=== PATIENT | male | born 1970 | race Caucasian/White ===

== ENCOUNTER 2024-03-04 10:56 | Outpatient (OUT) | payer MEDICARE, SELFPAY ==
[2024-03-04 11:44] LABS: Basophils Absolute Auto 0.1 10^3/uL (0.0-0.1); Basophils Percent Auto 0.9 % (0.2-2.0); Eosinophils Absolute Auto 0.2 10^3/uL (0.0-0.7); Eosinophils Percent Auto 2.4 % (0.9-7.0); Hematocrit 42.3 % (42.0-54.0); Hemoglobin 14.1 g/dL (14.0-18.0); Immature Granulocytes Abs Auto 0.12 10^3/uL (0.00-0.03); Immature Granulocytes Pct Auto 1.3 % (0.0-0.5); Lymphocytes Absolute Auto 2.6 10^3/uL (1.2-3.8); Lymphocytes Percent Auto 28.6 % (20.5-60.0); Mean Corpuscular HGB Conc 33.3 g/dL (29.9-35.2); Mean Corpuscular Hemoglobin 29.8 pg (25.9-34.0); Mean Corpuscular Volume 89.4 fL (80.0-94.0); Mean Platelet Volume 9.6 fL (9.5-13.5); Monocytes Absolute Auto 0.8 10^3/uL (0.3-0.8); Monocytes Percent Auto 8.8 % (1.7-12.0); Neutrophils Absolute Auto 5.3 10^3/uL (1.4-6.5); Platelet Count 419 10^3/uL (150-450); Red Blood Count 4.73 10^6/uL (4.70-6.10); Red Cell Distribution Width 13.6 % (11.0-15.0); White Blood Count 9.1 10^3/uL (4.0-11.0)
[2024-03-04 12:46] LABS: Estimated Average Glucose 131 mg/dL; Glycohemoglobin A1C 6.2 % (4.5-6.2)
[2024-03-04 12:57] LABS: Alanine Aminotransferase 19 U/L (16-63); Albumin Globulin Ratio 0.8; Albumin Level 3.3 g/dL (3.4-5.0); Alkaline Phosphatase 181 U/L (46-116); Anion Gap 13.5; Aspartate Amino Transferase 13 U/L (15-37); Bilirubin Total 0.4 mg/dL (0.2-1.0); Calcium 9.2 mg/dL (8.5-10.1); Carbon Dioxide 24.6 mmol/L (21.0-32.0); Chloride 102 mmol/L (98-107); Chol HDL Ratio 3.3; Cholesterol 159 mg/dL (<=200); Estimated GFR (African America >60 (>=60 mL/min/1.73m^2); Estimated GFR (Non-African Ame >60 (>=60 mL/min/1.73m^2); Free T3 2.62 pg/mL (2.18-3.98); Globulin 4.3 g/dL; Glucose 97 mg/dL (74-106); HDL Cholesterol 48 mg/dL (40-60); LDL Cholesterol Calculated 87.8 mg/dL; Potassium 4.1 mmol/L (3.5-5.1); Sodium 136 mmol/L (136-145); Thyroid Stimulating Hormone 2.348 uIU/mL (0.358-3.740); Total Protein 7.6 g/dL (6.4-8.2); Triglycerides 116 mg/dL (<=150); Uric Acid 6.2 mg/dL (3.5-7.2); VLDL CHOLESTEROL 23.2 mg/dL
[2024-03-04 13:03] LABS: Prostate Specific Antigen Scrn 0.34 ng/mL (<=4.00)
[2024-03-05 10:09] LABS: Insulin 9.7 uIU/mL (2.6-24.9)
== END 2024-03-04 10:57 | disposition home or self-care (01) ==
LOC: LAB 11:02
PROVIDERS: PCP Family Medicine; Visit Provider Family Medicine
DX: F20.9 Schizophrenia, unspecified (principal); I71.21 Aneurysm of the ascending aorta, without rupture; E11.620 Type 2 diabetes mellitus with diabetic dermatitis; F32.9 Major depressive disorder, single episode, unspecified; E78.5 Hyperlipidemia, unspecified; R53.83 Other fatigue; I10 Essential (primary) hypertension; Z12.12 Encounter for screening for malignant neoplasm of rectum; E03.9 Hypothyroidism, unspecified; Z12.5 Encounter for screening for malignant neoplasm of prostate
CPT/HCPCS: 36415; 80053; 80061; 83036; 83525; 84436; 84443; 84481; 84550; 85025; G0103

== ENCOUNTER 2024-05-12 13:07 | Outpatient (OUT) | payer MEDICARE, SELFPAY | END 2024-05-12 13:08 | disposition home or self-care (01) | PROVIDERS: PCP Family Medicine; Visit Provider Family Medicine | DX: M79.605 Pain in left leg (principal); R60.0 Localized edema | CPT/HCPCS: 93971 ==

== ENCOUNTER 2024-05-29 11:00 | Emergency (ER) | payer MEDICARE, SELFPAY ==
[2024-05-29 11:14] VITALS: BP 154/107; PULSE 84; TEMP 36.9; O2SAT 100; BMI 34.6
--- NOTE | 2024-05-29 11:43 | PC.NURSE ---
pt presents with his sister to the ER, pt sister states she caught pt using ICE this morning, pt sister called Dr Starr and he told her to bring pt to ER for detox. Pt states he does not want detox, Pt states he uses ICE once per week and can quit on his own.
--- NOTE | 2024-05-29 12:11 | PC.NURSE ---
pt sister presents to the nurses station stating pt would like to leave, pt sister request information on outpatient detox, [facility] packet given, pt has functional decison making and signs AMA form due to leaving before seeing physician. Pt and pt sister is advised to return should pt want to be seen at anytime. Both pt and pt sister signs AMA form, pt is ambulatory to ER exit with sister at side.
--- NOTE | 2024-05-29 12:12 | ED.MEDCLEAR1 ---
HPI - Medical Clearance General Chief complaint: Medical Clearance Stated complaint: INTOXICATION Time Seen by Provider: 05/29/24 12:12 Source: patient Mode of arrival: walk-in Limitations: no limitations Related Information Allergies Allergy/AdvReac Type Severity Reaction Status Date / Time No Known Drug Allergies Allergy Verified 05/29/24 11:13 PFSH PFSH Social History Little interest or pleasure in doing things: not at all Feeling down, depressed, or hopeless: not at all Exam Constitutional Vital Signs, click to edit/add: Last Vital Signs Temp 98.4 F 05/29/24 11:14 Pulse 84 05/29/24 11:14 Resp 20 05/29/24 11:14 BP 154/107 H 05/29/24 11:14 Pulse Ox 100 05/29/24 11:14 O2 Del Method Room Air 05/29/24 11:14 Course Vital Signs Vital signs: Vital Signs Temperature 98.4 F 05/29/24 11:14 Pulse Rate 84 05/29/24 11:14 Respiratory Rate 20 05/29/24 11:14 Blood Pressure 154/107 H 05/29/24 11:14 Pulse Oximetry 100 05/29/24 11:14 Oxygen Delivery Method Room Air 05/29/24 11:14 Temperature 98.4 F 05/29/24 11:14 Pulse Rate 84 05/29/24 11:14 Respiratory Rate 20 05/29/24 11:14 Blood Pressure 154/107 H 05/29/24 11:14 Pulse Oximetry 100 05/29/24 11:14 Oxygen Delivery Method Room Air 05/29/24 11:14 MDM - Medical Clearance MDM Narrative Medical decision making narrative: I was not able to see or evaluate this patient. I did discuss the triage report with Sabrina MARTÍNEZ. Patient was alert and orient x 3, GCS 15. Patient was not hallucinating, delirious, patient was acting appropriate. There was high ER volume at the time, I was not able to see and evaluate the patient. Patient did not want to be in the ER, did not want medical screening evaluation, wanted to leave the emergency room. In speaking to Sabrina MARTÍNEZ, patient was appropriate to make this decision. Patient had the functional decision-making capacity to sign out AGAINST MEDICAL ADVICE which he did. Patient's sister also signed the paperwork. They are aware of the wait times in the ER secondary to ER volume. Patient did not want to have any testing done, patient wanted to leave. Patient was appropriate. Please see Sabrina MARTÍNEZ note. Sabrina MARTÍNEZ had seen the patient a few times, also she believes that patient was appropriate to leave AGAINST MEDICAL ADVICE. No acute concerns from this patient. Patient had the functional decision made capacity to sign out AGAINST MEDICAL ADVICE. Patient was not under the influence of alcohol or drugs that we are aware of. Discharge Plan Discharge Stand Alone Forms: Portal Instructions Chief Complaint: Medical Clearance Clinical Impression: Left against medical advice Patient Disposition: Left Against Medical Advice Time of Disposition Decision: 12:15 Print Language: Azeri Referrals: Naman Starr MD [Primary Care Provider] - 1 week
== END 2024-05-29 12:18 | disposition left against medical advice (07) ==
PROVIDERS: Emergency Provider Emergency Medicine; PCP Family Medicine
DX: Z02.89 Encounter for other administrative examinations (principal); Z53.29 Procedure and treatment not carried out because of patient's decision for other reasons
CPT/HCPCS: 99282

== ENCOUNTER 2024-09-15 10:18 | Outpatient (OUT) | payer MEDICARE, SELFPAY ==
--- OUTSIDE RECORDS SUMMARY | 2024-09-15 10:24 | XMS_ITS | Clinical Summary ---
Author Organization [facility] Address [address] [facility] [place] [address] Care Team Providers Care Mill Oiler Name Role Phone Unavailable Primary Care Provider Unavailabl e Medications Benztropine 1 MG tablet Take 1 tablet by mouth 2 times daily for 14 days. 28 tablet 4 Active gliMEPIride 2 MG tablet Take 2 tablets by mouth 2 times daily for 14 days. 56 tablet 4 Active Haloperidol 1 MG tablet Take 1 tablet by mouth 2 times daily for 14 days. Also IM injection every 2 weeks. Due 05/17/23 28 tablet 4 Active Lisinopril 20 MG tablet Take 1 tablet by mouth daily for 14 days. 14 tablet 4 Active Social History Tobacco Use Types Packs/Day Years Used Date Smoking Tobacco: Every Day Cigarettes Smokeless Tobacco: Never Tobacco Cessation:Ready to Q uit: Not Asked; Counseling Given: Not Answered Alcohol Use Standard Drinks/Week Comments Not Currently 0 (1 standard drink = 0.6 oz pur e alcohol) Sex and Gender Information Value Date Recorded Sex Assigned at Not on file Legal Sex Male 4:15 PM EST Gender Identity Not on file Sexual Orientation Not on file Last Filed Vital Signs Vital Sign Reading Time Taken Comments Blood Pressure 156/75 05/06/2023 4:25 PM EST Pulse 101 05/06/2023 4:25 PM EST Temperature 36.6 C (97.9 F) 05/06/2023 4:25 PM EST Respiratory Rate 18 05/06/2023 4:25 PM EST Oxygen Saturation 95% 05/06/2023 4:25 PM EST Inhaled Oxygen Concentration - - Weight - - Height 185.4 cm (6' 1 ) 05/06/2023 4:25 PM EST Body Mass Index - - Plan of Treatment Health Maintenance Due Date Last Done Comments HEPATITIS C VIRUS SCREENING 1968 TETANUS 1968 HIV SCREENING DISCUSSION 1983 HEP B VACCINE (1 of 3 - 19+ 3-dose series) 1987 PNEUMOCOCCAL VACCINE SERIES (1 of 2 - PCV) 1987 TDAP (ADULT) 1987 LIPID SCREENING 2008 COLORECTAL CANCER SCREENING DISCUSSION 2013 ZOSTER (SHINGLES) VACCINE (1 of 2) 2018 PROSTATE CANCER SCREENING DISCUSSION 2023 COVID-19 VACCINE ( - season) 2023 INFLUENZA VACCINE (#1) 2024
--- OUTSIDE RECORDS SUMMARY | 2024-09-15 10:24 | XMS_ITS | Referral Summary ---
Author Organization [facility] Address [address] [place] [address] Care Team Providers Care Seismometer Operator Name Role Phone Unavailable Primary Care Provider Unavailabl e Social History Tobacco Use Types Packs/Day Years Used Date Smoking Tobacco: Never Assessed Sex and Gender Information Value Date Recorded Sex Assigned at Not on file Legal Sex Male 12:15 AM EDT Gender Identity Not on file Sexual Orientation Not on file Plan of Treatment Not on file
[2024-09-15 11:19] LABS: Alanine Aminotransferase 17 U/L (16-63); Albumin Globulin Ratio 0.9; Albumin Level 3.8 g/dL (3.4-5.0); Alkaline Phosphatase 244 U/L (46-116); Anion Gap 14.6; Aspartate Amino Transferase 15 U/L (15-37); Blood Urea Nitrogen 9.0 mg/dL (7.0-18.0); Calcium 9.4 mg/dL (8.5-10.1); Carbon Dioxide 24.5 mmol/L (21.0-32.0); Chloride 102 mmol/L (98-107); Estimated GFR (African America >60 (>=60 mL/min/1.73m^2); Estimated GFR (Non-African Ame >60 (>=60 mL/min/1.73m^2); Globulin 4.1 g/dL; Glucose 140 mg/dL (74-106); Potassium 4.1 mmol/L (3.5-5.1); Sodium 137 mmol/L (136-145); Total Protein 7.9 g/dL (6.4-8.2)
[2024-09-15 11:37] LABS: Total Protein Urine Random <6.0 mg/dL (<=11.9)
== END 2024-09-15 10:19 | disposition home or self-care (01) ==
PROVIDERS: PCP Family Medicine; Visit Provider Family Medicine
DX: F15.20 Other stimulant dependence, uncomplicated (principal); R73.09 Other abnormal glucose
CPT/HCPCS: 36415; 80053; 83036; 84156

== ENCOUNTER 2024-12-01 11:22 | Outpatient (OUT) | payer MEDICAID, SELFPAY ==
--- NOTE | 2024-12-01 11:26 | XR_ITS ---
The [address] [address] Patient Name: KUSUM KONG MRN: [id number] date: 1970 Sex: M Assigned Patient Location: [facility] Current Patient Location: [facility] Accession/Order Number: [id number] Exam Date: 12/01/2024 11:31 Report Date: 12/01/2024 11:55 At the request of: SWEETIE NUÑEZ MD Procedure: XR cervical spine 2-3V CERVICAL SPINE - 3 views: CLINICAL HISTORY: Chronic neck pain M54.12 COMPARISON: None AP, lateral and odontoid views were obtained. There is no acute compression fracture. There is slight retrolisthesis of C5 with respect to adjacent vertebra. This is disc space narrowing at C5-6 with endplate spurring. There is additional minor endplate spurring and bilateral facet hypertrophy. The atlantoaxial relationship is maintained. There is no prevertebral soft tissue swelling. Hemostasis clips are present at the neck on the right. XR/XR cervical spine 2-3V IMPRESSION: DEGENERATIVE CHANGES, PREDOMINANTLY AT C5-6. Impression dictated by: Dulce Maria Robledo M.D. 12/01/2024 11:55 AM Dictation [facility] Electronically authenticated by: [id number] Date: 12/01/2024 11:55
--- OUTSIDE RECORDS SUMMARY | 2024-12-01 12:14 | XMS_ITS | CCD ---
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 in Unspecified body regionOrdered By: Santos Roman on 05-05-2024 [facility]: PAT Call Historyon Deicer Tester Authentication Interface Message Text Normal The [email or web address] [facility] Patient Instructionson 04-27 Deicer Tester Authentication Interface Message Text We will see you for surgery to remove the external fixator pins on Saturday, 05/05. We will call you to confirm this. You were prescribed an antibiotic. Please take this twice daily as directed. Normal [facility] [email or web address] [facility] Progress Noteson 04-27-2024 Deicer Tester Authentication Interface Message Text Normal [facility] [email or web address] [facility] Deicer Tester Authentication Interface Message Text Patient at risk for falls:No Falls Risk protocol implemented: No Normal The [email or web address] [facility] Deicer Tester Authentication Interface Message Text Applied Kerlix to pin sit; [place] splint; LLE. Normal [facility] [email or web address] [facility] Deicer Tester Authentication Interface Message Text Normal [facility] [email or web address] [facility] XR ANKLE LEFT 3 VIEWSon 04-18 XR ANKLE LEFT 3 VIEWS Normal [facility] [email or web address] [facility] XR Ankle - left 3 Viewson EXAMINATION: XR ANKLE LEFT 3 VIEWSPRO/LT 04/27/2024 10:28 AM CLINICAL HISTORY: Ankle Pain ASSOCIATED DIAGNOSIS: Closed fracture of both ankles with routine healing, subsequent encounter Closed fracture of both ankles with routine healing, subsequent encounter ORDERING PROVIDER: JOHN SANTANA TECHNOLOGISTS NOTE: COMPARISON: XR ANKLE LEFT 3 VIEWS 02/12/2024, 1:[address] ANKLE/FOOT LEFT W/O CONTRAST 01/14/2024, 4:40 PM IMPRESSION: There is an external fixation device in place. Postsurgical changes from ORIF of the comminuted distal fibular fracture with a plate, multiple screws including 2 syndesmotic screws. The alignment has markedly improved in the interval with near anatomic alignment. The hardware appears intact. There is progressive bridging callus formation at the fracture site, consistent with progressive healing changes. Syndesmotic button/tight rope is overlying the medial malleolus, unchanged. Chronic avulsion fracture fragment along the inferior tip of the medial malleolus. Surgical petrona are overlying the soft tissue of the ankle/foot. Left ankle MACRO: None RADIOLOGY Madelaine Mendez MD - 04/27/2024 EXAMINATION: XR ANKLE LEFT 3 VIEWSPRO/LT 04/27/2024 10:28 AM CLINICAL HISTORY: Ankle Pain ASSOCIATED DIAGNOSIS: Closed fracture of both ankles with routine healing, subsequent encounter Closed fracture of both ankles with routine healing, subsequent encounter ORDERING PROVIDER: JOHN SANTANA TECHNOLOGISTS NOTE: COMPARISON: XR ANKLE LEFT 3 VIEWS 02/12/2024, 1:[address] ANKLE/FOOT LEFT W/O CONTRAST 01/14/2024, 4:40 PM IMPRESSION: There is an external fixation device in place. Postsurgical changes from ORIF of the comminuted distal fibular fracture with a plate, multiple screws including 2 syndesmotic screws. The alignment has markedly improved in the interval with near anatomic alignment. The hardware appears intact. There is progressive bridging callus formation at the fracture site, consistent with progressive healing changes. Syndesmotic button/tight rope is overlying the medial malleolus, unchanged. Chronic avulsion fracture fragment along the inferior tip of the medial malleolus. Surgical petrona are overlying the soft tissue of the ankle/foot. Left ankle MACRO: None [facility] Radiology Study observation (narrative) [facility] XR Ankle - left 3 ViewsOrder ed By: Madelaine Mendez on 04-27-2024 [email or web address] Work Phone: Telephone Encounteron 2024 Deicer Tester Authentication Interface Message Text Normal [facility] [email or web address] [facility] Patient Instructionson 03-09 Deicer Tester Authentication Interface Message Text - You have ankle fractures on both the right and left side. - DO NOT place weight on either leg yet. - Continue wearing your [place] splints. - Follow up in 6 weeks. Normal [facility] Progress Noteson 03-09-2024 Deicer Tester Authentication Interface Message Text Patient was identified by name and date of . Fit and applied [place] splint to right lower extremity. Patient instructed on how to apply [place] splint and to remain non weight bearing. Normal [facility] Deicer Tester Authentication Interface Message Text Normal [facility] Deicer Tester Authentication Interface Message Text Normal [facility] Telephone Encounteron 2023 Deicer Tester Authentication Interface Message Text Normal [facility] Telephone Encounteron 2023 Deicer Tester Authentication Interface Message Text Normal [facility] Progress Noteson 02-26-2024 Deicer Tester Authentication Interface Message Text Normal [facility] Deicer Tester Authentication Interface Message Text Normal [facility] Consultson 02-25-2024 Deicer Tester Authentication Interface Message Text Normal [facility] Deicer Tester Authentication Interface Message Text Normal [facility] Deicer Tester Authentication Interface Message Text Normal [facility] GLUCOSE, FINGERSTICK-IN OFFI CEon 02-25-2024 Glucose [Mass/Vol] 158 mg/dL High 74 - 109 mg/dL [facility] Interpretation and review of laboratory results Abnormal [facility] Glucose [Mass/Vol] 158 mg/dL High 74-109 [facility] Comment on above: Performed By: #### 8 5669 ####NURSING GLUCOSE [id number] [place], [address] Glucose [Mass/Vol] 187 mg/dL High 74 - 109 mg/dL [facility] Comment on above: Notified TANYA WEST MD Glucose [Mass/Vol] 187 mg/dL High 74-109 [facility] Comment on above: Result Comment: Priscilla lujan RN, APN, MD Performed By: #### 8 7200 ####NURSING GLUCOSE [id number] [place], [address] Glucose [Mass/Vol] 214 mg/dL High 74-109 [facility] Comment on above: Notified TANYA WEST MD Result Comment: Priscilla lujan RN, APN, MD Performed By: #### 8 9797 ####NURSING GLUCOSE [id number] [place], [address] Glucose [Mass/Vol] 136 mg/dL High 74 - 109 mg/dL [facility] Comment on above: Notified TANYA WEST MD Interpretation and review of laboratory results Abnormal [facility] Glucose [Mass/Vol] 136 mg/dL High 74-109 [facility] Comment on above: Result Comment: Priscilla lujan RN, APN, MD Performed By: #### 8 2948 ####NURSING GLUCOSE [id number] [place], [address] No Panel Informationon 02-24 Interpretation and review of laboratory results Abnormal [facility] Progress Noteson 02-25-2024 Deicer Tester Authentication Interface Message Text Normal [facility] Deicer Tester Authentication Interface Message Text Normal [facility] TISSUE CULTURE, AEROBICon Bacteria identified Cx Nom (Tiss) No Growth [facility] Microscopic observation Gram stain Nom (Unsp spec) No Polymorphonuclear Leukocytes seen [facility] Microscopic observation Gram stain Nom (Unsp spec) 1+ Squamous Epithelial Cells [facility] Microscopic observation Gram stain Nom (Unsp spec) No organisms seen [facility] Bacteria identified Cx Nom (Tiss) No Growth [facility] Microscopic observation Gram stain Nom (Unsp spec) No Polymorphonuclear Leukocytes seen [facility] Microscopic observation Gram stain Nom (Unsp spec) 1+ Squamous Epithelial Cells [facility] Microscopic observation Gram stain Nom (Unsp spec) No organisms seen [facility] TISSUE CULTURE, AEROBICOrder ed By: Nichole Lee on 02-25-2024 Bacteria identified Cx Nom (Tiss) No Growth [facility] Microscopic observation Gram stain Nom (Unsp spec) No Polymorphonuclear Leukocytes seen [facility] Microscopic observation Gram stain Nom (Unsp spec) 1+ Squamous Epithelial Cells [facility] Microscopic observation Gram stain Nom (Unsp spec) No organisms seen [facility] GLUCOSE, FINGERSTICK-IN OFFI CEon 02-24-2024 Glucose [Mass/Vol] 146 mg/dL High 74 - 109 mg/dL [facility] Interpretation and review of laboratory results Abnormal [facility] Glucose [Mass/Vol] 146 mg/dL High 74-109 [facility] Comment on above: Performed By: #### 8 2948 ####NURSING GLUCOSE [id number] [place], [address] Glucose [Mass/Vol] 174 mg/dL High 74 - 109 mg/dL [facility] Comment on above: Notified TANYA WEST MD Interpretation and review of laboratory results Abnormal [facility] Glucose [Mass/Vol] 174 mg/dL High 74-109 [facility] Comment on above: Result Comment: Priscilla lujan RN, APN, MD Performed By: #### 8 2948 ####NURSING GLUCOSE [id number] [place], [address] Glucose [Mass/Vol] 132 mg/dL High 74 - 109 mg/dL [facility] Comment on above: Notified TANYA WEST MD Interpretation and review of laboratory results Abnormal [facility] Glucose [Mass/Vol] 132 mg/dL High 74-109 [facility] Comment on above: Result Comment: Priscilla lujan RN, APN, MD Performed By: #### 8 1888 ####NURSING GLUCOSE [id number] [place], [address] Glucose [Mass/Vol] 157 mg/dL High 74 - 109 mg/dL [facility] Comment on above: Follow Protocol Notified TANYA WEST MD Interpretation and review of laboratory results Abnormal [facility] Glucose [Mass/Vol] 157 mg/dL High 74-109 [facility] Comment on above: Result Comment: Foll ow ProtocolNotified TANYA WEST MD Performed By: #### 8 0618 ####NURSING GLUCOSE [id number] [place], [address] Progress Noteson 02-24-2024 Deicer Tester Authentication Interface Message Text Normal [facility] Deicer Tester Authentication Interface Message Text Normal [facility] GLUCOSE, FINGERSTICK-IN OFFI CEon 02-23-2024 Glucose [Mass/Vol] 136 mg/dL High 74 - 109 mg/dL [facility] Interpretation and review of laboratory results Abnormal [facility] Glucose [Mass/Vol] 136 mg/dL High 74-109 [facility] Comment on above: Performed By: #### 8 2368 ####NURSING GLUCOSE [id number] [place], [address] Glucose [Mass/Vol] 132 mg/dL High 74 - 109 mg/dL [facility] Comment on above: Notified TANYA WEST MD Interpretation and review of laboratory results Abnormal [facility] Glucose [Mass/Vol] 132 mg/dL High 74-109 [facility] Comment on above: Result Comment: Priscilla lujan RN, APN, MD Performed By: #### 8 6888 ####NURSING GLUCOSE [id number] [place], [address] Glucose [Mass/Vol] 147 mg/dL High 74 - 109 mg/dL [facility] Interpretation and review of laboratory results Abnormal [facility] Glucose [Mass/Vol] 147 mg/dL High 74-109 [facility] Comment on above: Performed By: #### 8 2948 ####NURSING GLUCOSE [id number] [place], [address] Glucose [Mass/Vol] 118 mg/dL High 74 - 109 mg/dL [facility] Interpretation and review of laboratory results Abnormal [facility] Glucose [Mass/Vol] 118 mg/dL High 74-109 [facility] Comment on above: Performed By: #### 8 2948 ####NURSING GLUCOSE [id number] [place], [address] Progress Noteson 02-23-2024 Deicer Tester Authentication Interface Message Text Normal [facility] BASIC METABOLIC PANELon 12-0 Anion gap [Moles/Vol] 12 mmol/L Normal 10-20 [facility] Comment on above: Performed By: #### C H8 ####[facility] PATHOLOGY [id number] [place], Calcium [Mass/Vol] 9.1 mg/dL Normal 8.6-10.3 [facility] Comment on above: Performed By: #### C H8 ####[facility] PATHOLOGY [id number] [place], [place], Chloride [Moles/Vol] 101 mmol/L Normal 98-107 [facility] Comment on above: Performed By: #### C H8 ####[facility] PATHOLOGY [id number] [place], CO2 [Moles/Vol] 25 mmol/L Normal 21-31 [facility] Comment on above: Performed By: #### C H8 ####[facility] PATHOLOGY [id number] [place], Creatinine [Mass/Vol] 0.83 mg/dL Normal 0.70-1.30 [facility] Comment on above: Performed By: #### C H8 ####S PATHOLOGY [id number] [place], ESTIMATED GFR (CKD-EPI) 103 mL/min/1.73sqm Normal >=60 [facility] Comment on above: Result Comment: 2020 CKD EPI Equation using Creatinine without RaceComment: Estimated glomerular filtration rate (eGFR) is calculated without a race coefficient. Values should be interpreted in the context of the patient's full clinical presentation.Reference:1. Rudy C, Katie M, Tea GALVEZ, et al.. A Unifying Approach for GFR Estimation: Recommendations of the NKF-ASN Task Force on Reassessing the Inclusion of Race in Diagnosing Kidney Disease. French Journal of Kidney Diseases 2021;79(2):268-88.e1.2. N Engl J Med 2020 Vol. 385 Issue 19 Pages 5105-8403 Performed By: #### C H8 ####[facility] PATHOLOGY [id number] [place], [place], Glucose [Mass/Vol] 103 mg/dL Normal 74-109 [facility] Comment on above: Performed By: #### C H8 ####S PATHOLOGY [id number] [place], [place], Potassium [Moles/Vol] 4.3 mmol/L Normal 3.5-5.0 [facility] Comment on above: Performed By: #### C H8 ####S PATHOLOGY [id number] [place], Sodium [Moles/Vol] 134 mmol/L Low 136-145 [facility] Comment on above: Performed By: #### C H8 ####S PATHOLOGY [id number] [place], Urea nitrogen [Mass/Vol] 18 mg/dL Normal 7-25 [facility] Comment on above: Performed By: #### C H8 ####S PATHOLOGY [id number] [place], [place], Basic metabolic 2000 panelon 02-22-2024 Anion gap [Moles/Vol] 12 mmol/L 10 - 20 [facility] Calcium [Mass/Vol] 9.1 mg/dL 8.6 - 10. 3 mg/dL [facility] Chloride [Moles/Vol] 101 mmol/L 98 - 10 7 mmol/L [facility] CO2 [Moles/Vol] 25 mmol/L 21 - 31 mmol/L [facility] Creatinine [Mass/Vol] 0.83 mg/dL 0.70 - 1.30 mg/dL [facility] GFR/1.73 sq M.predicted CKD-EPI (S/P/Bld) [Vol rate/Area] 103 - PINF [facility] Comment on above: 2020 CKD EPI Equatio n using Creatinine without Race Comment: Estimated glomerular filtration rate (eGFR) is calculated without a race coefficient. Values should be interpreted in the context of the patient's full clinical presentation. Reference: 1. Rudy C, Katie M, Tea DC, et al.. A Unifying Approach for GFR Estimation: Recommendations of the NKF-ASN Task Force on Reassessing the Inclusion of Race in Diagnosing Kidney Disease. French Journal of Kidney Diseases 2021;79(2):268-88.e1. 2. N Engl J Med 1 Vol. 385 Issue 19 Pages 8166-6307 Glucose [Mass/Vol] 103 mg/dL 74 - 109 mg/dL [facility] Interpretation and review of laboratory results Abnormal [facility] Potassium [Moles/Vol] 4.3 mmol/L 3.5 - 5.0 mmol/L [facility] Sodium [Moles/Vol] 134 mmol/L Low 136 - 145 mmol/L [facility] Urea nitrogen [Mass/Vol] 18 mg/dL 7 - 25 mg/dL [facility] CBC panel Auto (Bld)on 02-21 Erythrocyte distribution width (RBC) [Ratio] 13.9 % 11.5 - 14.5 % [facility] Hematocrit (Bld) [Volume fraction] 37.7 % Low 41.0 - 53.0 % [facility] Hemoglobin (Bld) [Mass/Vol] 12.6 g/dL Low 13.9 - 16.3 g/dL [facility] Interpretation and review of laboratory results Abnormal [facility] MCH (RBC) [Entitic mass] 30.3 pg 26.0 - 34.0 pg [facility] MCHC (RBC) [Mass/Vol] 33.5 g/dL 32.0 - 35.9 g/dL [facility] MCV (RBC) [Entitic vol] 91 fL 80 - 100 fL [facility] Platelet mean volume (Bld) [Entitic vol] 8.2 fL 7.5 - 11.2 fL [facility] Platelets (Bld) [#/Vol] 273 10*3/uL 150 - 400 K/uL [facility] RBC (Bld) [#/Vol] 4.15 10*6/uL Low [facility] WBC (Bld) [#/Vol] 10.7 10*3/uL 4.5 - 11.5 K/uL [facility] COMPLETE BLOOD COUNTon 02-21 Erythrocyte distribution width (RBC) [Ratio] 13.9 % Normal 11.5-14.5 [facility] Comment on above: Performed By: #### C BC ####[facility] PATHOLOGY [id number] [place], Hematocrit (Bld) [Volume fraction] 37.7 % Low 41.0-53.0 [facility] Comment on above: Performed By: #### C BC ####[facility] PATHOLOGY [id number] [place] [address], Hemoglobin (Bld) [Mass/Vol] 12.6 g/dL Low 13.9-16.3 [facility] Comment on above: Performed By: #### C BC ####[facility] PATHOLOGY [id number] [place], MCH (RBC) [Entitic mass] 30.3 pg Normal 26.0-34.0 [facility] Comment on above: Performed By: #### C BC ####S PATHOLOGY [id number] [place], MCHC (RBC) [Mass/Vol] 33.5 g/dL Normal 32.0-35.9 [facility] Comment on above: Performed By: #### C BC ####S PATHOLOGY [id number] [place], MCV (RBC) [Entitic vol] 91 fL Normal 80-100 T [facility] Comment on above: Performed By: #### C BC ####S PATHOLOGY [id number] [place], Platelet mean volume (Bld) [Entitic vol] 8.2 fL Normal 7.5-11.2 [facility] Comment on above: Performed By: #### C BC ####S PATHOLOGY [id number] [place], Platelets (Bld) [#/Vol] 273 10*3/uL Normal 150-400 [facility] Comment on above: Performed By: #### C BC ####[facility] PATHOLOGY [id number] [place], RBC (Bld) [#/Vol] 4.15 10*6/uL Low 4.50-5.90 [facility] Comment on above: Performed By: #### C BC ####[facility] PATHOLOGY [id number] [place], WBC (Bld) [#/Vol] 10.7 10*3/uL Normal 4.5-11.5 [facility] Comment on above: Performed By: #### C BC ####[facility] PATHOLOGY [id number] [place], [place], Consultson 02-22-2024 Deicer Tester Authentication Interface Message Text Normal [facility] Deicer Tester Authentication Interface Message Text Normal [facility] GLUCOSE, FINGERSTICK-IN OFFI CEon 02-22-2024 Glucose [Mass/Vol] 130 mg/dL High 74 - 109 mg/dL [facility] Interpretation and review of laboratory results Abnormal [facility] Glucose [Mass/Vol] 130 mg/dL High 74-109 [facility] Comment on above: Performed By: #### 8 2948 ####NURSING GLUCOSE [id number] [place], Glucose [Mass/Vol] 114 mg/dL High 74 - 109 mg/dL [facility] Interpretation and review of laboratory results Abnormal [facility] Glucose [Mass/Vol] 114 mg/dL High 74-109 [facility] Comment on above: Performed By: #### 8 2948 ####NURSING GLUCOSE [id number] [place], [address] Glucose [Mass/Vol] 153 mg/dL High 74 - 109 mg/dL [facility] Comment on above: Notified TANYA WEST MD Interpretation and review of laboratory results Abnormal [facility] Glucose [Mass/Vol] 153 mg/dL High 74-109 [facility] Comment on above: Result Comment: Priscilla lujan RN, APN, MD Performed By: #### 8 2948 ####NURSING GLUCOSE [id number] [place], [address] Glucose [Mass/Vol] 107 mg/dL 74 - 109 mg/dL [facility] Comment on above: Notified TANYA WEST MD Interpretation and review of laboratory results Normal [facility] Glucose [Mass/Vol] 107 mg/dL Normal 74-109 [facility] Comment on above: Result Comment: Priscilla lujan RN, APN, MD Performed By: #### 8 2948 ####NURSING GLUCOSE [id number] [place], [address] Progress Noteson 02-22-2024 Deicer Tester Authentication Interface Message Text Normal [facility] Consultson 02-21-2024 Deicer Tester Authentication Interface Message Text Normal [facility] Deicer Tester Authentication Interface Message Text Normal [facility] GLUCOSE, FINGERSTICK-IN OFFI CEon 02-21-2024 Glucose [Mass/Vol] 158 mg/dL High 74 - 109 mg/dL [facility] Comment on above: Notified TANYA WEST MD Interpretation and review of laboratory results Abnormal [facility] Glucose [Mass/Vol] 158 mg/dL High 74-109 [facility] Comment on above: Result Comment: Priscilla lujan RN, APN, MD Performed By: #### 8 2948 ####NURSING GLUCOSE [id number] [place], [address] Glucose [Mass/Vol] 119 mg/dL High 74 - 109 mg/dL [facility] Comment on above: Notified TANYA WEST MD Interpretation and review of laboratory results Abnormal [facility] Glucose [Mass/Vol] 119 mg/dL High 74-109 [facility] Comment on above: Result Comment: Priscilla lujan RN, APN, MD Performed By: #### 8 2948 ####NURSING GLUCOSE [id number] [place], [address] Glucose [Mass/Vol] 154 mg/dL High 74 - 109 mg/dL [facility] Interpretation and review of laboratory results Abnormal [facility] Glucose [Mass/Vol] 154 mg/dL High 74-109 [facility] Comment on above: Performed By: #### 8 2948 ####NURSING GLUCOSE [id number] [place], [address] Glucose [Mass/Vol] 211 mg/dL High 74 - 109 mg/dL [facility] Comment on above: Notified TANYA WEST MD Interpretation and review of laboratory results Abnormal [facility] Glucose [Mass/Vol] 211 mg/dL High 74-109 [facility] Comment on above: Result Comment: Priscilla fied TANYA WEST MD Performed By: #### 8 2948 ####NURSING GLUCOSE [id number] [place], [address] Progress Noteson 02-21-2024 Deicer Tester Authentication Interface Message Text Normal [facility] ANAEROBIC CULTURE, MISCon ANAEROBIC CULTURE, MISC C ANRBC: No Anaerobes isolated Normal [facility] Comment on above: Performed By: #### C ANRBC ####[facility] H[address]du[address]zys[address] [place], [place] ANAEROBIC CULTURE, MISC C ANRBC: No Anaerobes isolated Normal [facility] Comment on above: Performed By: #### C ANRBC ####[facility] Qooscljja4810 [place], [place] Anesthesia Postprocedure Josselin luationon 02-20-2024 Deicer Tester Authentication Interface Message Text Normal [facility] Anesthesia Preprocedure Eval uationon 02-20-2024 Deicer Tester Authentication Interface Message Text Normal [facility] Anesthesia Transfer Of Careo n 02-20-2024 Deicer Tester Authentication Interface Message Text Normal [facility] Blood Attestationon 02-20-20 Deicer Tester Authentication Interface Message Text Normal [facility] GLUCOSE, FINGERSTICK-IN OFFI CEon 02-20-2024 Glucose [Mass/Vol] 254 mg/dL High 74 - 109 mg/dL [facility] Comment on above: Notified TANYA WEST MD Interpretation and review of laboratory results Abnormal [facility] Glucose [Mass/Vol] 254 mg/dL High 74-109 [facility] Comment on above: Result Comment: Priscilla lujan RN, APN, MD Performed By: #### 8 2948 ####NURSING GLUCOSE [id number] [place], [address] Glucose [Mass/Vol] 188 mg/dL High 74 - 109 mg/dL [facility] Comment on above: Notified TANYA WEST MD Interpretation and review of laboratory results Abnormal [facility] Glucose [Mass/Vol] 188 mg/dL High 74-109 [facility] Comment on above: Result Comment: Priscilla lujan RN, APN, MD Performed By: #### 8 2948 ####NURSING GLUCOSE [id number] [place], [address] Glucose [Mass/Vol] 170 mg/dL High 74 - 109 mg/dL [facility] Comment on above: Notified TANYA WEST MD Interpretation and review of laboratory results Abnormal [facility] Glucose [Mass/Vol] 170 mg/dL High 74-109 [facility] Comment on above: Result Comment: Priscilla lujan RN, APN, MD Performed By: #### 8 2948 ####NURSING GLUCOSE [id number] [place], [address] Glucose [Mass/Vol] 167 mg/dL High 74 - 109 mg/dL [facility] Interpretation and review of laboratory results Abnormal [facility] Glucose [Mass/Vol] 167 mg/dL High 74-109 [facility] Comment on above: Performed By: #### 8 2948 ####NURSING GLUCOSE [id number] [place], [address] H AND Cleve 02-20-2024 Deicer Tester Authentication Interface Message Text Normal [facility] Deicer Tester Authentication Interface Message Text Normal [facility] OP Noteon 02-20-2024 Deicer Tester Authentication Interface Message Text Normal [facility] TISSUE CULTURE, AEROBICon TISSUE CULTURE, AEROBIC C TISS: No Growth GRAM STAIN: No Polymorphonuclear Leukocytes seen 1+ Squamous Epithelial Cells No organisms seen Normal [facility] Comment on above: Performed By: #### C TISS ####[facility] [address] [place], [place] TISSUE CULTURE, AEROBIC C TISS: No Growth GRAM STAIN: No Polymorphonuclear Leukocytes seen 1+ Squamous Epithelial Cells No organisms seen Normal [email or web address] Comment on above: Performed By: #### C TISS ####[facility] [address] [place], [place] PAT Call Historyon Deicer Tester Authentication Interface Message Text Called patient multiple times, no answer/no voicemail set up, PAT not completed at this time Normal [email or web address] Telephone Encounteron 2023 Deicer Tester Authentication Interface Message Text Called patient to make aware of arrival time of 1045 for scheduled surgery on 02/19 at [facility]. Also made aware to have phone nearby for scheduled phone PAT today. Normal [email or web address] XR ANKLE LEFT 3 VIEWSon 01-17 XR ANKLE LEFT 3 VIEWS Normal [email or web address] XR ANKLE RIGHT 3 VIEWSon XR ANKLE RIGHT 3 VIEWS Normal Th e [email or web address] Patient Instructionson 02-11 Deicer Tester Authentication Interface Message Text Normal [email or web address] Progress Noteson 02-12-2024 Deicer Tester Authentication Interface Message Text Normal [email or web address] Deicer Tester Authentication Interface Message Text Normal [email or web address] Deicer Tester Authentication Interface Message Text Normal [email or web address] Deicer Tester Authentication Interface Message Text Patient was identified by name and date of . Bilat short leg splints removed without incident. Both splints were dirty and worn down. The right short leg splint was missing the foot portion. Sent patient to X-rays. Normal [email or web address] Progress Noteson 02-05-2024 Deicer Tester Authentication Interface Message Text Normal [email or web address] Telephone Encounteron 2023 Deicer Tester Authentication Interface Message Text Normal [email or web address] ANTI FXA-LMW HEPARINon 01-29 LMW Heparin Chromogenic method Qn (PPP) 0.32 IU/mL [facility] ANTI FXA-LMW HEPARIN ASSAY 0.32 IU/mL Normal [email or web address] Comment on above: Order Comment: The r ecommended therapeutic range for treatment of thrombosis with Low Molecular Weight Heparin is 0.5 - 1.0 IU/mLThe recommended range for VTE prophylaxis with Low Molecular Weight Heparin is 0.2 - 0.4 IU/mL. Performed By: #### A XL ####[facility] [id number] [place], [place], BASIC METABOLIC PANELon 11-1 Anion gap [Moles/Vol] 13 mmol/L Normal 10-20 [facility] Comment on above: Performed By: #### C H8 ####S PATHOLOGY [id number] [place], Calcium [Mass/Vol] 9.0 mg/dL Normal 8.6-10.3 [facility] Comment on above: Performed By: #### C H8 ####[facility] PATHOLOGY [id number] [place], Chloride [Moles/Vol] 99 mmol/L Normal 98-107 [facility] Comment on above: Performed By: #### C H8 ####[facility] PATHOLOGY [id number] [place], CO2 [Moles/Vol] 27 mmol/L Normal 21-31 [facility] Comment on above: Performed By: #### C H8 ####S PATHOLOGY [id number] [place], Creatinine [Mass/Vol] 0.79 mg/dL Normal 0.70-1.30 [facility] Comment on above: Performed By: #### C H8 ####S PATHOLOGY [id number] [place], ESTIMATED GFR (CKD-EPI) 105 mL/min/1.73sqm Normal >=60 [facility] Comment on above: Result Comment: 2020 CKD EPI Equation using Creatinine without RaceComment: Estimated glomerular filtration rate (eGFR) is calculated without a race coefficient. Values should be interpreted in the context of the patient's full clinical presentation.Reference:1. Rudy C, Katie M, Tea DC, et al.. A Unifying Approach for GFR Estimation: Recommendations of the NKF-ASN Task Force on Reassessing the Inclusion of Race in Diagnosing Kidney Disease. French Journal of Kidney Diseases 2021;79(2):268-88.e1.2. N Engl J Med 1 Vol. 385 Issue 19 Pages 2505-1807 Performed By: #### C H8 ####[facility] PATHOLOGY [id number] [place], Glucose [Mass/Vol] 108 mg/dL Normal 74-109 [facility] Comment on above: Performed By: #### C H8 ####S PATHOLOGY ZRZAIZGNAK8129 [place], Potassium [Moles/Vol] 4.9 mmol/L Normal 3.5-5.0 [facility] Comment on above: Performed By: #### C H8 ####[facility] PATHOLOGY [id number] [place], Sodium [Moles/Vol] 134 mmol/L Low 136-145 [facility] Comment on above: Performed By: #### C H8 ####[facility] PATHOLOGY [id number] [place], Urea nitrogen [Mass/Vol] 19 mg/dL Normal 7-25 [facility] Comment on above: Performed By: #### C H8 ####[facility] PATHOLOGY [id number] [place], [place], Basic metabolic 2000 panelon 01-30-2024 Anion gap [Moles/Vol] 13 mmol/L 10 - 20 Met [facility] Calcium [Mass/Vol] 9 mg/dL 8.6 - 10. 3 mg/dL [facility] Chloride [Moles/Vol] 99 mmol/L 98 - 10 7 mmol/L [facility] CO2 [Moles/Vol] 27 mmol/L 21 - 31 mmol/L [facility] Creatinine [Mass/Vol] 0.79 mg/dL 0.70 - 1.30 mg/dL [facility] GFR/1.73 sq M.predicted CKD-EPI (S/P/Bld) [Vol rate/Area] 105 - PINF [facility] Glucose [Mass/Vol] 108 mg/dL 74 - 109 mg/dL [facility] Interpretation and review of laboratory results Abnormal [facility] Potassium [Moles/Vol] 4.9 mmol/L 3.5 - 5.0 mmol/L [facility] Sodium [Moles/Vol] 134 mmol/L Low 136 - 145 mmol/L [facility] Urea nitrogen [Mass/Vol] 19 mg/dL 7 - 25 mg/dL [facility] CBC panel Auto (Bld)on 01-29 Erythrocyte distribution width (RBC) [Ratio] 13.6 % 11.5 - 14.5 % [facility] Hematocrit (Bld) [Volume fraction] 34 % Low 41.0 - 53.0 % [facility] Hemoglobin (Bld) [Mass/Vol] 11.5 g/dL Low 13.9 - 16.3 g/dL [facility] Interpretation and review of laboratory results Abnormal [facility] MCH (RBC) [Entitic mass] 30.9 pg 26.0 - 34.0 pg [facility] MCHC (RBC) [Mass/Vol] 33.9 g/dL 32.0 - 35.9 g/dL [facility] MCV (RBC) [Entitic vol] 91 fL 80 - 100 fL [facility] Platelet mean volume (Bld) [Entitic vol] 8.7 fL 7.5 - 11.2 fL [facility] Platelets (Bld) [#/Vol] 623 10*3/uL High 150 - 400 K/uL [facility] RBC (Bld) [#/Vol] 3.72 10*6/uL Low [facility] WBC (Bld) [#/Vol] 9 10*3/uL 4.5 - 11.5 K/uL [facility] COMPLETE BLOOD COUNTon 01-29 Erythrocyte distribution width (RBC) [Ratio] 13.6 % Normal 11.5-14.5 [facility] Comment on above: Performed By: #### C BC ####S PATHOLOGY [id number] [place], Hematocrit (Bld) [Volume fraction] 34.0 % Low 41.0-53.0 [facility] Comment on above: Performed By: #### C BC ####[facility] PATHOLOG[facility] [id number] [place], Hemoglobin (Bld) [Mass/Vol] 11.5 g/dL Low 13.9-16.3 [facility] Comment on above: Performed By: #### C BC ####[facility] PATHOLOGY [id number] [place], MCH (RBC) [Entitic mass] 30.9 pg Normal 26.0-34.0 [facility] Comment on above: Performed By: #### C BC ####S PATHOLOGY [id number] [place], MCHC (RBC) [Mass/Vol] 33.9 g/dL Normal 32.0-35.9 [facility] Comment on above: Performed By: #### C BC ####S PATHOLOGY [id number] [place], MCV (RBC) [Entitic vol] 91 fL Normal 80-100 T he [facility] Comment on above: Performed By: #### C BC ####S PATHOLOGY [id number] [place], Platelet mean volume (Bld) [Entitic vol] 8.7 fL Normal 7.5-11.2 [facility] Comment on above: Performed By: #### C BC ####S PATHOLOGY [id number] [place], Platelets (Bld) [#/Vol] 623 10*3/uL High 150-400 [facility] Comment on above: Performed By: #### C BC ####S PATHOLOGY [id number] [place], RBC (Bld) [#/Vol] 3.72 10*6/uL Low 4.50-5.90 [facility] Comment on above: Performed By: #### C BC ####S PATHOLOGY [id number] [place], WBC (Bld) [#/Vol] 9.0 10*3/uL Normal 4.5-11.5 [facility] Comment on above: Performed By: #### C BC ####[facility] PATHOLOGY [id number] [place], [place], Consultson 01-30-2024 Deicer Tester Authentication Interface Message Text Normal [facility] Discharge Planning Noteon Deicer Tester Authentication Interface Message Text Normal [facility] GLUCOSE, FINGERSTICK-IN OFFI CEon 01-30-2024 Glucose [Mass/Vol] 84 mg/dL 74 - 109 mg/dL [facility] Interpretation and review of laboratory results Normal [facility] Glucose [Mass/Vol] 84 mg/dL Normal 74-109 [facility] Comment on above: Performed By: #### 8 4951 ####NURSING GLUCOSE [id number] [place], [address] Glucose [Mass/Vol] 132 mg/dL High 74 - 109 mg/dL [facility] Interpretation and review of laboratory results Abnormal [facility] Glucose [Mass/Vol] 132 mg/dL High 74-109 [facility] Comment on above: Performed By: #### 8 3827 ####NURSING GLUCOSE [id number] [place], [address] Glucose [Mass/Vol] 155 mg/dL High 74 - 109 mg/dL [facility] Interpretation and review of laboratory results Abnormal [facility] Glucose [Mass/Vol] 155 mg/dL High 74-109 [facility] Comment on above: Performed By: #### 8 9706 ####NURSING GLUCOSE [id number] [place], [address] Progress Noteson 01-30-2024 Deicer Tester Authentication Interface Message Text Normal [facility] Deicer Tester Authentication Interface Message Text Normal [facility] Consultson 01-29-2024 Deicer Tester Authentication Interface Message Text Normal [facility] GLUCOSE, FINGERSTICK-IN OFFI CEon 01-29-2024 Glucose [Mass/Vol] 116 mg/dL High 74 - 109 mg/dL [facility] Interpretation and review of laboratory results Abnormal [facility] Glucose [Mass/Vol] 116 mg/dL High 74-109 [facility] Comment on above: Result Comment: Priscilla lujan RN, APN, MD Performed By: #### 8 0269 ####NURSING GLUCOSE [id number] [place], [address] Glucose [Mass/Vol] 142 mg/dL High 74 - 109 mg/dL [facility] Interpretation and review of laboratory results Abnormal [facility] Glucose [Mass/Vol] 142 mg/dL High 74-109 [facility] Comment on above: Performed By: #### 8 1842 ####NURSING GLUCOSE [id number] [place], [address] Glucose [Mass/Vol] 203 mg/dL High 74 - 109 mg/dL [facility] Interpretation and review of laboratory results Abnormal [facility] Glucose [Mass/Vol] 203 mg/dL High 74-109 [facility] Comment on above: Performed By: #### 8 3399 ####NURSING GLUCOSE [id number] [place], [address] Progress Noteson 01-29-2024 Deicer Tester Authentication Interface Message Text Normal [facility] Deicer Tester Authentication Interface Message Text Normal [facility] Consultson 01-28-2024 Deicer Tester Authentication Interface Message Text Normal [facility] Deicer Tester Authentication Interface Message Text Normal [facility] GLUCOSE, FINGERSTICK-IN OFFI CEon 01-28-2024 Glucose [Mass/Vol] 185 mg/dL High 74 - 109 mg/dL [facility] Interpretation and review of laboratory results Abnormal [facility] Glucose [Mass/Vol] 185 mg/dL High 74-109 [facility] Comment on above: Result Comment: Priscilla lujan RN, APN, MD Performed By: #### 8 9994 ####NURSING GLUCOSE [id number] [place], [address] Glucose [Mass/Vol] 206 mg/dL High 74 - 109 mg/dL [facility] Interpretation and review of laboratory results Abnormal [facility] Glucose [Mass/Vol] 206 mg/dL High 74-109 [facility] Comment on above: Result Comment: Priscilla lujan RN, APN, MD Performed By: #### 8 2844 ####NURSING GLUCOSE [id number] [place], [address] Glucose [Mass/Vol] 135 mg/dL High 74 - 109 mg/dL [facility] Interpretation and review of laboratory results Abnormal [facility] Glucose [Mass/Vol] 135 mg/dL High 74-109 [facility] Comment on above: Performed By: #### 8 1057 ####NURSING GLUCOSE [id number] [place], [address] Glucose [Mass/Vol] 160 mg/dL High 74 - 109 mg/dL [facility] Interpretation and review of laboratory results Abnormal [facility] Glucose [Mass/Vol] 160 mg/dL High 74-109 [facility] Comment on above: Performed By: #### 8 2907 ####NURSING GLUCOSE [id number] [place], [address] Progress Noteson 01-28-2024 Deicer Tester Authentication Interface Message Text Normal [facility] Deicer Tester Authentication Interface Message Text Normal [facility] BASIC METABOLIC PANELon 01-16 Anion gap [Moles/Vol] 10 mmol/L Normal 10-20 [facility] Comment on above: Performed By: #### Melissa H8, MG ####[facility] PATHOLOG[facility] [id number] [place], Calcium [Mass/Vol] 8.3 mg/dL Low 8.6-10.3 [facility] Comment on above: Performed By: #### Melissa H8, MG ####[facility] PATHOLOGY [id number] [place], Chloride [Moles/Vol] 99 mmol/L Normal 98-107 [facility] Comment on above: Performed By: #### Melissa H8, MG ####[facility] PATHOLOGY [id number] [place], CO2 [Moles/Vol] 26 mmol/L Normal 21-31 [facility] Comment on above: Performed By: #### Melissa H8, MG ####[facility] PATHOLOGY [id number] [place], Creatinine [Mass/Vol] 0.68 mg/dL Low 0.70-1.30 [facility] Comment on above: Performed By: #### Melissa H8, MG ####[facility] PATHOLOGY [id number] [place], ESTIMATED GFR (CKD-EPI) 110 mL/min/1.73sqm Normal >=60 [facility] Comment on above: Result Comment: 2020 CKD EPI Equation using Creatinine without RaceComment: Estimated glomerular filtration rate (eGFR) is calculated without a race coefficient. Values should be interpreted in the context of the patient's full clinical presentation.Reference:1. Rudy Torres, Katie M, Tea GALVEZ, et al.. A Unifying Approach for GFR Estimation: Recommendations of the NKF-ASN Task Force on Reassessing the Inclusion of Race in Diagnosing Kidney Disease. French Journal of Kidney Diseases 2021;79(2):268-88.e1.2. N Engl J Med 1 Vol. 385 Issue 19 Pages 0278-3550 Performed By: #### Melissa Taylor8, MG ####[facility] PATHOLOGY [id number] [place], Glucose [Mass/Vol] 189 mg/dL High 74-109 [facility] Comment on above: Performed By: #### Melissa Taylor8, MG ####[facility] PATHOLOGY [id number] [place], Potassium [Moles/Vol] 4.4 mmol/L Normal 3.5-5.0 [facility] Comment on above: Performed By: #### Melissa Taylor8, MG ####[facility] PATHOLOGY [id number] [place], Sodium [Moles/Vol] 131 mmol/L Low 136-145 [facility] Comment on above: Performed By: #### Melissa Taylor8, MG ####[facility] PATHOLOGY [id number] [place], Urea nitrogen [Mass/Vol] 17 mg/dL Normal 7-25 [facility] Comment on above: Performed By: #### Melissa H8, MG ####[facility] PATHOLOGY [id number] [place], Basic metabolic 2000 panelon 01-27-2024 Anion gap [Moles/Vol] 10 mmol/L 10 - 20 Met [facility] Calcium [Mass/Vol] 8.3 mg/dL Low 8.6 - 10. 3 mg/dL [facility] Chloride [Moles/Vol] 99 mmol/L 98 - 10 7 mmol/L [facility] CO2 [Moles/Vol] 26 mmol/L 21 - 31 mmol/L [facility] Creatinine [Mass/Vol] 0.68 mg/dL Low 0.70 - 1.30 mg/dL [facility] GFR/1.73 sq M.predicted CKD-EPI (S/P/Bld) [Vol rate/Area] 110 - PINF [facility] Glucose [Mass/Vol] 189 mg/dL High 74 - 109 mg/dL [facility] Interpretation and review of laboratory results Abnormal [facility] Potassium [Moles/Vol] 4.4 mmol/L 3.5 - 5.0 mmol/L [facility] Sodium [Moles/Vol] 131 mmol/L Low 136 - 145 mmol/L [facility] Urea nitrogen [Mass/Vol] 17 mg/dL 7 - 25 mg/dL [facility] CBC panel Auto (Bld)on 01-26 Erythrocyte distribution width (RBC) [Ratio] 13.4 % 11.5 - 14.5 % [facility] Hematocrit (Bld) [Volume fraction] 31.1 % Low 41.0 - 53.0 % [facility] Hemoglobin (Bld) [Mass/Vol] 10.3 g/dL Low 13.9 - 16.3 g/dL [facility] Interpretation and review of laboratory results Abnormal [facility] MCH (RBC) [Entitic mass] 30.4 pg 26.0 - 34.0 pg [facility] MCHC (RBC) [Mass/Vol] 33.2 g/dL 32.0 - 35.9 g/dL [facility] MCV (RBC) [Entitic vol] 92 fL 80 - 100 fL [facility] Platelet mean volume (Bld) [Entitic vol] 8.2 fL 7.5 - 11.2 fL [facility] Platelets (Bld) [#/Vol] 504 10*3/uL High 150 - 400 K/uL [facility] RBC (Bld) [#/Vol] 3.4 10*6/uL Low [facility] WBC (Bld) [#/Vol] 11.1 10*3/uL 4.5 - 11.5 K/uL [facility] COMPLETE BLOOD COUNTon 01-26 Erythrocyte distribution width (RBC) [Ratio] 13.4 % Normal 11.5-14.5 [facility] Comment on above: Performed By: #### C BC ####S PATHOLOGY [id number] [place], Hematocrit (Bld) [Volume fraction] 31.1 % Low 41.0-53.0 [facility] Comment on above: Performed By: #### C BC ####S PATHOLOGY [id number] [place], Hemoglobin (Bld) [Mass/Vol] 10.3 g/dL Low 13.9-16.3 [facility] Comment on above: Performed By: #### C BC ####[facility] PATHOLOGY [id number] [place], MCH (RBC) [Entitic mass] 30.4 pg Normal 26.0-34.0 [facility] Comment on above: Performed By: #### C BC ####[facility] PATHOLOGY [id number] [place], MCHC (RBC) [Mass/Vol] 33.2 g/dL Normal 32.0-35.9 [facility] Comment on above: Performed By: #### C BC ####[facility] PATHOLOGY [id number] [place], MCV (RBC) [Entitic vol] 92 fL Normal 80-100 T [facility] Comment on above: Performed By: #### C BC ####[facility] PATHOLOGY [id number] [place], Platelet mean volume (Bld) [Entitic vol] 8.2 fL Normal 7.5-11.2 [facility] Comment on above: Performed By: #### C BC ####[facility] PATHOLOGY [id number] [place], Platelets (Bld) [#/Vol] 504 10*3/uL High 150-400 [facility] Comment on above: Performed By: #### C BC ####[facility] PATHOLOGY [id number] [place], RBC (Bld) [#/Vol] 3.40 10*6/uL Low 4.50-5.90 [facility] Comment on above: Performed By: #### C BC ####S PATHOLOGY [id number] [place], WBC (Bld) [#/Vol] 11.1 10*3/uL Normal 4.5-11.5 [facility] Comment on above: Performed By: #### C BC ####S PATHOLOGY [id number] [place], Consultson 11-11-2024 Deicer Tester Authentication Interface Message Text Normal [facility] Deicer Tester Authentication Interface Message Text Normal [facility] GLUCOSE, FINGERSTICK-IN OFFI CEon 01-27-2024 Glucose [Mass/Vol] 159 mg/dL High 74 - 109 mg/dL [facility] Interpretation and review of laboratory results Abnormal [facility] Glucose [Mass/Vol] 159 mg/dL High 74-109 [facility] Comment on above: Performed By: #### 8 2948 ####NURSING GLUCOSE [id number] [place], [address] Glucose [Mass/Vol] 126 mg/dL High 74 - 109 mg/dL [facility] Interpretation and review of laboratory results Abnormal [facility] Glucose [Mass/Vol] 126 mg/dL High 74-109 [facility] Comment on above: Performed By: #### 8 2948 ####NURSING GLUCOSE [id number] [place] [address], [address] Glucose [Mass/Vol] 210 mg/dL High 74 - 109 mg/dL [facility] Interpretation and review of laboratory results Abnormal [facility] Glucose [Mass/Vol] 210 mg/dL High 74-109 [facility] Comment on above: Performed By: #### 8 2948 ####NURSING GLUCOSE [id number] [place], [address] Glucose [Mass/Vol] 199 mg/dL High 74 - 109 mg/dL [facility] Interpretation and review of laboratory results Abnormal [facility] Glucose [Mass/Vol] 199 mg/dL High 74-109 [facility] Comment on above: Performed By: #### 8 2948 ####NURSING GLUCOSE [id number] [place], [address] MAGNESIUMon 01-27-2024 Interpretation and review of laboratory results Normal [facility] Magnesium [Mass/Vol] 1.9 mg/dL 1.9 - 2 .7 mg/dL [facility] Magnesium [Mass/Vol] 1.9 mg/dL Normal 1.9-2.7 [facility] Comment on above: Performed By: #### C H8, MG ####[facility] PATH[facility] [id number] [place], No Panel Informationon 01-26 [facility] Progress Noteson 01-27-2024 Deicer Tester Authentication Interface Message Text Normal [facility] Deicer Tester Authentication Interface Message Text Normal [facility] Deicer Tester Authentication Interface Message Text Normal [facility] Deicer Tester Authentication Interface Message Text Normal [facility] Deicer Tester Authentication Interface Message Text Normal [facility] BASIC METABOLIC PANELon 11-1 Anion gap [Moles/Vol] 12 mmol/L Normal 10-20 [facility] Comment on above: Performed By: #### C H8, MG ####[facility] PATH[facility] [id number] [place], Calcium [Mass/Vol] 8.2 mg/dL Low 8.6-10.3 [facility] Comment on above: Performed By: #### C H8, MG ####[facility] PATH[facility] UVBCRQPIBO4657 [place], Chloride [Moles/Vol] 99 mmol/L Normal 98-107 [facility] Comment on above: Performed By: #### C H8, MG ####[facility] PATHOLOGY [id number] [place], CO2 [Moles/Vol] 24 mmol/L Normal 21-31 [facility] Comment on above: Performed By: #### C H8, MG ####[facility] PATHOLOGY [id number] [place], Creatinine [Mass/Vol] 0.77 mg/dL Normal 0.70-1.30 [facility] Comment on above: Performed By: #### C H8, MG ####[facility] PATH[facility] [id number] [place], ESTIMATED GFR (CKD-EPI) 106 mL/min/1.73sqm Normal >=60 [facility] Comment on above: Result Comment: 2020 CKD EPI Equation using Creatinine without RaceComment: Estimated glomerular filtration rate (eGFR) is calculated without a race coefficient. Values should be interpreted in the context of the patient's full clinical presentation.Reference:1. Rudy Torres, Katie M, eTa GALVEZ, et al.. A Unifying Approach for GFR Estimation: Recommendations of the NKF-ASN Task Force on Reassessing the Inclusion of Race in Diagnosing Kidney Disease. French Journal of Kidney Diseases 2021;79(2):268-88.e1.2. N Engl J Med 1 Vol. 385 Issue 19 Pages 8110-0951 Performed By: #### C H8, MG ####[facility] [id number] [place], [place], Glucose [Mass/Vol] 198 mg/dL High 74-109 [facility] Comment on above: Performed By: #### C H8, MG ####[facility] [id number] [place], Potassium [Moles/Vol] 4.5 mmol/L Normal 3.5-5.0 [facility] Comment on above: Performed By: #### C H8, MG ####[facility] PATH[facility] [id number] [place], Sodium [Moles/Vol] 130 mmol/L Low 136-145 [facility] Comment on above: Performed By: #### C H8, MG ####[facility] PATH[facility] [id number] [place], Urea nitrogen [Mass/Vol] 15 mg/dL Normal 7-25 [facility] Comment on above: Performed By: #### C H8, MG ####[facility] PATH[facility] [id number] [place], [place], Basic metabolic 2000 panelon 01-26-2024 Anion gap [Moles/Vol] 12 mmol/L 10 - 20 Met [facility] Calcium [Mass/Vol] 8.2 mg/dL Low 8.6 - 10. 3 mg/dL [facility] Chloride [Moles/Vol] 99 mmol/L 98 - 10 7 mmol/L [facility] CO2 [Moles/Vol] 24 mmol/L 21 - 31 mmol/L [facility] Creatinine [Mass/Vol] 0.77 mg/dL 0.70 - 1.30 mg/dL [facility] GFR/1.73 sq M.predicted CKD-EPI (S/P/Bld) [Vol rate/Area] 106 - PINF [facility] Glucose [Mass/Vol] 198 mg/dL High 74 - 109 mg/dL [facility] Interpretation and review of laboratory results Abnormal [facility] Potassium [Moles/Vol] 4.5 mmol/L 3.5 - 5.0 mmol/L [facility] Sodium [Moles/Vol] 130 mmol/L Low 136 - 145 mmol/L [facility] Urea nitrogen [Mass/Vol] 15 mg/dL 7 - 25 mg/dL [facility] CBC panel Auto (Bld)on 01-25 Erythrocyte distribution width (RBC) [Ratio] 13.4 % 11.5 - 14.5 % [facility] Hematocrit (Bld) [Volume fraction] 32.2 % Low 41.0 - 53.0 % [facility] Hemoglobin (Bld) [Mass/Vol] 10.7 g/dL Low 13.9 - 16.3 g/dL [facility] Interpretation and review of laboratory results Abnormal [facility] MCH (RBC) [Entitic mass] 30.8 pg 26.0 - 34.0 pg [facility] MCHC (RBC) [Mass/Vol] 33.4 g/dL 32.0 - 35.9 g/dL [facility] MCV (RBC) [Entitic vol] 92 fL 80 - 100 fL [facility] Platelet mean volume (Bld) [Entitic vol] 8.3 fL 7.5 - 11.2 fL [facility] Platelets (Bld) [#/Vol] 482 10*3/uL High 150 - 400 K/uL [facility] RBC (Bld) [#/Vol] 3.48 10*6/uL Low [facility] WBC (Bld) [#/Vol] 10.7 10*3/uL 4.5 - 11.5 K/uL [facility] COMPLETE BLOOD COUNTon 01-25 Erythrocyte distribution width (RBC) [Ratio] 13.4 % Normal 11.5-14.5 [facility] Comment on above: Performed By: #### C BC ####S PATHOLOGY [id number] [place] [address], [address] Hematocrit (Bld) [Volume fraction] 32.2 % Low 41.0-53.0 [facility] Comment on above: Performed By: #### C BC ####[facility] PATHOLOG[facility] [id number] [place], Hemoglobin (Bld) [Mass/Vol] 10.7 g/dL Low 13.9-16.3 [facility] Comment on above: Performed By: #### C BC ####[facility] PATHOLOGY [id number] [place], MCH (RBC) [Entitic mass] 30.8 pg Normal 26.0-34.0 [facility] Comment on above: Performed By: #### C BC ####[facility] PATHOLOGY [id number] [place], MCHC (RBC) [Mass/Vol] 33.4 g/dL Normal 32.0-35.9 [facility] Comment on above: Performed By: #### C BC ####[facility] PATHOLOGY [id number] [place] [address], MCV (RBC) [Entitic vol] 92 fL Normal 80-100 T [facility] Comment on above: Performed By: #### C BC ####[facility] PATHOLOGY [id number] [place], Platelet mean volume (Bld) [Entitic vol] 8.3 fL Normal 7.5-11.2 [facility] Comment on above: Performed By: #### C BC ####[facility] PATHOLOGY [id number] [place], Platelets (Bld) [#/Vol] 482 10*3/uL High 150-400 [facility] Comment on above: Performed By: #### C BC ####[facility] PATHOLOGY [id number] [place], RBC (Bld) [#/Vol] 3.48 10*6/uL Low 4.50-5.90 [facility] Comment on above: Performed By: #### C BC ####[facility] PATHOLOGY [id number] [place], WBC (Bld) [#/Vol] 10.7 10*3/uL Normal 4.5-11.5 [facility] Comment on above: Performed By: #### C BC ####[facility] [id number] [place], GLUCOSE, FINGERSTICK-IN OFFI CEon 01-26-2024 Glucose [Mass/Vol] 256 mg/dL High 74 - 109 mg/dL [facility] Interpretation and review of laboratory results Abnormal [facility] Glucose [Mass/Vol] 256 mg/dL High 74-109 [facility] Comment on above: Performed By: #### 8 2948 ####NURSING GLUCOSE [id number] [place], [address] Glucose [Mass/Vol] 215 mg/dL High 74 - 109 mg/dL [facility] Interpretation and review of laboratory results Abnormal [facility] Glucose [Mass/Vol] 215 mg/dL High 74-109 [facility] Comment on above: Performed By: #### 8 2948 ####NURSING GLUCOSE [id number] [place], [address] Glucose [Mass/Vol] 129 mg/dL High 74 - 109 mg/dL [facility] Interpretation and review of laboratory results Abnormal [facility] Glucose [Mass/Vol] 129 mg/dL High 74-109 [facility] Comment on above: Performed By: #### 8 2948 ####NURSING GLUCOSE [id number] [place], [address] Glucose [Mass/Vol] 183 mg/dL High 74 - 109 mg/dL [facility] Interpretation and review of laboratory results Abnormal [facility] Glucose [Mass/Vol] 183 mg/dL High 74-109 [facility] Comment on above: Performed By: #### 8 2948 ####NURSING GLUCOSE [id number] [place] [address], [address] MAGNESIUMon 01-26-2024 Interpretation and review of laboratory results Normal [facility] Magnesium [Mass/Vol] 2.2 mg/dL 1.9 - 2 .7 mg/dL [facility] Magnesium [Mass/Vol] 2.2 mg/dL Normal 1.9-2.7 [facility] Comment on above: Performed By: #### C H8, MG ####[facility] [id number] [place], No Panel Informationon 01-25 [facility] Progress Noteson 01-26-2024 Deicer Tester Authentication Interface Message Text Normal [facility] Deicer Tester Authentication Interface Message Text Normal [facility] BASIC METABOLIC PANELon 11-0 Anion gap [Moles/Vol] 14 mmol/L Normal 10-20 [facility] Comment on above: Performed By: #### Jono Deluca, CH8 ####[facility] PATH[facility] [id number] [place], Calcium [Mass/Vol] 8.3 mg/dL Low 8.6-10.3 [facility] Comment on above: Performed By: #### Jono Deluca, CH8 ####[facility] PATH[facility] [id number] [place], Chloride [Moles/Vol] 98 mmol/L Normal 98-107 [facility] Comment on above: Performed By: #### Jono Deluca, CH8 ####[facility] PATH[facility] [id number] [place], CO2 [Moles/Vol] 23 mmol/L Normal 21-31 [facility] Comment on above: Performed By: #### Jono Deluca, CH8 ####[facility] PATH[facility] [id number] [place], Creatinine [Mass/Vol] 0.81 mg/dL Normal 0.70-1.30 [facility] Comment on above: Performed By: #### Jono Deluca, CH8 ####[facility] PATH[facility] [id number] [place], ESTIMATED GFR (CKD-EPI) 104 mL/min/1.73sqm Normal >=60 [facility] Comment on above: Result Comment: 2020 CKD EPI Equation using Creatinine without RaceComment: Estimated glomerular filtration rate (eGFR) is calculated without a race coefficient. Values should be interpreted in the context of the patient's full clinical presentation.Reference:1. Rudy Torres, Katie M, Tea GALVEZ, et al.. A Unifying Approach for GFR Estimation: Recommendations of the NKF-ASN Task Force on Reassessing the Inclusion of Race in Diagnosing Kidney Disease. French Journal of Kidney Diseases 202;79(2):268-88.e1.2. N Engl J Med 1 Vol. 385 Issue 19 Pages 7111-5739 Performed By: #### Jono Deluca, MAGO8 ####S PATHOLOGY [id number] [place], Glucose [Mass/Vol] 147 mg/dL High 74-109 [facility] Comment on above: Performed By: #### Jono Deluca, MAGO8 ####[facility] PATHOLOG[facility] [id number] [place], Potassium [Moles/Vol] 4.6 mmol/L Normal 3.5-5.0 [facility] Comment on above: Performed By: #### Jono Deluca, MAGO8 ####S PATHOLOGY [id number] [place], Sodium [Moles/Vol] 130 mmol/L Low 136-145 [facility] Comment on above: Performed By: #### Jono Deluca, MAGO8 ####S PATHOLOGY [id number] [place], Urea nitrogen [Mass/Vol] 15 mg/dL Normal 7-25 [facility] Comment on above: Performed By: #### Jono Deluca, MAGO8 ####S PATHOLOGY [id number] [place], Basic metabolic 2000 panelon 01-25-2024 Anion gap [Moles/Vol] 14 mmol/L 10 - 20 Met [facility] Calcium [Mass/Vol] 8.3 mg/dL Low 8.6 - 10. 3 mg/dL [facility] Chloride [Moles/Vol] 98 mmol/L 98 - 10 7 mmol/L [facility] CO2 [Moles/Vol] 23 mmol/L 21 - 31 mmol/L [facility] Creatinine [Mass/Vol] 0.81 mg/dL 0.70 - 1.30 mg/dL [facility] GFR/1.73 sq M.predicted CKD-EPI (S/P/Bld) [Vol rate/Area] 104 - PINF [facility] Glucose [Mass/Vol] 147 mg/dL High 74 - 109 mg/dL [facility] Potassium [Moles/Vol] 4.6 mmol/L 3.5 - 5.0 mmol/L [facility] Sodium [Moles/Vol] 130 mmol/L Low 136 - 145 mmol/L [facility] Urea nitrogen [Mass/Vol] 15 mg/dL 7 - 25 mg/dL [facility] CBC panel Auto (Bld)on 01-24 Erythrocyte distribution width (RBC) [Ratio] 13.4 % 11.5 - 14.5 % [facility] Hematocrit (Bld) [Volume fraction] 32.1 % Low 41.0 - 53.0 % [facility] Hemoglobin (Bld) [Mass/Vol] 10.8 g/dL Low 13.9 - 16.3 g/dL [facility] Interpretation and review of laboratory results Abnormal [facility] MCH (RBC) [Entitic mass] 31.2 pg 26.0 - 34.0 pg [facility] MCHC (RBC) [Mass/Vol] 33.7 g/dL 32.0 - 35.9 g/dL [facility] MCV (RBC) [Entitic vol] 93 fL 80 - 100 fL [facility] Platelet mean volume (Bld) [Entitic vol] 7.5 fL 7.5 - 11.2 fL [facility] Platelets (Bld) [#/Vol] 457 10*3/uL High 150 - 400 K/uL [facility] RBC (Bld) [#/Vol] 3.47 10*6/uL Low [facility] WBC (Bld) [#/Vol] 9.7 10*3/uL 4.5 - 11.5 K/uL [facility] COMPLETE BLOOD COUNTon 01-24 Erythrocyte distribution width (RBC) [Ratio] 13.4 % Normal 11.5-14.5 [facility] Comment on above: Performed By: #### C BC ####[facility] PATHOLOG[facility] [id number] [place], Hematocrit (Bld) [Volume fraction] 32.1 % Low 41.0-53.0 [facility] Comment on above: Performed By: #### C BC ####[facility] PATHOLOGY [id number] [place], Hemoglobin (Bld) [Mass/Vol] 10.8 g/dL Low 13.9-16.3 [facility] Comment on above: Performed By: #### C BC ####[facility] PATHOLOGY [id number] [place], MCH (RBC) [Entitic mass] 31.2 pg Normal 26.0-34.0 [facility] Comment on above: Performed By: #### C BC ####S PATHOLOGY [id number] [place], MCHC (RBC) [Mass/Vol] 33.7 g/dL Normal 32.0-35.9 [facility] Comment on above: Performed By: #### C BC ####[facility] PATHOLOGY [id number] [place], MCV (RBC) [Entitic vol] 93 fL Normal 80-100 T [facility] Comment on above: Performed By: #### C BC ####[facility] PATHOLOGY [id number] [place], Platelet mean volume (Bld) [Entitic vol] 7.5 fL Normal 7.5-11.2 [facility] Comment on above: Performed By: #### C BC ####[facility] PATHOLOGY [id number] [place], Platelets (Bld) [#/Vol] 457 10*3/uL High 150-400 [facility] Comment on above: Performed By: #### C BC ####[facility] PATHOLOGY [id number] [place], RBC (Bld) [#/Vol] 3.47 10*6/uL Low 4.50-5.90 [facility] Comment on above: Performed By: #### C BC ####S PATHOLOGY [id number] [place], WBC (Bld) [#/Vol] 9.7 10*3/uL Normal 4.5-11.5 [facility] Comment on above: Performed By: #### C BC ####S PATHOLOGY [id number] [place], EKG 12 LEAD - PERFORMon 11-0 Diagnosis [facility] P wave [facility] by EKG 67 BPM [facility] P wave axis 189 degrees [facility] P-R Interval 186 ms [facility] Q[facility] interval 412 ms [facility] Q-T interval corrected 435 ms [facility] QRS axis 218 degrees [facility] QRS duration 102 ms [facility] T wave axis 164 degrees [facility] GLUCOSE, FINGERSTICK-IN OFFI CEon 01-25-2024 Glucose [Mass/Vol] 189 mg/dL High 74 - 109 mg/dL [facility] Interpretation and review of laboratory results Abnormal [facility] Glucose [Mass/Vol] 189 mg/dL High 74-109 [facility] Comment on above: Performed By: #### 8 2948 ####NURSING GLUCOSE [id number] [place], [address] Glucose [Mass/Vol] 159 mg/dL High 74 - 109 mg/dL [facility] Interpretation and review of laboratory results Abnormal [facility] Glucose [Mass/Vol] 159 mg/dL High 74-109 [facility] Comment on above: Performed By: #### 8 2948 ####NURSING GLUCOSE [id number] [place], [address] Glucose [Mass/Vol] 160 mg/dL High 74 - 109 mg/dL [facility] Interpretation and review of laboratory results Abnormal [facility] Glucose [Mass/Vol] 160 mg/dL High 74-109 [facility] Comment on above: Performed By: #### 8 2948 ####NURSING GLUCOSE [id number] [place], [address] MAGNESIUMon 01-25-2024 Magnesium [Mass/Vol] 1.8 mg/dL Low 1.9 - 2 .7 mg/dL [facility] Magnesium [Mass/Vol] 1.8 mg/dL Low 1.9-2.7 [facility] Comment on above: Performed By: #### M Yosi, CH8 ####[facility] PATHOLOGY [id number] [place], [address] No Panel Informationon 01-24 Interpretation and review of laboratory results [facility] Progress [facility]on 01-25-2024 Deicer Tester Authentication Interface Message Text 01/25/24 1431 Vital Signs Temperature 101.1 ???F (38.4 ???C) Temperature Source 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 Tylenol given. Normal [facility] Deicer Tester Authentication Interface Message Text Normal [facility] Deicer Tester Authentication Interface Message Text Normal [facility] Anesthesia Acute Painon Deicer Tester Authentication Interface Message Text Normal [facility] Anesthesia Postprocedure Josselin luationon 01-24-2024 Deicer Tester Authentication Interface Message Text Normal [facility] Anesthesia Preprocedure Eval uationon 01-24-2024 Deicer Tester Authentication Interface Message Text Normal [facility] Anesthesia Procedure Noteson 01-24-2024 Deicer Tester Authentication Interface Message Text Invalid Interpretation Code [facility] Deicer Tester Authentication Interface Message Text Invalid Interpretation Code [facility] Anesthesia Transfer Of Careo n 01-24-2024 Deicer Tester Authentication Interface Message Text Normal [facility] BASIC METABOLIC PANELon Anion gap [Moles/Vol] 12 mmol/L Normal 10-20 [facility] Comment on above: Performed By: #### C H8, MG ####S PATHOLOGY [id number] [place], Calcium [Mass/Vol] 8.8 mg/dL Normal 8.6-10.3 [facility] Comment on above: Performed By: #### C H8, MG ####[facility] PATHOLOG[facility] [id number] [place], Chloride [Moles/Vol] 102 mmol/L Normal 98-107 [facility] Comment on above: Performed By: #### C H8, MG ####S PATHOLOGY [id number] [place], CO2 [Moles/Vol] 24 mmol/L Normal 21-31 [facility] Comment on above: Performed By: #### C H8, MG ####[facility] PATHOLOG[facility] [id number] [place], Creatinine [Mass/Vol] 0.71 mg/dL Normal 0.70-1.30 [facility] Comment on above: Performed By: #### C H8, MG ####[facility] PATH[facility] [id number] [place], ESTIMATED GFR (CKD-EPI) 108 mL/min/1.73sqm Normal >=60 [facility] Comment on above: Result Comment: 2020 CKD EPI Equation using Creatinine without RaceComment: Estimated glomerular filtration rate (eGFR) is calculated without a race coefficient. Values should be interpreted in the context of the patient's full clinical presentation.Reference:1. Rudy Torres, Katie M, Tea GALVEZ, et al.. A Unifying Approach for GFR Estimation: Recommendations of the NKF-ASN Task Force on Reassessing the Inclusion of Race in Diagnosing Kidney Disease. French Journal of Kidney Diseases 2021;79(2):268-88.e1.2. N Engl J Med 1 Vol. 385 Issue 19 Pages 9077-1645 Performed By: #### Melissa Taylor8, MG ####[facility] PATH[facility] [id number] [place], Glucose [Mass/Vol] 149 mg/dL High 74-109 [facility] Comment on above: Performed By: #### Melissa H8, MG ####[facility] PATHOLOGY [id number] [place], Potassium [Moles/Vol] 4.3 mmol/L Normal 3.5-5.0 [facility] Comment on above: Performed By: #### Melissa H8, MG ####[facility] PATHOLOG[facility] [id number] [place], Sodium [Moles/Vol] 134 mmol/L Low 136-145 [facility] Comment on above: Performed By: #### Melissa H8, MG ####[facility] PATHOLOG[facility] [id number] [place], Urea nitrogen [Mass/Vol] 11 mg/dL Normal 7-25 [facility] Comment on above: Performed By: #### Melissa H8, MG ####[facility] PATHOLOG[facility] [id number] [place], [place], Basic metabolic 2000 panelon 01-24-2024 Anion gap [Moles/Vol] 12 mmol/L 10 - 20 Met [facility] Calcium [Mass/Vol] 8.8 mg/dL 8.6 - 10. 3 mg/dL [facility] Chloride [Moles/Vol] 102 mmol/L 98 - 10 7 mmol/L [facility] CO2 [Moles/Vol] 24 mmol/L 21 - 31 mmol/L [facility] Creatinine [Mass/Vol] 0.71 mg/dL 0.70 - 1.30 mg/dL [facility] GFR/1.73 sq M.predicted CKD-EPI (S/P/Bld) [Vol rate/Area] 108 - PINF [facility] Glucose [Mass/Vol] 149 mg/dL High 74 - 109 mg/dL [facility] Interpretation and review of laboratory results Abnormal [facility] Potassium [Moles/Vol] 4.3 mmol/L 3.5 - 5.0 mmol/L [facility] Sodium [Moles/Vol] 134 mmol/L Low 136 - 145 mmol/L [facility] Urea nitrogen [Mass/Vol] 11 mg/dL 7 - 25 mg/dL [facility] Blood Attestationon 01-24-20 Deicer Tester Authentication Interface Message Text Normal [facility] CBC panel Auto (Bld)on 01-23 Erythrocyte distribution width (RBC) [Ratio] 13.4 % 11.5 - 14.5 % [facility] Hematocrit (Bld) [Volume fraction] 34.4 % Low 41.0 - 53.0 % [facility] Hemoglobin (Bld) [Mass/Vol] 11.4 g/dL Low 13.9 - 16.3 g/dL [facility] Interpretation and review of laboratory results Abnormal [facility] MCH (RBC) [Entitic mass] 30.9 pg 26.0 - 34.0 pg [facility] MCHC (RBC) [Mass/Vol] 33.2 g/dL 32.0 - 35.9 g/dL [facility] MCV (RBC) [Entitic vol] 93 fL 80 - 100 fL [facility] Platelet mean volume (Bld) [Entitic vol] 7.4 fL Low 7.5 - 11.2 fL [facility] Platelets (Bld) [#/Vol] 441 10*3/uL High 150 - 400 K/uL [facility] RBC (Bld) [#/Vol] 3.7 10*6/uL Low [facility] WBC (Bld) [#/Vol] 7.2 10*3/uL 4.5 - 11.5 K/uL [facility] COMPLETE BLOOD COUNTon 01-23 Erythrocyte distribution width (RBC) [Ratio] 13.4 % Normal 11.5-14.5 [facility] Comment on above: Performed By: #### C BC ####[facility] PATHOLOGY [id number] [place], Hematocrit (Bld) [Volume fraction] 34.4 % Low 41.0-53.0 [facility] Comment on above: Performed By: #### C BC ####[facility] PATHOLOGY [id number] [place] [address], Hemoglobin (Bld) [Mass/Vol] 11.4 g/dL Low 13.9-16.3 [facility] Comment on above: Performed By: #### C BC ####[facility] PATHOLOGY [id number] [place] [address], MCH (RBC) [Entitic mass] 30.9 pg Normal 26.0-34.0 [facility] Comment on above: Performed By: #### C BC ####[facility] PATHOLOGY [id number] [place] [address], MCHC (RBC) [Mass/Vol] 33.2 g/dL Normal 32.0-35.9 [facility] Comment on above: Performed By: #### C BC ####[facility] PATHOLOGY [id number] [place] [address], MCV (RBC) [Entitic vol] 93 fL Normal 80-100 T [facility] Comment on above: Performed By: #### C BC ####[facility] PATHOLOGY [id number] [place] [address], Platelet mean volume (Bld) [Entitic vol] 7.4 fL Low 7.5-11.2 [facility] Comment on above: Performed By: #### C BC ####[facility] PATHOLOGY [id number] [place] [address], Platelets (Bld) [#/Vol] 441 10*3/uL High 150-400 [facility] Comment on above: Performed By: #### C BC ####[facility] PATHOLOGY [id number] [place] [address] [place], RBC (Bld) [#/Vol] 3.70 10*6/uL Low 4.50-5.90 [facility] Comment on above: Performed By: #### C BC ####[facility] [id number] [place], WBC (Bld) [#/Vol] 7.2 10*3/uL Normal 4.5-11.5 [facility] Comment on above: Performed By: #### C BC ####[facility] PATH[facility] [id number] [place], Consultson 01-24-2024 Deicer Tester Authentication Interface Message Text Occupational therapy Attempted OT treatment however pt is currently in OR. OT to follow up post operatively Kay Andresw OTR/L Normal [facility] Deicer Tester Authentication Interface Message Text Physical Therapy: Pt in OR for bilateral ankle operative fixation. Will continue to follow per POC. Myriam Baig TRUCKLOAD CHECKER Beeper #[phone] Normal [facility] GLUCOSE, FINGERSTICK-IN OFFI CEon 01-24-2024 Glucose [Mass/Vol] 138 mg/dL High 74 - 109 mg/dL [facility] Interpretation and review of laboratory results Abnormal [facility] Glucose [Mass/Vol] 138 mg/dL High 74-109 [facility] Comment on above: Result Comment: Priscilla lujan RN, APN, MD Performed By: #### 8 1009 ####NURSING GLUCOSE [id number] [place], Glucose [Mass/Vol] 137 mg/dL High 74 - 109 mg/dL [facility] Interpretation and review of laboratory results Abnormal [facility] Glucose [Mass/Vol] 137 mg/dL High 74-109 [facility] Comment on above: Result Comment: Priscilla lujan RN, APN, MD Performed By: #### 0 6204 ####NURSING GLUCOSE [id number] [place], [address] Glucose [Mass/Vol] 113 mg/dL High 74 - 109 mg/dL [facility] Interpretation and review of laboratory results Abnormal [facility] Glucose [Mass/Vol] 113 mg/dL High 74-109 [facility] Comment on above: Performed By: #### 8 2948 ####NURSING GLUCOSE [id number] [place], [address] Glucose [Mass/Vol] 139 mg/dL High 74 - 109 mg/dL [facility] Interpretation and review of laboratory results Abnormal [facility] Glucose [Mass/Vol] 139 mg/dL High 74-109 [facility] Comment on above: Performed By: #### 8 2948 ####NURSING GLUCOSE [id number] [place], [address] Glucose [Mass/Vol] 139 mg/dL High 74 - 109 mg/dL [facility] Interpretation and review of laboratory results Abnormal [facility] Glucose [Mass/Vol] 139 mg/dL High 74-109 [facility] Comment on above: Performed By: #### 8 2948 ####NURSING GLUCOSE [id number] [place], [address] H AND Cleve 01-24-2024 Deicer Tester Authentication Interface Message Text Normal [facility] [facility] MAGNESIUMon 01-24-2024 Interpretation and review of laboratory results [facility] Magnesium [Mass/Vol] 2 mg/dL 1.9 - 2 .7 mg/dL [facility] Magnesium [Mass/Vol] 2.0 mg/dL Normal 1.9-2.7 [facility] Comment on above: Performed By: #### C H8, MG ####[facility] PATH[facility] [id number] [place], [address] No Panel Informationon 01-23 [facility] OP Noteon 01-24-2024 Deicer Tester Authentication Interface Message Text Normal [facility] Progress Noteson 01-24-2024 Deicer Tester Authentication Interface Message Text Normal [facility] Deicer Tester Authentication Interface Message Text Peripheral nerve block has been completed at bedside by anesthesia; will maintain cardiac monitoring for at least 30 minutes. Normal [facility] Deicer Tester Authentication Interface Message Text Normal [facility] Deicer Tester Authentication Interface Message Text Normal [facility] Deicer Tester Authentication Interface Message Text Normal [facility] Deicer Tester Authentication Interface Message Text Normal [facility] Deicer Tester Authentication Interface Message Text Normal [facility] US GUIDANCE NEEDLE PLACEMENT on 01-24-2024 US GUIDANCE NEEDLE PLACEMENT Normal [facility] Guidance for placement of needle in Unspecified body regionon 01-24-2024 : Technical services were performed by the department of Anesthesia. Please see the Procedure note for interpretation. Please refer to the patient's chart for the results of the procedure and ultrasound. [facility] Narrative & Impression EXAMINATION: US GUIDANCE NEEDLE PLACEMENT CLINICAL HISTORY: peripheral nerve block [facility] Radiology Study observation (narrative) [facility] US Guidance for placement of needle in Unspecified body regionOrdered By: Neftaly Turk on 01-24-2024 [facility] Work Phone: ANTI FXA-LMW HEPARINon 01-22 LMW Heparin Chromogenic method Qn (PPP) 0.33 IU/mL [facility] ANTI FXA-LMW HEPARIN ASSAY 0.33 IU/mL Normal [facility] Comment on above: Order Comment: The r ecommended therapeutic range for treatment of thrombosis with Low Molecular Weight Heparin is 0.5 - 1.0 IU/mLThe recommended range for VTE prophylaxis with Low Molecular Weight Heparin is 0.2 - 0.4 IU/mL. Performed By: #### A XL ####S PATHOLOGY [id number] [place], BASIC METABOLIC PANELon 11-0 Anion gap [Moles/Vol] 12 mmol/L Normal 10-20 [facility] Comment on above: Performed By: #### C H8, MG ####S PATHOLOGY [id number] [place], Calcium [Mass/Vol] 8.4 mg/dL Low 8.6-10.3 [facility] Comment on above: Performed By: #### C H8, MG ####[facility] PATH[facility] [id number] [place], Chloride [Moles/Vol] 102 mmol/L Normal 98-107 [facility] Comment on above: Performed By: #### C H8, MG ####[facility] PATHOLOGY [id number] [place], CO2 [Moles/Vol] 25 mmol/L Normal 21-31 [facility] Comment on above: Performed By: #### C H8, MG ####[facility] PATHOLOGY [id number] [place], Creatinine [Mass/Vol] 0.75 mg/dL Normal 0.70-1.30 [facility] Comment on above: Performed By: #### C H8, MG ####[facility] PATHOLOGY [id number] [place], ESTIMATED GFR (CKD-EPI) 107 mL/min/1.73sqm Normal >=60 [facility] Comment on above: Result Comment: 2020 CKD EPI Equation using Creatinine without RaceComment: Estimated glomerular filtration rate (eGFR) is calculated without a race coefficient. Values should be interpreted in the context of the patient's full clinical presentation.Reference:1. Rudy C, Katie M, Tea GALVEZ, et al.. A Unifying Approach for GFR Estimation: Recommendations of the NKF-ASN Task Force on Reassessing the Inclusion of Race in Diagnosing Kidney Disease. French Journal of Kidney Diseases 2021;79(2):268-88.e1.2. N Engl J Med 2020 Vol. 385 Issue 19 Pages 9486-2152 Performed By: #### C H8, MG ####[facility] PATHOLOG[facility] [id number] [place], Glucose [Mass/Vol] 149 mg/dL High 74-109 [facility] Comment on above: Performed By: #### C H8, MG ####[facility] PATHOLOGY [id number] [place], Potassium [Moles/Vol] 4.3 mmol/L Normal 3.5-5.0 [facility] Comment on above: Performed By: #### C H8, MG ####[facility] PATHOLOGY [id number] [place], Sodium [Moles/Vol] 135 mmol/L Low 136-145 [facility] Comment on above: Performed By: #### C H8, MG ####[facility] PATHOLOGY [id number] [place], Urea nitrogen [Mass/Vol] 12 mg/dL Normal 7-25 [facility] Comment on above: Performed By: #### C H8, MG ####[facility] PATHOLOGY [id number] [place], [address] Basic metabolic 2000 panelon 01-23-2024 Anion gap [Moles/Vol] 12 mmol/L 10 - 20 [facility] Calcium [Mass/Vol] 8.4 mg/dL Low 8.6 - 10. 3 mg/dL [facility] Chloride [Moles/Vol] 102 mmol/L 98 - 10 7 mmol/L [facility] CO2 [Moles/Vol] 25 mmol/L 21 - 31 mmol/L [facility] Creatinine [Mass/Vol] 0.75 mg/dL 0.70 - 1.30 mg/dL [facility] GFR/1.73 sq M.predicted CKD-EPI (S/P/Bld) [Vol rate/Area] 107 - PINF [facility] Glucose [Mass/Vol] 149 mg/dL High 74 - 109 mg/dL [facility] Interpretation and review of laboratory results Abnormal [facility] Potassium [Moles/Vol] 4.3 mmol/L 3.5 - 5.0 mmol/L [facility] Sodium [Moles/Vol] 135 mmol/L Low 136 - 145 mmol/L [facility] Urea nitrogen [Mass/Vol] 12 mg/dL 7 - 25 mg/dL [facility] panel Auto (Bld)on 01-22 Erythrocyte distribution width (RBC) [Ratio] 13.6 % 11.5 - 14.5 % [facility] Hematocrit (Bld) [Volume fraction] 31.8 % Low 41.0 - 53.0 % [facility] Hemoglobin (Bld) [Mass/Vol] 10.6 g/dL Low 13.9 - 16.3 g/dL [facility] Interpretation and review of laboratory results Abnormal [facility] MCH (RBC) [Entitic mass] 31.1 pg 26.0 - 34.0 pg [facility] MCHC (RBC) [Mass/Vol] 33.4 g/dL 32.0 - 35.9 g/dL [facility] MCV (RBC) [Entitic vol] 93 fL 80 - 100 fL [facility] Platelet mean volume (Bld) [Entitic vol] 7.8 fL 7.5 - 11.2 fL [facility] Platelets (Bld) [#/Vol] 399 10*3/uL 150 - 400 K/uL [facility] RBC (Bld) [#/Vol] 3.42 10*6/uL Low [facility] WBC (Bld) [#/Vol] 9.1 10*3/uL 4.5 - 11.5 K/uL [facility] COMPLETE BLOOD COUNTon 01-22 Erythrocyte distribution width (RBC) [Ratio] 13.6 % Normal 11.5-14.5 [facility] Comment on above: Performed By: #### C BC ####[facility] PATHOLOGY [id number] [place], Hematocrit (Bld) [Volume fraction] 31.8 % Low 41.0-53.0 [facility] Comment on above: Performed By: #### C BC ####[facility] PATHOLOGY [id number] [place] [address], Hemoglobin (Bld) [Mass/Vol] 10.6 g/dL Low 13.9-16.3 The [facility] Comment on above: Performed By: #### C BC ####[facility] PATHOLOGY [id number] [place], MCH (RBC) [Entitic mass] 31.1 pg Normal 26.0-34.0 [facility] Comment on above: Performed By: #### C BC ####[facility] PATHOLOGY [id number] [place], MCHC (RBC) [Mass/Vol] 33.4 g/dL Normal 32.0-35.9 The [facility] Comment on above: Performed By: #### C BC ####S PATHOLOGY [id number] [place], MCV (RBC) [Entitic vol] 93 fL Normal 80-100 T [facility] Comment on above: Performed By: #### C BC ####S PATHOLOGY [id number] [place], Platelet mean volume (Bld) [Entitic vol] 7.8 fL Normal 7.5-11.2 [facility] Comment on above: Performed By: #### C BC ####[facility] PATHOLOGY [id number] [place], Platelets (Bld) [#/Vol] 399 10*3/uL Normal 150-400 [facility] Comment on above: Performed By: #### C BC ####[facility] PATHOLOGY [id number] [place], RBC (Bld) [#/Vol] 3.42 10*6/uL Low 4.50-5.90 [facility] Comment on above: Performed By: #### C BC ####[facility] PATHOLOGY [id number] [place], WBC (Bld) [#/Vol] 9.1 10*3/uL Normal 4.5-11.5 [facility] Comment on above: Performed By: #### C BC ####[facility] PATHOLOGY [id number] [place], GLUCOSE, FINGERSTICK-IN OFFI CEon 01-23-2024 Glucose [Mass/Vol] 159 mg/dL High 74 - 109 mg/dL [facility] Interpretation and review of laboratory results Abnormal [facility] Glucose [Mass/Vol] 159 mg/dL High 74-109 [facility] Comment on above: Result Comment: Priscilla lujan RN, APN, MD Performed By: #### 8 2697 ####NURSING GLUCOSE [id number] [place], [address] Glucose [Mass/Vol] 150 mg/dL High 74 - 109 mg/dL [facility] Interpretation and review of laboratory results Abnormal [facility] Glucose [Mass/Vol] 150 mg/dL High 74-109 [facility] Comment on above: Result Comment: Priscilla lujan RN, APN, MD Performed By: #### 8 4325 ####NURSING GLUCOSE [id number] [place], [address] Glucose [Mass/Vol] 132 mg/dL High 74 - 109 mg/dL [facility] Interpretation and review of laboratory results Abnormal [facility] Glucose [Mass/Vol] 132 mg/dL High 74-109 [facility] Comment on above: Performed By: #### 8 7195 ####NURSING GLUCOSE [id number] [place], [address] Glucose [Mass/Vol] 173 mg/dL High 74 - 109 mg/dL [facility] Interpretation and review of laboratory results Abnormal [facility] Glucose [Mass/Vol] 173 mg/dL High 74-109 The [facility] Comment on above: Performed By: #### 8 2948 ####NURSING GLUCOSE [id number] [place], [address] Laboratory - Blood bankon ABO and Rh group Nom (Bld) Blood group AB Rh(D) negative [facility] MAGNESIUMon 01-23-2024 Interpretation and review of laboratory results Normal [facility] Magnesium [Mass/Vol] 1.9 mg/dL 1.9 - 2 .7 mg/dL [facility] Magnesium [Mass/Vol] 1.9 mg/dL Normal 1.9-2.7 The [facility] Comment on above: Performed By: #### C H8, MG ####[facility] PATHOLOGY [id number] [place] [address], No Panel Informationon 01-22 [facility] Progress Noteson 01-23-2024 Deicer Tester Authentication Interface Message Text Normal The [facility] Deicer Tester Authentication Interface Message Text Normal [facility] Deicer Tester Authentication Interface Message Text Normal The [facility] TYPE AND SCREENon 01-23-2024 Blood group antibody screen Ql Negative [facility] ABO and Rh group Nom (Bld) Blood group AB Rh(D) negative Normal The [facility] Comment on above: Performed By: #### T S ####[facility] PATHOLOGY [id number] [place], ABSC INT Negative Normal [facility] Comment on above: Performed By: #### T S ####[facility] PATHOLOGY [id number] [place], BASIC METABOLIC PANELon Anion gap [Moles/Vol] 11 mmol/L Normal 10-20 The [facility] Comment on above: Performed By: #### C H8, MG ####[facility] PATHOLOGY [id number] [place], Calcium [Mass/Vol] 8.2 mg/dL Low 8.6-10.3 [facility] Comment on above: Performed By: #### C H8, MG ####[facility] PATHOLOGY [id number] [place], Chloride [Moles/Vol] 101 mmol/L Normal 98-107 [facility] Comment on above: Performed By: #### C H8, MG ####[facility] PATHOLOGY [id number] [place], CO2 [Moles/Vol] 25 mmol/L Normal 21-31 [facility] Comment on above: Performed By: #### C H8, MG ####[facility] PATHOLOGY [id number] [place], Creatinine [Mass/Vol] 0.69 mg/dL Low 0.70-1.30 [facility] Comment on above: Performed By: #### C H8, MG ####[facility] PATHOLOGY [id number] [place], ESTIMATED GFR (CKD-EPI) 109 mL/min/1.73sqm Normal >=60 [facility] Comment on above: Result Comment: 2020 CKD EPI Equation using Creatinine without RaceComment: Estimated glomerular filtration rate (eGFR) is calculated without a race coefficient. Values should be interpreted in the context of the patient's full clinical presentation.Reference:1. Rudy C, Katie M, Tea GALVEZ, et al.. A Unifying Approach for GFR Estimation: Recommendations of the NKF-ASN Task Force on Reassessing the Inclusion of Race in Diagnosing Kidney Disease. French Journal of Kidney Diseases 2021;79(2):268-88.e1.2. N Engl J Med 2020 Vol. 385 Issue 19 Pages 8705-5972 Performed By: #### C H8, MG ####[facility] PATHOLOGY [id number] [place], Glucose [Mass/Vol] 131 mg/dL High 74-109 The [facility] Comment on above: Performed By: #### C H8, MG ####[facility] PATHOLOGY [id number] [place], Potassium [Moles/Vol] 4.6 mmol/L Normal 3.5-5.0 [facility] Comment on above: Performed By: #### C H8, MG ####S PATHOLOGY [id number] [place], Sodium [Moles/Vol] 132 mmol/L Low 136-145 The [facility] Comment on above: Performed By: #### C H8, MG ####S PATHOLOGY [id number] [place], Urea nitrogen [Mass/Vol] 13 mg/dL Normal 7-25 [facility] Comment on above: Performed By: #### C H8, MG ####[facility] PATHOLOGY [id number] [place], [place], Basic metabolic 2000 panelon 01-22-2024 Anion gap [Moles/Vol] 11 mmol/L 10 - 20 Met [facility] Calcium [Mass/Vol] 8.2 mg/dL Low 8.6 - 10. 3 mg/dL [facility] Chloride [Moles/Vol] 101 mmol/L 98 - 10 7 mmol/L [facility] CO2 [Moles/Vol] 25 mmol/L 21 - 31 mmol/L [facility] Creatinine [Mass/Vol] 0.69 mg/dL Low 0.70 - 1.30 mg/dL [facility] GFR/1.73 sq M.predicted CKD-EPI (S/P/Bld) [Vol rate/Area] 109 - PINF [facility] Glucose [Mass/Vol] 131 mg/dL High 74 - 109 mg/dL [facility] Interpretation and review of laboratory results Abnormal [facility] Potassium [Moles/Vol] 4.6 mmol/L 3.5 - 5.0 mmol/L [facility] Sodium [Moles/Vol] 132 mmol/L Low 136 - 145 mmol/L [facility] Urea nitrogen [Mass/Vol] 13 mg/dL 7 - 25 mg/dL [facility] CBC panel Auto (Bld)on 01-21 Erythrocyte distribution width (RBC) [Ratio] 13.5 % 11.5 - 14.5 % [facility] Hematocrit (Bld) [Volume fraction] 33.2 % Low 41.0 - 53.0 % [facility] Hemoglobin (Bld) [Mass/Vol] 11 g/dL Low 13.9 - 16.3 g/dL [facility] Interpretation and review of laboratory results Abnormal [facility] MCH (RBC) [Entitic mass] 30.8 pg 26.0 - 34.0 pg [facility] MCHC (RBC) [Mass/Vol] 33 g/dL 32.0 - 35.9 g/dL [facility] MCV (RBC) [Entitic vol] 93 fL 80 - 100 fL [facility] Platelet mean volume (Bld) [Entitic vol] 7.7 fL 7.5 - 11.2 fL [facility] Platelets (Bld) [#/Vol] 379 10*3/uL 150 - 400 K/uL [facility] RBC (Bld) [#/Vol] 3.56 10*6/uL [facility] W[facility]ld[facility] [#/Vol] 9.9 10*3/uL 4.5 - 11.5 K/uL [facility] COMPLETE BLOOD COUNTon 01-21 Erythrocyte distribution width (RBC) [Ratio] 13.5 % Normal 11.5-14.5 The [facility] Comment on above: Performed By: #### C BC ####S PATHOLOGY [id number] [place], Hematocrit (Bld) [Volume fraction] 33.2 % Low 41.0-53.0 [facility] Comment on above: Performed By: #### C BC ####S PATHOLOGY [id number] [place], Hemoglobin (Bld) [Mass/Vol] 11.0 g/dL Low 13.9-16.3 [facility] Comment on above: Performed By: #### C BC ####S PATHOLOGY [id number] [place], MCH (RBC) [Entitic mass] 30.8 pg Normal 26.0-34.0 The [facility] Comment on above: Performed By: #### C BC ####S PATHOLOGY [id number] [place], MCHC (RBC) [Mass/Vol] 33.0 g/dL Normal 32.0-35.9 [facility] Comment on above: Performed By: #### C BC ####S PATHOLOGY [id number] [place], MCV (RBC) [Entitic vol] 93 fL Normal 80-100 T he [facility] Comment on above: Performed By: #### C BC ####S PATHOLOGY [id number] [place], Platelet mean volume (Bld) [Entitic vol] 7.7 fL Normal 7.5-11.2 [facility] Comment on above: Performed By: #### C BC ####[facility] PATHOLOGY [id number] [place], Platelets (Bld) [#/Vol] 379 10*3/uL Normal 150-400 [facility] Comment on above: Performed By: #### C BC ####[facility] PATHOLOGY [id number] [place], RBC (Bld) [#/Vol] 3.56 10*6/uL Low 4.50-5.90 [facility] Comment on above: Performed By: #### C BC ####[facility] PATHOLOGY [id number] [place], WBC (Bld) [#/Vol] 9.9 10*3/uL Normal 4.5-11.5 [facility] Comment on above: Performed By: #### C BC ####[facility] PATHOLOGY [id number] [place], CREATININE, RANDOM URINEon 1 03-23-2023 Creatinine (U) [Mass/Vol] 41 mg/dL 10 - 300 mg/dL [facility] CREATININE, URINE 41 mg/dL Normal 10-300 The [facility] Comment on above: Performed By: #### N A RU, UN RU, CREAT RU ####[facility] PATHOLOGY [id number] [place], [place], Consultson 01-22-2024 Deicer Tester Authentication Interface Message Text Consult was done yesterday please defer to our note. I reached out to team no new questions Melissa Gerber, DO Endocrinology Fellow Normal [facility] Deicer Tester Authentication Interface Message Text Normal [facility] Deicer Tester Authentication Interface Message Text Normal [facility] GLUCOSE, FINGERSTICK-IN OFFI CEon 01-22-2024 Glucose [Mass/Vol] 121 mg/dL High 74 - 109 mg/dL [facility] Interpretation and review of laboratory results Abnormal [facility] Glucose [Mass/Vol] 121 mg/dL High 74-109 [facility] Comment on above: Performed By: #### 8 2948 ####NURSING GLUCOSE [id number] [place], [address] Glucose [Mass/Vol] 178 mg/dL High 74 - 109 mg/dL [facility] Interpretation and review of laboratory results Abnormal [facility] Glucose [Mass/Vol] 178 mg/dL High 74-109 The [facility] Comment on above: Performed By: #### 8 2948 ####NURSING GLUCOSE [id number] [place], [address] Glucose [Mass/Vol] 105 mg/dL 74 - 109 mg/dL [facility] Interpretation and review of laboratory results Normal [facility] Glucose [Mass/Vol] 105 mg/dL Normal 74-109 The [facility] Comment on above: Performed By: #### 8 2948 ####NURSING GLUCOSE [id number] [place], [address] Glucose [Mass/Vol] 177 mg/dL High 74 - 109 mg/dL [facility] Interpretation and review of laboratory results Abnormal [facility] Glucose [Mass/Vol] 177 mg/dL High 74-109 The [facility] Comment on above: Performed By: #### 8 2948 ####NURSING GLUCOSE [id number] [place], [address] MAGNESIUMon 01-22-2024 Interpretation and review of laboratory results Normal [facility] Magnesium [Mass/Vol] 2 mg/dL 1.9 - 2 .7 mg/dL [facility] Magnesium [Mass/Vol] 2.0 mg/dL Normal 1.9-2.7 The [facility] Comment on above: Performed By: #### C H8, MG ####[facility] PATH[facility] [id number] [place], [address] No Panel Informationon 01-21 Interpretation and review of laboratory results Normal [facility] OSMOLALITYon 01-22-2024 Interpretation and review of laboratory results Normal [facility] Osmolality [Osmolality] 281 mosm/kg [facility] OSMO 281 mOsm/Kg Normal 275-295 The [facility] Comment on above: Performed By: #### O SMO ####[facility] PATH[facility] [id number] [place], OSMOLALITY, URINEon 01-22-20 24 Interpretation and review of laboratory results Normal [facility] Osmolality (U) [Osmolality] 255 mosm/kg [facility] OSMO U 255 mOsm/Kg Normal 50-1400 The [facility] Comment on above: Performed By: #### O SMO U ####[facility] PATHOLOG[facility] [id number] [place], Progress Noteson 01-22-2024 Deicer Tester Authentication Interface Message Text Normal [facility] Deicer Tester Authentication Interface Message Text Normal [facility] SODIUM, RANDOM URINEon 01-21 Sodium (U) [Moles/Vol] 48 mmol/L 15 - 220 mmol/L [facility] Sodium (U) [Moles/Vol] 48 mmol/L Normal 15-220 Th e [facility] Comment on above: Performed By: #### N ROSA VELARDE RU, CREAT RU ####[facility] [id number] [place], UREA NITROGEN, RANDOM URINEo n 01-22-2024 Urea nitrogen (24H U) [Mass/Vol] 327 mg/dL 140 - 1500 mg/dL [facility] UREA NITROGEN, URINE 327 mg/dL Normal 140-1500 The [facility] Comment on above: Performed By: #### N ROSA VELARDE RU, CREAT RU ####[facility] [id number] [place], URINALYSISon 01-22-2024 Appearance (U) Clear Clear [facility] Bilirubin Ql (U) Negative Negative [facility] Color (U) Light Yellow Colorless [facility] Glucose Auto test strip (U) [Mass/Vol] Negative Negative mg/dL [facility] Hemoglobin Ql (U) Negative Negative [facility] Ketones Ql (U) Negative Negative mg/dL [facility] Leukocyte esterase Test strip Ql (U) Negative Negative [facility] Nitrite Ql (U) Negative Negative [facility] pH (U) 7 [pH] 5.0 - 8.0 [facility] Protein (U) [Mass/Vol] Negative Negat teddy mg/dL [facility] Specific gravity (U) [Rel density] 1.009 NINF - 1.030 [facility] Urobilinogen Qn (U) Negative Negative mg/dL [facility] Glucose Ql (U) Negative Normal Negative [facility] Comment on above: Order Comment: A neg ative leukocyte esterase AND negative nitrite test or absence of pyuria (urine WBC count <= 5-10) make a UTI (urinary tract infection) very unlikely in a non-neutropenic adult (<=5% likelihood in many studies). A positive leukocyte esterase, nitrite and/or pyuria is a nonspecific result. This can be seen in conditions other than a UTI e.g. asymptomatic bacteriuria, gynecologic infections, sexually transmitted infections, and noninfectious conditions (positive predictive value for UTI around 50%) Performed By: #### u rinalysis ####S PATHOLOGY [id number] [place] [address], U APPEAR Clear Normal Clear [facility] Comment on above: Order Comment: A neg ative leukocyte esterase AND negative nitrite test or absence of pyuria (urine WBC count <= 5-10) make a UTI (urinary tract infection) very unlikely in a non-neutropenic adult (<=5% likelihood in many studies). A positive leukocyte esterase, nitrite and/or pyuria is a nonspecific result. This can be seen in conditions other than a UTI e.g. asymptomatic bacteriuria, gynecologic infections, sexually transmitted infections, and noninfectious conditions (positive predictive value for UTI around 50%) Performed By: #### u rinalysis ####S PATHOLOGY [id number] [place], U BILI Negative Normal Negative [facility] Comment on above: Order Comment: A neg ative leukocyte esterase AND negative nitrite test or absence of pyuria (urine WBC count <= 5-10) make a UTI (urinary tract infection) very unlikely in a non-neutropenic adult (<=5% likelihood in many studies). A positive leukocyte esterase, nitrite and/or pyuria is a nonspecific result. This can be seen in conditions other than a UTI e.g. asymptomatic bacteriuria, gynecologic infections, sexually transmitted infections, and noninfectious conditions (positive predictive value for UTI around 50%) Performed By: #### u rinalysis ####[facility] [id number] [place], [place], U BLOOD Negative Normal Negative [facility] Comment on above: Order Comment: A neg ative leukocyte esterase AND negative nitrite test or absence of pyuria (urine WBC count <= 5-10) make a UTI (urinary tract infection) very unlikely in a non-neutropenic adult (<=5% likelihood in many studies). A positive leukocyte esterase, nitrite and/or pyuria is a nonspecific result. This can be seen in conditions other than a UTI e.g. asymptomatic bacteriuria, gynecologic infections, sexually transmitted infections, and noninfectious conditions (positive predictive value for UTI around 50%) Performed By: #### u rinalysis ####[facility] [id number] [place], [place], [place] COLOR Light Yellow Normal Colorless [facility] Comment on above: Order Comment: A neg ative leukocyte esterase AND negative nitrite test or absence of pyuria (urine WBC count <= 5-10) make a UTI (urinary tract infection) very unlikely in a non-neutropenic adult (<=5% likelihood in many studies). A positive leukocyte esterase, nitrite and/or pyuria is a nonspecific result. This can be seen in conditions other than a UTI e.g. asymptomatic bacteriuria, gynecologic infections, sexually transmitted infections, and noninfectious conditions (positive predictive value for UTI around 50%) Performed By: #### u rinalysis ####[facility] [id number] [place], [place], U KETONE Negative Normal Negative [email or web address] Comment on above: Order Comment: A neg ative leukocyte esterase AND negative nitrite test or absence of pyuria (urine WBC count <= 5-10) make a UTI (urinary tract infection) very unlikely in a non-neutropenic adult (<=5% likelihood in many studies). A positive leukocyte esterase, nitrite and/or pyuria is a nonspecific result. This can be seen in conditions other than a UTI e.g. asymptomatic bacteriuria, gynecologic infections, sexually transmitted infections, and noninfectious conditions (positive predictive value for UTI around 50%) Performed By: #### u rinalysis ####[facility] [id number] [place], [place] LEUK Negative Normal Negative [email or web address] Comment on above: Order Comment: A neg ative leukocyte esterase AND negative nitrite test or absence of pyuria (urine WBC count <= 5-10) make a UTI (urinary tract infection) very unlikely in a non-neutropenic adult (<=5% likelihood in many studies). A positive leukocyte esterase, nitrite and/or pyuria is a nonspecific result. This can be seen in conditions other than a UTI e.g. asymptomatic bacteriuria, gynecologic infections, sexually transmitted infections, and noninfectious conditions (positive predictive value for UTI around 50%) Performed By: #### u rinalysis ####[facility] [id number] [place], [place] NITRITE Negative Normal Negative [facility] Comment on above: Order Comment: A neg ative leukocyte esterase AND negative nitrite test or absence of pyuria (urine WBC count <= 5-10) make a UTI (urinary tract infection) very unlikely in a non-neutropenic adult (<=5% likelihood in many studies). A positive leukocyte esterase, nitrite and/or pyuria is a nonspecific result. This can be seen in conditions other than a UTI e.g. asymptomatic bacteriuria, gynecologic infections, sexually transmitted infections, and noninfectious conditions (positive predictive value for UTI around 50%) Performed By: #### u rinalysis ####[facility] [id number] [place], [place] PH 7.0 Normal 5.0-8.0 [facility] Comment on above: Order Comment: A neg ative leukocyte esterase AND negative nitrite test or absence of pyuria (urine WBC count <= 5-10) make a UTI (urinary tract infection) very unlikely in a non-neutropenic adult (<=5% likelihood in many studies). A positive leukocyte esterase, nitrite and/or pyuria is a nonspecific result. This can be seen in conditions other than a UTI e.g. asymptomatic bacteriuria, gynecologic infections, sexually transmitted infections, and noninfectious conditions (positive predictive value for UTI around 50%) Performed By: #### u rinalysis ####[facility] [id number] [place], [place] PROTEIN Negative Normal Negative [email or web address] Comment on above: Order Comment: A neg ative leukocyte esterase AND negative nitrite test or absence of pyuria (urine WBC count <= 5-10) make a UTI (urinary tract infection) very unlikely in a non-neutropenic adult (<=5% likelihood in many studies). A positive leukocyte esterase, nitrite and/or pyuria is a nonspecific result. This can be seen in conditions other than a UTI e.g. asymptomatic bacteriuria, gynecologic infections, sexually transmitted infections, and noninfectious conditions (positive predictive value for UTI around 50%) Performed By: #### u rinalysis ####[facility] [id number] [place], [place] SG 1.009 Normal <=1.030 [facility] Comment on above: Order Comment: A neg ative leukocyte esterase AND negative nitrite test or absence of pyuria (urine WBC count <= 5-10) make a UTI (urinary tract infection) very unlikely in a non-neutropenic adult (<=5% likelihood in many studies). A positive leukocyte esterase, nitrite and/or pyuria is a nonspecific result. This can be seen in conditions other than a UTI e.g. asymptomatic bacteriuria, gynecologic infections, sexually transmitted infections, and noninfectious conditions (positive predictive value for UTI around 50%) Performed By: #### u rinalysis ####[facility] [id number] [place], [place] UROBILI Negative Normal Negative [email or web address] Comment on above: Order Comment: A neg ative leukocyte esterase AND negative nitrite test or absence of pyuria (urine WBC count <= 5-10) make a UTI (urinary tract infection) very unlikely in a non-neutropenic adult (<=5% likelihood in many studies). A positive leukocyte esterase, nitrite and/or pyuria is a nonspecific result. This can be seen in conditions other than a UTI e.g. asymptomatic bacteriuria, gynecologic infections, sexually transmitted infections, and noninfectious conditions (positive predictive value for UTI around 50%) Performed By: #### u rinalysis ####S PATHOLOGY [id number] [place], ALBUMINon 01-21-2024 Albumin [Mass/Vol] 3 g/dL Low 3.5 - 5.7 g/dL [facility] Interpretation and review of laboratory results Abnormal [facility] Albumin [Mass/Vol] 3.0 g/dL Low 3.5-5.7 [facility] Comment on above: Performed By: #### M G, T4 F, ALB, TSH HS, FT3, T3, CH8, MICRSML AB ####[facility] [id number] [place], ANTIMICROSOMAL ANTIBODYon Interpretation and review of laboratory results Normal [facility] TPO Ab Qn 2.3 [IU]/mL [facility] MICRSML AB 2.30 IU/mL Normal <=9.00 [facility] Comment on above: Performed By: #### M G, T4 F, ALB, TSH HS, FT3, T3, CH8, MICRSML AB ####[facility] [id number] [place], BASIC METABOLIC PANELon 110 Anion gap [Moles/Vol] 10 mmol/L Normal 10-20 [facility] Comment on above: Performed By: #### M G, T4 F, ALB, TSH HS, FT3, T3, CH8, MICRSML AB ####[facility] [id number] [place], Calcium [Mass/Vol] 8.3 mg/dL Low 8.6-10.3 [facility] Comment on above: Performed By: #### M G, T4 F, ALB, TSH HS, FT3, T3, CH8, MICRSML AB ####S PATHOLOGY [id number] [place], Chloride [Moles/Vol] 102 mmol/L Normal 98-107 [facility] Comment on above: Performed By: #### M G, T4 F, ALB, TSH HS, FT3, T3, CH8, MICRSML AB ####S PATHOLOGY [id number] [place], CO2 [Moles/Vol] 25 mmol/L Normal 21-31 [facility] Comment on above: Performed By: #### M G, T4 F, ALB, TSH HS, FT3, T3, CH8, MICRSML AB ####S PATHOLOGY [id number] [place], Creatinine [Mass/Vol] 0.73 mg/dL Normal 0.70-1.30 [facility] Comment on above: Performed By: #### M G, T4 F, ALB, TSH HS, FT3, T3, CH8, MICRSML AB ####S PATHOLOGY [id number] [place], ESTIMATED GFR (CKD-EPI) 107 mL/min/1.73sqm Normal >=60 [facility] Comment on above: Result Comment: 2020 CKD EPI Equation using Creatinine without RaceComment: Estimated glomerular filtration rate (eGFR) is calculated without a race coefficient. Values should be interpreted in the context of the patient's full clinical presentation.Reference:1. Rudy C, Katie M, Tea GALVEZ, et al.. A Unifying Approach for GFR Estimation: Recommendations of the NKF-ASN Task Force on Reassessing the Inclusion of Race in Diagnosing Kidney Disease. French Journal of Kidney Diseases 2021;79(2):268-88.e1.2. N Engl J Med 2020 Vol. 385 Issue 19 Pages 8324-4139 Performed By: #### M G, T4 F, ALB, TSH HS, FT3, T3, CH8, MICRSML AB ####S PATHOLOGY [id number] [place], Glucose [Mass/Vol] 176 mg/dL High 74-109 [facility] Comment on above: Performed By: #### M G, T4 F, ALB, TSH HS, FT3, T3, CH8, MICRSML AB ####S PATHOLOGY [id number] [place], Potassium [Moles/Vol] 4.4 mmol/L Normal 3.5-5.0 [facility] Comment on above: Performed By: #### M G, T4 F, ALB, TSH HS, FT3, T3, CH8, MICRSML AB ####S PATHOLOGY [id number] [place], Sodium [Moles/Vol] 133 mmol/L Low 136-145 [facility] Comment on above: Performed By: #### M G, T4 F, ALB, TSH HS, FT3, T3, CH8, MICRSML AB ####S PATHOLOGY [id number] [place], Urea nitrogen [Mass/Vol] 13 mg/dL Normal 7-25 [facility] Comment on above: Performed By: #### M G, T4 F, ALB, TSH HS, FT3, T3, CH8, MICRSML AB ####[facility] [id number] [place], Basic metabolic 2000 panelon 01-21-2024 Anion gap [Moles/Vol] 10 mmol/L 10 - 20 [facility] Calcium [Mass/Vol] 8.3 mg/dL Low 8.6 - 10. 3 mg/dL [facility] Chloride [Moles/Vol] 102 mmol/L 98 - 10 7 mmol/L [facility] CO2 [Moles/Vol] 25 mmol/L 21 - 31 mmol/L [facility] Creatinine [Mass/Vol] 0.73 mg/dL 0.70 - 1.30 mg/dL [facility] GFR/1.73 sq M.predicted CKD-EPI (S/P/Bld) [Vol rate/Area] 107 - PINF [facility] Glucose [Mass/Vol] 176 mg/dL High 74 - 109 mg/dL [facility] Interpretation and review of laboratory results Abnormal [facility] Potassium [Moles/Vol] 4.4 mmol/L 3.5 - 5.0 mmol/L [facility] Sodium [Moles/Vol] 133 mmol/L Low 136 - 145 mmol/L [facility] Urea nitrogen [Mass/Vol] 13 mg/dL 7 - 25 mg/dL [facility] CBC panel Auto (Bld)on 01-20 Erythrocyte distribution width (RBC) [Ratio] 13.4 % 11.5 - 14.5 % [facility] Hematocrit (Bld) [Volume fraction] 31.5 % Low 41.0 - 53.0 % [facility] Hemoglobin (Bld) [Mass/Vol] 10.9 g/dL Low 13.9 - 16.3 g/dL [facility] Interpretation and review of laboratory results Abnormal [facility] MCH (RBC) [Entitic mass] 32.1 pg 26.0 - 34.0 pg [facility] MCHC (RBC) [Mass/Vol] 34.5 g/dL 32.0 - 35.9 g/dL [facility] MCV (RBC) [Entitic vol] 93 fL 80 - 100 fL [facility] Platelet mean volume (Bld) [Entitic vol] 7.6 fL 7.5 - 11.2 fL [facility] Platelets (Bld) [#/Vol] 330 10*3/uL 150 - 400 K/uL [facility] RBC (Bld) [#/Vol] 3.39 10*6/uL Low [facility] WBC (Bld) [#/Vol] 11.7 10*3/uL High 4.5 - 11.5 K/uL [facility] COMPLETE BLOOD COUNTon 01-20 Erythrocyte distribution width (RBC) [Ratio] 13.4 % Normal 11.5-14.5 [facility] Comment on above: Performed By: #### C BC ####S PATHOLOGY [id number] [place], Hematocrit (Bld) [Volume fraction] 31.5 % Low 41.0-53.0 [facility] Comment on above: Performed By: #### C BC ####S PATHOLOGY [id number] [place], Hemoglobin (Bld) [Mass/Vol] 10.9 g/dL Low 13.9-16.3 [facility] Comment on above: Performed By: #### C BC ####S PATHOLOGY [id number] [place], MCH (RBC) [Entitic mass] 32.1 pg Normal 26.0-34.0 [facility] Comment on above: Performed By: #### C BC ####[facility] [id number] [place], MCHC (RBC) [Mass/Vol] 34.5 g/dL Normal 32.0-35.9 [facility] Comment on above: Performed By: #### C BC ####[facility] [id number] [place], MCV (RBC) [Entitic vol] 93 fL Normal 80-100 T [facility] Comment on above: Performed By: #### C BC ####[facility] [id number] [place], Platelet mean volume (Bld) [Entitic vol] 7.6 fL Normal 7.5-11.2 [facility] Comment on above: Performed By: #### C BC ####S PATHOLOGY [id number] [place], Platelets (Bld) [#/Vol] 330 10*3/uL Normal 150-400 [facility] Comment on above: Performed By: #### C BC ####[facility] [id number] [place], RBC (Bld) [#/Vol] 3.39 10*6/uL Low 4.50-5.90 [facility] Comment on above: Performed By: #### C BC ####S PATHOLOGY [id number] [place], WBC (Bld) [#/Vol] 11.7 10*3/uL High 4.5-11.5 [facility] Comment on above: Performed By: #### C BC ####S PATHOLOGY [id number] [place], [place], [facility] Deicer Tester Authentication Interface Message Text Normal [facility] GLUCOSE, FINGERSTICK-IN OFFI CEon 01-21-2024 Glucose [Mass/Vol] 160 mg/dL High 74 - 109 mg/dL [facility] Interpretation and review of laboratory results Abnormal [facility] Glucose [Mass/Vol] 160 mg/dL High 74-109 [facility] Comment on above: Performed By: #### 8 2948 ####NURSING GLUCOSE [id number] [place], [address] Glucose [Mass/Vol] 101 mg/dL 74 - 109 mg/dL [facility] Interpretation and review of laboratory results Normal [facility] Glucose [Mass/Vol] 101 mg/dL Normal 74-109 [facility] Comment on above: Performed By: #### 8 2948 ####NURSING GLUCOSE [id number] [place], [address] Glucose [Mass/Vol] 221 mg/dL High 74 - 109 mg/dL [facility] Interpretation and review of laboratory results Abnormal [facility] Glucose [Mass/Vol] 221 mg/dL High 74-109 [facility] Comment on above: Performed By: #### 8 2948 ####NURSING GLUCOSE [id number] [place], [address] Glucose [Mass/Vol] 183 mg/dL High 74 - 109 mg/dL [facility] Interpretation and review of laboratory results Abnormal [facility] Glucose [Mass/Vol] 183 mg/dL High 74-109 [facility] Comment on above: Performed By: #### 8 2948 ####NURSING GLUCOSE [id number] [place], [address] MAGNESIUMon 01-21-2024 Interpretation and review of laboratory results Normal [facility] Magnesium [Mass/Vol] 1.9 mg/dL 1.9 - 2 .7 mg/dL [facility] Magnesium [Mass/Vol] 1.9 mg/dL Normal 1.9-2.7 [facility] Comment on above: Performed By: #### M G, T4 F, ALB, TSH HS, FT3, T3, CH8, MICRSML AB ####[facility] [id number] [place], [address] No Panel Informationon 01-20 [facility] Noteson 01-21-2024 Deicer Tester Authentication Interface Message Text Normal [facility] Deicer Tester Authentication Interface Message Text Normal [facility] THYROXINE (T4), FREEon 01-20 Free T4 [Mass/Vol] 1 ng/dL 0.61 - 1. 12 ng/dL [facility] Interpretation and review of laboratory results Normal [facility] T4 F 1.00 ng/dL Normal 0.61-1.12 [facility] Comment on above: Performed By: #### M G, T4 F, ALB, TSH HS, FT3, T3, CH8, MICRSML AB ####[facility] [id number] [place], TRIIODOTHYRONINE (T3)on Interpretation and review of laboratory results Normal [facility] T3 [Mass/Vol] 95.7 ng/dL 87.0 - 178.0 ng/dL [facility] Interpretation and review of laboratory results Abnormal [facility] T3 [Mass/Vol] 70.5 ng/dL Low 87.0 - 178.0 ng/dL [facility] T3 70.5 ng/dL Low 87.0-178.0 [facility] Comment on above: Performed By: #### M G, T4 F, ALB, TSH HS, FT3, T3, CH8, MICRSML AB ####[facility] [id number] [place], TRIIODOTHYRONINE (T3), FREEo n 01-21-2024 Free T3 [Mass/Vol] 2.8 pg/mL 2.5 - 3.9 pg/mL [facility] Interpretation and review of laboratory results Normal [facility] FT3 2.8 pg/mL Normal 2.5-3.9 [facility] Comment on above: Performed By: #### M G, T4 F, ALB, TSH HS, FT3, T3, CH8, MICRSML AB ####[facility] [id number] [place], TSHon 01-21-2024 Interpretation and review of laboratory results Normal [facility] TSH Qn 4.972 m[IU]/L [facility] TSH 4.972 uIU/mL Normal 0.450-5.330 [facility] Comment on above: Performed By: #### M G, T4 F, ALB, TSH HS, FT3, T3, CH8, MICRSML AB ####[facility] [id number] [place], ACTHon 01-20-2024 Corticotropin (P) [Mass/Vol] 9 pg/mL 5 - 46 pg/mL [facility] Interpretation and review of laboratory results Normal [facility] BASIC METABOLIC PANELon 11-0 Anion gap [Moles/Vol] 12 mmol/L Normal 10-20 [facility] Comment on above: Performed By: #### C H8, MG, T3, PHOS ####[facility] [id number] [place], Calcium [Mass/Vol] 8.3 mg/dL Low 8.6-10.3 [facility] Comment on above: Performed By: #### C H8, MG, T3, PHOS ####[facility] [id number] [place], Chloride [Moles/Vol] 102 mmol/L Normal 98-107 [facility] Comment on above: Performed By: #### C H8, MG, T3, PHOS ####[facility] [id number] [place], CO2 [Moles/Vol] 24 mmol/L Normal 21-31 [facility] Comment on above: Performed By: #### C H8, MG, T3, PHOS ####S PATHOLOGY [id number] [place], Creatinine [Mass/Vol] 0.69 mg/dL Low 0.70-1.30 [facility] Comment on above: Performed By: #### C H8, MG, T3, PHOS ####S PATHOLOGY [id number] [place], ESTIMATED GFR (CKD-EPI) 109 mL/min/1.73sqm Normal >=60 [facility] Comment on above: Result Comment: 2020 CKD EPI Equation using Creatinine without RaceComment: Estimated glomerular filtration rate (eGFR) is calculated without a race coefficient. Values should be interpreted in the context of the patient's full clinical presentation.Reference:1. Rudy Torres, Katie M, Tea GALVEZ, et al.. A Unifying Approach for GFR Estimation: Recommendations of the NKF-ASN Task Force on Reassessing the Inclusion of Race in Diagnosing Kidney Disease. French Journal of Kidney Diseases 2021;79(2):268-88.e1.2. N Engl J Med 1 Vol. 385 Issue 19 Pages 6678-9171 Performed By: #### C H8, MG, T3, PHOS ####[facility] [id number] [place], Glucose [Mass/Vol] 161 mg/dL High 74-109 [facility] Comment on above: Performed By: #### C H8, MG, T3, PHOS ####[facility] [id number] [place], Potassium [Moles/Vol] 4.5 mmol/L Normal 3.5-5.0 [facility] Comment on above: Performed By: #### C H8, MG, T3, PHOS ####[facility] [id number] [place], Sodium [Moles/Vol] 133 mmol/L Low 136-145 [facility] Comment on above: Performed By: #### C H8, MG, T3, PHOS ####[facility] [id number] [place], Urea nitrogen [Mass/Vol] 10 mg/dL Normal 7-25 [facility] Comment on above: Performed By: #### C H8, MG, T3, PHOS ####[facility] [id number] [place], Basic metabolic 2000 panelon 01-20-2024 Anion gap [Moles/Vol] 12 mmol/L 10 - 20 [facility] Calcium [Mass/Vol] 8.3 mg/dL Low 8.6 - 10. 3 mg/dL [facility] Chloride [Moles/Vol] 102 mmol/L 98 - 10 7 mmol/L [facility] CO2 [Moles/Vol] 24 mmol/L 21 - 31 mmol/L [facility] Creatinine [Mass/Vol] 0.69 mg/dL Low 0.70 - 1.30 mg/dL [facility] GFR/1.73 sq M.predicted CKD-EPI (S/P/Bld) [Vol rate/Area] 109 - PINF [facility] Glucose [Mass/Vol] 161 mg/dL High 74 - 109 mg/dL [facility] Potassium [Moles/Vol] 4.5 mmol/L 3.5 - 5.0 mmol/L [facility] Sodium [Moles/Vol] 133 mmol/L Low 136 - 145 mmol/L [facility] Urea nitrogen [Mass/Vol] 10 mg/dL 7 - 25 mg/dL [facility] CBC panel Auto (Bld)on 01-19 Erythrocyte distribution width (RBC) [Ratio] 13.4 % 11.5 - 14.5 % [facility] Hematocrit (Bld) [Volume fraction] 32.5 % Low 41.0 - 53.0 % [facility] Hemoglobin (Bld) [Mass/Vol] 11 g/dL Low 13.9 - 16.3 g/dL [facility] Interpretation and review of laboratory results Abnormal [facility] MCH (RBC) [Entitic mass] 31.6 pg 26.0 - 34.0 pg [facility] MCHC (RBC) [Mass/Vol] 33.8 g/dL 32.0 - 35.9 g/dL [facility] MCV (RBC) [Entitic vol] 94 fL 80 - 100 fL [facility] Platelet mean volume (Bld) [Entitic vol] 7.4 fL Low 7.5 - 11.2 fL [facility] Platelets (Bld) [#/Vol] 318 10*3/uL 150 - 400 K/uL [facility] RBC (Bld) [#/Vol] 3.48 10*6/uL Low [facility] WBC (Bld) [#/Vol] 9.7 10*3/uL 4.5 - 11.5 K/uL [facility] COMPLETE BLOOD COUNTon 01-19 Erythrocyte distribution width (RBC) [Ratio] 13.4 % Normal 11.5-14.5 [facility] Comment on above: Performed By: #### C BC ####[facility] [id number] [place], [address] Hematocrit (Bld) [Volume fraction] 32.5 % Low 41.0-53.0 [facility] Comment on above: Performed By: #### C BC ####[facility] [id number] [place], Hemoglobin (Bld) [Mass/Vol] 11.0 g/dL Low 13.9-16.3 [facility] Comment on above: Performed By: #### C BC ####[facility] [id number] [place], MCH (RBC) [Entitic mass] 31.6 pg Normal 26.0-34.0 [facility] Comment on above: Performed By: #### C BC ####[facility] [id number] [place], MCHC (RBC) [Mass/Vol] 33.8 g/dL Normal 32.0-35.9 [facility] Comment on above: Performed By: #### C BC ####[facility] [id number] [place], MCV (RBC) [Entitic vol] 94 fL Normal 80-100 [facility] Comment on above: Performed By: #### C BC ####[facility] [id number] [place], Platelet mean volume (Bld) [Entitic vol] 7.4 fL Low 7.5-11.2 [facility] Comment on above: Performed By: #### C BC ####[facility] [id number] [place], Platelets (Bld) [#/Vol] 318 10*3/uL Normal 150-400 [facility] Comment on above: Performed By: #### C BC ####[facility] [id number] [place], RBC (Bld) [#/Vol] 3.48 10*6/uL Low 4.50-5.90 [facility] Comment on above: Performed By: #### C BC ####[facility] [id number] [place], WBC (Bld) [#/Vol] 9.7 10*3/uL Normal 4.5-11.5 [facility] Comment on above: Performed By: #### C BC ####[facility] [id number] [place], [address] [employer] 01-20-2024 Deicer Tester Authentication Interface Message Text Normal [facility] Deicer Tester Authentication Interface Message Text Normal [facility] Deicer Tester Authentication Interface Message Text Normal [facility] Deicer Tester Authentication Interface Message Text Normal [facility] GLUCOSE, FINGERSTICK-IN OFFI CEon 01-20-2024 Glucose [Mass/Vol] 134 mg/dL High 74 - 109 mg/dL [facility] Interpretation and review of laboratory results Abnormal [facility] Glucose [Mass/Vol] 134 mg/dL High 74-109 [facility] Comment on above: Performed By: #### 8 2948 ####NURSING GLUCOSE [id number] [place], [address] Glucose [Mass/Vol] 178 mg/dL High 74-109 [facility] Comment on above: Performed By: #### 8 2948 ####NURSING GLUCOSE [id number] [place], [address] Interpretation and review of laboratory results Abnormal [facility] Glucose [Mass/Vol] 149 mg/dL High 74 - 109 mg/dL [facility] Interpretation and review of laboratory results Abnormal [facility] Glucose [Mass/Vol] 149 mg/dL High 74-109 [facility] Comment on above: Performed By: #### 8 2948 ####NURSING GLUCOSE [id number] [place], [address] Glucose [Mass/Vol] 149 mg/dL High 74 - 109 mg/dL [facility] Interpretation and review of laboratory results Abnormal [facility] Glucose [Mass/Vol] 149 mg/dL High 74-109 [facility] Comment on above: Performed By: #### 8 2948 ####NURSING GLUCOSE [id number] [place], [address] MAGNESIUMon 01-20-2024 Magnesium [Mass/Vol] 1.8 mg/dL Low 1.9 - 2 .7 mg/dL [facility] Magnesium [Mass/Vol] 1.8 mg/dL Low 1.9-2.7 [facility] Comment on above: Performed By: #### C H8, MG, T3, PHOS ####[facility] PATHOLOGY [id number] [place], [place], No Panel Informationon 01-19 Interpretation and review of laboratory results [facility]normal [facility] OSMOLALITY, URINEOrdered By: Betty Malcolm on 01-20-2024 Interpretation and review of laboratory results Normal [facility] Osmolality (U) [Osmolality] 198 mosm/[facility] OSMOLALITY, URINEon 01-20-20 24 OSMO U 198 mOsm/Kg Normal 50-1400 [facility] Comment on above: Performed By: #### O SMO U ####[facility] PATHOLOGY [id number] [place], PHOSPHORUSon 01-20-2024 Interpretation and review of laboratory results Normal [facility] Phosphate [Mass/Vol] 4.2 mg/dL 2.5 - 5 .0 mg/dL [facility] Phosphate [Mass/Vol] 4.2 mg/dL Normal 2.5-5.0 [facility] Comment on above: Performed By: #### C H8, MG, T3, PHOS ####[facility] PATHOLOGY [id number] [place], [place], Progress Noteson 01-20-2024 Deicer Tester Authentication Interface Message Text SIRS , non infectious, no organ dysfunction Normal [facility] Deicer Tester Authentication Interface Message Text Normal [facility] Deicer Tester Authentication Interface Message Text Normal [facility] Deicer Tester Authentication Interface Message Text Normal [facility] TRIIODOTHYRONINE (T3)on T3 95.7 ng/dL Normal 87.0-178.0 [facility] Comment on above: Performed By: #### C H8, MG, T3, PHOS ####[facility] PATHOLOGY [id number] [place], [place], ACTHon 01-19-2024 ACTH 9 pg/mL Normal 5-46 [facility] Comment on above: Performed By: #### A CTH ####[facility] PATHOLOGY [id number] [place], BASIC METABOLIC PANELon Anion gap [Moles/Vol] 9 mmol/L Low 10-20 [facility] Comment on above: Performed By: #### P HOS, MG, CH8 ####[facility] PATHOLOGY [id number] [place], Calcium [Mass/Vol] 8.1 mg/dL Low 8.6-10.3 [facility] Comment on above: Performed By: #### P HOS, MG, CH8 ####[facility] PATHOLOGY [id number] [place], Chloride [Moles/Vol] 103 mmol/L Normal 98-107 [facility] Comment on above: Performed By: #### P HOS, MG, CH8 ####[facility] PATHOLOGY [id number] [place], CO2 [Moles/Vol] 25 mmol/L Normal 21-31 [facility] Comment on above: Performed By: #### P HOS, MG, CH8 ####[facility] PATHOLOGY [id number] [place], Creatinine [Mass/Vol] 0.73 mg/dL Normal 0.70-1.30 [facility] Comment on above: Performed By: #### P HOS, MG, CH8 ####[facility] PATHOLOGY [id number] [place], ESTIMATED GFR (CKD-EPI) 107 mL/min/1.73sqm Normal >=60 [facility] Comment on above: Result Comment: 2020 CKD EPI Equation using Creatinine without RaceComment: Estimated glomerular filtration rate (eGFR) is calculated without a race coefficient. Values should be interpreted in the context of the patient's full clinical presentation.Reference:1. Rudy C, Katie M, Tea DC, et al.. A Unifying Approach for GFR Estimation: Recommendations of the NKF-ASN Task Force on Reassessing the Inclusion of Race in Diagnosing Kidney Disease. French Journal of Kidney Diseases 2021;79(2):268-88.e1.2. N Engl J Med 2020 Vol. 385 Issue 19 Pages 0833-6567 Performed By: #### P HOS, MG, CH8 ####[facility] PATHOLOGY [id number] [place], Glucose [Mass/Vol] 215 mg/dL High 74-109 [facility] Comment on above: Performed By: #### MG ÁNGEL, CH8 ####[facility] PATHOLOGY [id number] [place], Potassium [Moles/Vol] 4.1 mmol/L Normal 3.5-5.0 [facility] Comment on above: Performed By: #### MG ÁNGEL, CH8 ####[facility] PATHOLOGY [id number] [place], Sodium [Moles/Vol] 133 mmol/L Low 136-145 [facility] Comment on above: Performed By: #### MG ÁNGEL, CH8 ####S PATHOLOGY [id number] [place], Urea nitrogen [Mass/Vol] 13 mg/dL Normal 7-25 [facility] Comment on above: Performed By: #### P MG GENE, CH8 ####S PATHOLOGY [id number] [place], [place], Basic metabolic 2000 panelon 01-19-2024 Anion gap [Moles/Vol] 9 mmol/L Low 10 - 20 [facility] Calcium [Mass/Vol] 8.1 mg/dL Low 8.6 - 10. 3 mg/dL [facility] Chloride [Moles/Vol] 103 mmol/L 98 - 10 7 mmol/L [facility] CO2 [Moles/Vol] 25 mmol/L 21 - 31 mmol/L [facility] Creatinine [Mass/Vol] 0.73 mg/dL 0.70 - 1.30 mg/dL [facility] GFR/1.73 sq M.predicted CKD-EPI (S/P/Bld) [Vol rate/Area] 107 - PINF [facility] Glucose [Mass/Vol] 215 mg/dL High 74 - 109 mg/dL [facility] Interpretation and review of laboratory results Abnormal [facility] Potassium [Moles/Vol] 4.1 mmol/L 3.5 - 5.0 mmol/L [facility] Sodium [Moles/Vol] 133 mmol/L Low 136 - 145 mmol/L [facility] Urea nitrogen [Mass/Vol] 13 mg/dL 7 - 25 mg/dL [facility] CBC panel Auto (Bld)on 01-18 Erythrocyte distribution width (RBC) [Ratio] 13.2 % 11.5 - 14.5 % [facility] Hematocrit (Bld) [Volume fraction] 31.2 % Low 41.0 - 53.0 % [facility] Hemoglobin (Bld) [Mass/Vol] 10.6 g/dL Low 13.9 - 16.3 g/dL [facility] Interpretation and review of laboratory results Abnormal [facility] MCH (RBC) [Entitic mass] 31.7 pg 26.0 - 34.0 pg [facility] MCHC (RBC) [Mass/Vol] 34 g/dL 32.0 - 35.9 g/dL [facility] MCV (RBC) [Entitic vol] 93 fL 80 - 100 fL [facility] Platelet mean volume (Bld) [Entitic vol] 7.8 fL 7.5 - 11.2 fL [facility] Platelets (Bld) [#/Vol] 295 10*3/uL 150 - 400 K/uL [facility] RBC (Bld) [#/Vol] 3.34 10*6/uL Low [facility] WBC (Bld) [#/Vol] 8.3 10*3/uL 4.5 - 11.5 K/uL [facility] COMPLETE BLOOD COUNTon 01-18 Erythrocyte distribution width (RBC) [Ratio] 13.2 % Normal 11.5-14.5 [facility] Comment on above: Performed By: #### C BC ####S PATHOLOGY [id number] [place] [address], Hematocrit (Bld) [Volume fraction] 31.2 % Low 41.0-53.0 [facility] Comment on above: Performed By: #### C BC ####[facility] PATHOLOGY [id number] [place] [address], Hemoglobin (Bld) [Mass/Vol] 10.6 g/dL Low 13.9-16.3 [facility] Comment on above: Performed By: #### C BC ####S PATHOLOGY [id number] [place] [address], MCH (RBC) [Entitic mass] 31.7 pg Normal 26.0-34.0 [facility] Comment on above: Performed By: #### C BC ####S PATHOLOGY [id number] [place], MCHC (RBC) [Mass/Vol] 34.0 g/dL Normal 32.0-35.9 [facility] Comment on above: Performed By: #### C BC ####S PATHOLOGY [id number] [place], MCV (RBC) [Entitic vol] 93 fL Normal 80-100 [facility] Comment on above: Performed By: #### C BC ####S PATHOLOGY [id number] [place], Platelet mean volume (Bld) [Entitic vol] 7.8 fL Normal 7.5-11.2 [facility] Comment on above: Performed By: #### C BC ####[facility] PATHOLOGY [id number] [place], Platelets (Bld) [#/Vol] 295 10*3/uL Normal 150-400 [facility] Comment on above: Performed By: #### C BC ####[facility] PATHOLOGY [id number] [place], RBC (Bld) [#/Vol] 3.34 10*6/uL Low 4.50-5.90 [facility] Comment on above: Performed By: #### C BC ####S PATHOLOGY [id number] [place], WBC (Bld) [#/Vol] 8.3 10*3/uL Normal 4.5-11.5 [facility] Comment on above: Performed By: #### C BC ####[facility] PATHOLOGY [id number] [place], Care Plan Noteon 01-19-2024 Deicer Tester Authentication Interface Message Text Normal [facility] EKG 12 LEAD - PERFORMon 11-0 Diagnosis [facility] P wave [facility] by EKG 110 BPM [facility] P wave axis 10 degrees [facility] P-R Interval 158 ms [facility] Q-T interval 316 ms [facility] Q-T interval corrected 427 ms [facility] QRS axis -54 degrees [facility] QRS duration 82 ms [facility] T wave axis 46 degrees [facility] GLUCOSE, FINGERSTICK-IN OFFI CEon 01-19-2024 Glucose [Mass/Vol] 188 mg/dL High 74 - 109 mg/dL [facility] Interpretation and review of laboratory results Abnormal [facility] Glucose [Mass/Vol] 188 mg/dL High 74-109 [facility] Comment on above: Performed By: #### 8 2948 ####NURSING GLUCOSE [id number] [place], [address] Glucose [Mass/Vol] 151 mg/dL High 74-109 [facility] Comment on above: Performed By: #### 8 2948 ####NURSING GLUCOSE [id number] [place], [address] Interpretation and review of laboratory results [facility] Glucose [Mass/Vol] 209 mg/dL High 74 - 109 mg/dL [facility] Interpretation and review of laboratory results [facility]normal [facility] Glucose [Mass/Vol] 209 mg/dL High 74-109 [facility] Comment on above: Performed By: #### 8 2948 ####NURSING GLUCOSE INESTYU1894 [place], [address] Glucose [Mass/Vol] 180 mg/dL High 74 - 109 mg/dL [facility] Interpretation and review of laboratory results Abnormal [facility] Glucose [Mass/Vol] 180 mg/dL High 74-109 [facility] Comment on above: Performed By: #### 8 2948 ####NURSING GLUCOSE [id number] [place], [address] MAGNESIUMon 01-19-2024 Magnesium [Mass/Vol] 2.0 mg/dL Normal 1.9-2.7 [facility] Comment on above: Performed By: #### P HOS, MG, CH8 ####[facility] PATHOLOGY [id number] [place], [address] Magnesium [Mass/Vol] 2 mg/dL 1.9 - 2 .7 mg/dL [facility] No Panel Informationon 01-18 Interpretation and review of laboratory results Normal [facility] PHOSPHORUSon 01-19-2024 Phosphate [Mass/Vol] 3.9 mg/dL Normal 2.5-5.0 [facility] Comment on above: Performed By: #### P HOS MG, CH8 ####[facility] PATHOLOGY [id number] [place], Phosphate [Mass/Vol] 3.9 mg/dL 2.5 - 5 .0 mg/dL [facility] Progress Noteson 01-19-2024 Deicer Tester Authentication Interface Message Text Normal [facility] TSHon 01-19-2024 Interpretation and review of laboratory results Abnormal [facility] TSH Qn 6.676 m[IU]/L [facility] TSH 6.676 uIU/mL High 0.450-5.330 [facility] Comment on above: Performed By: #### T SH HS ####[facility] PATHOLOGY [id number] [place], BASIC METABOLIC PANELon Anion gap [Moles/Vol] 12 mmol/L Normal 10-20 [facility] Comment on above: Performed By: #### C H8 ####[facility] PATHOLOGY [id number] [place], Calcium [Mass/Vol] 8.3 mg/dL Low 8.6-10.3 [facility] Comment on above: Performed By: #### C H8 ####[facility] PATHOLOGY [id number] [place], Chloride [Moles/Vol] 98 mmol/L Normal 98-107 [facility] Comment on above: Performed By: #### C H8 ####[facility] PATHOLOGY [id number] [place], CO2 [Moles/Vol] 26 mmol/L Normal 21-31 [facility] Comment on above: Performed By: #### C H8 ####[facility] PATHOLOGY [id number] [place], Creatinine [Mass/Vol] 0.86 mg/dL Normal 0.70-1.30 [facility] Comment on above: Performed By: #### C H8 ####S PATHOLOGY [id number] [place], ESTIMATED GFR (CKD-EPI) 102 mL/min/1.73sqm Normal >=60 [facility] Comment on above: Result Comment: 2020 CKD EPI Equation using Creatinine without RaceComment: Estimated glomerular filtration rate (eGFR) is calculated without a race coefficient. Values should be interpreted in the context of the patient's full clinical presentation.Reference:1. Rudy C, Katie M, Tea GALVEZ, et al.. A Unifying Approach for GFR Estimation: Recommendations of the NKF-ASN Task Force on Reassessing the Inclusion of Race in Diagnosing Kidney Disease. French Journal of Kidney Diseases 2021;79(2):268-88.e1.2. N Engl J Med 2020 Vol. 385 Issue 19 Pages 7215-9758 Performed By: #### C H8 ####S PATHOLOGY [id number] [place], Glucose [Mass/Vol] 173 mg/dL High 74-109 [facility] Comment on above: Performed By: #### C H8 ####[facility] PATHOLOGY [id number] [place], Potassium [Moles/Vol] 4.3 mmol/L Normal 3.5-5.0 [facility] Comment on above: Performed By: #### C H8 ####[facility] PATHOLOGY [id number] [place], Sodium [Moles/Vol] 132 mmol/L Low 136-145 [facility] Comment on above: Performed By: #### C H8 ####[facility] PATHOLOGY [id number] [place], Urea nitrogen [Mass/Vol] 12 mg/dL Normal 7-25 [facility] Comment on above: Performed By: #### C H8 ####[facility] PATHOLOGY [id number] [place], Anion gap [Moles/Vol] 12 mmol/L Normal 10-20 [facility] Comment on above: Performed By: #### Jono Deluca CH8, PHOS ####[facility] PATHOLOGY [id number] [place], Calcium [Mass/Vol] 8.5 mg/dL Low 8.6-10.3 [facility] Comment on above: Performed By: #### Jono Deluca CH8, PHOS ####[facility] PATHOLOGY [id number] [place], Chloride [Moles/Vol] 100 mmol/L Normal 98-107 [facility] Comment on above: Performed By: #### Jono Deluca CH8, PHOS ####[facility] PATHOLOGY [id number] [place], CO2 [Moles/Vol] 24 mmol/L Normal 21-31 [facility] Comment on above: Performed By: #### Jono Deluca CH8, PHOS ####[facility] PATHOLOGY [id number] [place], Creatinine [Mass/Vol] 0.75 mg/dL Normal 0.70-1.30 [facility] Comment on above: Performed By: #### Jono Deluca CH8, PHOS ####[facility] PATHOLOGY [id number] [place], ESTIMATED GFR (CKD-EPI) 107 mL/min/1.73sqm Normal >=60 [facility] Comment on above: Result Comment: 2020 CKD EPI Equation using Creatinine without RaceComment: Estimated glomerular filtration rate (eGFR) is calculated without a race coefficient. Values should be interpreted in the context of the patient's full clinical presentation.Reference:1. Rudy C, Katie M, Tea GALVEZ, et al.. A Unifying Approach for GFR Estimation: Recommendations of the NKF-ASN Task Force on Reassessing the Inclusion of Race in Diagnosing Kidney Disease. French Journal of Kidney Diseases 2021;79(2):268-88.e1.2. N Engl J Med 1 Vol. 385 Issue 19 Pages 3245-3083 Performed By: #### Jono Deluca CH8, PHOS ####[facility] PATHOLOGY [id number] [place], Glucose [Mass/Vol] 156 mg/dL High 74-109 [facility] Comment on above: Performed By: #### MARIAH Mcfarland PHOS ####[facility] PATHOLOGY [id number] [place], Potassium [Moles/Vol] 4.4 mmol/L Normal 3.5-5.0 [facility] Comment on above: Performed By: #### MARIAH Mcfarland, RAFAELA ####[facility] PATHOLOGY [id number] [place], Sodium [Moles/Vol] 132 mmol/L Low 136-145 [facility] Comment on above: Performed By: #### MARIAH Mcfarland PHOS ####[facility] PATHOLOGY [id number] [place], Urea nitrogen [Mass/Vol] 15 mg/dL Normal 7-25 [facility] Comment on above: Performed By: #### MARIAH Mcfarland, RAFAELA ####S PATHOLOGY [id number] [place], Basic metabolic 2000 panelon 01-18-2024 Anion gap [Moles/Vol] 12 mmol/L 10 - 20 [facility] Calcium [Mass/Vol] 8.3 mg/dL Low 8.6 - 10. 3 mg/dL [facility] Chloride [Moles/Vol] 98 mmol/L 98 - 10 7 mmol/L [facility] CO2 [Moles/Vol] 26 mmol/L 21 - 31 mmol/L [facility] Creatinine [Mass/Vol] 0.86 mg/dL 0.70 - 1.30 mg/dL [facility] GFR/1.73 sq M.predicted CKD-EPI (S/P/Bld) [Vol rate/Area] 102 - PINF [facility] Glucose [Mass/Vol] 173 mg/dL High 74 - 109 mg/dL [facility] Interpretation and review of laboratory results Abnormal [facility] Potassium [Moles/Vol] 4.3 mmol/L 3.5 - 5.0 mmol/L [facility] Sodium [Moles/Vol] 132 mmol/L Low 136 - 145 mmol/L [facility] Urea nitrogen [Mass/Vol] 12 mg/dL 7 - 25 mg/dL [facility] Basic metabolic 2000 panelOr dered By: Skye Smith on 01-18-2024 Anion gap [Moles/Vol] 12 mmol/L 10 - 20 [facility] Calcium [Mass/Vol] 8.5 mg/dL Low 8.6 - 10. 3 mg/dL [facility] Chloride [Moles/Vol] 100 mmol/L 98 - 10 7 mmol/L [facility] CO2 [Moles/Vol] 24 mmol/L 21 - 31 mmol/L [facility] Creatinine [Mass/Vol] 0.75 mg/dL 0.70 - 1.30 mg/dL [facility] GFR/1.73 sq M.predicted CKD-EPI (S/P/Bld) [Vol rate/Area] 107 - PINF [facility] Glucose [Mass/Vol] 156 mg/dL High 74 - 109 mg/dL [facility] Interpretation and review of laboratory results Abnormal [facility] Potassium [Moles/Vol] 4.4 mmol/L 3.5 - 5.0 mmol/L [facility] Sodium [Moles/Vol] 132 mmol/L Low 136 - 145 mmol/L [facility] Urea nitrogen [Mass/Vol] 15 mg/dL 7 - 25 mg/dL [facility] CBC panel Auto (Bld)on 01-17 Erythrocyte distribution width (RBC) [Ratio] 13.4 % 11.5 - 14.5 % [facility] Hematocrit (Bld) [Volume fraction] 33.9 % Low 41.0 - 53.0 % [facility] Hemoglobin (Bld) [Mass/Vol] 11.6 g/dL Low 13.9 - 16.3 g/dL [facility] Interpretation and review of laboratory results Abnormal [facility] MCH (RBC) [Entitic mass] 31.5 pg 26.0 - 34.0 pg [facility] MCHC (RBC) [Mass/Vol] 34.2 g/dL 32.0 - 35.9 g/dL [facility] MCV (RBC) [Entitic vol] 92 fL 80 - 100 fL [facility] Platelet mean volume (Bld) [Entitic vol] 8 fL 7.5 - 11.2 fL [facility] Platelets (Bld) [#/Vol] 299 10*3/uL 150 - 400 K/uL [facility] RBC (Bld) [#/Vol] 3.68 10*6/uL Low [facility] WBC (Bld) [#/Vol] 9 10*3/uL 4.5 - 11.5 K/uL [facility] COMPLETE BLOOD COUNTon 01-17 Erythrocyte distribution width (RBC) [Ratio] 13.4 % Normal 11.5-14.5 [facility] Comment on above: Performed By: #### C BC ####[facility] PATHOLOGY [id number] [place] [address], Hematocrit (Bld) [Volume fraction] 33.9 % Low 41.0-53.0 [facility] Comment on above: Performed By: #### C BC ####[facility] PATHOLOGY [id number] [place] [address], Hemoglobin (Bld) [Mass/Vol] 11.6 g/dL Low 13.9-16.3 [facility] Comment on above: Performed By: #### C BC ####[facility] PATHOLOGY [id number] [place] [address], MCH (RBC) [Entitic mass] 31.5 pg Normal 26.0-34.0 [facility] Comment on above: Performed By: #### C BC ####[facility] PATHOLOGY [id number] [place] [address], MCHC (RBC) [Mass/Vol] 34.2 g/dL Normal 32.0-35.9 [facility] Comment on above: Performed By: #### C BC ####[facility] PATHOLOGY [id number] [place] [address], MCV (RBC) [Entitic vol] 92 fL Normal 80-100 T [facility] Comment on above: Performed By: #### C BC ####[facility] PATHOLOGY [id number] [place] [address], Platelet mean volume (Bld) [Entitic vol] 8.0 fL Normal 7.5-11.2 [facility] Comment on above: Performed By: #### C BC ####[facility] PATHOLOGY [id number] [place] [address], Platelets (Bld) [#/Vol] 299 10*3/uL Normal 150-400 [facility] Comment on above: Performed By: #### C BC ####S PATHOLOGY [id number] [place], RBC (Bld) [#/Vol] 3.68 10*6/uL Low 4.50-5.90 [facility] Comment on above: Performed By: #### C BC ####S PATHOLOGY [id number] [place], WBC (Bld) [#/Vol] 9.0 10*3/uL Normal 4.5-11.5 [facility] Comment on above: Performed By: #### C BC ####[facility] PATHOLOGY [id number] [place], GLUCOSE, FINGERSTICK-IN OFFI CEon 01-18-2024 Glucose [Mass/Vol] 219 mg/dL High 74 - 109 mg/dL [facility] Interpretation and review of laboratory results Abnormal [facility] Glucose [Mass/Vol] 219 mg/dL High 74-109 [facility] Comment on above: Performed By: #### 8 9088 ####NURSING GLUCOSE [id number] [place], [address] Glucose [Mass/Vol] 173 mg/dL High 74 - 109 mg/dL [facility] Interpretation and review of laboratory results Abnormal [facility] Glucose [Mass/Vol] 173 mg/dL High 74-109 [facility] Comment on above: Performed By: #### 8 2948 ####NURSING GLUCOSE [id number] [place], [address] Glucose [Mass/Vol] 180 mg/dL High 74 - 109 mg/dL [facility] Interpretation and review of laboratory results Abnormal [facility] Glucose [Mass/Vol] 180 mg/dL High 74-109 [facility] Comment on above: Performed By: #### 8 2948 ####NURSING GLUCOSE [id number] [place], [address] Glucose [Mass/Vol] 181 mg/dL High 74 - 109 mg/dL [facility] Interpretation and review of laboratory results Abnormal [facility] Glucose [Mass/Vol] 181 mg/dL High 74-109 [facility] Comment on above: Performed By: #### 8 2948 ####NURSING GLUCOSE [id number] [place], [address] MAGNESIUMon 01-18-2024 Magnesium [Mass/Vol] 2 mg/dL 1.9 - 2 .7 mg/dL [facility] Magnesium [Mass/Vol] 2.0 mg/dL Normal 1.9-2.7 [facility] Comment on above: Performed By: #### Jono Deluca, MARIAH, PHOS ####[facility] PATHOLOGY [id number] [place], No Panel Informationon 01-17 Interpretation and review of laboratory results Normal [facility] PHOSPHORUSon 01-18-2024 Phosphate [Mass/Vol] 3.9 mg/dL 2.5 - 5 .0 mg/dL [facility] Phosphate [Mass/Vol] 3.9 mg/dL Normal 2.5-5.0 [facility] Comment on above: Performed By: #### Jono Deluca, MAGO8, PHOS ####[facility] PATH[facility] [id number] [place], Progress Noteson 01-18-2024 Deicer Tester Authentication Interface Message Text Normal [facility] Deicer Tester Authentication Interface Message Text Normal [facility] US LIVER ONLYon 01-18-2024 US LIVER ONLY Normal [facility] US Liveron 01-18-2024 EXAMINATION: US LIVER ONLY 01/18/2024 06:36 PM CLINICAL HISTORY: cocncern for cirrhosis ASSOCIATED DIAGNOSIS: ORDERING PROVIDER: TOYIN DAVIS TECHNOLOGISTS NOTE: Limited due to pt body habitus and bowel gas. COMPARISON: None TECHNIQUE: Ultrasound real time scan with image documentation of the liver was performed. FINDINGS: Liver Craniocaudal length: 15.8 cm. Echogenicity: Normal Surface nodularity: Not visualized Mass (size and location): None. Bile ducts Intrahepatic ducts: No biliary dilatation. Common bile duct: Normal caliber. Diameter 4 mm. Gallbladder Gallbladder sludge is present. No gallstones identified. IMPRESSION: Unremarkable liver ultrasound. Gallbladder sludge is present. MACRO: None RADIOLOGY Rico Sherman MD - 01/18/2024 EXAMINATION: US LIVER ONLY 01/18/2024 06:36 PM CLINICAL HISTORY: cocncern for cirrhosis ASSOCIATED DIAGNOSIS: ORDERING PROVIDER: TOYIN DAVIS TECHNOLOGISTS NOTE: Limited due to pt body habitus and bowel gas. COMPARISON: None TECHNIQUE: Ultrasound real time scan with image documentation of the liver was performed. FINDINGS: Liver Craniocaudal length: 15.8 cm. Echogenicity: Normal Surface nodularity: Not visualized Mass (size and location): None. Bile ducts Intrahepatic ducts: No biliary dilatation. Common bile duct: Normal caliber. Diameter 4 mm. Gallbladder Gallbladder sludge is present. No gallstones identified. IMPRESSION: Unremarkable liver ultrasound. Gallbladder sludge is present. MACRO: None [facility] RADIOLOGY [facility] Radiology Study observation (narrative) [facility] US LiverOrdered By: Rico Sherman on 01-18-2024 [facility] Work Phone: BASIC METABOLIC PANELon 11-0 Anion gap [Moles/Vol] 12 mmol/L Normal 10-20 [facility] Comment on above: Performed By: #### C H8, VITB12 ####S PATHOLOGY [id number] [place], [place], Calcium [Mass/Vol] 8.5 mg/dL Low 8.6-10.3 [facility] Comment on above: Performed By: #### C H8, VITB12 ####[facility] [id number] [place], Chloride [Moles/Vol] 95 mmol/L Low 98-107 [facility] Comment on above: Performed By: #### C H8, VITB12 ####[facility] PATHOLOGY [id number] [place], CO2 [Moles/Vol] 26 mmol/L Normal 21-31 [facility] Comment on above: Performed By: #### C H8, VITB12 ####[facility] PATHOLOG[facility] [id number] [place], Creatinine [Mass/Vol] 0.87 mg/dL Normal 0.70-1.30 [facility] Comment on above: Performed By: #### Melissa H8, VITB12 ####S PATHOLOGY [id number] [place], ESTIMATED GFR (CKD-EPI) 102 mL/min/1.73sqm Normal >=60 [facility] Comment on above: Result Comment: 2020 CKD EPI Equation using Creatinine without RaceComment: Estimated glomerular filtration rate (eGFR) is calculated without a race coefficient. Values should be interpreted in the context of the patient's full clinical presentation.Reference:1. Rudy C, Katie M, Tea GALVEZ, et al.. A Unifying Approach for GFR Estimation: Recommendations of the NKF-ASN Task Force on Reassessing the Inclusion of Race in Diagnosing Kidney Disease. French Journal of Kidney Diseases 2021;79(2):268-88.e1.2. N Engl J Med 2020 Vol. 385 Issue 19 Pages 7798-0628 Performed By: #### Melissa Miramontes VITB12 ####S PATHOLOGY [id number] [place], Glucose [Mass/Vol] 259 mg/dL High 74-109 [facility] Comment on above: Performed By: #### Melissa Miramontes VITB12 ####S PATHOLOGY [id number] [place], Potassium [Moles/Vol] 4.7 mmol/L Normal 3.5-5.0 [facility] Comment on above: Performed By: #### Melissa H8, VITB12 ####S PATHOLOGY [id number] [place], Sodium [Moles/Vol] 128 mmol/L Low 136-145 [facility] Comment on above: Performed By: #### Melissa H8, VITB12 ####[facility] PATHOLOGY QNZULCQVDE4271 [place], Urea nitrogen [Mass/Vol] 14 mg/dL Normal 7-25 [facility] Comment on above: Performed By: #### Melissa H8, VITB12 ####S PATHOLOGY [id number] [place], Anion gap [Moles/Vol] 11 mmol/L Normal 10-20 [facility] Comment on above: Performed By: #### MARIAH MINER, MG ####S PATHOLOGY [id number] [place], Calcium [Mass/Vol] 8.0 mg/dL Low 8.6-10.3 [facility] Comment on above: Performed By: #### Melissa GÓMEZ CH8, MG ####[facility] PATHOLOGY [id number] [place], Chloride [Moles/Vol] 98 mmol/L Normal 98-107 [facility] Comment on above: Performed By: #### MARIAH MINER, MG ####[facility] PATHOLOGY [id number] [place], CO2 [Moles/Vol] 23 mmol/L Normal 21-31 [facility] Comment on above: Performed By: #### MARIAH MINER, MG ####S PATHOLOGY [id number] [place], Creatinine [Mass/Vol] 0.75 mg/dL Normal 0.70-1.30 [facility] Comment on above: Performed By: #### MARIAH MINER, MG ####S PATHOLOGY [id number] [place], ESTIMATED GFR (CKD-EPI) 107 mL/min/1.73sqm Normal >=60 [facility] Comment on above: Result Comment: 2020 CKD EPI Equation using Creatinine without RaceComment: Estimated glomerular filtration rate (eGFR) is calculated without a race coefficient. Values should be interpreted in the context of the patient's full clinical presentation.Reference:1. Rudy C, Katie M, Tea DC, et al.. A Unifying Approach for GFR Estimation: Recommendations of the NKF-ASN Task Force on Reassessing the Inclusion of Race in Diagnosing Kidney Disease. French Journal of Kidney Diseases 2021;79(2):268-88.e1.2. N Engl J Med 1 Vol. 385 Issue 19 Pages 7023-0566 Performed By: #### C MAGO GÓMEZ8, MG ####[facility] PATHOLOGY [id number] [place], Glucose [Mass/Vol] 165 mg/dL High 74-109 [facility] Comment on above: Performed By: #### C PEP, CH8, MG ####[facility] PATHOLOGY [id number] [place], Potassium [Moles/Vol] 4.1 mmol/L Normal 3.5-5.0 [facility] Comment on above: Performed By: #### C PEP, CH8, MG ####[facility] PATHOLOGY [id number] [place], Sodium [Moles/Vol] 128 mmol/L Low 136-145 [facility] Comment on above: Performed By: #### C DALIA, CH8, MG ####[facility] PATHOLOGY [id number] [place], Urea nitrogen [Mass/Vol] 17 mg/dL Normal 7-25 [facility] Comment on above: Performed By: #### C PEP, CH8, MG ####[facility] PATHOLOGY [id number] [place], Basic metabolic 2000 panelon 01-17-2024 Anion gap [Moles/Vol] 12 mmol/L 10 - 20 [facility] Calcium [Mass/Vol] 8.5 mg/dL Low 8.6 - 10. 3 mg/dL [facility] Chloride [Moles/Vol] 95 mmol/L Low 98 - 10 7 mmol/L [facility] CO2 [Moles/Vol] 26 mmol/L 21 - 31 mmol/L [facility] Creatinine [Mass/Vol] 0.87 mg/dL 0.70 - 1.30 mg/dL [facility] GFR/1.73 sq M.predicted CKD-EPI (S/P/Bld) [Vol rate/Area] 102 - PINF [facility] Glucose [Mass/Vol] 259 mg/dL High 74 - 109 mg/dL [facility] Interpretation and review of laboratory results Abnormal [facility] Potassium [Moles/Vol] 4.7 mmol/L 3.5 - 5.0 mmol/L [facility] Sodium [Moles/Vol] 128 mmol/L Low 136 - 145 mmol/L [facility] Urea nitrogen [Mass/Vol] 14 mg/dL 7 - 25 mg/dL [facility] Anion gap [Moles/Vol] 11 mmol/L 10 - 20 [facility] Calcium [Mass/Vol] 8 mg/dL Low 8.6 - 10. 3 mg/dL [facility] Chloride [Moles/Vol] 98 mmol/L 98 - 10 7 mmol/L [facility] CO2 [Moles/Vol] 23 mmol/L 21 - 31 mmol/L [facility] Creatinine [Mass/Vol] 0.75 mg/dL 0.70 - 1.30 mg/dL [facility] GFR/1.73 sq M.predicted CKD-EPI (S/P/Bld) [Vol rate/Area] 107 - PINF [facility] Glucose [Mass/Vol] 165 mg/dL High 74 - 109 mg/dL [facility] Potassium [Moles/Vol] 4.1 mmol/L 3.5 - 5.0 mmol/L [facility] Sodium [Moles/Vol] 128 mmol/L Low 136 - 145 mmol/L [facility] Urea nitrogen [Mass/Vol] 17 mg/dL 7 - 25 mg/dL [facility] C-PEPTIDE, SERUMon C peptide [Mass/Vol] 2.37 ng/mL 0.81 - 3.85 ng/mL [facility] Interpretation and review of laboratory results Normal [facility] CPEP 2.37 ng/mL Normal 0.81-3.85 [facility] Comment on above: Performed By: #### C PEP, CH8, MG ####[facility] PATHOLOGY [id number] [place], [address] CBC panel Auto (Bld)Ordered By: Sabiha Guerrero on 01-17-2024 Erythrocyte distribution width (RBC) [Ratio] 13.5 % 11.5 - 14.5 % [facility] Hematocrit (Bld) [Volume fraction] 33.9 % Low 41.0 - 53.0 % [facility] Hemoglobin (Bld) [Mass/Vol] 11.8 g/dL Low 13.9 - 16.3 g/dL [facility] Interpretation and review of laboratory results Abnormal [facility] MCH (RBC) [Entitic mass] 32.2 pg 26.0 - 34.0 pg [facility] MCHC (RBC) [Mass/Vol] 34.7 g/dL 32.0 - 35.9 g/dL [facility] MCV (RBC) [Entitic vol] 93 fL 80 - 100 fL [facility] Platelet mean volume (Bld) [Entitic vol] 8.6 fL 7.5 - 11.2 fL [facility] Platelets (Bld) [#/Vol] 260 10*3/uL 150 - 400 K/uL [facility] RBC (Bld) [#/Vol] 3.65 10*6/uL Low [facility] WBC (Bld) [#/Vol] 9.5 10*3/uL 4.5 - 11.5 K/uL [facility] COMPLETE BLOOD COUNTon 01-16 Erythrocyte distribution width (RBC) [Ratio] 13.5 % Normal 11.5-14.5 [facility] Comment on above: Performed By: #### C BC ####[facility] PATHOLOGY [id number] [place], Hematocrit (Bld) [Volume fraction] 33.9 % Low 41.0-53.0 [facility] Comment on above: Performed By: #### C BC ####[facility] PATHOLOGY [id number] [place], Hemoglobin (Bld) [Mass/Vol] 11.8 g/dL Low 13.9-16.3 [facility] Comment on above: Performed By: #### C BC ####S PATHOLOGY [id number] [place], MCH (RBC) [Entitic mass] 32.2 pg Normal 26.0-34.0 [facility] Comment on above: Performed By: #### C BC ####S PATHOLOGY [id number] [place], MCHC (RBC) [Mass/Vol] 34.7 g/dL Normal 32.0-35.9 [facility] Comment on above: Performed By: #### C BC ####S PATHOLOGY [id number] [place], MCV (RBC) [Entitic vol] 93 fL Normal 80-100 T [facility] Comment on above: Performed By: #### C BC ####S PATHOLOGY [id number] [place], Platelet mean volume (Bld) [Entitic vol] 8.6 fL Normal 7.5-11.2 [facility] Comment on above: Performed By: #### C BC ####S PATHOLOGY [id number] [place], Platelets (Bld) [#/Vol] 260 10*3/uL Normal 150-400 [facility] Comment on above: Performed By: #### C BC ####[facility] PATHOLOGY [id number] [place], RBC (Bld) [#/Vol] 3.65 10*6/uL Low 4.50-5.90 [facility] Comment on above: Performed By: #### C BC ####[facility] PATHOLOGY [id number] [place], WBC (Bld) [#/Vol] 9.5 10*3/uL Normal 4.5-11.5 [facility] Comment on above: Performed By: #### C BC ####[facility] PATHOLOGY [id number] [place], [place], Consultson 01-17-2024 Deicer Tester Authentication Interface Message Text Normal [facility] Deicer Tester Authentication Interface Message Text Normal [facility] Deicer Tester Authentication Interface Message Text Normal [facility] Diabetes tracking panelOrder ed By: Joy Turcios on 01-17-2024 Average glucose Estimated from glycated hemoglobin (Bld) [Mass/Vol] 148 mg/dL [facility] HbA1c (Bld) [Mass fraction] 6.8 % High 4.0 - 5.6 % [facility] Interpretation and review of laboratory results Abnormal [facility] GLUCOSE, FINGERSTICK-IN OFFI CEon 01-17-2024 Glucose [Mass/Vol] 182 mg/dL High 74 - 109 mg/dL [facility] Interpretation and review of laboratory results Abnormal [facility] Glucose [Mass/Vol] 182 mg/dL High 74-109 [facility] Comment on above: Performed By: #### 8 2948 ####NURSING GLUCOSE [id number] [place], [address] Glucose [Mass/Vol] 200 mg/dL High 74 - 109 mg/dL [facility] Interpretation and review of laboratory results Abnormal [facility] Glucose [Mass/Vol] 200 mg/dL High 74-109 [facility] Comment on above: Performed By: #### 8 2948 ####NURSING GLUCOSE [id number] [place], [address] Glucose [Mass/Vol] 242 mg/dL High 74 - 109 mg/dL [facility] Interpretation and review of laboratory results Abnormal [facility] Glucose [Mass/Vol] 242 mg/dL High 74-109 [facility] Comment on above: Performed By: #### 8 2948 ####NURSING GLUCOSE [id number] [place] [address], [address] Glucose [Mass/Vol] 227 mg/dL High 74 - 109 mg/dL [facility] Interpretation and review of laboratory results Abnormal [facility] Glucose [Mass/Vol] 227 mg/dL High 74-109 [facility] Comment on above: Performed By: #### 8 2948 ####NURSING GLUCOSE [id number] [place] [address], [address] HEMOGLOBIN A1Con 01-17-2024 Glucose [Mass/Vol] 148 mg/dL Normal [facility] Comment on above: Performed By: #### H B A1C ####[facility] [address] [place], [address] HbA1c (Bld) [Mass fraction] 6.8 % High 4.0-5.6 [facility] Comment on above: Performed By: #### H B A1C ####[facility] [address] [place], [address] MAGNESIUMon 01-17-2024 Magnesium [Mass/Vol] 1.8 mg/dL Low 1.9 - 2 .7 mg/dL [facility] Magnesium [Mass/Vol] 1.8 mg/dL Low 1.9-2.7 [facility] Comment on above: Performed By: #### C PEP, CH8, MG ####[facility] PATHOLOGY [id number] [place] [address] [place], No Panel Informationon 01-16 Interpretation and review of laboratory results Abnormal [facility] OSMOLALITYOrdered By: César Allred on 01-17-2024 Interpretation and review of laboratory results Normal [facility] Osmolality [Osmolality] 275 mosm/kg [facility] OSMOLALITYon 01-17-2024 OSMO 275 mOsm/Kg Normal 275-295 [facility] Comment on above: Performed By: #### O SMO ####[facility] PATHOLOGY [id number] [place] [address], PHOSPHORUSon 01-17-2024 Interpretation and review of laboratory results Normal [facility] Phosphate [Mass/Vol] 3.4 mg/dL 2.5 - 5 .0 mg/dL [facility] Phosphate [Mass/Vol] 3.4 mg/dL Normal 2.5-5.0 [facility] Comment on above: Performed By: #### P HOS, TP ####[facility] PATHOLOGY [id number] [place] [address], Progress Noteson 01-17-2024 Deicer Tester Authentication Interface Message Text Normal [facility] Deicer Tester Authentication Interface Message Text Normal [facility] TOTAL PROTEINon 01-17-2024 Interpretation and review of laboratory results Abnormal [facility] Protein [Mass/Vol] 5.8 g/dL Low 6.0 - 8.3 g/dL [facility] Protein [Mass/Vol] 5.8 g/dL Low 6.0-8.3 [facility] Comment on above: Performed By: #### P HOS, TP ####[facility] [id number] [place], VITAMIN B12 (CYANOCOBALAMIN) on 01-17-2024 Cobalamin (Vitamin B12) [Moles/Vol] 560 pg/mL 180 - 914 pg/mL [facility] Interpretation and review of laboratory results Normal [facility] Cobalamin (Vitamin B12) [Mass/Vol] 560 pg/mL Normal 180-914 [facility] Comment on above: Order Comment: Defic ient: <= 145 pg/mLInsufficient: 145 - 180 pg/mLSufficient: 180 - 914 pg/mL Performed By: #### C H8, VITB12 ####[facility] PATHOLOG[facility] [id number] [place], ANTI FXA-LMW HEPARINon 01-15 LMW Heparin Chromogenic method Qn (PPP) 0.41 IU/mL [facility] ANTI FXA-LMW HEPARIN ASSAY 0.41 IU/mL Normal [facility] Comment on above: Order Comment: The r ecommended therapeutic range for treatment of thrombosis with Low Molecular Weight Heparin is 0.5 - 1.0 IU/mLThe recommended range for VTE prophylaxis with Low Molecular Weight Heparin is 0.2 - 0.4 IU/mL. Performed By: #### A XL ####[facility] PATHOLOGY [id number] [place] [address], BASIC METABOLIC PANELon 10- Anion gap [Moles/Vol] 12 mmol/L Normal 10-20 [facility] Comment on above: Performed By: #### Melissa H8 ####[facility] PATHOLOG[facility] [id number] [place] [address], Calcium [Mass/Vol] 8.1 mg/dL Low 8.6-10.3 [facility] Comment on above: Performed By: #### Melissa H8 ####[facility] PATH[facility] [id number] [place], Chloride [Moles/Vol] 98 mmol/L Normal 98-107 [facility] Comment on above: Performed By: #### Melissa H8 ####[facility] PATHOLOG[facility] [id number] [place], CO2 [Moles/Vol] 22 mmol/L Normal 21-31 [facility] Comment on above: Performed By: #### Melissa H8 ####S PATHOLOGY [id number] [place], Creatinine [Mass/Vol] 0.86 mg/dL Normal 0.70-1.30 [facility] Comment on above: Performed By: #### Melissa H8 ####[facility] PATHOLOGY [id number] [place] [address], ESTIMATED GFR (CKD-EPI) 102 mL/min/1.73sqm Normal >=60 [facility] Comment on above: Result Comment: 2020 CKD EPI Equation using Creatinine without RaceComment: Estimated glomerular filtration rate (eGFR) is calculated without a race coefficient. Values should be interpreted in the context of the patient's full clinical presentation.Reference:1. Rudy Torres, Katie M, Tea GALVEZ, et al.. A Unifying Approach for GFR Estimation: Recommendations of the NKF-ASN Task Force on Reassessing the Inclusion of Race in Diagnosing Kidney Disease. French Journal of Kidney Diseases 202;79(2):268-88.e1.2. N Engl J Med 1 Vol. 385 Issue 19 Pages 8502-5627 Performed By: #### C H8 ####S PATHOLOGY [id number] [place], Glucose [Mass/Vol] 253 mg/dL High 74-109 [facility] Comment on above: Performed By: #### C H8 ####S PATHOLOGY [id number] [place], Potassium [Moles/Vol] 4.3 mmol/L Normal 3.5-5.0 [facility] Comment on above: Performed By: #### C H8 ####[facility] [id number] [place], Sodium [Moles/Vol] 128 mmol/L Low 136-145 [facility] Comment on above: Performed By: #### C H8 ####[facility] PATH[facility] [id number] [place], Urea nitrogen [Mass/Vol] 20 mg/dL Normal 7-25 [facility] Comment on above: Performed By: #### C H8 ####[facility] [id number] [place], Anion gap [Moles/Vol] 11 mmol/L Normal 10-20 [facility] Comment on above: Performed By: #### C H8 ####[facility] PATH[facility] [id number] [place], Calcium [Mass/Vol] 6.1 mg/dL Low 8.6-10.3 [facility] Comment on above: Performed By: #### C H8 ####S PATHOLOGY [id number] [place], Chloride [Moles/Vol] 108 mmol/L High 98-107 [facility] Comment on above: Performed By: #### C H8 ####S PATHOLOGY NMPFLSNCQF8767 [place], CO2 [Moles/Vol] 18 mmol/L Low 21-31 [facility] Comment on above: Performed By: #### C H8 ####[facility] PATHOLOG[facility] [id number] [place], Creatinine [Mass/Vol] 0.70 mg/dL Normal 0.70-1.30 [facility] Comment on above: Performed By: #### C H8 ####[facility] PATHOLOGY [id number] [place], ESTIMATED GFR (CKD-EPI) 109 mL/min/1.73sqm Normal >=60 [facility] Comment on above: Result Comment: 2020 CKD EPI Equation using Creatinine without RaceComment: Estimated glomerular filtration rate (eGFR) is calculated without a race coefficient. Values should be interpreted in the context of the patient's full clinical presentation.Reference:1. Rudy C, Katie M, Tea GALVEZ, et al.. A Unifying Approach for GFR Estimation: Recommendations of the NKF-ASN Task Force on Reassessing the Inclusion of Race in Diagnosing Kidney Disease. French Journal of Kidney Diseases 2021;79(2):268-88.e1.2. N Engl J Med 2020 Vol. 385 Issue 19 Pages 8694-9466 Performed By: #### C H8 ####[facility] PATH[facility] [id number] [place], Glucose [Mass/Vol] 169 mg/dL High 74-109 [facility] Comment on above: Performed By: #### C H8 ####[facility] PATH[facility] [id number] [place], Potassium [Moles/Vol] 4.6 mmol/L Normal 3.5-5.0 [facility] Comment on above: Result Comment: Hemo lysis present Performed By: #### C H8 ####[facility] [id number] [place], Sodium [Moles/Vol] 132 mmol/L Low 136-145 [facility] Comment on above: Performed By: #### C H8 ####[facility] [id number] [place], Urea nitrogen [Mass/Vol] 17 mg/dL Normal 7-25 [facility] Comment on above: Performed By: #### C H8 ####[facility] [id number] [place], Anion gap [Moles/Vol] 12 mmol/L Normal 10-20 [facility] Comment on above: Performed By: #### C H8, MG, PHOS ####[facility] [id number] [place], Calcium [Mass/Vol] 8.6 mg/dL Normal 8.6-10.3 [facility] Comment on above: Performed By: #### C H8, MG, PHOS ####[facility] [id number] [place], Chloride [Moles/Vol] 97 mmol/L Low 98-107 [facility] Comment on above: Performed By: #### C H8, MG, PHOS ####[facility] [id number] [place], CO2 [Moles/Vol] 22 mmol/L Normal 21-31 [facility] Comment on above: Performed By: #### C H8, MG, PHOS ####[facility] [id number] [place], Creatinine [Mass/Vol] 0.91 mg/dL Normal 0.70-1.30 [facility] Comment on above: Performed By: #### C H8, MG, PHOS ####[facility] [id number] [place], ESTIMATED GFR (CKD-EPI) 100 mL/min/1.73sqm Normal >=60 [email or web address] Comment on above: Result Comment: 2020 CKD EPI Equation using Creatinine without RaceComment: Estimated glomerular filtration rate (eGFR) is calculated without a race coefficient. Values should be interpreted in the context of the patient's full clinical presentation.Reference:1. Rudy Torres, Katie M, Tea DC, et al.. A Unifying Approach for GFR Estimation: Recommendations of the NKF-ASN Task Force on Reassessing the Inclusion of Race in Diagnosing Kidney Disease. French Journal of Kidney Diseases 2021;79(2):268-88.e1.2. N Engl J Med 2020 Vol. 385 Issue 19 Pages 4744-1259 Performed By: #### MG Schwartz PHOS ####[facility] [id number] [place], Glucose [Mass/Vol] 251 mg/dL High 74-109 [facility] Comment on above: Performed By: #### MG Schwartz PHOS ####[facility] [id number] [place], Potassium [Moles/Vol] 4.2 mmol/L Normal 3.5-5.0 [facility] Comment on above: Performed By: #### MG Schwartz PHOS ####[facility] [id number] [place], Sodium [Moles/Vol] 127 mmol/L Low 136-145 [facility] Comment on above: Performed By: #### MG Schwartz PHOS ####[facility] [id number] [place], Urea nitrogen [Mass/Vol] 24 mg/dL Normal 7-25 [facility] Comment on above: Performed By: #### MG Schwartz PHOS ####[facility] [id number] [place], Basic metabolic 2000 panelOr dered By: Telma Bustos on 01-16-2024 Anion gap [Moles/Vol] 12 mmol/L 10 - 20 [facility] Calcium [Mass/Vol] 8.1 mg/dL Low 8.6 - 10. 3 mg/dL [facility] Chloride [Moles/Vol] 98 mmol/L 98 - 10 7 mmol/L [facility] CO2 [Moles/Vol] 22 mmol/L 21 - 31 mmol/L [facility] Creatinine [Mass/Vol] 0.86 mg/dL 0.70 - 1.30 mg/dL [facility] GFR/1.73 sq M.predicted CKD-EPI (S/P/Bld) [Vol rate/Area] 102 - PINF [facility] Glucose [Mass/Vol] 253 mg/dL High 74 - 109 mg/dL [facility] Interpretation and review of laboratory results Abnormal [facility] Potassium [Moles/Vol] 4.3 mmol/L 3.5 - 5.0 mmol/L [facility] Sodium [Moles/Vol] 128 mmol/L Low 136 - 145 mmol/L [facility] Urea nitrogen [Mass/Vol] 20 mg/dL 7 - 25 mg/dL [facility] Basic metabolic 1999 panelOr dered By: Wilma Maloney on 01-16-2024 Anion gap [Moles/Vol] 11 mmol/L 10 - 20 Met [facility] Calcium [Mass/Vol] 6.1 mg/dL Low 8.6 - 10. 3 mg/dL [facility] Chloride [Moles/Vol] 108 mmol/L High 98 - 10 7 mmol/L [facility] CO2 [Moles/Vol] 18 mmol/L Low 21 - 31 mmol/L [facility] Creatinine [Mass/Vol] 0.7 mg/dL 0.70 - 1.30 mg/dL [facility] GFR/1.73 sq M.predicted CKD-EPI (S/P/Bld) [Vol rate/Area] 109 - PINF [facility] Glucose [Mass/Vol] 169 mg/dL High 74 - 109 mg/dL [facility] Interpretation and review of laboratory results Abnormal [facility] Potassium [Moles/Vol] 4.6 mmol/L 3.5 - 5.0 mmol/L [facility] Sodium [Moles/Vol] 132 mmol/L Low 136 - 145 mmol/L [facility] Urea nitrogen [Mass/Vol] 17 mg/dL 7 - 25 mg/dL [facility] Basic metabolic 2000 panelon 01-16-2024 Anion gap [Moles/Vol] 12 mmol/L 10 - 20 [facility] Calcium [Mass/Vol] 8.6 mg/dL 8.6 - 10. 3 mg/dL [facility] Chloride [Moles/Vol] 97 mmol/L Low 98 - 10 7 mmol/L [facility] CO2 [Moles/Vol] 22 mmol/L 21 - 31 mmol/L [facility] Creatinine [Mass/Vol] 0.91 mg/dL 0.70 - 1.30 mg/dL [facility] GFR/1.73 sq M.predicted CKD-EPI (S/P/Bld) [Vol rate/Area] 100 - PINF [facility] Glucose [Mass/Vol] 251 mg/dL High 74 - 109 mg/dL [facility] Interpretation and review of laboratory results Abnormal [facility] Potassium [Moles/Vol] 4.2 mmol/L 3.5 - 5.0 mmol/L [facility] Sodium [Moles/Vol] 127 mmol/L Low 136 - 145 mmol/L [facility] Urea nitrogen [Mass/Vol] 24 mg/dL 7 - 25 mg/dL [facility] CBC panel Auto (Bld)on 01-15 Erythrocyte distribution width (RBC) [Ratio] 13.2 % 11.5 - 14.5 % [facility] Hematocrit (Bld) [Volume fraction] 40.8 % Low 41.0 - 53.0 % [facility] Hemoglobin (Bld) [Mass/Vol] 13.9 g/dL 13.9 - 16.3 g/dL [facility] Interpretation and review of laboratory results Abnormal [facility] MCH (RBC) [Entitic mass] 31.5 pg 26.0 - 34.0 pg [facility] MCHC (RBC) [Mass/Vol] 34 g/dL 32.0 - 35.9 g/dL [facility] MCV (RBC) [Entitic vol] 93 fL 80 - 100 fL [facility] Platelet mean volume (Bld) [Entitic vol] 8.6 fL 7.5 - 11.2 fL [facility] Platelets (Bld) [#/Vol] 286 10*3/uL 150 - 400 K/uL [facility] RBC (Bld) [#/Vol] 4.4 10*6/uL Low [facility] WBC (Bld) [#/Vol] 11.7 10*3/uL High 4.5 - 11.5 K/uL [facility] COMPLETE BLOOD COUNTon 01-15 Erythrocyte distribution width (RBC) [Ratio] 13.2 % Normal 11.5-14.5 [facility] Comment on above: Performed By: #### C BC ####[facility] [id number] [place], [place], Hematocrit (Bld) [Volume fraction] 40.8 % Low 41.0-53.0 [facility] Comment on above: Performed By: #### C BC ####[facility] [id number] [place], Hemoglobin (Bld) [Mass/Vol] 13.9 g/dL Normal 13.9-16.3 [facility] Comment on above: Performed By: #### C BC ####[facility] [id number] [place], MCH (RBC) [Entitic mass] 31.5 pg Normal 26.0-34.0 [facility] Comment on above: Performed By: #### C BC ####[facility] [id number] [place], MCHC (RBC) [Mass/Vol] 34.0 g/dL Normal 32.0-35.9 [facility] Comment on above: Performed By: #### C BC ####[facility] [id number] [place], MCV (RBC) [Entitic vol] 93 fL Normal 80-100 T [facility] Comment on above: Performed By: #### C BC ####[facility] [id number] [place], Platelet mean volume (Bld) [Entitic vol] 8.6 fL Normal 7.5-11.2 [facility] Comment on above: Performed By: #### C BC ####[facility] [id number] [place], Platelets (Bld) [#/Vol] 286 10*3/uL Normal 150-400 [facility] Comment on above: Performed By: #### C BC ####[facility] [id number] [place], RBC (Bld) [#/Vol] 4.40 10*6/uL Low 4.50-5.90 [facility] Comment on above: Performed By: #### C BC ####[facility] [id number] [place], WBC (Bld) [#/Vol] 11.7 10*3/uL High 4.5-11.5 [facility] Comment on above: Performed By: #### C BC ####[facility] [id number] [place], [place], Consultson 01-16-2024 Deicer Tester Authentication Interface Message Text Normal [facility] Deicer Tester Authentication Interface Message Text Normal [facility] FENKarmen, BLOODon 01-16-2024 Creatinine [Mass/Vol] 0.93 mg/dL 0.70 - 1.30 mg/dL [facility] Interpretation and review of laboratory results Abnormal [facility] Sodium [Moles/Vol] 127 mmol/L Low 136 - 145 mmol/L [facility] Creatinine [Mass/Vol] 0.93 mg/dL Normal 0.70-1.30 [facility] Comment on above: Performed By: #### F ENAB ####[facility] [id number] [place] [address], Sodium [Moles/Vol] 127 mmol/L Low 136-145 [facility] Comment on above: Performed By: #### F ENAB ####[facility] [id number] [place] [address], FRACTIONAL EXCRETION OF SODI UMon 01-16-2024 Creatinine (U) [Mass/Vol] 58 mg/dL 10 - 300 mg/dL [facility] Creatinine [Mass/Vol] 0.93 mg/dL 0.70 - 1.30 mg/dL [facility] Fractional Excretion of Sodium % % % [facility] Interpretation and review of laboratory results Abnormal [facility] Sodium (U) [Moles/Vol] mmol/L Low 15 - 220 mmol/L [facility] Sodium [Moles/Vol] 127 mmol/L Low 136 - 145 mmol/L [facility] Creatinine [Mass/Vol] 0.93 mg/dL Normal 0.70-1.30 [facility] Comment on above: Order Comment: A res ult of <1% often indicates prerenal cause in the setting of JUMA. >2% usually indicates JUMA from tubular causes. Concurrent use of diuretic therapy may limit the utility of the FENa calculation in patients with prerenal disease. Performed By: #### F ENDENA\ ####S PATHOLOGY [id number] [place], CREATININE, URINE 58 mg/dL Normal 10-300 [facility] Comment on above: Order Comment: A res ult of <1% often indicates prerenal cause in the setting of JUMA. >2% usually indicates JUMA from tubular causes. Concurrent use of diuretic therapy may limit the utility of the FENa calculation in patients with prerenal disease. Performed By: #### F ENDENA\ ####[facility] [id number] [place] [address], FRACTIONAL EXCRETION OF SODIUM < 0.1 Normal [facility] Comment on above: Order Comment: A res ult of <1% often indicates prerenal cause in the setting of JUMA. >2% usually indicates JUMA from tubular causes. Concurrent use of diuretic therapy may limit the utility of the FENa calculation in patients with prerenal disease. Performed By: #### F ENDENA\ ####S PATHOLOGY [id number] [place], [place], NA RU < 10 Low 15-220 [facility] Comment on above: Order Comment: A res ult of <1% often indicates prerenal cause in the setting of JUMA. >2% usually indicates JUMA from tubular causes. Concurrent use of diuretic therapy may limit the utility of the FENa calculation in patients with prerenal disease. Performed By: #### F ENAU\ ####S PATHOLOGY [id number] [place], NA(FENA,BLOOD) 127 mmol/L Low 136-145 [facility] Comment on above: Order Comment: A res ult of <1% often indicates prerenal cause in the setting of JUMA. >2% usually indicates JUMA from tubular causes. Concurrent use of diuretic therapy may limit the utility of the FENa calculation in patients with prerenal disease. Performed By: #### F ENAU\ ####[facility] [id number] [place], [place], GLUCOSE, FINGERSTICK-IN OFFI CEon 01-16-2024 Glucose [Mass/Vol] 257 mg/dL High 74 - 109 mg/dL [facility] Interpretation and review of laboratory results Abnormal [facility] Glucose [Mass/Vol] 257 mg/dL High 74-109 [facility] Comment on above: Performed By: #### 8 2948 ####NURSING GLUCOSE [id number] [place], [address] Glucose [Mass/Vol] 195 mg/dL High 74 - 109 mg/dL [facility] Interpretation and review of laboratory results Abnormal [facility] Glucose [Mass/Vol] 195 mg/dL High 74-109 [facility] Comment on above: Performed By: #### 8 2948 ####NURSING GLUCOSE [id number] [place], [address] Glucose [Mass/Vol] 215 mg/dL High 74 - 109 mg/dL [facility] Interpretation and review of laboratory results Abnormal [facility] Glucose [Mass/Vol] 215 mg/dL High 74-109 [facility] Comment on above: Performed By: #### 8 2948 ####NURSING GLUCOSE [id number] [place], [address] H AND Cleve 01-16-2024 Deicer Tester Authentication Interface Message Text Normal [facility] MAGNESIUMon 01-16-2024 Magnesium [Mass/Vol] 2 mg/dL 1.9 - 2 .7 mg/dL [facility] Magnesium [Mass/Vol] 2.0 mg/dL Normal 1.9-2.7 [facility] Comment on above: Performed By: #### C H8, MG, PHOS ####S PATHOLOGY [id number] [place], [place], No Panel Informationon 01-15 Interpretation and review of laboratory results Normal [facility] PHOSPHORUSon 01-16-2024 Phosphate [Mass/Vol] 3.1 mg/dL 2.5 - 5 .0 mg/dL [facility] Phosphate [Mass/Vol] 3.1 mg/dL Normal 2.5-5.0 [facility] Comment on above: Performed By: #### C H8, MG, PHOS ####[facility] [id number] [place], [place], Progress Noteson 01-16-2024 Deicer Tester Authentication Interface Message Text Normal [facility] Deicer Tester Authentication Interface Message Text Normal [facility] RED/YELLOW TOP TUBE, URINEon 01-16-2024 Extra Tube Done [facility] SODIUMon 01-16-2024 Interpretation and review of laboratory results Abnormal [facility] Sodium [Moles/Vol] 131 mmol/L Low 136 - 145 mmol/L [facility] Sodium [Moles/Vol] 131 mmol/L Low 136-145 [facility] Comment on above: Performed By: #### N A ####[facility] [id number] [place], TOXICOLOGY SCREEN, UNCONFIRM EDon 01-16-2024 Amphetamines Ql (U) Negative Negative [facility] Barbiturates Screen Ql (U) Negative Negative [facility] Benzodiazepines Ql (U) Negative Negative [facility] Benzoylecgonine Screen Ql (U) Negative Negative [facility] Buprenorphine+Norbupren orphine Screen Ql (U) Negative Cutoff: 5 ng/mL [facility] Ethanol Screen Ql (U) Negative Cutoff : 10 mg/dL [facility] fentaNYL Screen Ql (U) Negative Negat teddy ng/mL [facility] HYDROcodone Screen Ql (U) Negative Negative [facility] Interpretation and review of laboratory results Abnormal [facility] Methadone Screen Ql (U) Negative Negative [facility] Opiates Ql (U) Negative Negative [facility] oxyCODONE Ql (U) Positive Abnormal Cutoff: 100 ng/mL [facility] Phencyclidine Ql (U) Negative Negative [facility] Tetrahydrocannabinol Screen Ql (U) Negative Negative [facility] AMPH Negative Normal Negative [facility] Comment on above: Order Comment: This toxicology screen provides unconfirmed analytical results suitable for clinical management. Results are reported as positive (at or above the cutoff) or negative (below the cutoff). Amphetamines 1000 ng/mL Barbiturates 200 ng/mL Methadone 300 ng/mL Opiates 300 ng/mL Oxycodone 100 ng/mL Fentanyl 1 ng/mL Hydrocodone 100 ng/mL Benzodiazepines 200 ng/mL Cocaine Metabolite 300 ng/mL PCP 25 ng/mL THC 50 ng/mL Buprenorphine 5 ng/mL Alcohol 10 mg/dL Performed By: #### T OX SC ####S PATHOLOGY [id number] [place], [place], BARBIT Negative Normal Negative [facility] Comment on above: Order Comment: This toxicology screen provides unconfirmed analytical results suitable for clinical management. Results are reported as positive (at or above the cutoff) or negative (below the cutoff). Amphetamines 1000 ng/mL Barbiturates 200 ng/mL Methadone 300 ng/mL Opiates 300 ng/mL Oxycodone 100 ng/mL Fentanyl 1 ng/mL Hydrocodone 100 ng/mL Benzodiazepines 200 ng/mL Cocaine Metabolite 300 ng/mL PCP 25 ng/mL THC 50 ng/mL Buprenorphine 5 ng/mL Alcohol 10 mg/dL Performed By: #### T OX SC ####S PATHOLOGY [id number] [place] [address], BENZO Negative Normal Negative [facility] Comment on above: Order Comment: This toxicology screen provides unconfirmed analytical results suitable for clinical management. Results are reported as positive (at or above the cutoff) or negative (below the cutoff). Amphetamines 1000 ng/mL Barbiturates 200 ng/mL Methadone 300 ng/mL Opiates 300 ng/mL Oxycodone 100 ng/mL Fentanyl 1 ng/mL Hydrocodone 100 ng/mL Benzodiazepines 200 ng/mL Cocaine Metabolite 300 ng/mL PCP 25 ng/mL THC 50 ng/mL Buprenorphine 5 ng/mL Alcohol 10 mg/dL Performed By: #### T OX SC ####S PATHOLOGY [id number] [place], BUPRENORPHINE Negative Normal Cutoff: 5 [facility] Comment on above: Order Comment: This toxicology screen provides unconfirmed analytical results suitable for clinical management. Results are reported as positive (at or above the cutoff) or negative (below the cutoff). Amphetamines 1000 ng/mL Barbiturates 200 ng/mL Methadone 300 ng/mL Opiates 300 ng/mL Oxycodone 100 ng/mL Fentanyl 1 ng/mL Hydrocodone 100 ng/mL Benzodiazepines 200 ng/mL Cocaine Metabolite 300 ng/mL PCP 25 ng/mL THC 50 ng/mL Buprenorphine 5 ng/mL Alcohol 10 mg/dL Performed By: #### T OX FL ####S PATHOLOGY [id number] [place] [address], COCAINE CL Negative Normal Negative [facility] Comment on above: Order Comment: This toxicology screen provides unconfirmed analytical results suitable for clinical management. Results are reported as positive (at or above the cutoff) or negative (below the cutoff). Amphetamines 1000 ng/mL Barbiturates 200 ng/mL Methadone 300 ng/mL Opiates 300 ng/mL Oxycodone 100 ng/mL Fentanyl 1 ng/mL Hydrocodone 100 ng/mL Benzodiazepines 200 ng/mL Cocaine Metabolite 300 ng/mL PCP 25 ng/mL THC 50 ng/mL Buprenorphine 5 ng/mL Alcohol 10 mg/dL Performed By: #### T OX FL ####[facility] [id number] [place] [address], Ethanol [Mass/Vol] Negative Normal Cutoff: 1 0 mg/dL [facility] Comment on above: Order Comment: This toxicology screen provides unconfirmed analytical results suitable for clinical management. Results are reported as positive (at or above the cutoff) or negative (below the cutoff). Amphetamines 1000 ng/mL Barbiturates 200 ng/mL Methadone 300 ng/mL Opiates 300 ng/mL Oxycodone 100 ng/mL Fentanyl 1 ng/mL Hydrocodone 100 ng/mL Benzodiazepines 200 ng/mL Cocaine Metabolite 300 ng/mL PCP 25 ng/mL THC 50 ng/mL Buprenorphine 5 ng/mL Alcohol 10 mg/dL Performed By: #### T OX FL ####S PATHOLOGY [id number] [place] [address], FENTANYL Negative Normal Negative [email or web address] Comment on above: Order Comment: This toxicology screen provides unconfirmed analytical results suitable for clinical management. Results are reported as positive (at or above the cutoff) or negative (below the cutoff). Amphetamines 1000 ng/mL Barbiturates 200 ng/mL Methadone 300 ng/mL Opiates 300 ng/mL Oxycodone 100 ng/mL Fentanyl 1 ng/mL Hydrocodone 100 ng/mL Benzodiazepines 200 ng/mL Cocaine Metabolite 300 ng/mL PCP 25 ng/mL THC 50 ng/mL Buprenorphine 5 ng/mL Alcohol 10 mg/dL Performed By: #### T OX SC ####[facility] [id number] [place], HYDROCODONE (PM) Negative Normal Negative [email or web address] Comment on above: Order Comment: This toxicology screen provides unconfirmed analytical results suitable for clinical management. Results are reported as positive (at or above the cutoff) or negative (below the cutoff). Amphetamines 1000 ng/mL Barbiturates 200 ng/mL Methadone 300 ng/mL Opiates 300 ng/mL Oxycodone 100 ng/mL Fentanyl 1 ng/mL Hydrocodone 100 ng/mL Benzodiazepines 200 ng/mL Cocaine Metabolite 300 ng/mL PCP 25 ng/mL THC 50 ng/mL Buprenorphine 5 ng/mL Alcohol 10 mg/dL Performed By: #### T OX FL ####[facility] [id number] [place] [address], Methadone Ql (U) Negative Normal Negative [email or web address] Comment on above: Order Comment: This toxicology screen provides unconfirmed analytical results suitable for clinical management. Results are reported as positive (at or above the cutoff) or negative (below the cutoff). Amphetamines 1000 ng/mL Barbiturates 200 ng/mL Methadone 300 ng/mL Opiates 300 ng/mL Oxycodone 100 ng/mL Fentanyl 1 ng/mL Hydrocodone 100 ng/mL Benzodiazepines 200 ng/mL Cocaine Metabolite 300 ng/mL PCP 25 ng/mL THC 50 ng/mL Buprenorphine 5 ng/mL Alcohol 10 mg/dL Performed By: #### T OX FL ####[facility] [id number] [place] [address], OPIATE Negative Normal Negative [email or web address] Comment on above: Order Comment: This toxicology screen provides unconfirmed analytical results suitable for clinical management. Results are reported as positive (at or above the cutoff) or negative (below the cutoff). Amphetamines 1000 ng/mL Barbiturates 200 ng/mL Methadone 300 ng/mL Opiates 300 ng/mL Oxycodone 100 ng/mL Fentanyl 1 ng/mL Hydrocodone 100 ng/mL Benzodiazepines 200 ng/mL Cocaine Metabolite 300 ng/mL PCP 25 ng/mL THC 50 ng/mL Buprenorphine 5 ng/mL Alcohol 10 mg/dL Performed By: #### T OX FL ####[facility] [id number] [place], OXYCODONE Positive Abnormal Cutoff: 100 [facility] Comment on above: Order Comment: This toxicology screen provides unconfirmed analytical results suitable for clinical management. Results are reported as positive (at or above the cutoff) or negative (below the cutoff). Amphetamines 1000 ng/mL Barbiturates 200 ng/mL Methadone 300 ng/mL Opiates 300 ng/mL Oxycodone 100 ng/mL Fentanyl 1 ng/mL Hydrocodone 100 ng/mL Benzodiazepines 200 ng/mL Cocaine Metabolite 300 ng/mL PCP 25 ng/mL THC 50 ng/mL Buprenorphine 5 ng/mL Alcohol 10 mg/dL Result Comment: Oxyc odone and metabolites of Oxycodone (Oxymorphone, Noroxycodone, and Noroxymorphone) are measured/detected in this assay method. Performed By: #### T OX FL ####[facility] [id number] [place], PHENCYCL Negative Normal Negative [facility] Comment on above: Order Comment: This toxicology screen provides unconfirmed analytical results suitable for clinical management. Results are reported as positive (at or above the cutoff) or negative (below the cutoff). Amphetamines 1000 ng/mL Barbiturates 200 ng/mL Methadone 300 ng/mL Opiates 300 ng/mL Oxycodone 100 ng/mL Fentanyl 1 ng/mL Hydrocodone 100 ng/mL Benzodiazepines 200 ng/mL Cocaine Metabolite 300 ng/mL PCP 25 ng/mL THC 50 ng/mL Buprenorphine 5 ng/mL Alcohol 10 mg/dL Performed By: #### T OX FL ####[facility] [id number] [place], THC CL Negative Normal Negative [email or web address] Comment on above: Order Comment: This toxicology screen provides unconfirmed analytical results suitable for clinical management. Results are reported as positive (at or above the cutoff) or negative (below the cutoff). Amphetamines 1000 ng/mL Barbiturates 200 ng/mL Methadone 300 ng/mL Opiates 300 ng/mL Oxycodone 100 ng/mL Fentanyl 1 ng/mL Hydrocodone 100 ng/mL Benzodiazepines 200 ng/mL Cocaine Metabolite 300 ng/mL PCP 25 ng/mL THC 50 ng/mL Buprenorphine 5 ng/mL Alcohol 10 mg/dL Performed By: #### T OX SC ####[facility] [id number] [place], TRIGLYCERIDESon 01-16-2024 Interpretation and review of laboratory results Normal [facility] Triglyceride [Mass/Vol] 105 mg/dL NINF - 150 mg/dL [facility] Triglyceride [Mass/Vol] 105 mg/dL Normal <150 T he [facility] Comment on above: Result Comment: Norm al: < 150 mg/dLBorderline High: 150-199 mg/dLHigh: 200-499 mg/dLVery High: > = 500 mg/dL Performed By: #### T RIG ####[facility] [id number] [place], BASIC METABOLIC PANELon 12-18 Anion gap [Moles/Vol] 15 mmol/L Normal 10-20 [facility] Comment on above: Performed By: #### MG Schwartz PHOS ####[facility] [id number] [place], Calcium [Mass/Vol] 9.1 mg/dL Normal 8.6-10.3 [facility] Comment on above: Performed By: #### MG Schwartz PHOS ####[facility] [id number] [place], Chloride [Moles/Vol] 97 mmol/L Low 98-107 [facility] Comment on above: Performed By: #### MG Schwartz PHOS ####[facility] [id number] [place], CO2 [Moles/Vol] 22 mmol/L Normal - [facility] Comment on above: Performed By: #### MG Schwartz PHOS ####[facility] [id number] [place], Creatinine [Mass/Vol] 1.05 mg/dL Normal 0.70-1.30 [facility] Comment on above: Performed By: #### Melissa Miramontes MG, PHOS ####[facility] [id number] [place], ESTIMATED GFR (CKD-EPI) 84 mL/min/1.73sqm Normal >=60 [facility] Comment on above: Result Comment: 2020 CKD EPI Equation using Creatinine without RaceComment: Estimated glomerular filtration rate (eGFR) is calculated without a race coefficient. Values should be interpreted in the context of the patient's full clinical presentation.Reference:1. Rudy C, Katie M, Tea GALVEZ, et al.. A Unifying Approach for GFR Estimation: Recommendations of the NKF-ASN Task Force on Reassessing the Inclusion of Race in Diagnosing Kidney Disease. French Journal of Kidney Diseases 202;79(2):268-88.[id number]. N Engl J Med 2020 Vol. 385 Issue 19 Pages 9569-1792 Performed By: #### Melissa Miramontes MG, PHOS ####[facility] [id number] [place], Glucose [Mass/Vol] 218 mg/dL High 74-109 [facility] Comment on above: Performed By: #### Melissa HFrancis MG, PHOS ####[facility] [id number] [place], Potassium [Moles/Vol] 4.7 mmol/L Normal 3.5-5.0 [facility] Comment on above: Performed By: #### Melissa H8 MG, PHOS ####[facility] [id number] [place], Sodium [Moles/Vol] 129 mmol/L Low 136-145 [facility] Comment on above: Performed By: #### Melissa H8 MG, PHOS ####[facility] [id number] [place], Urea nitrogen [Mass/Vol] 24 mg/dL Normal 7-25 [facility] Comment on above: Performed By: #### C H8 MG, PHOS ####[facility] [id number] [place], Basic metabolic 2000 panelon 01-15-2024 Anion gap [Moles/Vol] 15 mmol/L 10 - 20 Met [facility] Calcium [Mass/Vol] 9.1 mg/dL 8.6 - 10. 3 mg/dL [facility] Chloride [Moles/Vol] 97 mmol/L Low 98 - 10 7 mmol/L [facility] CO2 [Moles/Vol] 22 mmol/L 21 - 31 mmol/L [facility] Creatinine [Mass/Vol] 1.05 mg/dL 0.70 - 1.30 mg/dL [facility] GFR/1.73 sq M.predicted CKD-EPI (S/P/Bld) [Vol rate/Area] 84 - PINF [facility] Glucose [Mass/Vol] 218 mg/dL High 74 - 109 mg/dL [facility] Potassium [Moles/Vol] 4.7 mmol/L 3.5 - 5.0 mmol/L [facility] Sodium [Moles/Vol] 129 mmol/L Low 136 - 145 mmol/L [facility] Urea nitrogen [Mass/Vol] 24 mg/dL 7 - 25 mg/dL [facility] CBC panel Auto (Bld)on 01-14 Erythrocyte distribution width (RBC) [Ratio] 14 % 11.5 - 14.5 % [facility] Hematocrit (Bld) [Volume fraction] 46.4 % 41.0 - 53.0 % [facility] Hemoglobin (Bld) [Mass/Vol] 15.2 g/dL 13.9 - 16.3 g/dL [facility] Interpretation and review of laboratory results Abnormal [facility] MCH (RBC) [Entitic mass] 30.6 pg 26.0 - 34.0 pg [facility] MCHC (RBC) [Mass/Vol] 32.7 g/dL 32.0 - 35.9 g/dL [facility] MCV (RBC) [Entitic vol] 94 fL 80 - 100 fL [facility] Platelet mean volume (Bld) [Entitic vol] 8.3 fL 7.5 - 11.2 fL [facility] Platelets (Bld) [#/Vol] 342 10*3/uL 150 - 400 K/uL [facility] RBC (Bld) [#/Vol] 4.95 10*6/uL [facility] WBC (Bld) [#/Vol] 13.8 10*3/uL High 4.5 - 11.5 K/uL [facility] COMPLETE BLOOD COUNTon 01-14 Erythrocyte distribution width (RBC) [Ratio] 14.0 % Normal 11.5-14.5 [facility] Comment on above: Performed By: #### C BC ####[facility] [id number] [place], [place], Hematocrit (Bld) [Volume fraction] 46.4 % Normal 41.0-53.0 [facility] Comment on above: Performed By: #### C BC ####[facility] [id number] [place], Hemoglobin (Bld) [Mass/Vol] 15.2 g/dL Normal 13.9-16.3 [facility] Comment on above: Performed By: #### C BC ####[facility] [id number] [place], MCH (RBC) [Entitic mass] 30.6 pg Normal 26.0-34.0 [facility] Comment on above: Performed By: #### C BC ####[facility] [id number] [place], MCHC (RBC) [Mass/Vol] 32.7 g/dL Normal 32.0-35.9 [facility] Comment on above: Performed By: #### C BC ####[facility] [id number] [place], MCV (RBC) [Entitic vol] 94 fL Normal 80-100 T [facility] Comment on above: Performed By: #### C BC ####[facility] [id number] [place], Platelet mean volume (Bld) [Entitic vol] 8.3 fL Normal 7.5-11.2 [facility] Comment on above: Performed By: #### C BC ####[facility] [id number] [place], Platelets (Bld) [#/Vol] 342 10*3/uL Normal 150-400 [facility] Comment on above: Performed By: #### C BC ####S PATHOLOGY [id number] [place], RBC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 Normal [facility] Comment on above: Performed By: #### A 1C #### [facility] [address] [place] [address] Dr. Nancy Montoya HbA1c (Bld) [Mass fraction] 10.0 % Critically high 4.5-6.2 [facility] Comment on above: Performed By: #### A 1C #### [facility] [address] [address] [address] Nancy Montoya IRONon 02-05-2022 Iron [Mass/Vol] 135.0 ug/dL Normal 65.0-175.0 [facility] Comment on above: Performed By: #### V ITAD, IRON, PSASC #### [facility] [id number] Nancy Montoya LIPID PROFILEon 02-05-2022 CHOL-HDL RATIO NORM SEE BELOW Normal [facility] Comment on above: Result Comment: 3.3 - 4.4 LOW RISK 4.4 - 7.1 AVERAGE RISK 7.1 - 11.0 MODERATE RISK >11.0 HIGH RISK Performed By: #### L IPID, TSH, CMP, T7 #### [facility] [address] [address] [address] Nancy Montoya Cholesterol [Mass/Vol] 157 mg/dL Normal <=200 [facility] Comment on above: Performed By: #### L IPID, TSH, CMP, T7 #### [facility] [address] [address] [address] Nancy Montoya Cholesterol in HDL [Mass/Vol] 49 mg/dL Normal 40-60 [facility] Comment on above: Performed By: #### L IPID, TSH, CMP, T7 #### [facility] [address] [address] [address] Nancy Montoya Cholesterol in LDL [Mass/Vol] 84.6 mg/dL Normal [facility] Comment on above: Performed By: #### L IPID, TSH, CMP, T7 #### [facility] [address] [address] [address] Nancy Montoya Cholesterol.total/Yashira sterol in HDL [Mass ratio] 3.2 {ratio} Normal [facility] Comment on above: Performed By: #### L IPID, TSH, CMP, T7 #### [facility] [address] [address] [address] Nancy Montoya HDL NORMAL > or = 60 mg/dl - LOW CARDIOVASCULAR RISK <40 mg/dl - HIGH CARDIOVASCULAR RISK Normal [facility] Comment on above: Performed By: #### L IPID, TSH, CMP, T7 #### [facility] [address] [address] [address] Nancy Montoya LDL CALC NORMAL SEE BELOW Normal [facility] Comment on above: Result Comment: <100 mg/dl OPTIMAL 100 - 129 mg/dl NEAR OR ABOVE OPTIMAL 130 - 159 mg/dl BORDERLINE HIGH 160 - 189 mg/dl HIGH >190 mg/dl VERY HIGH Performed By: #### L IPID, TSH, CMP, T7 #### [facility] [address] [address] [address] Nancy Montoya Triglyceride [Mass/Vol] 117 mg/dL Normal <=150 T [facility] Comment on above: Performed By: #### L IPID, TSH, CMP, T7 #### [facility] [address] [address] [address] Nancy Montoya VLDL CALC 23.4 mg/dL Normal [facility] Comment on above: Performed By: #### L IPID, TSH, CMP, T7 #### [facility] [address] [address] [address] Nancy Montoya PROF 14(COMP METB)on 022 Albumin [Mass/Vol] 3.9 g/dL Normal 3.4-5.[address] [facility] Comment on above: Performed By: #### L IPID, TSH, CMP, T7 #### [facility] [address] [address] [address] Nancy Montoya Albumin/Globulin [Mass ratio] 1.0 {ratio} Normal [facility] Comment on above: Performed By: #### L IPID, TSH, CMP, T7 #### [facility] [address] [address] [address] Nancy Montoya ALP [Catalytic activity/Vol] 169 U/L Critically high 46-116 [facility] Comment on above: Performed By: #### L IPID, TSH, CMP, T7 #### [facility] [address] [address] [address] Nancy Montoya ALT [Catalytic activity/Vol] 28 U/L Normal 16-63 [facility] Comment on above: Performed By: #### L IPID, TSH, CMP, T7 #### [facility] [address] [address] [address] Nancy Montoya Anion gap [Moles/Vol] 10.4 mmol/L Normal Th e [facility] Comment on above: Performed By: #### L IPID, TSH, CMP, T7 #### [facility] [address] [place] [address] Dr. Nancy Montoya AST [Catalytic activity/Vol] 16 U/L Normal 15-37 [facility] Comment on above: Performed By: #### L IPID, TSH, CMP, T7 #### [facility] [address] [place] [address] Dr. Nancy Montoya Bilirubin [Mass/Vol] 0.7 mg/dL Normal 0.2-1.0 [facility] Comment on above: Performed By: #### L IPID, TSH, CMP, T7 #### [facility] [address] [address] [address] Nancy Montoya Calcium [Mass/Vol] 9.4 mg/dL Normal 8.5-10.1 [facility] Comment on above: Performed By: #### L IPID, TSH, CMP, T7 #### [facility] [address] [place] [address] Dr. Nancy Montoya Chloride [Moles/Vol] 99 mmol/L Normal 98-107 [facility] Comment on above: Performed By: #### L IPID, TSH, CMP, T7 #### [facility] [address] [place] [address] Dr. Nancy Montoya CO2 [Moles/Vol] 27.1 mmol/L Normal 21.0-32.0 [facility] Comment on above: Performed By: #### L IPID, TSH, CMP, T7 #### [facility] [address] [place] [address] Dr. Nancy Montoya Creatinine [Mass/Vol] 1.04 mg/dL Normal 0.70-1.30 [facility] Comment on above: Performed By: #### L IPID, TSH, CMP, T7 #### [facility] [address] [address] [address] Nancy Montoya EGFR-AF SOMALI >60 Normal >=60 [facility] Comment on above: Performed By: #### L IPID, TSH, CMP, T7 #### [facility] [address] [address] [address] Nancy Montoya EGFR-NON AF SOMALI >60 Normal >=60 [facility] Comment on above: Performed By: #### L IPID, TSH, CMP, T7 #### [facility] [address] [address] [address] Nancy Montoya Globulin (S) [Mass/Vol] 4.0 g/dL Normal [facility] Comment on above: Performed By: #### L IPID, TSH, CMP, T7 #### [facility] [address] [address] [address] Nancy Montoya Glucose [Mass/Vol] 213 mg/dL Critically high 74-106 [facility] Comment on above: Performed By: #### L IPID, TSH, CMP, T7 #### [facility] [address] [address] [address] Nancy Montoya Potassium [Moles/Vol] 4.5 mmol/L Normal 3.5-5.1 [facility] Comment on above: Performed By: #### L IPID, TSH, CMP, T7 #### [facility] [address] [address] [address] Nancy Montoya Protein [Mass/Vol] 7.9 g/dL Normal 6.4-8.2 [facility] Comment on above: Performed By: #### L IPID, TSH, CMP, T7 #### [facility] [address] [address] [address] Nancy Montoya Sodium [Moles/Vol] 132 mmol/L Critically low 136-[address] [facility] Comment on above: Performed By: #### L IPID, TSH, CMP, T7 #### [facility] [address] [address] [address] Nancy Montoya Urea nitrogen [Mass/Vol] 21.0 mg/dL Critically high 7.0-18.0 [facility] Comment on above: Performed By: #### L IPID, TSH, CMP, T7 #### [facility] [address] [address] [address] Nancy Montoya Urea nitrogen/Creatinine [Mass ratio] 20.2 mg/mg Normal [facility] Comment on above: Performed By: #### L IPID, TSH, CMP, T7 #### [facility] [address] [address] [address] Nancy Montoya TSHon 02-05-2022 TSH 2.271 uIU/mL Normal 0.358-3.740 [facility] Comment on above: Performed By: #### L IPID, TSH, CMP, T7 #### [facility] [address] [place] [address] Dr. Nancy Montoya VITAMIN D 25 OHon 02-05-2022 VIT D 25-OH 23.3 ng/mL Normal [facility] Comment on above: Performed By: #### V ITAD, IRON, PSASC #### [facility] [address] [place] [address] Dr. Nancy Montoya VIT D RANGES SEE BELOW Normal [facility] Comment on above: Result Comment: <20 ng/mL Vit D deficient 20 - <30 ng/mL Vit D insufficient 30 - 100 ng/mL Vit D sufficient >100 ng/mL Potential Toxicity Performed By: #### V ITAD, IRON, PSASC #### [facility] [address] [place] [address] Dr. Nancy Montoya Vital Signs Date Time Vital Sign Value Performing Clinician Facility 05-05-2024 11:47-0500 Body temperature 97 [degF] John Santana DO Work Phone: [facility] 05-05-2024 11:47-0500 Diastolic blood pressure 87 mm[Hg] John Santana DO Work Phone: [facility] 05-05-2024 11:47-0500 Heart rate 92 /min John Santana DO Work Phone: [facility] 05-05-2024 11:47-0500 Respiratory rate 18 /min John Tomo DO Work Phone: [email or web address] 05-05-2024 11:47-0500 SaO2% (BldA) [Mass fraction] 99 % John Esther DO Work Phone: [email or web address] 05-05-2024 11:47-0500 Systolic blood pressure 141 mm[Hg] John Esther DO Work Phone: [email or web address] 05-05-2024 10:06-0500 Body height 188 cm John Esther DO Work Phone: [email or web address] 05-05-2024 10:06-0500 Body mass index (BMI) [Ratio] 36.98 kg/m2 John Esther DO Work Phone: [email or web address] 05-05-2024 10:06-0500 Body weight 130.64 kg John Esther DO Work Phone: [email or web address] 02-26-2024 05:28-0500 Body temperature 98.01 [degF] John Esther DO Work Phone: [email or web address] 02-26-2024 05:28-0500 Diastolic blood pressure 63 mm[Hg] John Esther DO Work Phone: [email or web address] 02-26-2024 05:28-0500 Heart rate 66 /min John Esther DO Work Phone: [email or web address] 02-26-2024 05:28-0500 Respiratory rate 16 /min John Esther DO Work Phone: [email or web address] 02-26-2024 05:28-0500 SaO2% (BldA) [Mass fraction] 97 % John Esther DO Work Phone: [email or web address] 02-26-2024 05:28-0500 Systolic blood pressure 114 mm[Hg] John Esther DO Work Phone: [email or web address] 02-20-2024 15:00-0500 Body height 188 cm John Santana DO Work Phone: [email or web address] 02-20-2024 15:00-0500 Body mass index (BMI) [Ratio] 37.11 kg/m2 John Santana DO Work Phone: [email or web address] 02-20-2024 15:00-0500 Body weight 131.09 kg John Santana DO Work Phone: [email or web address] 01-30-2024 14:28-0500 Body temperature 97.5 [degF] Mandeep Tan MD Work Phone: [email or web address] 01-30-2024 14:28-0500 Diastolic blood pressure 64 mm[Hg] Mandeep Tan MD Work Phone: [email or web address] 01-30-2024 14:28-0500 Heart rate 61 /min Mandeep Tan MD Work Phone: [email or web address] 01-30-2024 14:28-0500 Respiratory rate 16 /min Mandeep Tan MD Work Phone: [email or web address] 01-30-2024 14:28-0500 SaO2% (BldA) [Mass fraction] 100 % Mandeep Tan MD Work Phone: [email or web address] 01-30-2024 14:28-0500 Systolic blood pressure 104 mm[Hg] Mandeep Tan MD Work Phone: [email or web address] 01-25-2024 19:37-0500 Heart rate 67 /min Mandeep Tan MD Work Phone: [email or web address] 01-19-2024 23:39-0500 Heart rate 110 /min Mandeep Tan MD Work Phone: [email or web address] 01-14-2024 21:03-0400 Body height 190.5 cm Mandeep Tan MD Work Phone: [email or web address] 01-14-2024 21:03-0400 Body mass index (BMI) [Ratio] 37.08 kg/m2 Mandeep Tan MD Work Phone: [facility] 01-14-2024 21:03-0400 Body weight 134.58 kg Mandeep Tan MD Work Phone: [facility] 01-14-2024 11:46-0400 Diastolic blood pressure 99 mm[Hg] Portia Brianne [facility] 01-14-2024 11:46-0400 Heart rate 110 /min Portia Brianne [facility] 01-14-2024 11:46-0400 Respiratory rate 21 /min Portia Brianne [facility] 01-14-2024 11:46-0400 SaO2% (BldA) [Mass fraction] 95 % Portia Brianne [facility] 01-14-2024 11:46-0400 Systolic blood pressure 137 mm[Hg] Portia Brianne [facility] 01-14-2024 11:24-0400 Diastolic blood pressure 60 mm[Hg] Portia Brianne [facility] 01-14-2024 11:24-0400 Heart rate 108 /min Portia Brianne [facility] 01-14-2024 11:24-0400 Respiratory rate 16 /min Portia Brianne [facility] 01-14-2024 11:24-0400 SaO2% (BldA) [Mass fraction] 97 % Portia Brianne [facility] 01-14-2024 11:24-0400 Systolic blood pressure 140 mm[Hg] Portia Brianne [facility] 01-14-2024 11:04-0400 Diastolic blood pressure 53 mm[Hg] Portia Brianne [facility] 01-14-2024 11:04-0400 Heart rate 112 /min Portia Brianne [facility] 01-14-2024 11:04-0400 Respiratory rate 14 /min Portia Butchere [facility] 01-14-2024 11:04-0400 SaO2% (BldA) [Mass fraction] 97 % Portia Butchere [facility] 01-14-2024 11:04-0400 Systolic blood pressure 131 mm[Hg] Portia Butchere [facility] 01-14-2024 10:31-0400 Respiratory rate 26 /min Portia Butchere [facility] 01-14-2024 09:29-0400 Body temperature 97.52 [degF] Portia Butchere [facility] 01-14-2024 09:29-0400 Heart rate 111 /min Portia Butchere [facility] 01-14-2024 09:29-0400 Respiratory rate 20 /min Portia Butchere [facility] 01-14-2024 09:09-0400 Body temperature 98.24 [degF] Portia Butchere [facility] 01-14-2024 09:09-0400 Heart rate 114 /min Portia Butchere [facility] 01-14-2024 09:09-0400 Respiratory rate 20 /min Portia Butchere [facility] 05-06-2023 16:25-0500 Body height 185.4 cm [facility] 05-06-[facility] 16:25-0500 Body temperature 97.9 [degF] [facility] 05-06-2023 16:25-0500 Diastolic blood pressure 75 mm[Hg] Jack Robie [facility] 05-06-2023 16:25-0500 Heart rate 101 /min [facility] 05-06-2023 16:25-0500 Respiratory rate 18 /min [facility] 05-06-2023 16:25-0500 SaO2% (BldA) [Mass fraction] 95 % [facility] 05-06-2023 16:25-0500 Systolic blood pressure 156 mm[Hg] [facility] Encounters Encounter Date Encounter Type Care Provider Facility Start: 05-05-2024 End: 05-05-2024 ambulatory JOHN SANTANA Facility:[facility] Start: 05-05-2024 End: 05-05-2024 Subsequent hospital visit by physician John Santana DO Work Phone: [email or web address] [facility] [place] Start: 05-05-2024 End: 05-05-2024 ambulatory UNKNOWN PROVIDER Facility:[facility] Start: 04-30-2024 End: 04-30-2024 Preoperative state Clint Garcia IT SERVICE DELIVERY MANAGER-PATENT SEARCHER Work Phone: [email or web address] Work Phone: Start: 04-30-2024 End: 04-30-2024 Telephone encounter Clint Garcia IT SERVICE DELIVERY MANAGER-PATENT SEARCHER Work Phone: [email or web address] [facility] Pre-Admission Testing Start: 04-27-2024 End: 04-27-2024 Patient encounter procedure [facility] DO [facility] Comment on above: Closed fracture of b oth ankles with routine healing, subsequent encounter (Primary Dx) Start: 04-27-2024 End: 04-27-2024 Subsequent hospital visit by physician Alix Op Xray 2 [facility] Comment on above: Closed fracture of b oth ankles with routine healing, subsequent encounter Start: 04-27-2024 End: 04-27-2024 ambulatory [facility] Start: 04-26-2024 End: 04-27-2024 ambulatory JOHN SANTANA Facility:[facility] Start: 03-27-2024 End: 03-27-2024 ambulatory Amanda Silver RN [facility] Care Management/Patient Access Start: 03-27-2024 End: 03-27-2024 Coordination of care plan Amanda Silver RN [facility] Care Management/Patient Access Comment on above: Transitional Care Robles nueñz; Care Coordination; Medical Record Review Start: 03-09-2024 End: 03-09-2024 ambulatory JOHN SANTANA Facility:[facility] Start: 03-09-2024 End: 03-09-2024 Patient encounter procedure John Santana DO Work Phone: [facility] Comment on above: Closed fracture of b oth ankles with routine healing, subsequent encounter (Primary Dx) Start: 03-05-2024 End: 03-05-2024 ambulatory Amanda Silver RN [facility] Care Management/Patient Access Start: 03-05-2024 End: 03-05-2024 Coordination of care plan Amanda Silver RN [facility] Care Management/Patient Access Comment on above: Transitional Care Robles nuñez; Care Coordination; Medical Record Review Start: 02-27-2024 End: 02-27-2024 ambulatory Amanda Silver RN [facility] Care Management/Patient Access Start: 02-27-2024 End: 02-27-2024 Follow-up encounter Amanda Silver RN [facility] Care Management/Patient Access Comment on above: Transitional Care Robles nuñez; Hospital follow-up Start: 02-20-2024 End: 02-26-2024 Evaluation and management of inpatient JOHN SANTANA Facility:[facility] Start: 02-20-2024 End: 02-20-2024 Evaluation and management of inpatient UNKNOWN PROVIDER Facility:[facility] Start: 02-20-2024 End: 02-20-2024 Subsequent hospital visit by physician John Santana DO Work Phone: [facility] Start: 02-20-2024 End: 02-26-2024 Evaluation and management of inpatient John Santana DO Work Phone: [address] Comment on above: 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); Closed fracture of right ankle with delayed healing, subsequent encounter; 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, subsequent encounter Start: 02-19-2024 Encounter for other preprocedural examination DELILAH ALDRICH [facility] Start: 02-19-2024 End: 02-20-2024 Orders Only John Santana DO Work Phone: [facility] Start: 02-19-2024 End: 02-19-2024 Patient encounter status Delilah Aldrich IT SERVICE DELIVERY MANAGER-PATENT SEARCHER [facility] Work Phone: Start: 02-19-2024 End: 02-19-2024 Telephone encounter Delilah Aldrich IT SERVICE DELIVERY MANAGER-PATENT SEARCHER Work Phone: [facility] Pre-Admission Testing Comment on above: Arrived Start: 02-17-2024 End: 02-20-2024 Patient encounter procedure Hari Lund APRN.CHROME WORKER Work Phone: [facility] Start: 02-17-2024 End: 02-20-2024 Progress Note Hari Lund APRN.CHROME WORKER Work Phone: [facility] Start: 02-12-2024 End: 02-17-2024 Progress Note Hari Lund IT SERVICE DELIVERY MANAGER.CHROME WORKER Work Phone: [facility] Start: 02-12-2024 End: 02-17-2024 Patient encounter procedure John Tomo DO Work Phone: [facility] Comment on above: Closed fracture of r ight ankle with delayed healing, subsequent encounter (Primary Dx) Start: 02-12-2024 End: 02-12-2024 Subsequent hospital visit by physician Phe Op X-Ray 4 [facility] Rad[facility] Comment on above: Closed fracture of b oth ankles, initial encounter Start: 02-12-2024 End: 02-12-2024 ambulatory DRAKE WILL Facility:[facility] Start: 02-10-2024 End: 02-10-2024 Ancillary Orders Drake Will PANancyC Work Phone: [facility] Start: 02-05-2024 End: 02-05-2024 ambulatory Ferny Carrington SENIOR JAVASCRIPT DEVELOPER Work Phone: [facility] Start: 02-05-2024 End: 02-05-2024 Letter encounter Ferny Carrington SENIOR JAVASCRIPT DEVELOPER Work Phone: [facility] Comment on above: Other family/social problem NOS (UNSTABLE HOME ENVIRONMENT ) Start: 02-05-2024 End: 02-10-2024 Patient encounter procedure Hari Lund IT SERVICE DELIVERY MANAGER.CHROME WORKER Work Phone: [facility] Start: 02-05-2024 End: 02-10-2024 Progress Note Hari Lund IT SERVICE DELIVERY MANAGER.CHROME WORKER Work Phone: [facility] Start: 02-03-2024 End: 02-07-2024 Patient encounter procedure Hari Lund IT SERVICE DELIVERY MANAGER.CHROME WORKER Work Phone: [facility] Start: 02-03-2024 End: 02-07-2024 Progress Note Hari Lund IT SERVICE DELIVERY MANAGER.CHROME WORKER Work Phone: [facility] Start: 01-31-2024 End: 02-03-2024 Patient encounter procedure Itri A Shun Work Phone: [facility] Start: 01-31-2024 End: 02-03-2024 Progress Note Itri A Shun Work Phone: [facility] [employer] Start: 01-31-2024 End: 01-31-2024 Telephone encounter [facility] Comment on above: Question about medic ation Start: 01-24-2024 End: 01-24-2024 Evaluation and management of inpatient Bill Hendrix MD Work Phone: [facility] Comment on above: Arrived Start: 01-24-2024 End: 01-24-2024 Evaluation and management of inpatient Bill Hendrix MD Work Phone: [facility] Comment on above: Arrived Start: 01-18-2024 End: 01-18-2024 Evaluation and management of inpatient Bill Hendrix MD Work Phone: [facility] Comment on above: Arrived Start: 01-16-2024 End: 01-30-2024 Evaluation and management of inpatient IP TEAM TRAUMA [phone] Facility:[facility] Start: 01-14-2024 End: 01-14-2024 E.D. Visit Kacie Salazar SENIOR JAVASCRIPT DEVELOPER Work Phone: [facility] Comment on above: Trauma/complex Medic al Situation Start: 01-14-2024 End: 01-30-2024 Evaluation and management of inpatient Mandeep Tan MD Work Phone: [facility] Start: 01-14-2024 End: 01-14-2024 Emergency department patient visit Portia Decker [facility] Start: 01-14-2024 Emergency department patient visit UNKNOWN PROVIDER Facility:[facility] Start: 05-06-2023 End: 05-06-2023 Emergency department patient visit [facility] Start: 05-06-2023 End: 05-06-2023 Emergency department patient visit [facility] Start: 02-05-2022 End: 02-06-[address] SWEETIE NUÑEZ Facility:[facility] Procedures Date Procedure Procedure Detail Performing Clinician Start: 05-05-2024 Glucose blood reagent strip John Esther DO Work Phone: Start: 05-05-2024 Us guidance needle p lacement img s&i Allan Read MD Work Phone: Start: 05-05-2024 End: 05-05-2024 REMOVAL, EXTERNAL FIXATOR WITH/WITHOUT CURRETTAGE John Esther DO Work Phone: Start: 05-05-2024 Glucose blood reagent strip John Esther DO Work Phone: Start: 04-27-2024 Radex ankle complete minimum 3 views Angie Marion MD Work Phone: Start: 02-25-2024 Glucose blood reagent strip John Esther DO Work Phone: Start: 02-25-2024 Glucose blood reagent strip John Esther DO Work Phone: Start: 02-25-2024 Glucose blood reagent strip John Esther DO Work Phone: Start: 02-25-2024 Glucose blood reagent strip John Esther DO Work Phone: Start: 02-24-2024 Glucose blood reagent strip John Esther DO Work Phone: Start: 02-24-2024 Glucose blood reagent strip John Esther DO Work Phone: Start: 02-24-2024 Glucose blood reagent strip John Esther DO Work Phone: Start: 02-24-2024 Glucose blood reagent strip John Esther DO Work Phone: Start: 02-23-2024 Glucose blood reagent strip John Esther DO Work Phone: Start: 02-23-2024 Glucose blood reagent strip John Esther DO Work Phone: Start: 02-23-2024 Glucose blood reagent strip John Esther DO Work Phone: Start: 02-23-2024 Glucose blood reagent strip John Esther DO Work Phone: Start: 02-22-2024 Glucose blood reagent strip John Esther DO Work Phone: Start: 02-22-2024 Glucose blood reagent strip John Esther DO Work Phone: Start: 02-22-2024 Glucose blood reagent strip John Esther DO Work Phone: Start: 02-22-2024 Glucose blood reagent strip John Esther DO Work Phone: Start: 02-22-2024 Blood count complete automated Audrey Enriquez MD Work Phone: Start: 02-21-2024 Glucose blood reagent strip John Esther DO Work Phone: Start: 02-21-2024 Glucose blood reagent strip John Esther DO Work Phone: Start: 02-21-2024 Glucose blood reagent strip John Esther DO Work Phone: Start: 02-21-2024 Glucose blood reagent strip John Esther DO Work Phone: Start: 02-20-2024 Glucose blood reagent strip John Esther DO Work Phone: Start: 02-20-2024 Glucose blood reagent strip John Esther DO Work Phone: Start: 02-20-2024 Glucose blood reagent strip John Esther DO Work Phone: Start: 02-20-2024 Fluoroscopy up to 1 hour physician/qhp time Drake Will PA-C Work Phone: Start: 02-20-2024 End: 02-20-2024 Cul bact xcpt urine blood/stool aerobic isol Anna Martinez MD Work Phone: Start: 02-20-2024 End: 02-20-2024 REDUCTION, OPEN, ANKLE John Esther DO Work Phone: Start: 02-20-2024 Glucose blood reagent strip John Esther DO Work Phone: Start: 01-30-2024 Glucose blood reagent strip Jonathan Glover MD Work Phone: Start: 01-30-2024 Glucose blood reagent strip Jonathan Glover MD Work Phone: Start: 01-30-2024 Glucose blood reagent strip Jonathan Glover MD Work Phone: Start: 01-30-2024 Blood count complete automated Nereyda Sher IT SERVICE DELIVERY MANAGER-PATENT SEARCHER Work Phone: Start: 01-29-2024 Glucose blood reagent strip Jonathan Glover MD Work Phone: Start: 01-29-2024 Glucose blood reagent strip Jonathan Glover MD Work Phone: Start: 01-29-2024 Glucose blood reagent strip Jonathan Glover MD Work Phone: Start: 01-28-2024 Glucose blood reagent strip Jonathan Glover MD Work Phone: Start: 01-28-2024 Glucose blood reagent strip Jonathan Glover MD Work Phone: Start: 01-28-2024 Glucose blood reagent strip Jonathan Glover MD Work Phone: Start: 01-28-2024 Glucose blood reagent strip Jonathan Glover MD Work Phone: Start: 01-27-2024 Glucose blood reagent strip Jonathan Glover MD Work Phone: Start: 01-27-2024 Glucose blood reagent strip Jonathan Glover MD Work Phone: Start: 01-27-2024 Glucose blood reagent strip Jonathan Glover MD Work Phone: Start: 01-27-2024 Glucose blood reagent strip Wilma Lin MD Work Phone: Start: 01-27-2024 Assay of magnesium Toia washington Davis MD Work Phone: Start: 01-26-2024 Glucose blood reagent strip Wilma Lin MD Work Phone: Start: 01-26-2024 Glucose blood reagent strip Wilma Lin MD Work Phone: Start: 01-26-2024 Glucose blood reagent strip Wilma Lin MD Work Phone: Start: 01-26-2024 Glucose blood reagent strip Wilma Lin MD Work Phone: Start: 01-26-2024 Assay of magnesium Toia dna Isabel SANCHEZ Work Phone: Start: 01-25-2024 Glucose blood reagent strip Wilma Lin MD Work Phone: Start: 01-25-2024 Glucose blood reagent strip Wilma Lin MD Work Phone: Start: 01-25-2024 Glucose blood reagent strip Cm Levy MD Work Phone: Start: 01-25-2024 Assay of magnesium Toia dna Isabel SANCHEZ Work Phone: Start: 01-24-2024 Glucose blood reagent strip Cm Levy MD Work Phone: Start: 01-24-2024 Glucose blood reagent strip Cm Levy MD Work Phone: Start: 01-24-2024 Glucose blood reagent strip Cm Levy MD Work Phone: Start: 01-24-2024 Us guidance needle p lacement img s&i Jayashree Roman APRN-LOUVER DOOR ASSEMBLER Work Phone: Start: 01-24-2024 Glucose blood reagent strip Cm Levy MD Work Phone: Start: 01-24-2024 Fluoroscopy up to 1 hour physician/qhp time Tiffanie Garcia MD Work Phone: Start: 01-24-2024 End: 01-24-2024 REDUCTION, OPEN, ANKLE John Esther DO Work Phone: Start: 01-24-2024 Glucose blood reagent strip Cm Levy MD Work Phone: Start: 01-24-2024 Assay of magnesium Toia dna Isabel SANCHEZ Work Phone: Start: 01-24-2024 Ecg routine ecg w/le ast 12 lds trcg only w/o i&r Toyin Davis MD Work Phone: Start: 01-23-2024 Glucose blood reagent strip Cm Levy MD Work Phone: Start: 01-23-2024 Glucose blood reagent strip Cm Levy MD Work Phone: Start: 01-23-2024 Glucose blood reagent strip Cm Levy MD Work Phone: Start: 01-23-2024 Glucose blood reagent strip To Be Assigned Start: 01-23-2024 Assay of magnesium Claire Davis MD Work Phone: Start: 01-23-2024 Blood typing, ABO, R ho(D) and RBC antibody screening Nereyda Sher [facility] Work Phone: Start: 01-22-2024 Glucose blood reagent strip To Be Assigned Start: 01-22-2024 End: 01-22-2024 Creatinine other source Nereyda joel [facility] Work Phone: Start: 01-22-2024 Urnls dip stick/tabl et rgnt auto w/o microscopy Nereyda Sher [facility] Work Phone: Start: 01-22-2024 Glucose blood reagent strip To Be Assigned Start: 01-22-2024 Glucose blood reagent strip To Be Assigned Start: 01-22-2024 Assay of magnesium Claire Davis MD Work Phone: Start: 01-21-2024 Glucose blood reagent strip To Be Assigned Start: 01-21-2024 Glucose blood reagent strip To Be Assigned Start: 01-21-2024 Glucose blood reagent strip To Be Assigned Start: 01-21-2024 Glucose blood reagent strip To Be Assigned Start: 01-21-2024 Albumin serum plasma /whole blood Melissa Gerber DO Work Phone: Start: 01-21-2024 Microsomal antibodies each Melissa Gerber DO Work Phone: Start: 01-20-2024 Glucose blood reagent strip To Be Assigned Start: 01-20-2024 End: 01-20-2024 Glucose blood reagent strip To Be Assign ed Start: 01-20-2024 Assay of osmolality urine Toyin Davis MD Work Phone: Start: 01-20-2024 End: 01-20-2024 Assay of magnesium Toyin Davis MD Work Phone: Start: 01-19-2024 End: 01-19-2024 Adrenocorticotropic hormone acth Nupur Lozano MD Work Phone: Start: 01-19-2024 Assay of magnesium Claire Davis MD Work Phone: Start: 01-18-2024 Glucose blood reagent strip To Be Assigned Start: 01-18-2024 Us abdominal real ti me w/image limited Toyin Davis MD Work Phone: Start: 01-18-2024 Glucose blood reagent strip To Be Assigned Start: 01-18-2024 Basic metabolic pane l calcium total Nupur Lozano MD Work Phone: Start: 01-18-2024 Glucose blood reagent strip To Be Assigned Start: 01-18-2024 Glucose blood reagent strip To Be Assigned Start: 01-18-2024 Assay of magnesium Claire Davis MD Work Phone: Start: 01-17-2024 Glucose blood reagent strip To Be Assigned Start: 01-17-2024 Glucose blood reagent strip To Be Assigned Start: 01-17-2024 Cyanocobalamin vitamin b-12 Jimy Malone IT SERVICE DELIVERY MANAGER-PATENT SEARCHER Work Phone: Start: 01-17-2024 Glucose blood reagent strip To Be Assigned Start: 01-17-2024 Glucose blood reagent strip To Be Assigned Start: 01-17-2024 Hemoglobin glycosylated a1c Marivel Maciaskillian ISLAS Work Phone: Start: 01-16-2024 End: 01-16-2024 Glucose blood reagent strip To Be Assign ed Start: 01-16-2024 Glucose blood reagent strip To Be Assigned Start: 01-16-2024 Sodium serum plasma or whole blood Toyin Davis MD Work Phone: Start: 01-16-2024 RED/YELLOW TOP TUBE, URINE Jason Mesa MD Work Phone: Start: 01-16-2024 Drug screen class list a Nereyda Sher IT SERVICE DELIVERY MANAGER-PATENT SEARCHER Work Phone: Start: 01-16-2024 End: 01-16-2024 Glucose blood reagent strip To Be Assign ed Start: 01-16-2024 Assay of triglycerides Toyin Davis MD Work Phone: Start: 01-16-2024 Assay of magnesium Aria dna Isabel SANCHEZ Work Phone: Start: 01-15-2024 Assay of magnesium Aria dna Isabel SANCHEZ Work Phone: Start: 01-14-2024 Ecg routine ecg w/le ast 12 lds trcg only w/o i&r Nereyda Sher [facility] Work Phone: Start: 01-14-2024 Assay of magnesium Aria dna Isabel SANCHEZ Work Phone: Start: 01-14-2024 Blood typing serologic abo Mandeep Tan MD Work Phone: Start: 01-14-2024 Ct lower extremity w /o contrast material Danica Donahue MD Work Phone: Start: 01-14-2024 End: 01-14-2024 Radex ankle complete minimum 3 views Danica Donahue MD Work Phone: Start: 01-14-2024 Radiology Comparison study - date and time Mandeep Tan MD Work Phone: Start: 01-14-2024 Radex shoulder compl ete minimum 2 views Nereyda Sher [facility] Work Phone: Start: 01-14-2024 Radiologic exam ches t single view Nereyda Sher [facility] Work Phone: Start: 01-14-2024 Assay of lactate Mandeep Tan MD Work Phone: Start: 01-14-2024 Blood typing, ABO, R ho(D) and RBC antibody screening Mandeep Tan MD Work Phone: Start: 01-14-2024 Drug screen quantita tive alcohols Mandeep Tan MD Work Phone: Start: 02-05-[address] ALIVIA NUÑEZ Comment on above: Performed By: #### V ITAD, IRON, PSASC #### [facility] [address] [address] [address] Nancy Montoya Plan of Treatment Date Care Activity Detail Author Start: 01-16-2026 Cyanocobalamin vitam in b-12 Vitamin B12 [facility] Start: 01-16-2026 [facility] Start: 03-04-2025 Creatinine measurement Basic Metabol ic Panel [facility] Start: 03-04-2025 Lipid panel [facility] Start: 02-21-2025 Creatinine measurement Basic Metabol ic Panel [facility] Start: 01-29-2025 Creatinine measurement [facility] Start: 01-25-2025 Creatinine measurement Basic Metabol ic Panel [facility] Start: 01-18-2025 Creatinine measurement Basic Metabol ic Panel [facility] Start: 12-16-2024 Influenza vaccination Influenza Vacc ine (#1) [facility] Start: 09-02-2024 Hemoglobin A1c measurement Hemoglobin A1C [facility] Start: 07-16-2024 Hemoglobin A1c measurement [facility] Start: 04-27-2024 End: 04-27-2024 Patient encounter procedure 04/27/2024 10:00 AM EST Office Visit [facility] [address] [facility] [email or web address] [address] John Santana DO [address] [place] [address] [facility] Start: 04-26-2024 End: 04-26-2025 XR Ankle - right 3 Views XR ANKLE RIGHT 3 VIEWS Imaging Routine Closed fracture of both ankles with routine healing, subsequent encounter Expected: 04/26/2024, Expires: 04/26/2025 [employer] Work Phone: Comment on above: Expected: 04/26/2024 , Expires: 04/26/2025 Start: 03-09-2024 End: 03-09-2024 Patient encounter procedure 03/09/2024 10:30 AM EST [facility] [address] [place] [address] John Snatana DO [address] [place] [address] [facility] Start: 03-09-2024 End: 03-09-2024 Telemedicine consultation with patient 03/09/2024 8:30 AM EST Telemedicine [facility] [address] [place] [address] [facility] Start: 03-05-2024 End: 03-05-2024 Telemedicine consultation with patient 03/05/2024 9:30 AM EST Telemedicine [facility] [address] [place] [address] [facility] Start: 02-20-2024 End: 02-20-2024 Admission to same day surgery center [facility] Comment on above: Revision REDUCTION, OPEN, ANKLE Start: 02-20-2024 End: 02-20-2024 REDUCTION, OPEN, ANKLE [facility] Start: 02-20-2024 Subsequent hospital visit by physician [facility] Start: 02-20-2024 End: 02-20-2024 REDUCTION, OPEN, ANKLE REDUCTION, OPEN, ANKLE Routine scheduled Closed fracture of right ankle with delayed healing, subsequent encounter 02/20/2024 11:46 AM EST [facility] Start: 02-12-2024 End: 02-12-2024 Patient encounter procedure 02/12/2024 1:00 PM EST Office Visit [facility] [id number] [place] [id number] John Santana DO [address] [facility] [place] [address] [facility] Start: 02-10-2024 End: 02-09-2025 XR Ankle - left 3 Views XR ANKLE LEFT 3 VIEWS Imaging Routine Closed fracture of both ankles, initial encounter Expected: 02/10/2024, Expires: 02/09/2025 [facility] [employer] Work Phone: Comment on above: Expected: 02/10/2024 , Expires: 02/09/2025 Start: 02-10-2024 End: 02-09-2025 XR Ankle - right 3 Views XR ANKLE RIGHT 3 VIEWS Imaging Routine Closed fracture of both ankles, initial encounter Expected: 02/10/2024, Expires: 02/09/2025 [facility] Comment on above: Expected: 02/10/2024 , Expires: 02/09/2025 Start: 02-10-2024 End: 02-10-2024 ambulatory [facility] Start: 02-10-2024 End: 02-10-2024 Patient encounter procedure 02/10/2024 10:00 AM EST [facility] [address] [place] [address] John Santana DO [address] [facility] [place] [address] [facility] Start: 01-24-2024 End: 01-24-2024 Evaluation and management of inpatient 01/24/2024 10:09 AM EST - 01/24/2024 1:30 PM EST Surgery [facility] Main OR [address] [place] [address] John Santana DO [address] [facility] [place] [address] REDUCTION, OPEN, ANKLE [facility] OR Comment on above: REDUCTION, OPEN, ANK LE Start: 01-24-2024 End: 01-24-2024 REDUCTION, CLOSED, ANKLE REDUCTION, CLOSED, ANKLE 5/E - Within 24 Hours Closed fracture of both ankles, initial encounter 01/24/2024 10:09 AM EST [facility] Start: 01-24-2024 End: 01-24-2024 REDUCTION, OPEN, ANKLE REDUCTION, OPEN, ANKLE 5/E - Within 24 Hours Closed fracture of both ankles, initial encounter 01/24/2024 10:09 AM EST [facility] Start: 12-17-2023 Welcome to Medicare Visit (G0402) Welcome to Medicare Visit (G0402) [facility] Start: 12-17-2023 [facility] Start: 11-17-2023 COVID-19 Vaccine ( season) COVID-19 Vaccine () [facility] Start: 11-17-2023 [facility]enza [facility] Start: 02-05-2023 Lipid panel [facility] Start: 11-16-2022 COVID-19 VACCINE ( season) COVID-19 VACCINE ( season) [facility] Start: 11-16-2022 Influenza vaccination INFLUENZA VACC INE (#1) [facility] Start: 2018 Prostate specific antigen measurement PROSTATE CANCER SCREENING DISCUSSION [facility] Start: 2018 Shingles (RZV) Vacci ne (1 of 2) [facility] Start: 2018 Zoster vaccine hzv l teddy for subcutaneous use ZOSTER (SHINGLES) VACCINE (1 of 2) [facility] Start: 2013 Screening for malign ant neoplasm of colon [facility] Start: 2008 Lipid panel LIPID SCREENING [facility] Start: 2003 Lipid panel Cholesterol [facility] Start: 1987 Hepatitis A (HAV) Vaccine (optional start 19+ years) Hepatitis A (HAV) Vaccine (optional start 19+ years) [facility] Start: 1987 Hepatitis B vaccination [facility] Start: 1987 Pneumococcal vaccination Pneum ococcal Vaccine(s) (50+ yrs) (1 of 2 - PCV) [facility] Start: 1987 Third diphtheria, tetanus and acellular pertussis (DTaP) vaccination TDAP (ADULT) [facility] Start: 1987 [facility] Start: 1986 [facility] C screening [facility] Start: 1986 Tdap Booster [facility] Start: 1983 HIV screening HIV SCREENING DISCUSSION [facility] Start: 1974 Pneumococcal vaccination Pneum ococcal Vaccine(s) (1 of 2 - PCV) [facility] Start: 1974 [facility] Start: 1968 Gl[facility] Start: 1968 Urine screening for protein [facility] Start: 1968 Diabetic foot examination [facility] Start: 1968 Hepatitis C screening HEPATITI S C VIRUS SCREENING [facility] Start: 1968 Screening for malign ant neoplasm of colon [facility] Start: 1968 Tetanus vaccination T[facility]AN[facility] End: 01-17-2024 Assay of osmolality urine [facility] [employer] [facility] Work Phone: End: 02-21-2024 Blood count complete auto&auto difrntl wbc CBC WITH DIFFERENTIAL Lab Only Routine Once for 1 Occurrences starting 02/21/2024 until 02/21/2024 [email or web address] Comment on above: Once for 1 Occurrenc es starting 02/21/2024 until 02/21/2024 End: 02-21-2024 CBC W Auto Differential panel - Blood COMPLETE BLOOD COUNT W/DIFF Lab Routine Morning Blood Draw for 1 Occurrences starting 02/21/2024 until 02/21/2024 [facility] [employer] Work Phone: Comment on above: Morning Blood Draw f or 1 Occurrences starting 02/21/2024 until 02/21/2024 Culture bacterial an y source anaerobic iso&id [facility] End: 02-12-2024 XR Ankle - left 3 Views [facility] [employer] [facility] Work Phone: Comment on above: 1 Occurrences starti ng 02/12/2024 until 02/12/2024 End: 02-12-2024 XR Ankle - right 3 Views [email or web address] Comment on above: 1 Occurrences starti ng 02/12/2024 until 02/12/2024 End: 04-27-2024 XR Ankle - right 3 Views XR ANKLE RIGHT 3 VIEWS Imaging Routine Closed fracture of both ankles with routine healing, subsequent encounter 1 Occurrences starting 04/27/2024 until 04/27/2024 [facility] [employer] Work Phone: Comment on above: 1 Occurrences starti ng 04/27/2024 until 04/27/2024 Immunizations Immunization Date Immunization Notes Care Provider Elvira li 03-04-2024 Hemoglobin A1C John lutz DO Work Phone: [email or web address] 01-17-2024 Hemoglobin A1C 1 [facility] Payers Date Payer Category Payer Unknown [place] [facility] AND [employer]VANT[employer] HMO [id number] 2024-Present [phone] [address] [place] [address] HMO [id number] 2024 Auto Insurance [id number]. [id number] 2024 Unknown [id number] 2023 Blue Cross Blue Shield 1.2.8 [id number]. [id number] 2023 Unknown [id number] 2023 Medicare [id number]. 1.13.172.2.7 .[id number] 1968 Unknown [id number] 2.16.840.1.827341.3.579.2.5 1968 Unknown [id number] 2.16.840.1.109988.3.579.2.9 83 1968 Unknown [id number] 2.16.840.1.617360.3.579.2.7 1968 Unknown [id number] 2.16.840.1.260420.3.579.2.7 1968 Unknown [id number] 2.16.840.1.621473.3.579.2.7 1968 Unknown [id number] 2.16.840.1.377310.3.579.2.7 1968 Unknown [id number] 2.16.840.1.903002.3.579.2.7 1968 Unknown [id number] 2.16.840.1.486391.3.579.2.7 1968 Unknown [id number] 2.16.840.1.792715.3.579.2.7 1968 Unknown [id number] 2.16.840.1.325258.3.579.2.7 1968 Unknown [id number] 2.16.840.1.156703.3.579.2.7 1968 Unknown [id number] 2.16.840.1.719541.3.579.2.7 1968 Unknown [id number] .16.840.1.875644.3.579.2.7 1968 Unknown [id number] ..840.1.109881.3.579.2.7 1968 Unknown [id number] ..840.1.337973.3.579.2.7 1968 Unknown [id number] ..840.1.361421.3.579.2.7 1968 Unknown [id number] ..840.1.093632.3.579.2.7 1968 Unknown [id number] ..840.1.308371.3.579.2.7 1968 Unknown [id number] ..840.1.921905.3.579.2.7 1968 Unknown [id number] ..840.1.274513.3.579.2.7 1968 Unknown [id number] 05.03.840.1.111981.3.579.2.7 1968 Unknown [id number] ..840.1.548267.3.579.2.7 1968 Unknown [id number] ..840.1.212317.3.579.2.7 1968 Unknown [id number] ..840.1.832092.3.579.2.7 1968 Unknown [id number] .16.840.1.769510.3.579.2.7 1959 Medicaid [id number] 1961 Unknown [id number] Social History Date Type Detail Facility Start: 05-06-[facility]23 [facility] History of tobacco use Cigarette Smoker [facility] Start: 05-06-2023 End: 02-12-2024 Tobacco use and exposure Smokeless tobacco non-user [facility] Start: 05-06-2023 End: 04-30-2024 Alcoholic beverage intake Ex-drinker (finding) [facility] Start: 1970 Sex assigned at Not on file [facility] Start: 01-14-2024 End: 02-20-2024 Gender identity Not on file [facility] Tobacco smoking stat [facility] Tobacco smoking consumption unknown [facility] Work Phone: Start: 01-14-2024 Tobacco smoking status Light t obacco smoker (finding) [facility] Start: 01-14-2024 End: 02-20-2024 History of Social [facility] Has the [employer], or [email or web address] threatened to shut off services in your home in past 12Mo No [facility] Fear of Current or Ex-Partner Not on file [facility] (I/We) worried [facility] (my/our) food would run out before (I/we) got money to buy more. Never true [facility] Start: 01-14-2024 Sex Male (finding) [facility] In the past 12 month s, was there a time when you were not able to pay the mortgage or rent on time? Yes [facility] Start: 02-12-2024 [facility] History of tobacco use Current smoker [facility] Start: 04-30-2024 Details of drug misu se behavior Misuses drugs (finding) [facility] Start: 04-30-2024 Details of drug misu se behavior Cannabis (substance) [facility] Medical Equipment Procedure Code Equipment Code Equipment Origin al Text Equipment Identifier Dates [id number] Start: 01-24-2024 [id number] Start: 01-24-2024 [id number] Start: 01-24-2024 [id number] Start: 01-24-2024 [id number] Start: 01-24-2024 [id number] Start: 01-24-2024 [id number] Start: 01-24-2024 [id number] Start: 01-24-2024 [id number] Start: 01-24-2024 [id number] Start: 01-24-2024 [id number] Start: 01-24-2024 [Order 1 Start] Name: dextrose 10 % iv infusion Signed Summary: 125 mL, Intravenous, at 999 mL/hr, PRN, Starting on [facility] 01/16/24 at 0748, Until Discontinued, For blood glucose less than 70 mg/dL, with IV access and with loss of consciousness or unable to swallow or NPO [Order 1 End] [Order 2 Start] Name: glucagon (GLUCAGEN) 1 MG injection Signed Summary: 1 mg, Subcutaneous, PRN, Starting on [facility] 01/16/24 at 0748, Until Discontinued, For blood glucose less than 70 mg/dL and with no IV access with loss of consciousness or alert and unable to swallow. [Order 2 End] [Order 3 Start] Name: dextrose (GLUTOSE) 40 % oral gel Signed Summary: 15 g of glucose, Buccal, PRN, Starting on [facility] 01/16/24 at 0748, Until Discontinued, blood glucose between 50 - 69 mg/dL, and with no IV access, alert and able to swallow. [Order 3 End] [Order 4 Start] Name: dextrose (GLUTOSE) 40 % oral gel Signed Summary: 30 g of glucose, Buccal, PRN, Starting on [facility] 01/16/24 at 0748, Until Discontinued, blood glucose of 49mg/dL or less, and with no IV access, alert and able to swallow. [Order 4 End] Start: 01-16-2024 Start: 01-31-2024 End: 03-01-2024 Clamp 10 Hole Fo r 4/5/6mm Pin Ea1 4921-2-060 - [id number] Start: 02-20-2024 Kit Ascp Fx Grvt y Synchfix Ea1 [id number] - [id number] Start: 02-20-2024 Pin Hlf 150mm 5m m Apx Hfmn2 Ea1 5020-7-150 - [id number] Start: 02-20-2024 Pin Fx 300mm 5/6 mm Apx Trnfx Ea1 5050-4-300 - [id number] Start: 02-20-2024 Lj Xtrnfx 450mm 11mm Hfmn 3 Ea1 4922-8-450 - [id number] Start: 02-20-2024 Plt 151mm 2.7/3. 5mm Scr 9 Hl Ea1 435011 - [id number] Start: 02-20-2024 Scr Bn 2.7mm 20m m Ti Al Vndm T Ea1 653475 - [id number] Start: 02-20-2024 Scr Bn 2.7mm 16m m Pangea T8 Ea1 289706 - [id number] Start: 02-20-2024 Scr Bn 2.7mm 18m m Pangea T8 Ea1 622349 - [id number] Start: 02-20-2024 Scr Bn 3.5mm 16m m Axsos Ti Ea1 251397 - [id number] Start: 02-20-2024 Screw Cortical 3.5x65mm Ea1 279769 - [id number] Start: 02-20-2024 Scr Bn 2.7mm 16m m Ti Al Vndm T Ea1 375094 - [id number] Start: 02-20-2024 Kit Ascp Fx Grvt y Synchfix Ea1 [id number] - [id number] Start: 02-20-2024 Plt Strg Tblr 12 Hl Ortholoc Ea1 [id number] - [id number]_exp Start: 02-20-2024 Scr Bn 3.5mm 16m m Axsos Ti Ea1 202341 - [id number]_exp Start: 02-20-2024 Scr Bn 3.5mm 16m m Ortholoc Ss Ea1 [id number] - [id number]_exp Start: 02-20-2024 Scr Bn 2.7mm 14m m Ortholoc Ss Ea1 [id number] - [id number]_exp Start: 02-20-2024 Functional Status Date Assessment Result Facility 01-14-2024 Functional Status N/A [facility] Clinical Notes 05-06-2023 to 05-05-2024 Brief Operative Note - Aida Quiñones DO - 05/05/2024 11:01 AM ESTOP Note - John Santana DO - 05/05/2024 11:01 AM ESTBrief Operative Note - Aida Quiñones DO - 05/05/2024 11:01 AM EST Note Date & Type Note Facility 05-05-2024 Surgery Postoperative evaluation and management note Brief Operative Note [facility] PROCEDURE ROOM B-RAD Kusum Cage 54 year old male Surgical Contact Serial Number: [id number] Preoperative Diagnosis: Pre-op Diagnosis * Closed fracture of both ankles with routine healing, subsequent encounter [S82.891D, S82.892D] Postoperative Diagnosis: * Closed fracture of both ankles with routine healing, subsequent encounter [S82.891D, S82.892D] Procedures: No data filed Surgeon(s): Surgeon(s): John Santana DO Staff: * No surgical staff found * Anesthesia: Consult Anesthesiologist: Carina Ochoa MD CAA: Laurie Osman CAA Specimen(s): * No specimens in log * Estimated Blood Loss: less than 5 cc Lines/Drains: * No LDAs found * Temporarily Retained Foreign Object: No Findings: Prior calcaneus ex fix pin site well healing, tibial external fixator pin sites with hypertrophic granulation tissue, no signs of infection Complications: None Status at end of surgery: Stable Activity: weight bearing as tolerated Surgical wound class: Yes, wound was clean. Patient Class: Outpatient Surgery. Is this a patient scheduled as an outpatient that needs to be admitted as an inpatient? No Dr. Santana was present in the OR for the critical portion of the procedure and procedure sign-out. Signed by Aida Quiñones DO 05/05/2024 12:07 PM [email or web address] Work Phone: 05-05-2024 Surgery Surgical operation note Name: Kusum Cage MR#: [id number] [facility]#: [id number] Date of Procedure: 05/05/24 ATTENDING SURGEON: John Santana DO SURGICAL STAFF: * No surgical staff found * PREOPERATIVE DIAGNOSIS: Status post ORIF and external fixation of the left ankle POSTOPERATIVE DIAGNOSIS: Status post ORIF and external fixation of the left ankle PROCEDURE: Removal external fixator under anesthesia left ankle (CPT 25166). ANESTHESIA: Sedation with regional ESTIMATED BLOOD LOSS: Less than 5 mL. COMPLICATIONS: None IMPLANTS USED: * No implants in log * INDICATION FOR SURGERY: Kusum Cage is a 54-year-old male who sustained bilateral ankle fractures of the left being much worse than the right. He was noncompliant postoperatively and ambulated on both legs the left side failed. He was weight revision ORIF by myself with the placement of external fixator for additional stability. The plan was to remove the external fixator after 6-8 weeks. He has been ambulating 3 external fixator of the heel pin loosened. The heel pin was removed in clinic. He returns today for removal of the tibial pins were made with the external fixator secondary to it being too painful for this be removed in clinic. Again this is the planned procedure.. We discussed all treatment options; conservative and operative. Risk, benefits, alternatives and expected outcomes of surgery were discussed with the patient with risks including, but not limited to infection, wound complications, need for further surgery, nonunion, malunion, arthritis, loss of motion, blood loss, blood clot, pain, scarring, damage to nerves/vessels/nearby structures, need for blood product transfusion as well as other complications. They verbalized their understanding of this and would like to proceed with surgery. PROCEDURE IN DETAIL: The patient was seen in the preoperative holding area. Informed consent was obtained and the operative extremity was signed. The patient was taken to the procedural area. After regional anesthesia was placed the patient was sedated after a time-out was completed the external fixator pins were then removed. Sterile dressings were applied. He tolerated this well. Drapes were removed. The patient was awoken from sedation after being transferred back to the PACU. No complications were encountered throughout the procedure.. POSTOPERATIVE PLAN: The patient will remain nonweightbearing bilateral lower extremities per recommendations however we are fully aware that he will be noncompliant with this. He will return to see me in 2-3 weeks. Dressings should remain in place. I, John Santana, was present for all critical portions of the procedure. John Santana DO [email or web address] Work Phone: 05-05-2024 Miscellaneous Notes Brief Operative Note [facility] PROCEDURE ROOM B-RAD Kusum Cage 54 year old male Surgical Contact Serial Number: [id number] Preoperative Diagnosis: Pre-op Diagnosis * Closed fracture of both ankles with routine healing, subsequent encounter [S82.891D, S82.892D] Postoperative Diagnosis: * Closed fracture of both ankles with routine healing, subsequent encounter [S82.891D, S82.892D] Procedures: No data filed Surgeon(s): Surgeon(s): John Santana DO Staff: * No surgical staff found * Anesthesia: Consult Anesthesiologist: Carina Ochoa MD CAA: Laurie Osman CAA Specimen(s): * No specimens in log * Estimated Blood Loss: less than 5 cc Lines/Drains: * No LDAs found * Temporarily Retained Foreign Object: No Findings: Prior calcaneus ex fix pin site well healing, tibial external fixator pin sites with hypertrophic granulation tissue, no signs of infection Complications: None Status at end of surgery: Stable Activity: weight bearing as tolerated Surgical wound class: Yes, wound was clean. Patient Class: Outpatient Surgery. Is this a patient scheduled as an outpatient that needs to be admitted as an inpatient? No Dr. Santana was present in the OR for the critical portion of the procedure and procedure sign-out. Signed by Aida Quiñones DO 05/05/2024 12:07 PM Name: Kusum Cage MR#: [id number] [facility]#: [id number] Date of Procedure: 05/05/24 ATTENDING SURGEON: John Santana DO SURGICAL STAFF: * No surgical staff found * PREOPERATIVE DIAGNOSIS: Status post ORIF and external fixation of the left ankle POSTOPERATIVE DIAGNOSIS: Status post ORIF and external fixation of the left ankle PROCEDURE: Removal external fixator under anesthesia left ankle (CPT 44169). ANESTHESIA: Sedation with regional ESTIMATED BLOOD LOSS: Less than 5 mL. COMPLICATIONS: None IMPLANTS USED: * No implants in log * INDICATION FOR SURGERY: Kusum Cage is a 54-year-old male who sustained bilateral ankle fractures of the left being much worse than the right. He was noncompliant postoperatively and ambulated on both legs the left side failed. He was weight revision ORIF by myself with the placement of external fixator for additional stability. The plan was to remove the external fixator after 6-8 weeks. He has been ambulating 3 external fixator of the heel pin loosened. The heel pin was removed in clinic. He returns today for removal of the tibial pins were made with the external fixator secondary to it being too painful for this be removed in clinic. Again this is the planned procedure.. We discussed all treatment options; conservative and operative. Risk, benefits, alternatives and expected outcomes of surgery were discussed with the patient with risks including, but not limited to infection, wound complications, need for further surgery, nonunion, malunion, arthritis, loss of motion, blood loss, blood clot, pain, scarring, damage to nerves/vessels/nearby structures, need for blood product transfusion as well as other complications. They verbalized their understanding of this and would like to proceed with surgery. PROCEDURE IN DETAIL: The patient was seen in the preoperative holding area. Informed consent was obtained and the operative extremity was signed. The patient was taken to the procedural area. After regional anesthesia was placed the patient was sedated after a time-out was completed the external fixator pins were then removed. Sterile dressings were applied. He tolerated this well. Drapes were removed. The patient was awoken from sedation after being transferred back to the PACU. No complications were encountered throughout the procedure.. POSTOPERATIVE PLAN: The patient will remain nonweightbearing bilateral lower extremities per recommendations however we are fully aware that he will be noncompliant with this. He will return to see me in 2-3 weeks. Dressings should remain in place. I, John Santana, was present for all critical portions of the procedure. John Santana DO documented in this encounter [facility] 05-05-2024 Hospital Discharge instructions Dyan Lambert RN - 05/05/2024 10:35 AM EST Post-Operative Instructions You had surgery on 05/05/24 This procedure was performed at [facility] MEDICATIONS No new meds prescribed. Continue Home medications MEDICAL EQUIPMENT No new Medical equipment prescribed. WBAT LLE. APPOINTMENTS Maintain post op appt. GENERAL INFORMATION Elevation Patients having lower extremity procedures need to rest several times a day with head down, leg up on pillows. It is also important to get up and walk around every couple of hours for short periods of time. Diet Resume your diet gradually. Begin with clear liquids and gradually progress as you feel ready. Make sure you drink plenty of water and eat high fiber foods while taking narcotic pain medication to help avoid constipation. We recommend starting a stool softener or laxative if taking narcotic pain medications. Surgical Site Care Please keep surgical dressing clean and dry. Dressing You have a dressing on your Left lower extremity. You may remove the dressing from your leg in 7 days after your surgery. Please cover the wound with a Band-Aid (not waterprooof type) or gauze and change it daily. Do not use any salves, creams or lotions such as Neosporin on your incisions. Incisions may then be covered with band aids. Do not submerge incisions. Do not scrub or get wet. Pat surrounding area dry. Positioning and Elevation to Reduce Swelling Swelling occurs after any surgery and can be treated with ice and elevation. If you had a lower extremity surgery (knee) your extremity should be elevated above the level of your heart (i.e., toes above the nose). Elevate as much as possible for the first 7 days after your surgery. If you are in a sling after shoulder surgery, we recommend frequent hand pumps to help with swelling. Use ice packs intermittently (20 minutes on, 20 minutes off) to reduce pain and swelling, however, use extreme caution with icing if your block is still in effect. Make sure to have a barrier between your skin and the ice pack to avoid de oliveira bite. Blood Clots Although rare, please be aware and utilize the recommendations below to avoid getting a blood clot. Get up hourly during the daytime and walk across the room to keep the blood circulating in your legs. Common or Normal Post-Operative Reactions Low grade fever (approximately 100.5 degrees) for up to one week. Small amount of blood or fluid leaking from the surgical site or dressing Bruising along the surgical extremity Swelling around the surgical site and surrounding area When to Call Your Physician Signs of infection Redness or pain around your incision (if you cannot see your incision, red streaking up your extremity should be reported). Intense calf pain Thick, dark yellow or foul smelling drainage at the incision site or from your dressing. Temperature over 101.5 degrees for more than 24 hours. For questions/triage after hours please call [phone] and the dedicated regional driver provider will be paged. IF YOU HAVE AN EMERGENCY, I.E., SHORTNESS OF BREATH, CHEST PAIN, OR ANY SYMPTOMS LISTED ABOVE IN SEVERE NATURE PLEASE CALL 911 OR VISIT YOUR LOCAL EMERGENCY ROOM Questions: Please call the office at [phone] if you have any further questions Patient Education Monitored Anesthesia Care About this topic Monitored anesthesia care is also known as MAC. With MAC, the goal is to keep you safe, comfortable, and relaxed for your procedure. Doctors may use this kind of anesthesia when you don t need to be fully asleep. With MAC, you may have a very light calm feeling. Other times, you may have a very deep sleepiness. This depends on what the doctor needs for you and your procedure. Only someone with special training can give MAC, and this includes: Anesthesiologists Certified registered nurse anesthetists (CRNAs) Anesthesia Assistants Why is this procedure done? This type of anesthesia is often for procedures like: Breast tissue samples Colonoscopy Vasectomy Dental surgery, like an implant or taking out an impacted tooth Minor foot surgery Endoscopy Fix a broken bone Plastic cosmetic surgery Endotracheal procedure What happens during the procedure? Doctors determine what your sedation level will be during your procedure. For some procedures, you are very relaxed, sleepy, and you are easy to wake up when needed. For others, you are able to talk and answer questions. For some procedures, you are in a deep sleep. The deeper the sedation, the less likely you are to remember the procedure. Many people do not remember their procedure at all after MAC, but others do. Talk to your doctor if you worry about your level of sedation for your procedure. What happens after the procedure? Side effects are less common than with general anesthesia. Some people still have: Headache Upset stomach or throw up Hangover feeling Short period of no memory Bad memories What care is needed at home? Have a responsible adult with you after your procedure to help you. They can also call for help if you have problems. Do not make major decisions or sign important papers for at least 24 hours. You may not be thinking clearly. Do not drive or operate machinery for 24 hours or until your doctor says you can. What problems could happen? Low blood pressure Breathing problems Allergic reaction Too much or not enough sedation Last Reviewed Date 2020-10-10 Consumer Information Use and Disclaimer This generalized information is a limited summary of diagnosis, treatment, and/or medication information. It is not meant to be comprehensive and should be used as a tool to help the user understand and/or assess potential diagnostic and treatment options. It does NOT include all information about conditions, treatments, medications, side effects, or risks that may apply to a specific patient. It is not intended to be medical advice or a substitute for the medical advice, diagnosis, or treatment of a health care provider based on the health care provider's examination and assessment of a patient s specific and unique circumstances. Patients must speak with a health care provider for complete information about their health, medical questions, and treatment options, including any risks or benefits regarding use of medications. This information does not endorse any treatments or medications as safe, effective, or approved for treating a specific patient. [employer] and its affiliates disclaim any warranty or liability relating to this information or the use thereof. The use of this information is governed by the Terms of Use, available at https://www.[employer].com/en /know/lcmswgmp-vhayhckrsatxf-jcc ms Copyright Copyright 2023 [employer] and its affiliates and/or licensors. All rights reserved. PERIOPERATIVE DISCHARGE/HOME-GOING INSTRUCTIONS ANESTHESIA - PERIPHERAL NERVE BLOCK Precautions: Avoid exposure to extreme cold or heat on affected site until normal sensation returns. Because the nerves were temporarily numbed, you will not be able to tell if your skin is getting burned or damaged. Avoid weight bearing to the affected arm or leg. Because the nerves were temporarily numbed, your arm or leg may be weak and may not support weight. In addition, you will not be able to feel the pain that would normally prevent you from straining that limb. If you have numbness or excessive weakness in any or part of the affected area that persists beyond 36 hours, contact [phone], and ask for the anesthesiologist dedicated regional driver. For additional health information, call: [facility] Line at [phone]; 24 hours a day. PERIOPERATIVE DISCHARGE/HOME-GOING INSTRUCTIONS Obstructive Sleep Apnea (PABLO) Recommendations: You have had an evaluation for Obstructive Sleep Apnea (PABLO) during your pre-operative interview and have been identified as being at risk for having PABLO. Sleep apnea, if untreated, can affect how you feel, but also increases the risk of developing serious medical conditions such as high blood pressure, heart disease, stroke, and diabetes. We encourage you to talk to your primary care provider about this issue. You can also make an appointment with the sleep clinic at [phone] to be evaluated and scheduled for the recommended sleep study. If you have diagnosed or have suspected sleep apnea, your anesthesiologist recommends that if you have been given narcotic prescriptions today, do not fill them. Wait to fill and start your narcotic prescriptions until tomorrow. If you have a CPAP or BiPAP machine you use for your PABLO, use it today if you take a nap in addition to your usual nightly use (unless directed not to by your surgeon). If you experience an emergency with your breathing, you or your family member should immediately call 911. documented in this encounter [facility] 05-05-2024 Note [facility] 05-05-2024 Hospital course Narrative DISCHARGE SUMMARY [address] [id number] FauziaKusum Date of : 1970 54 year old male Attending John Santana DO Date of Admission 05/05/2024 Date of Discharge 05/05/24 Final Diagnosis: Closed fracture of both ankles Hospital Problems as of 05/05/2024 * (Principal) Closed fracture of both ankles Click the Form Tab For addt'l facility discharge info click 'Facility Discharge' tab. Reason for Hospitalization Removal of Ex-fix pins left lower extremity Significant Findings Tibia ex-fix pins retained from prior admission Hospital Course Patient was seen in preop area to discuss ex-fix removal of LLE. Went over risks benefits and alternatives. Patient understood and signed consent. Had ex-fix pins removed from left tibia. Heel wound healed nicely without need for debridement. Post procedure patient recovered in PACU with pain under control. No new meds prescribed. Discharged home WBAT LLE. Ambulation for DVT ppx. Follow up in clinic as scheduled. I provided the patient and/or family/surrogate with the following information: Follow-up plans, and warning signs that should prompt more urgent follow-up Florin Taveras DO Cosigned by John Santana DO at 05/05/2024 12:31 PM EST documented in this encounter [facility] 05-05-2024 History and physical note Images from the original note were not included. Surgical Attestation: I have reviewed the patient's History and Physical Examination. PAT note from 04/30/24 below. I have personally seen and evaluated the patient, repeating storey portions. There is no significant interval change. Surgery is still indicated. Yes Consent reviewed and signed by patient/family: Yes Operative site verified and marked: Yes Florin Taveras DO Expand All Collapse All Telephone History Kusum Cage, [id number] 04/30/2024 53 year old HT: 75 inches WT: 289lbs Date of Surgery: 05/05/2024 Surgeon: Dr. Santana Type of Surgery: REMOVAL, EXTERNAL FIXATOR WITH/WITHOUT CURRETTAGE HISTORY OF PRESENT ILLNESS: Kusum Cage is a 53 year old male patient who is being evaluated today for REMOVAL, EXTERNAL FIXATOR WITH/WITHOUT CURRETTAGE. He has a h/o closed fracture of both ankles with routine healing, subsequent encounter. Currently denies fever and chills, new cough, SOB or CP. STOP-BANG Row Name 04/30/24 1420 History of sleep apnea? No Snoring No Tired/Fatigued No Observed Apnea No Pressure: Hypertension Yes BMI greater than 35 1 Age greater than 50 1 Neck circ greater than 40cm (15.75 ) Unable to Assess Gender male? 1 Score 4 The patient either has diagnosed sleep apnea or is a STOP-BANG score >/=3. If +STOP-BANG, the patient was educated that sleep apnea may mean that they do not breathe well when they sleep and that there is no way to know for sure without testing. The patient was educated in lay terms that there is an increased risk of hypertension, coronary artery disease, stroke, and with sleep apnea. They may also have decreased cognition, quality of life, and more motor vehicle and work accidents. They were encouraged to discuss the topic further with their primary care provider if they had one. Any patient questions were addressed. 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] Eczema [L30.9] Esophagitis [K20.90] Hemorrhoids [K64.9] Hiatal hernia [K44.9] Hypertension [I10] Insomnia [G47.00] Nocturia [R35.1] Otitis externa [H60.90] Schizophrenia (HCC) [F20.9] 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] Type 2 diabetes mellitus without complication ([facility]) [E11.9] Acute pain due to trauma [G89.11] Hyponatremia [E87.1] Closed fracture of right ankle [S82.891A] Closed fracture of left ankle with malunion [S82.892P] Past Medical History and Review of Systems Pulmonary - negative ROS Dental ROS (+) teeth problems missing Endo (+) diabetes mellitus type 2, obesity 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 Neuro/Psych (+) bipolar disorder, schizophrenia Cardiovascular (+) hypertension (-) MORRELL, PND, orthopnea GI/Hepatic/Renal - negative ROS Heme/Other (+) anemia Other ROS: Closed fracture of both ankles with routine healing, subsequent encounter S/p left ankle surgery x2 S/p tonsillectomy S/p bilateral shoulder surgery PAST SURGICAL HISTORY: Surgical History Past Surgical History: Procedure Laterality Date REDUCTION, OPEN, ANKLE Bilateral 01/24/2024 Procedure: REDUCTION, OPEN, ANKLE; Surgeon: John Santana DO; Location: PERIOPERATIVE SERVICES; Service: Orthopaedics REDUCTION, OPEN, ANKLE Left 02/20/2024 Procedure: REDUCTION, OPEN, ANKLE, EX-FIX, ANKLE, ORIF, SYNDEMOSIS; Surgeon: John Santana DO; Location: PERIOPERATIVE SERVICES; Service: Orthopaedics SOCIAL HISTORY: Social History Social History Socioeconomic History Marital status: Single Tobacco Use Smoking status: Former Types: Cigarettes Smokeless tobacco: Never Social Drivers of Health Food Insecurity: Unknown (01/14/2024) Hunger Vital Sign Worried About Running Out of Food in the Last Year: Never true Transportation Needs: No Transportation Needs (02/27/2024) PRAPARE - Transportation Lack of Transportation (Medical): No Lack of Transportation (Non-Medical): No Intimate Partner Violence: Unknown (02/20/2024) Humiliation, Afraid, Rape, and Kick questionnaire Emotionally Abused: No PAIN ASSESSMENT: Severity: 5 Location: left ankle LABORATORY DATA: Lab Results Component Value Date HBA1C 6.8 (H) 01/17/2024 Type & Screen (Last result in the past 30 days) No lab values to display. CBC (last 3 years, up to 8 values) 02/22/2024 01/30/2024 01/27/2024 01/26/2024 01/25/2024 01/24/2024 01/23/2024 01/22/2024 5:16 AM 1:28 AM 12:15 AM 1:32 AM 1:09 AM 6:45 AM 1:32 AM 1:20 AM WBC 10.7 9.0 11.1 10.7 9.7 7.2 9.1 9.9 RBC 4.15 3.72 3.40 3.48 3.47 3.70 3.42 3.56 Hgb 12.6 11.5 10.3 10.7 10.8 11.4 10.6 11.0 Hct 37.7 34.0 31.1 32.2 32.1 34.4 31.8 33.2 MCV 91 91 92 92 93 93 93 93 RDW 13.9 13.6 13.4 13.4 13.4 13.4 13.6 13.5 Plt 273 623 504 482 457 441 399 379 BMP (last 3 years, up to 8 values) 02/22/2024 01/30/2024 01/27/2024 01/26/2024 01/25/2024 01/24/2024 01/23/2024 01/22/2024 5:16 AM 1:28 AM 12:15 AM 1:32 AM 1:09 AM 6:45 AM 1:32 AM 1:20 AM Na 134 134 131 130 130 134 135 132 K 4.3 4.9 4.4 4.5 4.6 4.3 4.3 4.6 Cl 101 99 99 99 98 102 102 101 CO2 25 27 26 24 23 24 25 25 Gap 12 13 10 12 14 12 12 11 Glu 103 108 189 198 147 149 149 131 BUN 18 19 17 15 15 11 12 13 Cr 0.83 0.79 0.68 0.77 0.81 0.71 0.75 0.69 Ca 9.1 9.0 8.3 8.2 8.3 8.8 8.4 8.2 eGFR 103 105 110 106 104 108 107 109 Basic Metabolic Panel No lab values to display. PT/PTT/INR (last 3 years, up to 8 values) 01/14/2024 1:19 PM aPTT 27 INR 1.13 Arterial Blood Gases None No result for BNP LFT's (last 3 years, up to 8 values) 01/21/2024 01/17/2024 12:55 AM 3:28 AM T Prot -- 5.8 Albumin 3.0 -- Urinalysis No lab values to display. TESTS REVIEWED: CXRay: 01/14/2024 IMPRESSION: 1. No radiographic evidence of acute cardiopulmonary abnormality. 2. Enlarged and tortuous thoracic aorta. Refer to recent CT of the chest for further evaluation. EK01/24/2024 Normal sinus rhythm When compared with ECG of 24-JAN-2024 06:39, (unconfirmed) Questionable change in The axis Confirmed by SHYLA ZENG ([id number]) on 01/30/2024 7:21:33 PM ECHO: Echocardiogram date: Not Found No results found for this basename: LVEF Stress test date: Last StressTest: none found going back to 01/14/2024 CURRENT MEDICATION LIST: Current Outpatient Medications Medication Sig Dispense Refill sulfamethoxazole-trimethoprim 800-160 MG (Bactrim DS) 800-160 MG per tablet Take 1 Tablet by mouth 2 times daily for 10 days. 20 Tablet 0 aspirin EC 81 MG tablet Take 1 Tablet by mouth 2 times a day. 84 Tablet 0 acetaminophen (TYLENOL) 500 MG tablet Take 2 Tablets by mouth every 6 hours. 30 Tablet 0 methocarbamol (ROBAXIN) 750 MG tablet Take 1 Tablet by mouth 4 times daily. 120 Tablet 3 benztropine (COGENTIN) 1 MG tablet Take 1 Tablet by mouth 2 times daily. 60 Tablet 3 nicotine (NICODERM CQ) 21 mg/24HR patch Place 1 Patch on the skin daily. (Patient not taking: Reported on 02/12/2024) 30 Patch 0 buPROPion ER (WELLBUTRIN XL) 150 MG XL tablet Take 2 Tablets by mouth daily. 30 Tablet 3 insulin glargine (LANTUS SOLOSTAR/BASAGLAR KWIKPEN) 100 UNIT/ML pen Inject 10 Units under the skin at bedtime. 15 mL 0 insulin lispro (HumaLOG) 100 UNIT/ML injection Inject 3 Units under the skin 3 times daily (before meals). 10 mL 0 insulin lispro (HumaLOG) 100 UNIT/ML injection Inject 1-5 Units under the skin 3 times daily (before meals). 10 mL 0 metformin (GLUCOPHAGE) 500 MG tablet Take 1 Tablet by mouth 2 times daily (with meals). 180 Tablet 3 haloperidol (HALDOL) 5 MG tablet Take 2 Tablets by mouth at bedtime. 100 Tablet 3 metoprolol (LOPRESSOR) 25 MG tablet Take 1 Tablet by mouth 2 times daily. 60 Tablet 3 senna (SENOKOT) 8.6 MG tablet Take 1 Tablet by mouth at bedtime. 30 Tablet 0 haloperidol decanoate (HALDOL DECANOATE) 100 MG/ML extended-release injection 1 mL Intramuscular every 2 weeks for 30 days No current facility-administered medications for this visit. CURRENT MEDICATIONS: Aspirin: No NSAIDS: No Other Antiplatelet Medication: No Anticoagulants: No Steroids: No SGLT-2/GLP-1: No PATIENT MEDICATION INSTRUCTIONS: On the morning of your surgery, please take only the following medications, with a small sip of water: Cogentin Wellbutrin Robaxin Metoprolol Bactrim Do not take any Aspirin until after surgery. Do not take any Ibuprofen, Aleve, Advil, or Motrin or any other NSAIDS after 05/01. May take over the counter Acetaminophen (Tylenol) as needed for pain Please hold all Vitamin E, [place] 3, fish oil and herbal supplements for 1 week prior to surgery Please do not take Metformin on the morning of surgery. DAY OF SURGERY NOTES: Please use this CHECKLIST to prepare for your surgery/procedure: ? Assume that any lab or testing done during your Pre-admission testing appointment is within normal limits unless otherwise contacted. ? Expect a call from [email or web address] one business day prior to surgery for surgery arrival time and location. ? Please plan to restart your medications the day after surgery unless otherwise explicitly instructed. ? Please contact your surgeon s/proceduralist s office for any surgical or recovery types of questions. ? CANCELLING YOUR SURGERY/PROCEDURE: If you get a cold, are not feeling well, or become , please call your surgeon s office as soon as possible. ? Refer to your Preparing for Your Surgery/Procedure booklet or [email or web address] if you have questions. Contact the Pre-Admission Testing department at [phone] or your surgeon's office with any questions that are not answered. ? Eating and drinking before surgery: Adult Patients: Per anesthesia's fasting protocol: you may have plain water (no additives) up to 2 hours prior to surgery arrival time. No food or any other type of liquids for at least 8 hours prior to surgery arrival time. A small sip of water with approved morning medications on the day of surgery is acceptable. If a patient with diabetes is concerned about low blood sugar while being NPO, they may have a small sip of clear juice (I.e. apple juice or Gatorade) no later than 2 hours prior to arrival time. Patient needs to alert his or her anesthesiologist if this occurs on the day of surgery. Enhanced Recovery After Surgery (ERAS), bariatric, and endoscopy/colonoscopy patients should follow their surgeon s/proceduralist s instructions for clear fluids prior to surgery. Pediatric Patients (under the age of 1212 years old): Patients are not to have solid food for 8 hours prior to coming for surgery. Patients can have formula or non-human milk (skim, 2%, whole, nut-milks, soy, etc.) 6 hours prior to coming for surgery. Patients can have breast milk up to 4 hours prior to coming for surgery. Patients can have clear liquids (water, flavored riley, Pedialyte) up to 2 hours prior to coming for surgery. ON THE DAY OF SURGERY: ? DO bring your ID, insurance card, medication list, and a small amount of ratliff for filling prescriptions and any medical co-pays. ? Do NOT wear any jewelry, (including rings, earrings, or mouth, tongue, or body piercings). Metal jewelry could cause constriction, amputation, or cuevas. Loose or bulky things in your mouth can be unsafe and result in breathing problems. ? DO bring glasses if you wear contacts and other assistance items such as oxygen, inhaler, cane, walker, etc. ? Do NOT bring valuables, credit cards, or large amounts of ratliff. ? Do NOT wear lotion or strong-smelling fragrance (perfume, cologne, cream or lotion). ? ARRANGE FOR A RIDE: If you are scheduled to go home the same day of surgery, a responsible adult MUST drive or accompany you home in a car, cab, shared ride service, or Metro-van. You will not be allowed to drive yourself home or travel home alone. Your surgery may be cancelled if you do not have a ride. A responsible adult must stay with you after surgery. Please call [employer] if you need transportation assistance or have concerns about going home [phone]. ? PEDIATRIC or ADOLESCENTS: Parents or a legal guardian must remain at the hospital during surgery. You will need to make childcare arrangements for your other small children to remain at home or bring an adult with you who can supervise them in the waiting area while you are with your child. Please bring legal guardianship papers with you if applicable. Patients who whose assigned sex at was female, and are starting puberty, will be tested for per hospital policy. ? SLEEP APNEA PATIENTS: Bring your sleep apnea machine and mask. ? PLEASE BE ON TIME. A late arrival may result in the cancellation/ delay of your surgery. Post-op Nausea and Vomiting: A risk of anesthesia is nausea and/or vomiting (PONV). Certain patients are at higher risk than others. Talk to your anesthesiologist about the plan to minimize this risk. In general, it is best to start with only ice chips or small sips of water, then progress to clear, non-alcoholic fluids. You do not have to eat if you do not feel like it; fluids are the most important in the first 24 hours after surgery. If you start to eat, try bananas, applesauce, plain toast, saltine crackers, or broth; avoid fried or fatty foods. Make sure to eat something about 15 minutes before taking any pain medications. Seek medical attention for any prolonged PONV and signs of dehydration. Patients whose assigned sex at was female, and are starting puberty or beyond, will be urine tested for per hospital policy. Thank you for choosing [facility]; it is our pleasure to care for you Clint Garcia APRN-DIEGO Time Spent Performing this Telephone History: 24 [facility] 05-05-2024 History and physical note Images from the original note were not included. Surgical Attestation: I have reviewed the patient's History and Physical Examination. PAT note from 04/30/24 below. I have personally seen and evaluated the patient, repeating storey portions. There is no significant interval change. Surgery is still indicated. Yes Consent reviewed and signed by patient/family: Yes Operative site verified and marked: Yes Florin Taveras DO Expand All Collapse All Telephone History Kusum Cage, [id number] 04/30/2024 53 year old HT: 75 inches WT: 289lbs Date of Surgery: 05/05/2024 Surgeon: Dr. Santana Type of Surgery: REMOVAL, EXTERNAL FIXATOR WITH/WITHOUT CURRETTAGE HISTORY OF PRESENT ILLNESS: Kusum Cage is a 53 year old male patient who is being evaluated today for REMOVAL, EXTERNAL FIXATOR WITH/WITHOUT CURRETTAGE. He has a h/o closed fracture of both ankles with routine healing, subsequent encounter. Currently denies fever and chills, new cough, SOB or CP. STOP-BANG Row Name 04/30/24 1420 History of sleep apnea? No Snoring No Tired/Fatigued No Observed Apnea No Pressure: Hypertension Yes BMI greater than 35 1 Age greater than 50 1 Neck circ greater than 40cm (15.75 ) Unable to Assess Gender male? 1 Score 4 The patient either has diagnosed sleep apnea or is a STOP-BANG score >/=3. If +STOP-BANG, the patient was educated that sleep apnea may mean that they do not breathe well when they sleep and that there is no way to know for sure without testing. The patient was educated in lay terms that there is an increased risk of hypertension, coronary artery disease, stroke, and with sleep apnea. They may also have decreased cognition, quality of life, and more motor vehicle and work accidents. They were encouraged to discuss the topic further with their primary care provider if they had one. Any patient questions were addressed. 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] Eczema [L30.9] Esophagitis [K20.90] Hemorrhoids [K64.9] Hiatal hernia [K44.9] Hypertension [I10] Insomnia [G47.00] Nocturia [R35.1] Otitis externa [H60.90] Schizophrenia (HCC) [F20.9] 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] Type 2 diabetes mellitus without complication (HCC) [E11.9] Acute pain due to trauma [G89.11] Hyponatremia [E87.1] Closed fracture of right ankle [S82.891A] Closed fracture of left ankle with malunion [S82.892P] Past Medical History and Review of Systems Pulmonary - negative ROS Dental ROS (+) teeth problems missing Endo (+) diabetes mellitus type 2, obesity 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 Neuro/Psych (+) bipolar disorder, schizophrenia Cardiovascular (+) hypertension (-) MORRELL, PND, orthopnea GI/Hepatic/Renal - negative ROS Heme/Other (+) anemia Other ROS: Closed fracture of both ankles with routine healing, subsequent encounter S/p left ankle surgery x2 S/p tonsillectomy S/p bilateral shoulder surgery PAST SURGICAL HISTORY: Surgical History Past Surgical History: Procedure Laterality Date REDUCTION, OPEN, ANKLE Bilateral 01/24/2024 Procedure: REDUCTION, OPEN, ANKLE; Surgeon: John Santana DO; Location: PERIOPERATIVE SERVICES; Service: Orthopaedics REDUCTION, OPEN, ANKLE Left 02/20/2024 Procedure: REDUCTION, OPEN, ANKLE, EX-FIX, ANKLE, ORIF, SYNDEMOSIS; Surgeon: John Santana DO; Location: PERIOPERATIVE SERVICES; Service: Orthopaedics SOCIAL HISTORY: Social History Social History Socioeconomic History Marital status: Single Tobacco Use Smoking status: Former Types: Cigarettes Smokeless tobacco: Never Social Drivers of Health Food Insecurity: Unknown (01/14/2024) Hunger Vital Sign Worried About Running Out of Food in the Last Year: Never true Transportation Needs: No Transportation Needs (02/27/2024) PRAPARE - Transportation Lack of Transportation (Medical): No Lack of Transportation (Non-Medical): No Intimate Partner Violence: Unknown (02/20/2024) Humiliation, Afraid, Rape, and Kick questionnaire Emotionally Abused: No PAIN ASSESSMENT: Severity: 5 Location: left ankle LABORATORY DATA: Lab Results Component Value Date HBA1C 6.8 (H) 01/17/2024 Type & Screen (Last result in the past 30 days) No lab values to display. CBC (last 3 years, up to 8 values) 02/22/2024 01/30/2024 01/27/2024 01/26/2024 01/25/2024 01/24/2024 01/23/2024 01/22/2024 5:16 AM 1:28 AM 12:15 AM 1:32 AM 1:09 AM 6:45 AM 1:32 AM 1:20 AM WBC 10.7 9.0 11.1 10.7 9.7 7.2 9.1 9.9 RBC 4.15 3.72 3.40 3.48 3.47 3.70 3.42 3.56 Hgb 12.6 11.5 10.3 10.7 10.8 11.4 10.6 11.0 Hct 37.7 34.0 31.1 32.2 32.1 34.4 31.8 33.2 MCV 91 91 92 92 93 93 93 93 RDW 13.9 13.6 13.4 13.4 13.4 13.4 13.6 13.5 Plt 273 623 504 482 457 441 399 379 BMP (last 3 years, up to 8 values) 02/22/2024 01/30/2024 01/27/2024 01/26/2024 01/25/2024 01/24/2024 01/23/2024 01/22/2024 5:16 AM 1:28 AM 12:15 AM 1:32 AM 1:09 AM 6:45 AM 1:32 AM 1:20 AM Na 134 134 131 130 130 134 135 132 K 4.3 4.9 4.4 4.5 4.6 4.3 4.3 4.6 Cl 101 99 99 99 98 102 102 101 CO2 25 27 26 24 23 24 25 25 Gap 12 13 10 12 14 12 12 11 Glu 103 108 189 198 147 149 149 131 BUN 18 19 17 15 15 11 12 13 Cr 0.83 0.79 0.68 0.77 0.81 0.71 0.75 0.69 Ca 9.1 9.0 8.3 8.2 8.3 8.8 8.4 8.2 eGFR 103 105 110 106 104 108 107 109 Basic Metabolic Panel No lab values to display. PT/PTT/INR (last 3 years, up to 8 values) 01/14/2024 1:19 PM aPTT 27 INR 1.13 Arterial Blood Gases None No result for BNP LFT's (last 3 years, up to 8 values) 01/21/2024 01/17/2024 12:55 AM 3:28 AM T Prot -- 5.8 Albumin 3.0 -- Urinalysis No lab values to display. TESTS REVIEWED: CXRay: 01/14/2024 IMPRESSION: 1. No radiographic evidence of acute cardiopulmonary abnormality. 2. Enlarged and tortuous thoracic aorta. Refer to recent CT of the chest for further evaluation. EK01/24/2024 Normal sinus rhythm When compared with ECG of 24-JAN-2024 06:39, (unconfirmed) Questionable change in The axis Confirmed by SHYLA ZENG ([id number]) on 01/30/2024 7:21:33 PM ECHO: Echocardiogram date: Not Found No results found for this basename: LVEF Stress test date: Last StressTest: none found going back to 01/14/2024 CURRENT MEDICATION LIST: Current Outpatient Medications Medication Sig Dispense Refill sulfamethoxazole-trimethoprim 800-160 MG (Bactrim DS) 800-160 MG per tablet Take 1 Tablet by mouth 2 times daily for 10 days. 20 Tablet 0 aspirin EC 81 MG tablet Take 1 Tablet by mouth 2 times a day. 84 Tablet 0 acetaminophen (TYLENOL) 500 MG tablet Take 2 Tablets by mouth every 6 hours. 30 Tablet 0 methocarbamol (ROBAXIN) 750 MG tablet Take 1 Tablet by mouth 4 times daily. 120 Tablet 3 benztropine (COGENTIN) 1 MG tablet Take 1 Tablet by mouth 2 times daily. 60 Tablet 3 nicotine (NICODERM CQ) 21 mg/24HR patch Place 1 Patch on the skin daily. (Patient not taking: Reported on 02/12/2024) 30 Patch 0 buPROPion ER (WELLBUTRIN XL) 150 MG XL tablet Take 2 Tablets by mouth daily. 30 Tablet 3 insulin glargine (LANTUS SOLOSTAR/BASAGLAR KWIKPEN) 100 UNIT/ML pen Inject 10 Units under the skin at bedtime. 15 mL 0 insulin lispro (HumaLOG) 100 UNIT/ML injection Inject 3 Units under the skin 3 times daily (before meals). 10 mL 0 insulin lispro (HumaLOG) 100 UNIT/ML injection Inject 1-5 Units under the skin 3 times daily (before meals). 10 mL 0 metformin (GLUCOPHAGE) 500 MG tablet Take 1 Tablet by mouth 2 times daily (with meals). 180 Tablet 3 haloperidol (HALDOL) 5 MG tablet Take 2 Tablets by mouth at bedtime. 100 Tablet 3 metoprolol (LOPRESSOR) 25 MG tablet Take 1 Tablet by mouth 2 times daily. 60 Tablet 3 senna (SENOKOT) 8.6 MG tablet Take 1 Tablet by mouth at bedtime. 30 Tablet 0 haloperidol decanoate (HALDOL DECANOATE) 100 MG/ML extended-release injection 1 mL Intramuscular every 2 weeks for 30 days No current facility-administered medications for this visit. CURRENT MEDICATIONS: Aspirin: No NSAIDS: No Other Antiplatelet Medication: No Anticoagulants: No Steroids: No SGLT-2/GLP-1: No PATIENT MEDICATION INSTRUCTIONS: On the morning of your surgery, please take only the following medications, with a small sip of water: Cogentin Wellbutrin Robaxin Metoprolol Bactrim Do not take any Aspirin until after surgery. Do not take any Ibuprofen, Aleve, Advil, or Motrin or any other NSAIDS after 05/01. May take over the counter Acetaminophen (Tylenol) as needed for pain Please hold all Vitamin E, [place] 3, fish oil and herbal supplements for 1 week prior to surgery Please do not take Metformin on the morning of surgery. DAY OF SURGERY NOTES: Please use this CHECKLIST to prepare for your surgery/procedure: ? Assume that any lab or testing done during your Pre-admission testing appointment is within normal limits unless otherwise contacted. ? Expect a call from [email or web address] one business day prior to surgery for surgery arrival time and location. ? Please plan to restart your medications the day after surgery unless otherwise explicitly instructed. ? Please contact your surgeon s/proceduralist s office for any surgical or recovery types of questions. ? CANCELLING YOUR SURGERY/PROCEDURE: If you get a cold, are not feeling well, or become , please call your surgeon s office as soon as possible. ? Refer to your Preparing for Your Surgery/Procedure booklet or [email or web address] if you have questions. Contact the Pre-Admission Testing department at [phone] or your surgeon's office with any questions that are not answered. ? Eating and drinking before surgery: Adult Patients: Per anesthesia's fasting protocol: you may have plain water (no additives) up to 2 hours prior to surgery arrival time. No food or any other type of liquids for at least 8 hours prior to surgery arrival time. A small sip of water with approved morning medications on the day of surgery is acceptable. If a patient with diabetes is concerned about low blood sugar while being NPO, they may have a small sip of clear juice (I.e. apple juice or Gatorade) no later than 2 hours prior to arrival time. Patient needs to alert his or her anesthesiologist if this occurs on the day of surgery. Enhanced Recovery After Surgery (ERAS), bariatric, and endoscopy/colonoscopy patients should follow their surgeon s/proceduralist s instructions for clear fluids prior to surgery. Pediatric Patients (under the age of 1212 years old): Patients are not to have solid food for 8 hours prior to coming for surgery. Patients can have infant formula or non-human milk (skim, 2%, whole, nut-milks, soy, etc.) 6 hours prior to coming for surgery. Patients can have breast milk up to 4 hours prior to coming for surgery. Patients can have clear liquids (water, flavored riley, Pedialyte) up to 2 hours prior to coming for surgery. ON THE DAY OF SURGERY: ? DO bring your ID, insurance card, medication list, and a small amount of ratliff for filling prescriptions and any medical co-pays. ? Do NOT wear any jewelry, (including rings, earrings, or mouth, tongue, or body piercings). Metal jewelry could cause constriction, amputation, or cuevas. Loose or bulky things in your mouth can be unsafe and result in breathing problems. ? DO bring glasses if you wear contacts and other assistance items such as oxygen, inhaler, cane, walker, etc. ? Do NOT bring valuables, credit cards, or large amounts of ratliff. ? Do NOT wear lotion or strong-smelling fragrance (perfume, cologne, cream or lotion). ? ARRANGE FOR A RIDE: If you are scheduled to go home the same day of surgery, a responsible adult MUST drive or accompany you home in a car, cab, shared ride service, or [employer]van. You will not be allowed to drive yourself home or travel home alone. Your surgery may be cancelled if you do not have a ride. A responsible adult must stay with you after surgery. Please call AT [employer] if you need transportation assistance or have concerns about going home [phone]. ? PEDIATRIC or ADOLESCENTS: Parents or a legal guardian must remain at the hospital during surgery. You will need to make childcare arrangements for your other small children to remain at home or bring an adult with you who can supervise them in the waiting area while you are with your child. Please bring legal guardianship papers with you if applicable. Patients who whose assigned sex at was female, and are starting puberty, will be tested for per hospital policy. ? SLEEP APNEA PATIENTS: Bring your sleep apnea machine and mask. ? PLEASE BE ON TIME. A late arrival may result in the cancellation/ delay of your surgery. Post-op Nausea and Vomiting: A risk of anesthesia is nausea and/or vomiting (PONV). Certain patients are at higher risk than others. Talk to your anesthesiologist about the plan to minimize this risk. In general, it is best to start with only ice chips or small sips of water, then progress to clear, non-alcoholic fluids. You do not have to eat if you do not feel like it; fluids are the most important in the first 24 hours after surgery. If you start to eat, try bananas, applesauce, plain toast, saltine crackers, or broth; avoid fried or fatty foods. Make sure to eat something about 15 minutes before taking any pain medications. Seek medical attention for any prolonged PONV and signs of dehydration. Patients whose assigned sex at was female, and are starting puberty or beyond, will be urine tested for per hospital policy. Thank you for choosing [facility]; it is our pleasure to care for you GEORGES Allen Time Spent Performing this Telephone History: 24 documented in this encounter [facility] 04-30-2024 Evaluation note Images from the original note were not included. Telephone History Kusum Cage, [id number] 04/30/2024 53 year old HT: 75 inches WT: 289lbs Date of Surgery: 05/05/2024 Surgeon: Dr. Santana Type of Surgery: REMOVAL, EXTERNAL FIXATOR WITH/WITHOUT CURRETTAGE HISTORY OF PRESENT ILLNESS: Kusum Cage is a 53 year old male patient who is being evaluated today for REMOVAL, EXTERNAL FIXATOR WITH/WITHOUT CURRETTAGE. He has a h/o closed fracture of both ankles with routine healing, subsequent encounter. Currently denies fever and chills, new cough, SOB or CP. STOP-BANG Row Name 04/30/24 1420 History of sleep apnea? No Snoring No Tired/Fatigued No Observed Apnea No Pressure: Hypertension Yes BMI greater than 35 1 Age greater than 50 1 Neck circ greater than 40cm (15.75 ) Unable to Assess Gender male? 1 Score 4 The patient either has diagnosed sleep apnea or is a STOP-BANG score >/=3. If +STOP-BANG, the patient was educated that sleep apnea may mean that they do not breathe well when they sleep and that there is no way to know for sure without testing. The patient was educated in lay terms that there is an increased risk of hypertension, coronary artery disease, stroke, and with sleep apnea. They may also have decreased cognition, quality of life, and more motor vehicle and work accidents. They were encouraged to discuss the topic further with their primary care provider if they had one. Any patient questions were addressed. 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] Eczema [L30.9] Esophagitis [K20.90] Hemorrhoids [K64.9] Hiatal hernia [K44.9] Hypertension [I10] Insomnia [G47.00] Nocturia [R35.1] Otitis externa [H60.90] Schizophrenia (HCC) [F20.9] 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] Type 2 diabetes mellitus without complication ([facility]) [E11.9] Acute pain due to trauma [G89.11] Hyponatremia [E87.1] Closed fracture of right ankle [S82.891A] Closed fracture of left ankle with malunion [S82.892P] Past Medical History and Review of Systems Pulmonary - negative ROS Dental ROS (+) teeth problems missing Endo (+) diabetes mellitus type 2, obesity 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 Neuro/Psych (+) bipolar disorder, schizophrenia Cardiovascular (+) hypertension (-) MORRELL, PND, orthopnea GI/Hepatic/Renal - negative ROS Heme/Other (+) anemia Other ROS: Closed fracture of both ankles with routine healing, subsequent encounter S/p left ankle surgery x2 S/p tonsillectomy S/p bilateral shoulder surgery PAST SURGICAL HISTORY: Past Surgical History: Procedure Laterality Date REDUCTION, OPEN, ANKLE Bilateral 01/24/2024 Procedure: REDUCTION, OPEN, ANKLE; Surgeon: John Santana DO; Location: PERIOPERATIVE SERVICES; Service: Orthopaedics REDUCTION, OPEN, ANKLE Left 02/20/2024 Procedure: REDUCTION, OPEN, ANKLE, EX-FIX, ANKLE, ORIF, SYNDEMOSIS; Surgeon: John Santana DO; Location: PERIOPERATIVE SERVICES; Service: Orthopaedics SOCIAL HISTORY: Social History Socioeconomic History Marital status: Single Tobacco Use Smoking status: Former Types: Cigarettes Smokeless tobacco: Never Social Drivers of Health Food Insecurity: Unknown (01/14/2024) Hunger Vital Sign Worried About Running Out of Food in the Last Year: Never true Transportation Needs: No Transportation Needs (02/27/2024) PRAPARE - Transportation Lack of Transportation (Medical): No Lack of Transportation (Non-Medical): No Intimate Partner Violence: Unknown (02/20/2024) Humiliation, Afraid, Rape, and Kick questionnaire Emotionally Abused: No PAIN ASSESSMENT: Severity: 5 Location: left ankle LABORATORY DATA: Lab Results Component Value Date HBA1C 6.8 (H) 01/17/2024 Type & Screen (Last result in the past 30 days) No lab values to display. CBC (last 3 years, up to 8 values) 02/22/2024 01/30/2024 01/27/2024 01/26/2024 01/25/2024 01/24/2024 01/23/2024 01/22/2024 5:16 AM 1:28 AM 12:15 AM 1:32 AM 1:09 AM 6:45 AM 1:32 AM 1:20 AM WBC 10.7 9.0 11.1 10.7 9.7 7.2 9.1 9.9 RBC 4.15 3.72 3.40 3.48 3.47 3.70 3.42 3.56 Hgb 12.6 11.5 10.3 10.7 10.8 11.4 10.6 11.0 Hct 37.7 34.0 31.1 32.2 32.1 34.4 31.8 33.2 MCV 91 91 92 92 93 93 93 93 RDW 13.9 13.6 13.4 13.4 13.4 13.4 13.6 13.5 Plt 273 623 504 482 457 441 399 379 BMP (last 3 years, up to 8 values) 02/22/2024 01/30/2024 01/27/2024 01/26/2024 01/25/2024 01/24/2024 01/23/2024 01/22/2024 5:16 AM 1:28 AM 12:15 AM 1:32 AM 1:09 AM 6:45 AM 1:32 AM 1:20 AM Na 134 134 131 130 130 134 135 132 K 4.3 4.9 4.4 4.5 4.6 4.3 4.3 4.6 Cl 101 99 99 99 98 102 102 101 CO2 25 27 26 24 23 24 25 25 Gap 12 13 10 12 14 12 12 11 Glu 103 108 189 198 147 149 149 131 BUN 18 19 17 15 15 11 12 13 Cr 0.83 0.79 0.68 0.77 0.81 0.71 0.75 0.69 Ca 9.1 9.0 8.3 8.2 8.3 8.8 8.4 8.2 eGFR 103 105 110 106 104 108 107 109 Basic Metabolic Panel No lab values to display. PT/PTT/INR (last 3 years, up to 8 values) 01/14/2024 1:19 PM aPTT 27 INR 1.13 Arterial Blood Gases None No result for BNP LFT's (last 3 years, up to 8 values) 01/21/2024 01/17/2024 12:55 AM 3:28 AM T Prot -- 5.8 Albumin 3.0 -- Urinalysis No lab values to display. TESTS REVIEWED: CXRay: 01/14/2024 IMPRESSION: 1. No radiographic evidence of acute cardiopulmonary abnormality. 2. Enlarged and tortuous thoracic aorta. Refer to recent CT of the chest for further evaluation. EK01/24/2024 Normal sinus rhythm When compared with ECG of 24-JAN-2024 06:39, (unconfirmed) Questionable change in The axis Confirmed by SHYLA ZENG ([id number]) on 01/30/2024 7:21:33 PM ECHO: Echocardiogram date: Not Found No results found for this basename: LVEF Stress test date: Last StressTest: none found going back to 01/14/2024 CURRENT MEDICATION LIST: Current Outpatient Medications Medication Sig Dispense Refill sulfamethoxazole-trimethoprim 800-160 MG (Bactrim DS) 800-160 MG per tablet Take 1 Tablet by mouth 2 times daily for 10 days. 20 Tablet 0 aspirin EC 81 MG tablet Take 1 Tablet by mouth 2 times a day. 84 Tablet 0 acetaminophen (TYLENOL) 500 MG tablet Take 2 Tablets by mouth every 6 hours. 30 Tablet 0 methocarbamol (ROBAXIN) 750 MG tablet Take 1 Tablet by mouth 4 times daily. 120 Tablet 3 benztropine (COGENTIN) 1 MG tablet Take 1 Tablet by mouth 2 times daily. 60 Tablet 3 nicotine (NICODERM CQ) 21 mg/24HR patch Place 1 Patch on the skin daily. (Patient not taking: Reported on 02/12/2024) 30 Patch 0 buPROPion ER (WELLBUTRIN XL) 150 MG XL tablet Take 2 Tablets by mouth daily. 30 Tablet 3 insulin glargine (LANTUS SOLOSTAR/BASAGLAR KWIKPEN) 100 UNIT/ML pen Inject 10 Units under the skin at bedtime. 15 mL 0 insulin lispro (HumaLOG) 100 UNIT/ML injection Inject 3 Units under the skin 3 times daily (before meals). 10 mL 0 insulin lispro (HumaLOG) 100 UNIT/ML injection Inject 1-5 Units under the skin 3 times daily (before meals). 10 mL 0 metformin (GLUCOPHAGE) 500 MG tablet Take 1 Tablet by mouth 2 times daily (with meals). 180 Tablet 3 haloperidol (HALDOL) 5 MG tablet Take 2 Tablets by mouth at bedtime. 100 Tablet 3 metoprolol (LOPRESSOR) 25 MG tablet Take 1 Tablet by mouth 2 times daily. 60 Tablet 3 senna (SENOKOT) 8.6 MG tablet Take 1 Tablet by mouth at bedtime. 30 Tablet 0 haloperidol decanoate (HALDOL DECANOATE) 100 MG/ML extended-release injection 1 mL Intramuscular every 2 weeks for 30 days No current facility-administered medications for this visit. CURRENT MEDICATIONS: Aspirin: No NSAIDS: No Other Antiplatelet Medication: No Anticoagulants: No Steroids: No SGLT-2/GLP-1: No PATIENT MEDICATION INSTRUCTIONS: On the morning of your surgery, please take only the following medications, with a small sip of water: Cogentin Wellbutrin Robaxin Metoprolol Bactrim Do not take any Aspirin until after surgery. Do not take any Ibuprofen, Aleve, Advil, or Motrin or any other NSAIDS after 05/01. May take over the counter Acetaminophen (Tylenol) as needed for pain Please hold all Vitamin E, [place] 3, fish oil and herbal supplements for 1 week prior to surgery Please do not take Metformin on the morning of surgery. DAY OF SURGERY NOTES: Please use this CHECKLIST to prepare for your surgery/procedure: ? Assume that any lab or testing done during your Pre-admission testing appointment is within normal limits unless otherwise contacted. ? Expect a call from [email or web address] one day prior to surgery for surgery arrival time and location. ? Please plan to restart your medications the day after surgery unless otherwise explicitly instructed. ? Please contact your surgeon s/proceduralist s office for any surgical or recovery types of questions. ? CANCELLING YOUR SURGERY/PROCEDURE: If you get a cold, are not feeling well, or become , please call your surgeon s office as soon as possible. ? Refer to your Preparing for Your Surgery/Procedure booklet or [email or web address] if you have questions. Contact the Pre-Admission Testing department at [phone] or your surgeon's office with any questions that are not answered. ? Eating and drinking before surgery: Adult Patients: Per anesthesia's fasting protocol: you may have plain water (no additives) up to 2 hours prior to surgery arrival time. No food or any other type of liquids for at least 8 hours prior to surgery arrival time. A small sip of water with approved morning medications on the day of surgery is acceptable. If a patient with diabetes is concerned about low blood sugar while being NPO, they may have a small sip of clear juice (I.e. apple juice or Gatorade) no later than 2 hours prior to arrival time. Patient needs to alert his or her anesthesiologist if this occurs on the day of surgery. Enhanced Recovery After Surgery (ERAS), bariatric, and endoscopy/colonoscopy patients should follow their surgeon s/proceduralist s instructions for clear fluids prior to surgery. Pediatric Patients (under the age of 1212 years old): Patients are not to have solid food for 8 hours prior to coming for surgery. Patients can have infant formula or non-human milk (skim, 2%, whole, nut-milks, soy, etc.) 6 hours prior to coming for surgery. Patients can have breast milk up to 4 hours prior to coming for surgery. Patients can have clear liquids (water, flavored riley, Pedialyte) up to 2 hours prior to coming for surgery. ON THE DAY OF SURGERY: ? DO bring your ID, insurance card, medication list, and a small amount of ratliff for filling prescriptions and any medical co-pays. ? Do NOT wear any jewelry, (including rings, earrings, or mouth, tongue, or body piercings). Metal jewelry could cause constriction, amputation, or cuevas. Loose or bulky things in your mouth can be unsafe and result in breathing problems. ? DO bring glasses if you wear contacts and other assistance items such as oxygen, inhaler, cane, walker, etc. ? Do NOT bring valuables, credit cards, or large amounts of ratliff. ? Do NOT wear lotion or strong-smelling fragrance (perfume, cologne, cream or lotion). ? ARRANGE FOR A RIDE: If you are scheduled to go home the same day of surgery, a responsible adult MUST drive or accompany you home in a car, cab, shared ride service, or [employer]. You will not be allowed to drive yourself home or travel home alone. Your surgery may be cancelled if you do not have a ride. A responsible adult must stay with you after surgery. Please call AT [employer] if you need transportation assistance or have concerns about going home [phone]. ? PEDIATRIC or ADOLESCENTS: Parents or a legal guardian must remain at the hospital during surgery. You will need to make childcare arrangements for your other small children to remain at home or bring an adult with you who can supervise them in the waiting area while you are with your child. Please bring legal guardianship papers with you if applicable. Patients who whose assigned sex at was female, and are starting puberty, will be tested for per hospital policy. ? SLEEP APNEA PATIENTS: Bring your sleep apnea machine and mask. ? PLEASE BE ON TIME. A late arrival may result in the cancellation/ delay of your surgery. Post-op Nausea and Vomiting: A risk of anesthesia is nausea and/or vomiting (PONV). Certain patients are at higher risk than others. Talk to your anesthesiologist about the plan to minimize this risk. In general, it is best to start with only ice chips or small sips of water, then progress to clear, non-alcoholic fluids. You do not have to eat if you do not feel like it; fluids are the most important in the first 24 hours after surgery. If you start to eat, try bananas, applesauce, plain toast, saltine crackers, or broth; avoid fried or fatty foods. Make sure to eat something about 15 minutes before taking any pain medications. Seek medical attention for any prolonged PONV and signs of dehydration. Patients whose assigned sex at was female, and are starting puberty or beyond, will be urine tested for per hospital policy. Thank you for choosing [facility]; it is our pleasure to care for you GEORGES Allen Time Spent Performing this Telephone History: 24 [facility] 04-30-2024 Miscellaneous Notes Images from the original note were not included. Telephone History Kusum Cage, [id number] 04/30/2024 53 year old HT: 75 inches WT: 289lbs Date of Surgery: 05/05/2024 Surgeon: Dr. Santana Type of Surgery: REMOVAL, EXTERNAL FIXATOR WITH/WITHOUT CURRETTAGE HISTORY OF PRESENT ILLNESS: Kusum Cage is a 53 year old male patient who is being evaluated today for REMOVAL, EXTERNAL FIXATOR WITH/WITHOUT CURRETTAGE. He has a h/o closed fracture of both ankles with routine healing, subsequent encounter. Currently denies fever and chills, new cough, SOB or CP. STOP-BANG Row Name 04/30/24 1420 History of sleep apnea? No Snoring No Tired/Fatigued No Observed Apnea No Pressure: Hypertension Yes BMI greater than 35 1 Age greater than 50 1 Neck circ greater than 40cm (15.75 ) Unable to Assess Gender male? 1 Score 4 The patient either has diagnosed sleep apnea or is a STOP-BANG score >/=3. If +STOP-BANG, the patient was educated that sleep apnea may mean that they do not breathe well when they sleep and that there is no way to know for sure without testing. The patient was educated in lay terms that there is an increased risk of hypertension, coronary artery disease, stroke, and with sleep apnea. They may also have decreased cognition, quality of life, and more motor vehicle and work accidents. They were encouraged to discuss the topic further with their primary care provider if they had one. Any patient questions were addressed. 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] Eczema [L30.9] Esophagitis [K20.90] Hemorrhoids [K64.9] Hiatal hernia [K44.9] Hypertension [I10] Insomnia [G47.00] Nocturia [R35.1] Otitis externa [H60.90] Schizophrenia (HCC) [F20.9] 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] Type 2 diabetes mellitus without complication (HCC) [E11.9] Acute pain due to trauma [G89.11] Hyponatremia [E87.1] Closed fracture of right ankle [S82.891A] Closed fracture of left ankle with malunion [S82.892P] Past Medical History and Review of Systems Pulmonary - negative ROS Dental ROS (+) teeth problems missing Endo (+) diabetes mellitus type 2, obesity 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 Neuro/Psych (+) bipolar disorder, schizophrenia Cardiovascular (+) hypertension (-) MORRELL, PND, orthopnea GI/Hepatic/Renal - negative ROS Heme/Other (+) anemia Other ROS: Closed fracture of both ankles with routine healing, subsequent encounter S/p left ankle surgery x2 S/p tonsillectomy S/p bilateral shoulder surgery PAST SURGICAL HISTORY: Past Surgical History: Procedure Laterality Date REDUCTION, OPEN, ANKLE Bilateral 01/24/2024 Procedure: REDUCTION, OPEN, ANKLE; Surgeon: John Santana DO; Location: PERIOPERATIVE SERVICES; Service: Orthopaedics REDUCTION, OPEN, ANKLE Left 02/20/2024 Procedure: REDUCTION, OPEN, ANKLE, EX-FIX, ANKLE, ORIF, SYNDEMOSIS; Surgeon: John Santana DO; Location: PERIOPERATIVE SERVICES; Service: Orthopaedics SOCIAL HISTORY: Social History Socioeconomic History Marital status: Single Tobacco Use Smoking status: Former Types: Cigarettes Smokeless tobacco: Never Social Drivers of Health Food Insecurity: Unknown (01/14/2024) Hunger Vital Sign Worried About Running Out of Food in the Last Year: Never true Transportation Needs: No Transportation Needs (02/27/2024) PRAPARE - Transportation Lack of Transportation (Medical): No Lack of Transportation (Non-Medical): No Intimate Partner Violence: Unknown (02/20/2024) Humiliation, Afraid, Rape, and Kick questionnaire Emotionally Abused: No PAIN ASSESSMENT: Severity: 5 Location: left ankle LABORATORY DATA: Lab Results Component Value Date HBA1C 6.8 (H) 01/17/2024 Type & Screen (Last result in the past 30 days) No lab values to display. CBC (last 3 years, up to 8 values) 02/22/2024 01/30/2024 01/27/2024 01/26/2024 01/25/2024 01/24/2024 01/23/2024 01/22/2024 5:16 AM 1:28 AM 12:15 AM 1:32 AM 1:09 AM 6:45 AM 1:32 AM 1:20 AM WBC 10.7 9.0 11.1 10.7 9.7 7.2 9.1 9.9 RBC 4.15 3.72 3.40 3.48 3.47 3.70 3.42 3.56 Hgb 12.6 11.5 10.3 10.7 10.8 11.4 10.6 11.0 Hct 37.7 34.0 31.1 32.2 32.1 34.4 31.8 33.2 MCV 91 91 92 92 93 93 93 93 RDW 13.9 13.6 13.4 13.4 13.4 13.4 13.6 13.5 Plt 273 623 504 482 457 441 399 379 BMP (last 3 years, up to 8 values) 02/22/2024 01/30/2024 01/27/2024 01/26/2024 01/25/2024 01/24/2024 01/23/202401/22/2024 5:16 AM 1:28 AM 12:15 AM 1:32 AM 1:09 AM 6:45 AM 1:32 AM 1:20 AM Na 134 134 131 130 130 134 135 132 K 4.3 4.9 4.4 4.5 4.6 4.3 4.3 4.6 Cl 101 99 99 99 98 102 102 101 CO2 25 27 26 24 23 24 25 25 Gap 12 13 10 12 14 12 12 11 Glu 103 108 189 198 147 149 149 131 BUN 18 19 17 15 15 11 12 13 Cr 0.83 0.79 0.68 0.77 0.81 0.71 0.75 0.69 Ca 9.1 9.0 8.3 8.2 8.3 8.8 8.4 8.2 eGFR 103 105 110 106 104 108 107 109 Basic Metabolic Panel No lab values to display. PT/PTT/INR (last 3 years, up to 8 values) 01/14/2024 1:19 PM aPTT 27 INR 1.13 Arterial Blood Gases None No result for BNP LFT's (last 3 years, up to 8 values) 01/21/2024 01/17/2024 12:55 AM 3:28 AM T Prot -- 5.8 Albumin 3.0 -- Urinalysis No lab values to display. TESTS REVIEWED: CXRay: 01/14/2024 IMPRESSION: 1. No radiographic evidence of acute cardiopulmonary abnormality. 2. Enlarged and tortuous thoracic aorta. Refer to recent CT of the chest for further evaluation. EK01/24/2024 Normal sinus rhythm When compared with ECG of 24-JAN-2024 06:39, (unconfirmed) Questionable change in The axis Confirmed by SHYLA ZENG ([id number]) on 01/30/2024 7:21:33 PM ECHO: Echocardiogram date: Not Found No results found for this basename: LVEF Stress test date: Last StressTest: none found going back to 01/14/2024 CURRENT MEDICATION LIST: Current Outpatient Medications Medication Sig Dispense Refill sulfamethoxazole-trimethoprim 800-160 MG (Bactrim DS) 800-160 MG per tablet Take 1 Tablet by mouth 2 times daily for 10 days. 20 Tablet 0 aspirin EC 81 MG tablet Take 1 Tablet by mouth 2 times a day. 84 Tablet 0 acetaminophen (TYLENOL) 500 MG tablet Take 2 Tablets by mouth every 6 hours. 30 Tablet 0 methocarbamol (ROBAXIN) 750 MG tablet Take 1 Tablet by mouth 4 times daily. 120 Tablet 3 benztropine (COGENTIN) 1 MG tablet Take 1 Tablet by mouth 2 times daily. 60 Tablet 3 nicotine (NICODERM CQ) 21 mg/24HR patch Place 1 Patch on the skin daily. (Patient not taking: Reported on 02/12/2024) 30 Patch 0 buPROPion ER (WELLBUTRIN XL) 150 MG XL tablet Take 2 Tablets by mouth daily. 30 Tablet 3 insulin glargine (LANTUS SOLOSTAR/BASAGLAR KWIKPEN) 100 UNIT/ML pen Inject 10 Units under the skin at bedtime. 15 mL 0 insulin lispro (HumaLOG) 100 UNIT/ML injection Inject 3 Units under the skin 3 times daily (before meals). 10 mL 0 insulin lispro (HumaLOG) 100 UNIT/ML injection Inject 1-5 Units under the skin 3 times daily (before meals). 10 mL 0 metformin (GLUCOPHAGE) 500 MG tablet Take 1 Tablet by mouth 2 times daily (with meals). 180 Tablet 3 haloperidol (HALDOL) 5 MG tablet Take 2 Tablets by mouth at bedtime. 100 Tablet 3 metoprolol (LOPRESSOR) 25 MG tablet Take 1 Tablet by mouth 2 times daily. 60 Tablet 3 senna (SENOKOT) 8.6 MG tablet Take 1 Tablet by mouth at bedtime. 30 Tablet 0 haloperidol decanoate (HALDOL DECANOATE) 100 MG/ML extended-release injection 1 mL Intramuscular every 2 weeks for 30 days No current facility-administered medications for this visit. CURRENT MEDICATIONS: Aspirin: No NSAIDS: No Other Antiplatelet Medication: No Anticoagulants: No Steroids: No SGLT-2/GLP-1: No PATIENT MEDICATION INSTRUCTIONS: On the morning of your surgery, please take only the following medications, with a small sip of water: Cogentin Wellbutrin Robaxin Metoprolol Bactrim Do not take any Aspirin until after surgery. Do not take any Ibuprofen, Aleve, Advil, or Motrin or any other NSAIDS after 05/01. May take over the counter Acetaminophen (Tylenol) as needed for pain Please hold all Vitamin E, [place] 3, fish oil and herbal supplements for 1 week prior to surgery Please do not take Metformin on the morning of surgery. DAY OF SURGERY NOTES: Please use this CHECKLIST to prepare for your surgery/procedure: ? Assume that any lab or testing done during your Pre-admission testing appointment is within normal limits unless otherwise contacted. ? Expect a call from [email or web address] one business day prior to surgery for surgery arrival time and location. ? Please plan to restart your medications the day after surgery unless otherwise explicitly instructed. ? Please contact your surgeon s/proceduralist s office for any surgical or recovery types of questions. ? CANCELLING YOUR SURGERY/PROCEDURE: If you get a cold, are not feeling well, or become , please call your surgeon s office as soon as possible. ? Refer to your Preparing for Your Surgery/Procedure booklet or [email or web address] if you have questions. Contact the Pre-Admission Testing department at [phone] or your surgeon's office with any questions that are not answered. ? Eating and drinking before surgery: Adult Patients: Per anesthesia's fasting protocol: you may have plain water (no additives) up to 2 hours prior to surgery arrival time. No food or any other type of liquids for at least 8 hours prior to surgery arrival time. A small sip of water with approved morning medications on the day of surgery is acceptable. If a patient with diabetes is concerned about low blood sugar while being NPO, they may have a small sip of clear juice (I.e. apple juice or Gatorade) no later than 2 hours prior to arrival time. Patient needs to alert his or her anesthesiologist if this occurs on the day of surgery. Enhanced Recovery After Surgery (ERAS), bariatric, and endoscopy/colonoscopy patients should follow their surgeon s/proceduralist s instructions for clear fluids prior to surgery. Pediatric Patients (under the age of 1212 years old): Patients are not to have solid food for 8 hours prior to coming for surgery. Patients can have infant formula or non-human milk (skim, 2%, whole, nut-milks, soy, etc.) 6 hours prior to coming for surgery. Patients can have breast milk up to 4 hours prior to coming for surgery. Patients can have clear liquids (water, flavored riley, Pedialyte) up to 2 hours prior to coming for surgery. ON THE DAY OF SURGERY: ? DO bring your ID, insurance card, medication list, and a small amount of ratliff for filling prescriptions and any medical co-pays. ? Do NOT wear any jewelry, (including rings, earrings, or mouth, tongue, or body piercings). Metal jewelry could cause constriction, amputation, or cuevas. Loose or bulky things in your mouth can be unsafe and result in breathing problems. ? DO bring glasses if you wear contacts and other assistance items such as oxygen, inhaler, cane, walker, etc. ? Do NOT bring valuables, credit cards, or large amounts of ratliff. ? Do NOT wear lotion or strong-smelling fragrance (perfume, cologne, cream or lotion). ? ARRANGE FOR A RIDE: If you are scheduled to go home the same day of surgery, a responsible adult MUST drive or accompany you home in a car, cab, shared ride service, or Metro-van. You will not be allowed to drive yourself home or travel home alone. Your surgery may be cancelled if you do not have a ride. A responsible adult must stay with you after surgery. Please call [employer] if you need transportation assistance or have concerns about going home [phone]. ? PEDIATRIC or ADOLESCENTS: Parents or a legal guardian must remain at the hospital during surgery. You will need to make childcare arrangements for your other small children to remain at home or bring an adult with you who can supervise them in the waiting area while you are with your child. Please bring legal guardianship papers with you if applicable. Patients who whose assigned sex at was female, and are starting puberty, will be tested for per hospital policy. ? SLEEP APNEA PATIENTS: Bring your sleep apnea machine and mask. ? PLEASE BE ON TIME. A late arrival may result in the cancellation/ delay of your surgery. Post-op Nausea and Vomiting: A risk of anesthesia is nausea and/or vomiting (PONV). Certain patients are at higher risk than others. Talk to your anesthesiologist about the plan to minimize this risk. In general, it is best to start with only ice chips or small sips of water, then progress to clear, non-alcoholic fluids. You do not have to eat if you do not feel like it; fluids are the most important in the first 24 hours after surgery. If you start to eat, try bananas, applesauce, plain toast, saltine crackers, or broth; avoid fried or fatty foods. Make sure to eat something about 15 minutes before taking any pain medications. Seek medical attention for any prolonged PONV and signs of dehydration. Patients whose assigned sex at was female, and are starting puberty or beyond, will be urine tested for per hospital policy. Thank you for choosing [facility]; it is our pleasure to care for you GEORGES Allen Time Spent Performing this Telephone History: 24 documented in this encounter [facility] 04-27-2024 History of Present illness Narrative Patient admittedly noncompliant with weight-bearing. His calcaneal pin was clearly loose therefore it was removed today in clinic after obtaining consent from the patient today. This was simply pulled out of bone with use of the hand without any force whatsoever. The tibial pins were drilled uncomfortable to remove therefore they were we removed in the procedural area under sedation. He does have hypertrophic granulation tissue present with the medial and lateral aspects of his calcaneal pin. This was carefully debrided today. We will debride this further in the procedural area. Placed him on oral antibiotic for this. He does appear to have lucency about the calcaneal pin which is not surprising given the motion here. Discussed risk of persistent infection. He should remain nonweightbearing although a certainly he will not and heel walk to the leg. Radiographs did display maintained alignment of the ankle and syndesmosis. We will plan for surgery next week. All his questions were answered. Patient at risk for falls:No Falls Risk protocol implemented: No Applied Kerpilarx to pin sit; [place] splint; LLE. ORTHOPAEDIC SURGERY CLINIC NOTE Patient Name: Kusum Cage CHIEF COMPLAINT: post op s/p L ankle ORIF revision and ex-fix (DOS: 02/20/2024); R ankle ORIF (DOS 01/24/2024) HPI: Patient presents for routine post-op visit. He admit to putting some weight on his left foot with the ex fix on. Pain has been stable. His dad and friend have been helping him with dressing changes. COMPLETE REVIEW OF SYSTEMS: Denies fevers/chills, numbness/tingling PHYSICAL EXAM: There were no vitals taken for this visit. Gen: A&Ox3, NAD LLE: Ankle spanning ex fix frame in place. The Kerlix around the pin sites is saturated with grayish discharge but dry. The calc pain is clearly mobile in the bone. There is a large amount of hypertrophic granulation tissue from the medial calc pin. No active discharge. Sensation throughout the foot is grossly intact. RLE: Inspection: Well healed incisions Palpation: - TTP along incisions Motor: 4/5 EHL/FHL Sensory: SILT Saphenous, Sural, DP, SP Vascular: 2+ DP pulses; foot warm, well-perfused Compartments: Compartments soft (thigh, leg, foot) DATA: Radiographs of the bilateral ankles was reviewed today and demonstrate stable alignment of the patient's fractures with intact hardware A/P: Kusum Cage is a 53 year old male who is s/p L ankle ORIF revision and ex-fix (DOS: 02/20/2024); and R ankle ORIF (DOS 01/24/2024). He admits to putting weight on the left foot with the ex fix. The calc pin is visibly loose and mobile within the bone. He has a large amount of hypertrophic tissue on the medial side of the calcaneus. We were able to easily remove the calcaneus pin in clinic today without even having to turn the pin. He could not tolerate removing the tibial pins and so we will plan to bring him back on Saturday, 05/05, to remove this in the OR. We debrided some of the hypertrophic granulation on the medial calcar. We cleaned the area with peroxide and saline and wrapped a sterile dressing around the area. We also redressed his tibial pins. We also provided a new [place] splint as his old 1 was dirty. - calcaneus pin grossly loose and removed in clinic today. Tibial pins to be removed next week 05/05 in the OR. Case was booked. this can be done in the PACU. - start Bactrim for 10 days - NWB BLE - B/L [place] splint Venkata Dean MD PGY-3 Orthopaedic Surgery Signed electronically by Venkata Dean MD on 04/27/2024 at 11:28 AM. documented in this encounter [facility] 04-27-2024 Instructions Venkata Dean MD - 04/27/2024 11:23 AM EST We will see you for surgery to remove the external fixator pins on Saturday, 05/05. We will call you to confirm this. You were prescribed an antibiotic. Please take this twice daily as directed. documented in this encounter [facility] 03-27-2024 Telephone encounter Note Transitions of Care Follow Up March 27, 2024 Patient no longer meets Transitional Care Coordination services due to one or more of the following: [x]Rolled off 30 day tracking from post acute care stay, no readmission after 30 days []Well connected to medical home and/or other services []Identified needs have been met, adhering to care plan/goals []Navigating system independently []Readmitted in hospital, readmission within 30 days []Is not adherent to care plan or goals []Declined or refused care coordination assistance []Followed by/ referred to [facility] []Living situation changed: [place], SNF/LTC, incarcerated, other []Receiving care at OSH []Patient transferred to, or active with other CN, SW, or MH care program [] Removed name from care team TCM closed 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[facility] Department Number: [phone], option 3 [facility] 03-27-2024 Miscellaneous Notes Transitions of Care Follow Up March 27, 2024 Patient no longer meets Transitional Care Coordination services due to one or more of the following: [x]Rolled off 30 day tracking from post acute care stay, no readmission after 30 days []Well connected to medical home and/or other services []Identified needs have been met, adhering to care plan/goals []Navigating system independently []Readmitted in hospital, readmission within 30 days []Is not adherent to care plan or goals []Declined or refused care coordination assistance []Followed by/ referred to [facility] []Living situation changed: [place], SNF/LTC, incarcerated, other []Receiving care at OSH []Patient transferred to, or active with other CN, SW, or MH care program [] Removed name from care team TCM closed 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 Fit and applied [place] splint to right lower extremity. Patient instructed on how to apply [place] splint and to remain non weight bearing. Teaching Physician Note: I saw and evaluated the patient. I personally obtained the storey and critical portions of the history and physical exam. I reviewed the resident's documentation and discussed the patient with the resident. I agree with the resident's medical decision making as documented in the resident's note. John Santana DO ORTHOPAEDIC SURGERY CLINIC NOTE Patient Name: Kusum Cage CHIEF COMPLAINT: 2 weeks s/p L ankle ORIF revision and ex-fix (DOS: 02/20/2024); 6 weeks s/p R ankle ORIF (DOS 01/24/2024) HPI: Patient presents for routine post-op visit. He reports that he has only placed a little weight on his right foot, none on his left foot. Reports pain appropriately controlled. Denies numbness/tingling. Has been taking aspirin for DVT ppx. COMPLETE REVIEW OF SYSTEMS: Denies fevers/chills, numbness/tingling PHYSICAL EXAM: There were no vitals taken for this visit. Gen: A&Ox3, NAD LLE: Inspection: Proximal pin sites appear well. No drainage. Healing well. Calcaneal pin has slight serous drainage. Lateral incision and medial incisions are healing well. Sutures in place. Palpation: + TTP along incisions Motor: 4/5 EHL/FHL Sensory: SILT Saphenous, Sural, DP, SP Vascular: foot warm, well-perfused Compartments: Compartments soft (thigh, leg, foot) RLE: Inspection: Well healed incisions Palpation: - TTP along incisions Motor: 4/5 EHL/FHL Sensory: SILT Saphenous, Sural, DP, SP Vascular: 2+ DP pulses; foot warm, well-perfused Compartments: Compartments soft (thigh, leg, foot) DATA: No new images today A/P: Kusum Cage is a 53 year old male who is 2 weeks s/p L ankle ORIF revision and ex-fix (DOS: 02/20/2024); 6 weeks s/p R ankle ORIF (DOS 01/24/2024). - Sutures removed today in clinic; steristrips applied - NWB BLE - B/L [place] splint - F/u: 6 weeks - X-Rays required for next clinic visit: B/L ankles Anna Martinez MD Signed electronically by Anna Martinez MD on 03/09/2024 at 11:28 AM. documented in this encounter [facility] 03-09-2024 Instructions Anna Martinez MD - 03/09/2024 11:51 AM EST - You have ankle fractures on both the right and left side. - DO NOT place weight on either leg yet. - Continue wearing your [place] splints. - Follow up in 6 weeks. 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[facility] Department Number: [phone], option 3 [facility] 03-05-2024 Miscellaneous Notes Transitional Care Management note: March 05, 2024 TCM appointment scheduled for: 03/05/2024 Patient attended appointment: Yes If no, attempted to call and reschedule appointment: NA Patient contacted: NA TCM appointment rescheduled: ABRIL REESE, code official 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[facility] Department Number: [phone], option 3 documented in this encounter [facility] 02-27-2024 Telephone encounter Note Transitions of Care Follow Up Call Initial communication post- discharge: 1st attempt: 02/27/24, 9:30 am Contact reached, HIPAA verified Sources of Information: [x]Patient [x] Hospital Discharge/CDU Summary reviewed: [] Hospital fax received from: [x] List of recent hospitalizations or ED visits reviewed : [] Patient/Caregiver decline Follow Up Call [] [facility]: []Other: Date of Admission: 02/20/2024 Date of Discharge: 02/26/2024 Hospital Discharge diagnosis: Closed fracture of right ankle, ORIF Current symptoms/Patient concerns: Patient states he is doing ok, the pain is manageable, he has been compliant w his non-weight bearing status, denies any new/worsening symptoms TCM/Hospital discharge follow up appt rescheduled, pt was scheduled for follow up appt the same day as in person ortho appt, no possible way he could have attended both Reviewed and aware of medication changes, pain management Reviewed and reminded of upcoming appointments Understands discharge paperwork Counseled pt on elevation, non-weight bearing, taking it easy, resting, and letting family take care of him, pt states understanding Denies any further questions or concerns Patient/caregiver was provided with phone number for Care Coordination and [facility] Nurse Line [phone] Medication changes: Yes If yes, what are they and does patient understand how and when to take? Yes START taking: Aspirin Low Dose (aspirin EC) This replaces a similar medication. See the full medication list for instructions. oxyCODONE CHANGE how you take: acetaminophen extra strength (TYLENOL) STOP taking: aspirin 81 MG chewable tablet Replaced by a similar medication. Medication list reviewed with patient: Yes Medication-related problems: MTP: Problem identified: No medication-related issues identified - None Patient able to obtain prescribed medications per discharge list: Yes Pharmacy needs: None at this time Patient provided pharmacy number [phone] for medication related concerns/follow up. Reviewed mail order pharmacy information with patient: Yes Needs follow up appointment or procedure: No Future Appointments (next 10) Provider Department Center 03/09/2024 8:30 AM DISCHARGE MANAGEMENT FOLLOW UP [facility] Arrive at: Patient's Home Pt.Access/CM 03/09/2024 10:30 AM (Arrive by 10:20 AM) John Santana DO [facility] [place] Review need for or follow up on pending diagnostic test, referrals to specialist and treatment plans with patient/caregiver: Yes Community resources identified for patient/family: No Durable medical equipment ordered: No Education provided to patient/caregiver to support self management, ADL's, etc: Take all medications as prescribed Attend all recommended follow up appointments Mode of Transportation: Family Interact with other health care transition mgr involved in patient care: No Referral to Primary Care Coordination: No Referral to [place]: No Additional information needed and requested: Yes Reminded to bring in all medications (old & new) to future appointment(s). 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[facility] [place] Department Number: [phone], option 3 [facility] 02-27-2024 Miscellaneous Notes Transitions of Care Follow Up Call Initial communication post- discharge: 1st attempt: 02/27/24, 9:30 am Contact reached, HIPAA verified Sources of Information: [x]Patient [x] Hospital Discharge/CDU Summary reviewed: [] Hospital fax received from: [x] List of recent hospitalizations or ED visits reviewed : [] Patient/Caregiver decline Follow Up Call [] CarePort: []Other: Date of Admission: 02/20/2024 Date of Discharge: 02/26/2024 Hospital Discharge diagnosis: Closed fracture of right ankle, ORIF Current symptoms/Patient concerns: Patient states he is doing ok, the pain is manageable, he has been compliant w his non-weight bearing status, denies any new/worsening symptoms TCM/Hospital discharge follow up appt rescheduled, pt was scheduled for follow up appt the same day as in person ortho appt, no possible way he could have attended both Reviewed and aware of medication changes, pain management Reviewed and reminded of upcoming appointments Understands discharge paperwork Counseled pt on elevation, non-weight bearing, taking it easy, resting, and letting family take care of him, pt states understanding Denies any further questions or concerns Patient/caregiver was provided with phone number for Care Coordination and [facility] Nurse Line [phone] Medication changes: Yes If yes, what are they and does patient understand how and when to take? Yes START taking: Aspirin Low Dose (aspirin EC) This replaces a similar medication. See the full medication list for instructions. oxyCODONE CHANGE how you take: acetaminophen extra strength (TYLENOL) STOP taking: aspirin 81 MG chewable tablet Replaced by a similar medication. Medication list reviewed with patient: Yes Medication-related problems: MTP: Problem identified: No medication-related issues identified - None Patient able to obtain prescribed medications per discharge list: Yes Pharmacy needs: None at this time Patient provided pharmacy number [phone] for medication related concerns/follow up. Reviewed mail order pharmacy information with patient: Yes Needs follow up appointment or procedure: No Future Appointments (next 10) Provider Department Center 03/09/2024 8:30 AM DISCHARGE MANAGEMENT FOLLOW UP [facility] Arrive at: Patient's Home Pt.Chastity/CM 03/09/2024 10:30 AM (Arrive by 10:20 AM) John Santana DO [facility] [place] Review need for or follow up on pending diagnostic test, referrals to specialist and treatment plans with patient/caregiver: Yes Community resources identified for patient/family: No Durable medical equipment ordered: No Education provided to patient/caregiver to support self management, ADL's, etc: Take all medications as prescribed Attend all recommended follow up appointments Mode of Transportation: Family Interact with other health care transition mgr involved in patient care: No Referral to Primary Care Coordination: No Referral to [place]: No Additional information needed and requested: Yes Reminded to bring in all medications (old & new) to future appointment(s). 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[facility] Department Number: [phone], option 3 documented in this encounter [facility] 02-26-2024 History of Present illness Narrative CM spoke with patient's dad Niall Cage [phone] to discuss family transport vs ambulance/ ambulette as patient is NWB to BLE's, Niall again states that he will just have his friend Jared come to pick patient up in his vehicle and that he plans to be here around 11:30/12. Patient and family again are declining C at this time. Addendum: CM received a phone call from Jared who states he is here to pick patient up and is asking for assistance with getting patient in the vehicle, CALEB again stated that we need to ensure that patient is safe at discharge and one again offered ambulance transport d/t NWB BLE status- patient and family are declining and insist on family/friend transport to home. CM to follow POC and assist with discharge planning and needs as warranted. Whit FRANK, php mysql web developer [email or web address] Chat Available Saturday-Saturday [phone] Orthopaedic Surgery Progress Note Subjective: No acute events overnight. Patient doing well this morning. Pain is well controlled. Objective: Vitals BP 114/63 (BP Location: left arm) Pulse 66 Temp 98 F (36.7 C) (Oral) Resp 16 Ht 6' 2 (1.88 m) Wt 289 lb (131.1 kg) SpO2 97% BMI 37.11 kg/m Physical Exam GEN - NAD, resting comfortably in hospital bed CV - RRR by peripheral palpation, limbs wwp PULM - NWOB on RA MSK: Left Lower Extremity: - Surgical dressing in place, c/d/I - Ex fix pins clean - [place] splint applied - Fires EHL/DF/PF. - SILT in Hernandez/Sa/SP/DP/T distribution. - 2+ DP pulse, < 2 seconds capillary refill. Assessment: 53 year old male s/p revision ORIF of left ankle and ex-fix application with Dr. Santana on 02/20/24. Plan: - Activity: NWB BLE - Consult: PT/OT - rec home - Labs: F/U intra-op cultures -- final cultures result no growth; recultured and NGTD - Pain: Multimodal pain control - Diet: Regular, bowel regimen - FEN: HLIV with good PO intake - Pulm: Encourage IS Dispo: anticipate discharge home today vs tomorrow. No need for antibiotics. ---- Chelly Nava MD Between 5pm-7am, weekends, and holidays, or for urgent/emergent issues, please page ortho consult pager at [phone]. For questions/issues: Patient will be followed by the ORTHO TEAM A. Please message: Ortho Team A: Arnie Covarrubias PGY1 Raudel Greco PGY2 Chelly Nava PGY3 Ortho Team B: Audrey Enriquez PGY2 Norman Moreno PGY2 Isiah Somers PGY4 Ortho Elective Team: Tiffanie Garcia PGY2 Aftab Lee PGY3 Ortho Hand Team: Avinash Lebron PGY4 Zane Davies PGY4 CM made aware that patient's final cultures so no growth so patient will not need to discharge with ABX and is now medically ready. CM spoke with patient at bedside regarding discharge planning, patient requesting that CM speak with his dad Niall. CM spoke with patient's dad Niall Cage [phone] who states that he is agreeable to have patient discharge home but states tomorrow 02/25 would be better as someone will be available to provide assistance. Niall asked if patient was able to walk and this CM stated that per Ortho OP note and ongoing progress notes patient is NWB to BLE. Niall states he will move the walker and cane so patient does not try to use them. Niall states he can have a friend come and berry picker machine operator the patient on 02/25 to provide transportation to home. Niall called this CM back with the friend, Jared that will provide the transport. Jared states he will plan to get here around 1130/1200 on 02/24 and will call this CM to notify of his arrival so patient could be brought downstairs. PT and OT recommending home with HHC. Niall states he does not want home therapy and states Jared will be at the house to provide assistance and reinforce NWB status. CM went to patient's room to discuss HHC and patient states Talk to my dad, I will do what he wants . Primary team and therapy services made aware. Niall is requesting when patient's next scheduled appointments are- follow up appointments will need to be scheduled prior to discharge. Per OP note patient will return to clinic in ~ 2 weeks for incision check and the ex-fix is anticipated to be removed in 6-8 weeks. CM to follow POC and assist with discharge planning and needs as warranted. Whit FRANK, php mysql web developer [email or web address] Chat Available Saturday-Saturday [phone] Orthopaedic Surgery Progress Note Subjective: No acute events overnight. Patient doing well this morning. Pain is well controlled. Objective: Vitals BP 110/68 (BP Location: left arm) Pulse 71 Temp 98.3 F (36.8 C) (Oral) Resp 16 Ht 6' 2 (1.88 m) Wt 289 lb (131.1 kg) SpO2 98% BMI 37.11 kg/m Physical Exam GEN - NAD, resting comfortably in hospital bed CV - RRR by peripheral palpation, limbs wwp PULM - NWOB on RA MSK: Left Lower Extremity: - Surgical dressing in place, c/d/I - Ex fix pins clean - [place] splint applied - Fires EHL/DF/PF. - SILT in Hernandez/Sa/SP/DP/T distribution. - 2+ DP pulse, < 2 seconds capillary refill. Assessment: 53 year old male s/p revision ORIF of left ankle and ex-fix application with Dr. Santana on 02/20/24. Plan: - Activity: NWB BLE - Consult: PT/OT - rec home - Labs: F/U intra-op cultures -- final cultures result no growth - Pain: Multimodal pain control - Diet: Regular, bowel regimen - FEN: HLIV with good PO intake - Pulm: Encourage IS Dispo: anticipate discharge home today vs tomorrow. No need for antibiotics. ---- Raudel Greco DO Between 5pm-7am, weekends, and holidays, or for urgent/emergent issues, please page ortho consult pager at [phone]. For questions/issues: Patient will be followed by the ORTHO TEAM A. Please message: Ortho Team A: Arnie Covarrubias PGY1 Raudel Greco PGY2 Chelly Nava PGY3 Ortho Team B: Audrey Enriquez PGY2 Norman Moreno PGY2 Isiah Somers PGY4 Ortho Elective Team: Tiffanie Garcia PGY2 Aftab Lee PGY3 Ortho Hand Team: Avinash Lebron PGY4 Zane Davies PGY4 Assessment with patient at bedside complete. Demographics verified with chart. Patient states he has a PCP but is unsure of name. PT and OT recommending home with [facility], patient is agreeable. Referral sent to [facility] in the event that patient will need IV ABX upon discharge. Cultures remain pending. Patient states he does have family support at home but his family works and are not always available during the day. Patient requesting that CM call his dad to discuss discharge planning. CM attempted to call Niall Cage [phone], left VM (number updated in chart). CM to follow POC and assist with discharge planning and needs as warranted. Whit FRANK, php mysql web developer [email or web address] Chat Available Saturday-Saturday [phone] 02/24/24 1510 Assessment and Discharge Planning Evaluation READMISSION LESS THAN 30 DAYS Yes READMISSION RISK SCORE IS Rising Risk CLINICAL REASON Nonadherence to treatment plan;Multiple Comorbidities;Planned readmission;Knowledge deficit PATIENT'S VIEW OF READMISSION Nonadherence to treatment plan;Multiple Comorbidities;Knowledge deficit Arriving from Outside Facility? No INTERVIEWED Patient;Chart Review COGNITIVE STATUS Oriented FUNCTIONAL STATUS PRIOR TO ADMISSION Ambulates with medical staffing coordinator (cane, walker, etc.) HAS ADVANCE DIRECTIVE ON FILE No LIVING SITUATION Home with Family Number of Steps 1 Bedroom floor level 1 Bathroom Floor Level 1 CONNECTED TO MENTAL HEALTH SERVICES Unknown CONNECTED TO COMMUNITY SERVICES Unknown CONNECTED TO SUBSTANCE ABUSE SERVICES Unknown ADMISSION INSURANCE Medicare ([place]) TRANSPORTATION TO AND/OR FROM APPOINTMENTS Family/Friend Provides Ride HOME OXYGEN No HOME HEALTH CARE PRIOR TO ADMISSION No DIALYSIS No DISCUSSSED WHAT HELP PATIENT WOULD NEED Yes SDOH Completed? Patient Declines DISCHARGE DISPOSITION STILL A PT Reason for Readmisson Risk Score Non-Adherence;Previous LOS 10+ days within the last 12 months;Other Orthopaedic Surgery Progress Note Subjective: No acute events overnight. Patient doing well this morning. Pain is well controlled. Objective: Vitals BP 139/70 (BP Location: left arm) Pulse 70 Temp 97.6 F (36.4 C) (Oral) Resp 18 Ht 6' 2 (1.88 m) Wt 289 lb (131.1 kg) SpO2 99% BMI 37.11 kg/m Physical Exam GEN - NAD, resting comfortably in hospital bed CV - RRR by peripheral palpation, limbs wwp PULM - NWOB on RA MSK: Left Lower Extremity: - Surgical dressing in place, c/d/I - Ex fix pins clean - [place] splint applied - Fires EHL/DF/PF. - SILT in Hernandez/Sa/SP/DP/T distribution. - 2+ DP pulse, < 2 seconds capillary refill. Assessment: 53 year old male s/p revision ORIF of left ankle and ex-fix application with Dr. Santana on 02/20/24. Plan: - Activity: NWB BLE - Consult: PT/OT - rec home - Labs: F/U intra-op cultures -- NGTD - Pain: Multimodal pain control - Diet: Regular, bowel regimen - FEN: HLIV with good PO intake - Pulm: Encourage IS Dispo: anticipate discharge home once cultures/final ABX plan determined, PICC placed, once medically cleared ---- Raudel Greco DO Between 5pm-7am, weekends, and holidays, or for urgent/emergent issues, please page ortho consult pager at [phone]. For questions/issues: Patient will be followed by the ORTHO TEAM A. Please message: Ortho Team A: Arnie Covarrubias PGY1 Raudel Greco PGY2 Chelly Nava PGY3 Ortho Team B: Audrey Enriquez PGY2 Norman Moreno PGY2 Isiah Somers PGY4 Ortho Elective Team: Tiffanie Garcia PGY2 Aftab Lee PGY3 Ortho Hand Team: Avinash Lebron PGY4 Zane Davies PGY4 Orthopaedic Surgery Progress Note Subjective: No acute events overnight. Patient doing well this morning. Pain is well controlled. Objective: Vitals BP 107/90 (BP Location: right arm) Pulse 65 Temp 98.1 F (36.7 C) (Oral) Resp 18 Ht 6' 2 (1.88 m) Wt 289 lb (131.1 kg) SpO2 98% BMI 37.11 kg/m Physical Exam GEN - NAD, resting comfortably in hospital bed CV - RRR by peripheral palpation, limbs wwp PULM - NWOB on RA MSK: Left Lower Extremity: - Surgical dressing in place, c/d/I - Ex fix pins clean - [place] splint applied - Fires EHL/DF/PF. - SILT in Hernandez/Sa/SP/DP/T distribution. - 2+ DP pulse, < 2 seconds capillary refill. Assessment: 53 year old male POD1 s/p revision ORIF of left ankle and ex-fix application with Dr. Santana on 02/20/24. Plan: - Activity: NWB BLE - Consult: PT/OT - rec home - Labs: F/U intra-op cultures -- NGTD - Pain: Multimodal pain control - Diet: Regular, bowel regimen - FEN: HLIV with good PO intake - Pulm: Encourage IS Dispo: anticipate discharge home once cultures/final ABX plan determined, PICC placed, once medically cleared ---- Chelly Nava MD Orthopedic Surgery PGY-3 [facility] Orthopaedic Team A [email or web address] chat for correspondence Between 5pm-7am, weekends, and holidays, or for urgent/emergent issues, please page ortho consult pager at [phone]. For questions/issues: Patient will be followed by the ORTHO TEAM A. Please message: Ortho Team A: Arnie Covarrubias PGY1 Raudel Greco PGY2 Chelly Nava PGY3 Ortho Team B: Audrey Enriquez PGY2 Norman Moreno PGY2 Isiah Somers PGY4 Ortho Elective Team: Tiffanie Garcia PGY2 Aftab Lee PGY3 Ortho Hand Team: Avinash Lebron PGY4 Zane Davies PGY4 Orthopaedic Surgery Progress Note Subjective: No acute events overnight. Patient doing well this morning. Pain is well controlled. Patient found with tobacco/nicotine product in mouth today. Removed and counseled. Objective: Vitals BP 117/57 (BP Location: left arm) Pulse 60 Temp 98.1 F (36.7 C) (Oral) Resp 18 Ht 6' 2 (1.88 m) Wt 289 lb (131.1 kg) SpO2 98% BMI 37.11 kg/m Physical Exam GEN - NAD, resting comfortably in hospital bed CV - RRR by peripheral palpation, limbs wwp PULM - NWOB on RA MSK: Left Lower Extremity: - Surgical dressing in place, c/d/I - Ex fix pins clean - [place] splint applied - Fires EHL/DF/PF. - SILT in Hernandez/Sa/SP/DP/T distribution. - 2+ DP pulse, < 2 seconds capillary refill. Assessment: 53 year old male POD1 s/p revision ORIF of left ankle and ex-fix application with Dr. Santana on 02/20/24. Plan: - Activity: NWB BLE - Consult: PT/OT - please reassess patient's discharge placement - DVT: SCDs and ASA 81mg BID - Antibiotics: Ancef post-operatively until cultures finalize - Labs: F/U intra-op cultures -- NGTD - Pain: Multimodal pain control - Diet: Regular, bowel regimen - FEN: HLIV with good PO intake - Pulm: Encourage IS Dispo: anticipate discharge likely to SNF once medically cleared ---- Arnie Covarrubias MD Orthopedic Surgery PGY-1 [facility] Orthopaedic Team A [email or web address] chat for correspondence Between 5pm-7am, weekends, and holidays, or for urgent/emergent issues, please page ortho consult pager at [phone]. For questions/issues: Patient will be followed by the ORTHO TEAM A. Please message: Ortho Team A: Arnie Covarrubias PGY1 Raudel Greco PGY2 Chelly Nava PGY3 Ortho Team B: Audrey Enriquez PGY2 Norman Moreno PGY2 Isiah Somers PGY4 Ortho Elective Team: Tiffanie Garcia PGY2 Aftab Lee PGY3 Ortho Hand Team: Avinash Lebron PGY4 Zane Davies PGY4 Orthopaedic Surgery Progress Note Subjective: No acute events overnight. Patient doing well this morning. Pain is well controlled. Objective: Vitals BP 124/69 (BP Location: left arm) Pulse 74 Temp 97.3 F (36.3 C) (Oral) Resp 18 Ht 6' 2 (1.88 m) Wt 289 lb (131.1 kg) SpO2 100% BMI 37.11 kg/m Physical Exam GEN - NAD, resting comfortably in hospital bed CV - RRR by peripheral palpation, limbs wwp PULM - NWOB on RA MSK: Left Lower Extremity: - Surgical dressing in place, c/d/I - Ex fix pins clean - [place] splint applied - Fires EHL/DF/PF. - SILT in Hernandez/Sa/SP/DP/T distribution. - 2+ DP pulse, < 2 seconds capillary refill. Assessment: 53 year old male POD1 s/p revision ORIF of left ankle and ex-fix application with Dr. Santana on 02/20/24. Plan: - Activity: NWB BLE - Consult: PT/OT - Dressing: JESSICA wrap over ex-fix - Drain: none - DVT: SCDs and ASA 81mg BID - Antibiotics: Ancef post-operatively until cultures finalize - Labs: F/U intra-op cultures - Pain: Multimodal pain control - Diet: Regular, bowel regimen - FEN: HLIV with good PO intake - Pulm: Encourage IS Follow Up: [address] Santana Dispo: anticipate discharge likely to SNF once medically cleared ---- Arnie Covarrubias MD Orthopedic Surgery PGY-1 [facility] Orth[facility] Team A [email or web address] chat for correspondence Between 5pm-7am, weekends, and holidays, or for urgent/emergent issues, please page ortho consult pager at [phone]. For questions/issues: Patient will be followed by the ORTHO TEAM A. Please message: Ortho Team A: Arnie Covarrubias PGY1 Raudel Greco PGY2 Chelly Nava PGY3 Ortho Team B: Audrey Enriquez PGY2 Norman Moreno PGY2 Isiah Somers PGY4 Ortho Elective Team: Tiffanie Garcia PGY2 Aftab Lee PGY3 Ortho Hand Team: Avinash Lebron PGY4 Zane Davies PGY4 documented in this encounter [facility] 02-26-2024 Hospital Discharge instructions Myriam Carbajal APRN-PATENT SEARCHER - 02/26/2024 8:39 AM EST Post-Operative Instructions Orthopaedics Weight bearing status You are NON WEIGHT BEARING TO BOTH LOWER EXTREMITIES. NO weight on legs not even for transfers. This is very important!!!!! Dressing Do Not remove dressing until your next appointment with your surgeon. Please call the surgeon's office if this is not already arranged Showering It is advised to refrain from showering till your first follow up appointment. If allowed to shower-Please refrain from getting your cast or splint wet. Please cover the dressing with and do not get it wet. If your cast or splint gets wet, please contact your surgeon's office at [phone]. Do not let the wound soak in a tub, bath, pool or hot tub. Ice and Elevate The use of ice on your extremity after surgey may help with both pain control and swelling. Please make sure there is some type of barrier between the ice and your skin. Do not keep ice on extremity for long periods of time. Keep on 15 minutes and 15 minutes off. Elevate your extremity after surgery. This will keep swelling to a minimum and prevent throbbing and pain Pain Medication If you received a nerve block: your leg and foot may be number for several hours (6-24 hours). You will be provided with an oral pain medication. Rest and elevation are some of the most crucial factors for pain control Take your pain medication as directed even though the pain is minimal with block; do not wait for the pain to become out of control. The most severe pain occurs as the block wears off. Even if you are not having pain but feel the leg and foot waking up , take you pain medication so that it will be working when needed. Pain medication may cause some tiredness, nausea, or constipation. If these symptoms become significantly problematic, please contact your surgeon's office and discontinue the medication. Avoid alcohol while taking pain medication. DVT (Blood Clot) Prophylaxis A DVT-blood clot can be life threatening. You will be prescribed with either Aspirin or Enoxaparin (Lovenox) twice a day for the full 6 weeks from your surgery. This medication is not for pain or swelling but used to help prevent a blood clot. If you are already on a blood thinner your surgeon will let you know when it is okay to resume. Eating and Drinking Gradually resume your normal diet. The night of your surgery, begin with liquids and/or light foods. If you are feeling well enough in the morning progress to your normal eating patterns. Eating a well-balanced diet with plenty of fresh fruits and vegetables and drinking plenty of fluids may help alleviate some symptoms of constipation that results from pain medication. Smoking and Smokeless tobacco Tobacco use (smoking and all other forms) can interfere with wound and fracture healing and may increase your pain. Do not smoke postoperatively. Please contact your surgeon's office for a referral to the smoking cessation program. Smoking will increase your risk of infection and delay in healing. Driving It is not advisable to drive a vehicle while you are on pain medication due to the possible side effects. We would not recommend driving till cleared by your surgeon. Warning Signs Observe your extremity and incision site for increased redness, swelling, drainage, foul odor, or increased pain unrelieved by rest or medication. If any of the above occurs, or should you develop a fever greater than 101 degrees Farenheit, please notify your surgeon's office or contact the orthopaedic nurse line at [phone] immediately. After office hours, on weekends or holidays, please call the [facility] Nurse Line at [phone]. Appointments If you do not already have an appointment scheduled within two-weeks of your surgery. Please contact the surgeon's office at [phone]. Do not hesitate to call your surgeon's office with any questions or concerns. After business hours please call the [facility] Nurse Line at [phone] and ask for the orthopaedic resident dedicated regional driver. For emergencies call 911 [facility] Orthopaedic Trauma MD Toi Lloyd MD Adam Hirschfeld, MD Nicholas Romeo, DO Christopher Matson, MD Crystal Moga, IT SERVICE DELIVERY MANAGER-PATENT SEARCHER Orthopaedic Surgery Nurse Line [phone] Orthopaedic Surgery Appointments [phone] documented in this encounter [facility] 02-25-2024 Consult note Formatting of th is note is different from the original. PHYSICAL THERAPY PROGRESS SUMMARY Patient seen from 2:03pm to 2:14pm on GC6E unit for 11 minute treatment. SUBJECTIVE: Patient Subjective/Goals: I already got up to the chair using that board. OBJECTIVE: Appearance: Obese, IV, Right ankle [place] splint, Left ankle Ex-fix Behavior: Awake, Confused, cooperative. Patient has very poor STM. Pain: Site/Location: L ankle; Pain Scale: 15/10 Pain Relief Interventions Implemented: Positioning, Rest, and Notified Nurse Mobility NA Dep Max Mod Min CG CS DS AL I Comment Roll to right sidelying x Roll to left sidelying x Supine to Long sit x Long sit to short sit x Transfers x Patient is able to scoot up in bed while seated at edge of bed with cues for NWB BLE's. Patient declined to get up to chair again this afternoon. Sit to Supine x Functional Endurance: impaired Sitting Balance: Static:good Dynamic:good Patient/Family Education: Instructed Patient in roles of therapy. This PT reviewed NWB BLE's with patient including transfers with slide board and use of wheelchair at all times. While patient indicates understanding in the moment and is capable of performing slide board transfers with supervision. Patient does not remember NWB Precautions moments later when CM came into see patient at end of session. Patient will need increased supervision at home to remind him of NWB BLE's with mobility. Patient up in bed with call light in reach. DME: With Patients permission ordered no equipment via [employer] Order. If any questions contact [facility] DME Provider at [phone]. 02/25/2024 6 Clicks Basic Mobility PT Difficulty turning over in bed 3 Difficulty sitting down and standing up from a chair with arms 1 Difficulty moving from lying on back to sitting on the side of the bed 3 Help from another person moving to and from bed to a chair 3 Help from another person to walk in hospital room 1 Help from another person climbing 3-5 steps with a railing 1 PT 6 Clicks Score 12 6 Click Score Guidelines: 1 - Total = Requires total assistance, or cannot do at all. 2 - A lot = Requires a lot of help (maximun to moderate assistance) Can use assistive devices. 3 - A little = Requires a little help (supervision, minimal assistance) Can use assistive devices. 4 - None = Does not require any help and does the activity independently. Can use assistive devices. ASSESSMENT: Patient is functionally appropriate for discharge home once medically cleared. Recommend Home Physical Therapy, however patient and family declining [facility] at this time. Goals (to be achieved by discharge from acute care): ONGOING unless noted as MET Patient to achieve appropriate pain control to tolerate physical therapy sessions. Patient to demonstrate bed mobility with independence. Patient to perform slide board transfer bed to chair with independence. Patient to demonstrate independence with HEP with use of handouts. PLAN: Will follow established Plan of Care Yolanda Reyes PT NA = Not Assessed, I = Independent, AL = Modified Independent, Sup = Supervised, Set up = Physical Assistance for Set-up Only, Min = Minimal Assistance, Mod = Moderate Assistance, Max = Maximal assistance; Dep = Dependent; AROM = Active Range of Motion; PROM = Passive Range of Motion; MMT = Manual Muscle Test [facility] 02-25-2024 Consult note Formatting of th is note is different from the original. PHYSICAL THERAPY PROGRESS SUMMARY Patient seen from 2:03pm to 2:14pm on GC6E unit for 11 minute treatment. SUBJECTIVE: Patient Subjective/Goals: I already got up to the chair using that board. OBJECTIVE: Appearance: Obese, IV, Right ankle [place] splint, Left ankle Ex-fix Behavior: Awake, Confused, cooperative. Patient has very poor STM. Pain: Site/Location: L ankle; Pain Scale: 15/10 Pain Relief Interventions Implemented: Positioning, Rest, and Notified Nurse Mobility NA Dep Max Mod Min CG CS DS AL I Comment Roll to right sidelying x Roll to left sidelying x Supine to Long sit x Long sit to short sit x Transfers x Patient is able to scoot up in bed while seated at edge of bed with cues for NWB BLE's. Patient declined to get up to chair again this afternoon. Sit to Supine x Functional Endurance: impaired Sitting Balance: Static:good Dynamic:good Patient/Family Education: Instructed Patient in roles of therapy. This PT reviewed NWB BLE's with patient including transfers with slide board and use of wheelchair at all times. While patient indicates understanding in the moment and is capable of performing slide board transfers with supervision. Patient does not remember NWB Precautions moments later when CM came into see patient at end of session. Patient will need increased supervision at home to remind him of NWB BLE's with mobility. Patient up in bed with call light in reach. DME: With Patients permission ordered no equipment via [employer] Order. If any questions contact [facility] DME Provider at [phone]. 02/25/2024 6 Clicks Basic Mobility PT Difficulty turning over in bed 3 Difficulty sitting down and standing up from a chair with arms 1 Difficulty moving from lying on back to sitting on the side of the bed 3 Help from another person moving to and from bed to a chair 3 Help from another person to walk in hospital room 1 Help from another person climbing 3-5 steps with a railing 1 PT 6 Clicks Score 12 6 Click Score Guidelines: 1 - Total = Requires total assistance, or cannot do at all. 2 - A lot = Requires a lot of help (maximun to moderate assistance) Can use assistive devices. 3 - A little = Requires a little help (supervision, minimal assistance) Can use assistive devices. 4 - None = Does not require any help and does the activity independently. Can use assistive devices. ASSESSMENT: Patient is functionally appropriate for discharge home once medically cleared. Recommend Home Physical Therapy, however patient and family declining HHC at this time. Goals (to be achieved by discharge from acute care): ONGOING unless noted as MET Patient to achieve appropriate pain control to tolerate physical therapy sessions. Patient to demonstrate bed mobility with independence. Patient to perform slide board transfer bed to chair with independence. Patient to demonstrate independence with HEP with use of handouts. PLAN: Will follow established Plan of Care Yolanda Reyes PT NA = Not Assessed, I = Independent, AL = Modified Independent, Sup = Supervised, Set up = Physical Assistance for Set-up Only, Min = Minimal Assistance, Mod = Moderate Assistance, Max = Maximal assistance; Dep = Dependent; AROM = Active Range of Motion; PROM = Passive Range of Motion; MMT = Manual Muscle Test OCCUPATIONAL THERAPY PROGRESS SUMMARY Patient seen from 1213 to 1236 on 6E unit for 23 minute treatment. SUBJECTIVE: Patient Subjective/Goals I walked to the bathroom this morning and now my legs hurt. Re: Pt noncompliant with NWB BLE precautions and with cognitive deficits. Extension education provided on importance of adhering to precautions. OBJECTIVE: Pain: unrated/10; discomfort in L ankle Pain Relief Interventions Implemented: Positioning, Rest, and RN aware and reports patient received medication according to time schedule Appearance/Behavior: Supine in bed, hospital gown, Splint to BLE, Ex-fix to LLE with jessica bandages intact, cooperative, pleasant Cognition: A&Ox3, poor insight, poor safety awareness (re: Sit there and watch it burn. Re: What would you do if your house was on fire?), poor adherence to precautions, impaired memory (1/3 5 min recall), impaired problem solving, delayed processing UE Status: BUE WFL for ADLs Self Care: Assistance Level NA Dep Max Mod Min CG CS DS AL I Set-Up Cues Comment Feeding x Breakfast tray Grooming/ Hygiene x Washing face seated EOB Bathing: Upper Body x Bathing: Lower Body x Dressing: Upper Body x Hospital gown around back seated Dressing: Lower Body x Adjusting socks around ankle in long sit at bed level. Pt fidgeting with splints with education provided on how to properly don to maintain skin integrity. Toileting x Urinal use at bed level prior to therapists' arrival Toilet Transfers x Bed Transfer x Bed>chair: Pt places board at mod I level and completes lateral slide board transfer with CS for safety while maintain BLE NWB with cues. Bed Mobility x Supine>sit Endurance for Self Care: Fair Patient/Family Education: Instructed patient in roles of therapy, extensive education on importance of NWB BLE and functional implications, educated on use of wheelchair in the home AAT for mobility to maintain precautions, reviewed slide board transfer technique, educated on fall prevention in the home, educated on how to properly don splints to maintain skin integrity DME: With Patients permission ordered no equipment via [employer] Order. If any questions contact [facility] DME Provider at [phone]. 02/25/2024 6 Clicks Daily Activity OT Help from another person Eating meals 4 Help from another person taking care of personal grooming 4 Help from another person bathing 3 Help from another person putting on and taking off regular upper body clothing 4 Help from another person putting on and taking off regular lower body clothing 3 Help from another person toileting 3 OT 6 Clicks Score 21 6 Click Score Guidelines: 1 - Unable = Total/Dependent Assist 2 - A lot = Max/Moderate Assist 3 - A little = Minimum/Contact Guard Assist/Supervision 4 - Non = Modified [place]/Independent ASSESSMENT: Patient is functionally appropriate for discharge home once medically cleared. Will continue to follow patient while in hospital as appropriate. Recommend Home Occupational Therapy. Recommend PRN family/caregiver assist for ADLs and IADL's. Recommend use of visual reminders throughout the home to remind pt of NWB BLE precaution and to complete slide board transfers vs ambulatory transfers. Revised Dessert Cup Machine Feeder Goals: ongoing Goals (to be achieved by discharge from acute care): ongoing Patient will dress lower body with Modified Independent Patient will perform bed mobility with Modified Independent MET Patient will perform bathing with Modified Independent Patient will perform toileting with Modified Independent Patient will perform bed transfers with Modified Independent Patient will perform commode transfers with Modified Independent Patient will demonstrate safety awareness as evidenced by maintaining BLE NWB during transfers and ADLs PLAN: Continue with Plan as per Initial Evaluation. JUVENAL Bee/Mayela NA = Not Assessed, I = Independent, AL = Modified Independent, Sup = Supervised, Set up = Physical Assistance for Set-up Only, Min = Minimal Assistance, Mod = Moderate Assistance, Max = Max assistance; Dep = Dependent; AROM = Active Range of Motion;PROM=Passive Range of Motion; MMT = Manual Muscle Test; Shld= Shoulder; Add = Adduction; Abd = Abduction Images from the original note were not included. Dietitian vs DietaryTech: Dietary TechDiet [employer] Nutrition Screening Reason for visit: LOS 5 or more days Assessment Admitting Diagnosis: Closed fracture of right ankle with delayed healing, subsequent encounter [S82.941G] High risk nutrition diagnosis: No - no points Past Medical History: Past Medical History: Diagnosis Date HTN (hypertension) Schizophrenia (HCC) T2DM (type 2 diabetes mellitus) (HCC) Food Allergies: none Labs: LFT's (last 3 years, up to 8 values) 01/21/2024 01/17/2024 12:55 AM 3:28 AM T Prot -- 5.8 Albumin 3.0 -- Albumin: n/a - no points Skin Integrity: Surgical incision - no points Fluid Accumulation: wnl Diet Order: Carbohydrates 60 Grams/Meal; No Added Salt; Low Saturated Fat/Cholesterol % PO Intake: 25-50-75% Intake Difficulties: Decreased appetite - 0 points, diarrhea 6' 2 289 lbs UBW: BODY MASS INDEX Kg Lbs BMI 01/14/2024 1:02 PM 131.09 kg 289 lb 36.12 kg/m2 01/14/2024 9:03 PM 134.582 kg 296 lb 11.2 oz 37.08 kg/m2 02/20/2024 3:00 PM 131.09 kg 289 lb 37.09 kg/m2 BMI: 37.11 BMI Screening value: 21 or greater - 0 points % Weight Loss: none Weight Loss Screening Value: Not significant - 0 points Education: No nutrition education indicated at this time. Comments: Pt c/o: decreased appetite for the past 2 days, + diarrhea noted. To encourage po and fluids Number of Points: 0 Nutritional Plan of Care: Less than or equal to 6 points: At this time, patient is at low nutrition risk. DTR to provide routine follow up. Ada Rhodes, Chemical Dependency Therapist Pager#[phone] OCCUPATIONAL THERAPY PROGRESS SUMMARY Patient seen from 1326 to 1343 on 6E unit for 17 minute treatment.co-treat with PT to maximize safety with mobility while focusing roddy OT specific goals. SUBJECTIVE: Patient Subjective/Goals: They can't take care of me at home, I have to go to a correction OBJECTIVE: Pain: Site(s): (L) Heel 05/25 Pain Relief Interventions Implemented: Positioning and Rest Appearance/Behavior: Pt. up in chair upon arrival to room. Per pt reported he stood up and got up into the chair this AM reporting I use my cane - reinforced the importance of maintaining (B) LE NWB, moderate impulsivity Cognition: A&Ox2 (-) situation, poor insight to physical limitations, reduce planning skills, mild disorganization, reduce flexibility of thought, unable to self-monitor and self-correct, delayed processing, mod cues for safety and recall of (B) LE wt. Bearing restrictions during functional transfers. UE Status: (B) UE endurance WFL for basic mobility and ADLs Self Care: Assistance Level NA Dep Max Mod Min CG CS DS AL I Set-Up Cues Comment Feeding X Grooming/ Hygiene X Face hygiene in long sit position Bathing: Upper Body X Using bath wipes, sponge bathing long sit position Bathing: Lower Body X Dressing: Upper Body X Doff gown, donned shirt Dressing: Lower Body X Toileting X Toilet Transfers X Anticipate drop arm BSC level Bed Transfer X Slide board transfers from bed <> w/c and bed <> drop arm bedside chair cues for sequencing, maintaining (B) LE NWB status, pace self Pt able to set up board in prep for transfer AL level Bed Mobility X Supine <> sit Endurance for Self Care: Fair Patient/Family Education: Instructed Patient in roles of therapy. Instructed Patient in roles, goals, treatment plan: demonstrated fair verbal understanding, needs reinforcement. Reviewed Weightbearing Non-weight bearing bilateral lower extremity Precautions with Patient Patient instructed in safe and correct use of transfer board reinforced carryover of (B) LE NWB precautions during functional transfers, energy conservation, fall prevention during ADL performance . DME: With Patients permission ordered no equipment via [employer] Order. If any questions contact [facility] DME Provider at [phone]. 02/22/2024 6 Clicks Daily Activity OT Help from another person Eating meals 4 Help from another person taking care of personal grooming 4 Help from another person bathing 3 Help from another person putting on and taking off regular upper body clothing 4 Help from another person putting on and taking off regular lower body clothing 3 Help from another person toileting 3 OT 6 Clicks Score 21 6 Click Score Guidelines: 1 - Unable = Total/Dependent Assist 2 - A lot = Max/Moderate Assist 3 - A little = Minimum/Contact Guard Assist/Supervision 4 - Non = Modified [place]/Independent ASSESSMENT: Patient is functionally appropriate for discharge home once medically cleared. Will continue to follow patient while in hospital as appropriate. Recommend Home Occupational Therapy. Recommend PRN family/caregiver assist for ADLs and IADL's Revised Dessert Cup Machine Feeder Goals: Goals (to be achieved by discharge from acute care): ongoing Patient will dress lower body with Modified Independent Patient will perform bed mobility with Modified Independent Patient will perform bathing with Modified Independent Patient will perform toileting with Modified Independent Patient will perform bed transfers with Modified Independent Patient will perform commode transfers with Modified Independent Patient will demonstrate safety awareness as evidenced by maintaining BLE NWB during transfers and ADLs PLAN: Continue with Plan as per Initial Evaluation. Sarah Cho MOT, OTR/L NA = Not Assessed, I = Independent, AL = Modified Independent, Sup = Supervised, Set up = Physical Assistance for Set-up Only, Min = Minimal Assistance, Mod = Moderate Assistance, Max = Max assistance; Dep = Dependent; AROM = Active Range of Motion;PROM=Passive Range of Motion; MMT = Manual Muscle Test; Shld= Shoulder; Add = Adduction; Abd = Abduction PHYSICAL THERAPY PROGRESS SUMMARY Patient seen from 1326 to 1343 on 6E unit for 17 minute treatment. Patient seen as co-treat with occupational therapy due to skilled need of two therapists for safety and progression of functional mobility. SUBJECTIVE: Patient Subjective/Goals: They can't take care of me at home, I have to go to a correction Pt up to chair upon PT arrival, reports stood and got to chair earlier this AM (did not maintain NWB). OBJECTIVE: Appearance: seated in recliner chair, splint to RLE, ex-fix LLE Behavior: alert, pleasant, cooperative, poor safety awareness, impulsive Pain: Site/Location: L heel; Pain Scale: 3/10 Pain Relief Interventions Implemented: positioning, rest Mobility NA Dep Max Mod Min CG CS DS AL I Comment Supine to sit x Transfers x Slide board transfers from recliner <> EOB and EOB <> w/c, frequent cues for safe slow pacing and maintaining NWB to BLE Sit to Supine x Functional Endurance: improving Sitting Balance: Static:good Dynamic:good Patient/Family Education: Instructed Patient in roles of therapy, activity recommendations, importance of maintaining NWB to BLE. Educated pt not to stand or mobilize without staff assist to reduce risk of falls. Patient up in bed with call light in reach. DME: With Patients permission ordered no equipment via [employer] Order. If any questions contact [facility] DME Provider at [phone]. 02/22/2024 6 Clicks Basic Mobility PT Difficulty turning over in bed 3 Difficulty sitting down and standing up from a chair with arms 1 Difficulty moving from lying on back to sitting on the side of the bed 3 Help from another person moving to and from bed to a chair 3 Help from another person to walk in hospital room 1 Help from another person climbing 3-5 steps with a railing 1 PT 6 Clicks Score 12 6 Click Score Guidelines: 1 - Total = Requires total assistance, or cannot do at all. 2 - A lot = Requires a lot of help (maximun to moderate assistance) Can use assistive devices. 3 - A little = Requires a little help (supervision, minimal assistance) Can use assistive devices. 4 - None = Does not require any help and does the activity independently. Can use assistive devices. ASSESSMENT: Pt continues to demo good overall upper body strength to complete slide board transfers and maintain NWB however requires frequent verbal cueing to do so due to impaired cognition and impulsivity. Patient is functionally appropriate for discharge home once medically cleared. Will continue to follow patient while in hospital as appropriate. Recommend Home Physical Therapy. Goals (to be achieved by discharge from acute care): ONGOING unless noted as MET Patient to achieve appropriate pain control to tolerate physical therapy sessions. Patient to demonstrate bed mobility with independence. Patient to perform slide board transfer bed to chair with independence. Patient to demonstrate independence with HEP with use of handouts. PLAN: Will follow established Plan of Care Amanda Mcfarlane DPT Preferred secure chat Fri/Sat/Sun only NA = Not Assessed, I = Independent, AL = Modified Independent, Sup = Supervised, Set up = Physical Assistance for Set-up Only, Min = Minimal Assistance, Mod = Moderate Assistance, Max = Maximal assistance; Dep = Dependent; AROM = Active Range of Motion; PROM = Passive Range of Motion; MMT = Manual Muscle Test Associated Order(s): IP PHYSICAL THERAPY SERVICE REQUEST PHYSICAL THERAPY ACUTE EVALUATION Referral received, chart reviewed. Patient seen from 09 to 0947 on 6E unit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 ankle talus translation and valgus fracture position. Pt admits to weightbearing on his ankle. He was scheduled for revision surgery today. He denies any numbness or tingling. He smokes, uses methamphetamine and has past of IVDU, and has diabetes. Ambulates independently. Not on any blood thinners. Past Medical History: Diagnosis Date HTN (hypertension) Schizophrenia (HCC) T2DM (type 2 diabetes mellitus) ([facility]) Past Surgical History: Procedure Laterality Date REDUCTION, OPEN, ANKLE Bilateral 01/24/2024 Procedure: REDUCTION, OPEN, ANKLE; Surgeon: John Santana DO; Location: PERIOPERATIVE SERVICES; Service: Orthopaedics Medications Prior to Admission Medication Sig Dispense Refill Last Dose/Taking methocarbamol (ROBAXIN) 750 MG tablet Take 1 Tablet by mouth 4 times daily. 120 Tablet 3 Unknown benztropine (COGENTIN) 1 MG tablet Take 1 Tablet by mouth 2 times daily. 60 Tablet 3 Past Week nicotine (NICODERM CQ) 21 mg/24HR patch Place 1 Patch on the skin daily. (Patient not taking: Reported on 02/12/2024) 30 Patch 0 acetaminophen (TYLENOL) 500 MG tablet Take 2 Tablets by mouth every 8 hours. 30 Tablet 0 02/19/2024 Evening aspirin 81 MG chewable tablet Take 1 Tablet by mouth daily. 36 Tablet 0 02/19/2024 Morning buPROPion ER (WELLBUTRIN XL) 150 MG XL tablet Take 2 Tablets by mouth daily. 30 Tablet 3 Unknown insulin glargine (LANTUS SOLOSTAR/BASAGLAR KWIKPEN) 100 UNIT/ML pen Inject 10 Units under the skin at bedtime. 15 mL 0 insulin lispro (HumaLOG) 100 UNIT/ML injection Inject 3 Units under the skin 3 times daily (before meals). 10 mL 0 insulin lispro (HumaLOG) 100 UNIT/ML injection Inject 1-5 Units under the skin 3 times daily (before meals). 10 mL 0 metformin (GLUCOPHAGE) 500 MG tablet Take 1 Tablet by mouth 2 times daily (with meals). 180 Tablet 3 02/19/2024 Morning haloperidol (HALDOL) 5 MG tablet Take 2 Tablets by mouth at bedtime. 100 Tablet 3 Past Month metoprolol (LOPRESSOR) 25 MG tablet Take 1 Tablet by mouth 2 times daily. 60 Tablet 3 urea (URE-NA) 15 g PACK oral packet Take 30 g by mouth daily. 15 Packet 0 senna (SENOKOT) 8.6 MG tablet Take 1 Tablet by mouth at bedtime. 30 Tablet 0 polyethylene glycol (MIRALAX) packet Dissolve 1 Packet (17 g total) in 8 ounces of liquid and drink daily. 30 Packet 0 haloperidol decanoate (HALDOL DECANOATE) 100 MG/ML extended-release injection 1 mL Intramuscular every 2 weeks for 30 days Past Month Allergies: Penicillins No family history on file. Social History Socioeconomic History Marital status: Single Tobacco Use Smoking status: Former Types: Cigarettes Smokeless tobacco: Never Social Drivers of Health Food Insecurity: Unknown (01/14/2024) Hunger Vital Sign Worried About Running Out of Food in the Last Year: Never true Transportation Needs: Unknown (01/14/2024) PRAPARE - Transportation Lack of Transportation (Medical): No Intimate Partner Violence: Unknown (01/14/2024) Humiliation, Afraid, Rape, and Kick questionnaire Emotionally Abused: No Constitutional: Negative Eyes: Negative Ears/ Nose/ Mouth/ Throat: Negative Respiratory: Negative Cardiovascular: Negative Gastrointestinal: Negative Genitourinary: Negative Musculoskeletal: Negative Neurologic: Negative Psychiatric: Negative Integumentary (skin/breast): Not assessed Endocrine: Negative Rheumatologic: Not assessed Allergic/ Immunologic: Negative Significant positives: None Review of systems as above Pain: 0/10 PHYSICAL EXAMINATION: Temp: 97.8 BP: 147/78 HR: 94 Resp: 18 Pulse Ox: 95 Weight: 0 lbs Height: Data Unavailable Physical Examination Gen: AOx3, NAD HEENT: normocephalic atraumatic Psych: appropriate mood and affect Resp: nonlabored breathing Cardiac: Extremities WWP, RRR to peripheral palpation Skin: intact Right lower extremity: - Skin intact, se[place] splint in place - Tender to palpation over medial and lateral malleolus - Firing EHL/DF/PF. - Sensation intact to light touch in sural, saphenous, superficial/deep peroneal, tibial nerve distributions. - < 2 seconds capillary refill. Left lower extremity: - splint in place, parts of splint are soiled - Firing ehl/fhl - Sensation intact along exposed toes. - < 2 seconds capillary refill. Laboratory Values and Test Results: CBC/PT/INR No lab values to display. WBC/Diff No lab values to display. Basic Metabolic Panel No lab values to display. Hepatic/Biliary/Pancreas None Left ankle imaging from 02/11: Notable for lateral translation of the talus with a medial clear space widening and diastasis of the syndesmosis as well as valgus malposition of the fracture. Assessment/Plan: #Left ankle fracture hardware fixation failure secondary to early weightbearing We discussed with him that he has fixation on the left side has failed due to him being noncompliant with his weight-bearing restrictions. We would recommend revision ORIF to prevent severe DJD of the ankle and chronic deformity. Based off of the soft tissue appearance, we may have to place an external fixator as well for additional fixation. He is at risk for infection or having recurrent failure was fixation particularly given his compliance issues. Risk, benefits, alternatives and expected outcomes of surgery were discussed with Kusum with risks including, but not limited to infection, wound complications, need for further surgery, nonunion, malunion, arthritis, loss of motion, blood loss, blood clot, pain, scarring, damage to nerves/vessels/nearby structures, need for blood product transfusion as well as other complications. Kusum verbalized understanding of this and would like to proceed with surgery. Advance Directive/Code Status: full code Anna Martinez MD Cosigned by John Santana DO at 02/22/2024 9:48 AM EST [facility] 02-20-2024 Progress note Formatting of t his note is different from the original. Blood Attestation: ATTESTATION OF INFORMED CONSENT FOR BLOOD: The transfusion of blood and/or blood components were discussed with the patient and/or legal medical representative. The risks, benefits and alternatives were reviewed. Questions regarding blood transfusions were answered. The patient /or the patient s legal medical representative agree with the plan for transfusion of blood and/or blood components. [employer] Work Phone: 02-19-2024 Evaluation note Called patient multiple times, no answer/no voicemail set up, PAT not completed at this time [facility] 02-19-2024 Miscellaneous Notes Called patient multiple times, no answer/no voicemail set up, PAT not completed at this time documented in this encounter [facility] 02-17-2024 History of Present illness Narrative [facility] NOTE NAME: KUSUM [facility] NO.: [id number] DATE OF SERVICE: 02/17/2024 ATTENDING PHYSICIAN: DAMIAN Esteban [facility] Chart Note REASON FOR VISIT: The patient is a resident of [facility]. This is a skilled visit for fracture of the left lower extremity, subsequent encounter with routine healing and other medical concerns. The patient was seen by Orthopedic services last week after the patient had partially intact right lower extremity casting. Cast was removed per Orthopedics and the patient does have a posterior splint and the left casting continues to be in place. Upon entering the room, found the patient calm, alert, lying in bed. The patient does not appear to be in distress or discomfort. Appears to be in good spirits and is smiling. The patient states has no pain at this time. The patient states no paresthesia. No cough, shortness of breath. No fever, chills, or nausea. States has been eating well and bowels have been moving. Has been drinking fluids. Denies urinary symptoms. MEDICATIONS: Have been reviewed. EXAMINATION: Temperature 97.8, blood pressure 128/68, pulse 65, respirations 16, pulse ox 96% on room air, weight 277 pounds. Respiratory: Respirations are easy and unlabored with patient at rest. Lung sounds are clear. Heart: Rate and rhythm regular. Abdomen: Soft and nontender with palpation. Bowel sounds present x4. Extremities: Nonedematous. Right lower extremity casting is removed. There is no swelling, redness, or bruising identified. The patient moves all digits without difficulty. Left lower extremity, continues casting. The patient moves all toes. Full sensorium is stated distally. Cap refill is brisk. IMPRESSION AND PLAN: 1. Fracture, left lower leg, subsequent encounter with routine healing. The patient will continue with casting. We will continue follow with Orthopedics and follow with Therapy Services. Continue medications for pain as ordered. Robaxin, Tylenol, oxycodone. 2. Schizophrenia. No behavioral issues reported per staff, on Haldol, bupropion, benztropine. 3. Diabetes, the patient has a glycemic reading of 121, on glargine, Humalog routine, metformin, and Humalog per sliding scale. DICTATED BY: DAMIAN Esteban/ALFRED JOB# [id number] [facility] documented in this encounter [facility] 02-12-2024 History of Present illness Narrative Patient was identified by name and date of . Right lower extremity wound care: - Sutures removed without incident - Cleansed suture sites before and after suture removal - Applied steri-strips with mastisol Left lower extremity wound care: ~ Sutures removed without incident ~ Cleansed suture sites before and after suture removal ~ Applied steri-strips with mastisol to the lateral side only ~ The medial side incision site had some drainage, applied a piece of adaptic over it. Covered with a 4x4 sterile gauze and wrapped with extra webril for extra support. Splint applied: Short leg splint Extremity: LLE Patient was dispensed and fitted with a. ~ [place] splint - large for the RLE Patient was instructed on the application, adjustment, removal and care for seattle splint. Norman returns for follow-up ORIF bilateral ankles. He admits to placing weight through bilateral lower extremities. Both of the splints are dirty on the bottom and worn. His incisions are well healed without signs of infection. AP mortise and lateral radiographs of the patient's right ankle display intact implants without evidence of displacement of the fractures. On the left side there was lateral translation of the talus with a medial clear space widening and diastasis of the syndesmosis as well as valgus malposition of the fracture. This is significantly different from his intraoperative films. We did perform a stress evaluation intraoperatively which was stable as well. I discussed with him that he has fixation on the left side has failed due to him being noncompliant with his weight-bearing restrictions. I would recommend revision ORIF to prevent severe DJD of the ankle and chronic deformity. He is at risk for infection or having recurrent failure was fixation particularly given his compliance issues. We will plan for surgery next week. Risks benefits alternatives of the procedure were discussed with him. Orthopaedic Surgery Clinic F/U HPI: 53 year old male here for follow up s/p ORIF right bimalleolar ankle and ORIF left ankle fracture dislocation with syndesmotic disruption with on. Pt is currently NWB BLE. Pain is controlled with pain medication. DVT prophylaxis: taking aspirin daily. Currenlty residing in a facility ROS: Gen: denies fevers/chills Neuro: denies numbness/tingling Physical Exam: Gen: alert, appropriately conversational Chest: symmetric chest rise, non-labored breathing Bilateral Lower Extremity: Inspection: incisions approximated with sutures, medial left ankle with scabbing with fibrinous tissue and sutures present Palpitation: NTTP Vascular: b/L feet well perfused with palpable DP/PT pulses Sensory:SILT superficial peroneal, deep peroneal, sural, saphenous, and tibial distributions Motor: intact DF, PF, EHL Imaging: XR left ankle -re-dislocation of ankle with hardware failure Xr right ankle -reduced right bimalleolar ankle fracture with hardware intact A/P: 53 year old male here for follow up s/p b/L ankle fractures on 01/23. Patient currently resides in a facility. He states he has been placing weight on extremity. Went over imaging and advised that the hardware failure is related to early ambulation. Patient does report no pain. He will need revision ORIF left ankle - Weight Bearing: remain NWB BLE - sutures removed - SLS re-applied to LLE - seattle splint to RLE - continue ASA BID - Continue pain medication as needed - plan for surgery on 02/19 - RTC in post op -XR at next visit: GEORGES Nicolas Patient was identified by name and date of . Bilat short leg splints removed without incident. Both splints were dirty and worn down. The right short leg splint was missing the foot portion. Sent patient to X-rays. documented in this encounter [facility] 02-12-2024 Instructions Myriam Carbajal APRN-CNP - 02/12/2024 1:58 PM EST Please remain non-weight bearing to bilateral lower extremities. Left lower extremity in short leg splint and right lower extremity in seattle splint Ok to remove the seattle splint to work on gentle range of motion. The left lower extremity keep in short leg splint and plan for surgery on 02/19 Continue the pain medication as needed Take aspirin twice a day to prevent blood clots Follow up for surgery for revision left ankle on 02/19 documented in this encounter [facility] 02-12-2024 History of Present illness Narrative [facility] NOTE NAME: [facility]UM [facility] NO.: [id number] DATE OF SERVICE: 02/12/2024 ATTENDING PHYSICIAN: DAMIAN Esteban [facility] Chart Note REASON FOR VISIT: The patient is a resident of [facility]. This is a skilled visit for fracture of bilateral lower extremities, upon encounter with routine healing and other medical concerns. Prior to patient assessment, staff reported did reach out to [facility] in regard to the patient's right cast being partially intact. The patient will be seen by [facility] today. Upon entering the room, found the patient sleeping on right-sided lying position. The patient does not appear to be in distress or discomfort. The patient is easily aroused. The patient states has no pain at this time and pain is being controlled. The patient states no paresthesia to distal bilateral lower extremities. The patient states no cough, shortness of breath, fever, chills, or nausea. Has been eating well and bowels are moving, has been drinking fluids. Denies urinary symptoms. MEDICATIONS: Have been reviewed. EXAMINATION: Temperature 97.8, blood pressure 126/65, pulse 65, respirations 16, pulse ox 96% on room air, weight 277 pounds. Respiratory: Respirations are easy and unlabored with patient at rest. Lung sounds are clear. Heart: Rate and rhythm regular. Abdomen: Soft and nontender with palpation. Bowel sounds present x4. Extremities: Nonedematous. The patient moves all toes. Distal lower extremities full sensorium stated, cap refill is brisk. Left lower extremity cast is intact. Right lower extremity cast is partially intact to the mid foot. IMPRESSION AND PLAN: 1. Fracture of bilateral lower extremities. The patient will continue following with [facility]. The patient does find relief with the current medication regimen and is on Robaxin, Tylenol, oxycodone. 2. Schizophrenia. No behavioral issues reported per staff, on haloperidol, benztropine. Continue to monitor moods and behavior. 3. Diabetes, the patient has good blood pressure control, on glargine, Humalog routine, metformin. DICTATED BY: DAMIAN Esteban/ALFRED JOB# [id number] [facility] documented in this encounter [facility] 02-12-2024 Note HNO ID: [id number] Author: HARI LUND APRN.DAMIAN Service: ? Author Type: Nurse Specialist Type: Progress Notes Filed: 02/17/2024 07:35 Note Text: [facility] NOTE NAME: KUSUM [facility] NO.: [id number] DATE OF SERVICE: 02/12/2024 ATTENDING PHYSICIAN: DAMIAN Esteban [facility] Chart Note REASON FOR VISIT: The patient is a resident of [facility]. This is a skilled visit for fracture of bilateral lower extremities, upon encounter with routine healing and other medical concerns. Prior to patient assessment, staff reported did reach out to [facility] in regard to the patient's right cast being partially intact. The patient will be seen by [facility] today. Upon entering the room, found the patient sleeping on right-sided lying position. The patient does not appear to be in distress or discomfort. The patient is easily aroused. The patient states has no pain at this time and pain is being controlled. The patient states no paresthesia to distal bilateral lower extremities. The patient states no cough, shortness of breath, fever, chills, or nausea. Has been eating well and bowels are moving, has been drinking fluids. Denies urinary symptoms. MEDICATIONS: Have been reviewed. EXAMINATION: Temperature 97.8, blood pressure 126/65, pulse 65, respirations 16, pulse ox 96% on room air, weight 277 pounds. Respiratory: Respirations are easy and unlabored with patient at rest. Lung sounds are clear. Heart: Rate and rhythm regular. Abdomen: Soft and nontender with palpation. Bowel sounds present x4. Extremities: Nonedematous. The patient moves all toes. Distal lower extremities full sensorium stated, cap refill is brisk. Left lower extremity cast is intact. Right lower extremity cast is partially intact to the mid foot. IMPRESSION AND PLAN: 1. Fracture of bilateral lower extremities. The patient will continue following with [facility]. The patient does find relief with the current medication regimen and is on Robaxin, Tylenol, oxycodone. 2. Schizophrenia. No behavioral issues reported per staff, on haloperidol, benztropine. Continue to monitor moods and behavior. 3. Diabetes, the patient has good blood pressure control, on glargine, Humalog routine, metformin. DICTATED BY: DAMIAN Esteban KE/AQT JOB# [id number] [employer] [facility] 02-05-2024 History of Present illness Narrative Pt's risk score is 63%. SW spoke w/ Pt and provided resources for housing in [facility]. SW will mail f/u letter with list of possible resources to assist Pt: Sources of Information: [] First [employer] for Help or [phone] [] [facility] [] [facility] [] [facility] [] [facility] [] [facility] [] [facility] [] [employer] Drop-In Center/Nursing Home [] Center for the Prevention of Domestic Violence [] [facility] [] [facility] [] [facility] [] [facility] [] [facility] [] [facility] [] Transitional Housing [] Women Together [] [facility] [] Low Income Housing www[employer] [] Located within [facility] the [facility] [] [employer] [] Other: [facility] Program through [facility] [x] Other: [facility] [x] Other: [facility] [place], [place] [] Other Pt agrees to f/u to secure services. No other issues addressed. Pt has SW contact information for PRN services. No other SW interventions at present time. SUDHA Stone LSW Outpatient SW [phone] documented in this encounter [facility] 02-05-2024 History of Present illness Narrative [facility] NOTE NAME: KUSUM CAGE [facility] NO.: [id number] DATE OF SERVICE: 02/05/2024 ATTENDING PHYSICIAN: DAMIAN Esteban [facility] Chart Note REASON FOR VISIT: The patient is a resident of [facility]. This is a skilled visit fracture of the left lower extremity, subsequent encounter with routine healing. Upon entering the room, patient is sleeping in bed. The patient does not appear to be in distress or discomfort. The patient is noted to have right casting that is partially intact and appears to be disintegrating. Left casting appears to be intact. Patient is easily aroused. The patient states has not been destroying his cast. Staff does report patient does propel himself with his feet and they have found that the casting has been slowly breaking down. The patient states at this time he has no pain. No cough. No shortness of breath. No fever, chills, or nausea. States no paresthesia distal bilateral lower extremities. Appetite is good and bowels have been moving. Has been drinking fluids. Denies urinary symptoms. MEDICATIONS: Have been reviewed. EXAMINATION: Temp 97.6, blood pressure 120/68, pulse 72, respiratory rate 16, pulse ox 92% on room air, weight 286 pounds. Respirations are easy and unlabored with patient at rest. Lung sounds are clear. Heart rate and rhythm regular. Abdomen is soft, nontender with palpation. Bowel sounds present x4. Extremities: Bilateral lower extremities again casted. Right casting is partially intact to the mid foot. The patient moves all toes. Full sensorium stated distally. Cap refill is brisk bilateral lower extremities. IMPRESSION PLAN: 1. Fracture of the bilateral lower extremity, subsequent encounter with routine healing. Staff is reaching out to orthopedic services for guidance on correcting the partially intact cast to the right lower extremity. Patient has no complaints of pain at this time. Continue cool compress. Tylenol for lesser pain. Oxycodone for more severe pain. The patient also has Robaxin for muscle relaxation. 2. Schizophrenia. No behavioral issues have been reported. Patient is currently on Haldol routinely and as needed, bupropion, benztropine. 3. Diabetes. The patient has good glycemic control, on glargine, Humalog routine, metformin, Humalog per sliding scale. DICTATED BY: DAMIAN Esteban KE/LUISAT JOB# [id number] [facility] documented in this encounter [facility] 02-05-2024 Note HNO ID: [id number] Author: HARI LUND APRN.DAMIAN Service: ? Author Type: Nurse Specialist Type: Progress Notes Filed: 02/10/2024 19:34 Note Text: [facility] NOTE NAME: KUSUM CAGE [facility] NO.: [id number] DATE OF SERVICE: 02/05/2024 ATTENDING PHYSICIAN: DAMIAN Esteban [facility] Chart Note REASON FOR VISIT: The patient is a resident of [facility]. This is a skilled visit fracture of the left lower extremity, subsequent encounter with routine healing. Upon entering the room, patient is sleeping in bed. The patient does not appear to be in distress or discomfort. The patient is noted to have right casting that is partially intact and appears to be disintegrating. Left casting appears to be intact. Patient is easily aroused. The patient states has not been destroying his cast. Staff does report patient does propel himself with his feet and they have found that the casting has been slowly breaking down. The patient states at this time he has no pain. No cough. No shortness of breath. No fever, chills, or nausea. States no paresthesia distal bilateral lower extremities. Appetite is good and bowels have been moving. Has been drinking fluids. Denies urinary symptoms. MEDICATIONS: Have been reviewed. EXAMINATION: Temp 97.6, blood pressure 120/68, pulse 72, respiratory rate 16, pulse ox 92% on room air, weight 286 pounds. Respirations are easy and unlabored with patient at rest. Lung sounds are clear. Heart rate and rhythm regular. Abdomen is soft, nontender with palpation. Bowel sounds present x4. Extremities: Bilateral lower extremities again casted. Right casting is partially intact to the mid foot. The patient moves all toes. Full sensorium stated distally. Cap refill is brisk bilateral lower extremities. IMPRESSION PLAN: 1. Fracture of the bilateral lower extremity, subsequent encounter with routine healing. Staff is reaching out to orthopedic services for guidance on correcting the partially intact cast to the right lower extremity. Patient has no complaints of pain at this time. Continue cool compress. Tylenol for lesser pain. Oxycodone for more severe pain. The patient also has Robaxin for muscle relaxation. 2. Schizophrenia. No behavioral issues have been reported. Patient is currently on Haldol routinely and as needed, bupropion, benztropine. 3. Diabetes. The patient has good glycemic control, on glargine, Humalog routine, metformin, Humalog per sliding scale. DICTATED BY: DAMIAN Esteban/LUISAT JOB# [id number] [facility] 02-03-2024 History of Present illness Narrative [facility] NOTE NAME: [facility] NO.: [id number] DATE OF SERVICE: 02/03/2024 ATTENDING PHYSICIAN: DAMIAN Esteban [facility] Chart Note REASON FOR VISIT: The patient is a resident of [facility]. This is a skilled visit for fracture of the bilateral lower extremity, subsequent encounter with routine healing and other medical concerns. Upon entering the room, found the patient calm, alert, lying in bed. The patient does not appear to be in distress or discomfort. The patient states does have pain to the bilateral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 RN)0420 (Given - Provider: Sherly Baugh RN) oxyCODONE immediate release tablet(Linked Group 2) 2.5 mg, Oral, EVERY 4 HOURS PRN, Starting on Sat01/29/24 at 1543, Until Discontinued, Moderate Pain (pain score 4,5,6) 1817 (See Alternative - Provider: Hali Castillo RN) 0953 (See Alternative - Provider: Hali Castillo RN)1611 (See Alternative - Provider: Hali Castillo RN) oxyCODONE immediate release tablet(Linked Group 2) 5 mg, Oral, EVERY 4 HOURS PRN, Starting on Sat01/29/24 at 1543, Until Discontinued, Severe Pain (pain score 7,8,9,10) 1817 (Given - Provider: Hali Castillo RN) 0953 (Given - Provider: Hali Castillo RN)1611 (Given - Provider: Hali Castillo RN) Linked Groups Order Group 1: dextrose 10 % iv infusionJump to med 125 mL, Intravenous, at 999 mL/hr, PRN, Starting on Sat01/16/24 at 0748, Until Discontinued, For blood glucose less than 70 mg/dL, with IV access and with loss of consciousness or unable to swallow or NPO Or glucagon (GLUCAGEN) 1 MG injectionJump to med 1 mg, Subcutaneous, PRN, Starting on Sat01/16/24 at 0748, Until Discontinued, For blood glucose less than 70 mg/dL and with no IV access with loss of consciousness or alert and unable to swallow. Or dextrose (GLUTOSE) 40 % oral gelJump to med 15 g of glucose, Buccal, PRN, Starting on Sat01/16/24 at 0748, Until Discontinued, blood glucose between 50 - 69 mg/dL, and with no IV access, alert and able to swallow. Or dextrose (GLUTOSE) 40 % oral gelJump to med 30 g of glucose, Buccal, PRN, Starting on Sat01/16/24 at 0748, Until Discontinued, blood glucose of 49mg/dL or less, and with no IV access, alert and able to swallow. Group 2: oxyCODONE immediate release tabletJump to med 2.5 mg, Oral, EVERY 4 HOURS PRN, Starting on Sat01/29/24 at 1543, Until Discontinued, Moderate Pain (pain score 4,5,6) Or oxyCODONE immediate release tabletJump to med 5 mg, Oral, EVERY 4 HOURS PRN, Starting on Sat01/29/24 at 1543, Until Discontinued, Severe Pain (pain score 7,8,9,10) Scheduled Medication Order 02/24/2024 02/25/2024 02/26/2024 acetaminophen (TYLENOL) tablet 1,000 mg, Oral, EVERY 6 HOURS, First dose on Karime 02/20/24 at 1600, Until Discontinued, Post-op 0000 (Hold/Not Given - Provider: Janel Lynch RN - Reason: Patient sleeping)0615 (Given - Provider: Janel Lynch RN)1419 (Hold/Not Given - Provider: Arabella Abad RN - Reason: Patient refused)1800 (Hold/Not Given - Provider: Arabella Abad RN - Reason: Patient refused)2243 (Given - Provider: Ellie Rodriguez RN) 0606 (Given - Provider: Ellie Rodriguez RN)1200 (Hold/Not Given - Provider: Arabella Abad RN - Reason: Patient refused)1609 (Given - Provider: Janet Ayala RN)1800 (Hold/Not Given - Provider: Janet Ayala RN - Reason: Previously Administered) 0000 (Hold/Not Given - Provider: Ellie Rodriguez RN - Reason: Patient sleeping)0600 (Given - Provider: Ellie Rodriguez RN)1200 (Due - Provider: Douglas Bravo, PharmD)1800 (Due - Provider: Douglas Bravo, PharmD) aspirin EC tablet 81 mg, Oral, EVERY 12 HOURS, First dose on Karime 02/20/24 at 1600, Until Discontinued, Post-op 0615 (Given - Provider: Janel Lynch RN)1849 (Given - Provider: Arabella Abad RN) 0606 (Given - Provider: Ellie Rodriguez RN)1723 (Given - Provider: Janet Ayala RN) 0600 (Given - Provider: Ellie Rodriguez RN)1800 (Due - Provider: Marivel Torres [facility]) benztropine (COGENTIN) tablet 1 mg, Oral, 2 TIMES DAILY, First dose on Karime 02/20/24 at 2100, Until Discontinued, Post-op 0836 (Given - Provider: Arabella Abad RN)2243 (Given - Provider: Ellie Rodriguez RN) 0957 (Given - Provider: Arabella Abad RN)2119 (Given - Provider: Ellie Rodriguez RN) 1035 (Given - Provider: Janet Ayala RN)2100 (Due) buPROPion ER (WELLBUTRIN XL) 24 hour tablet 300 mg, Oral, DAILY, First dose on Karime 02/20/24 at 1600, Until Discontinued, Post-op 0836 (Given - Provider: Arabella Abad RN) 0958 (Given - Provider: Arabella Abad RN) 1035 (Given - Provider: Janet Ayala RN) ceFAZolin (ANCEF) 2,000 mg in dextrose 50 mL ivpb 2,000 mg, Intravenous, EVERY 8 HOURS ANTIBIOTIC, First dose on Karime 02/20/24 at 1600, Until Discontinued 0615 (IV New Bag - Provider: Janel Lynch RN)1419 (IV New Bag - Provider: Arabella Abad RN)2243 (IV New Bag - Provider: Ellie Rodriguez RN) 0606 (IV New Bag - Provider: Ellie Rodriguez RN)1409 (IV New Bag - Provider: Arabella Abad RN)211 (IV New Bag - Provider: Ellie Rodriguez RN) 0600 (IV New Bag - Provider: Ellie Rodriguez RN)1400 (Due)220 (Due) docusate sodium (COLACE) capsule 100 mg, Oral, 2 TIMES DAILY, First dose on Karime 02/20/24 at 1600, Until Discontinued, Post-op 0836 (Given - Provider: Arabella Abad RN)2243 (Given - Provider: Ellie Rodriguez RN) 0958 (Given - Provider: Arabella Abad RN)211 (Given - Provider: Ellie Rodriguez RN) 0900 (Hold/Not Given - Provider: Janet Ayala RN - Reason: Clinical contraindications)21 00 (Due) haloperidol (HALDOL) tablet 10 mg, Oral, AT BEDTIME, First dose on Karime 02/20/24 at 2200, Until Discontinued, Post-op 224 (Given - Provider: Ellie Rodriguez RN) 2118 (Given - Provider: Ellie Rodriguez RN) 220 (Due) insulin glargine (LANTUS SOLOSTAR/BASAGLAR KWIKPEN) 100 UNIT/ML PEN injection 10 Units, Subcutaneous, AT BEDTIME, First dose on Karime 02/20/24 at 2200, Until Discontinued 2242 (Given - Provider: Ellie Rodriguez RN) 2118 (Given - Provider: Ellie Rodriguez RN) 2200 (Due) insulin lispro (HumaLOG) 100 UNIT/ML injection 2-9 Units, Subcutaneous, 3 TIMES DAILY BEFORE MEALS, First dose on Sat02/20/24 at 1700, Until Discontinued 0936 (Given - Provider: Arabella Abad RN)1200 (Hold/Not Given - Provider: Arabella Abad RN - Reason: Not indicated)1849 (Given - Provider: Arabella Abad RN - Comment: Dinner at bedside) 0800 (Hold/Not Given - Provider: Arabella Abad RN - Reason: Not indicated)1200 (Hold/Not Given - Provider: Arabella Abad RN - Reason: Not indicated)1723 (Given - Provider: Janet Ayala RN) 0800 (Hold/Not Given - Provider: Janet Ayala RN - Reason: Clinical contraindications)12 00 (Due)1700 (Due) metoprolol (LOPRESSOR) tablet 25 mg, Oral, 2 TIMES DAILY, First dose on Sat02/20/24 at 2100, Until Discontinued, Post-op 0836 (Given - Provider: Arabella Abad RN)2243 (Given - Provider: Ellie Rodriguez RN - Comment: see fjowsheets) 0957 (Hold/Not Given - Provider: Arabella Abad RN - Reason: Not indicated)2118 (Given - Provider: Ellie Rodriguez RN) 1035 (Given - Provider: Janet Ayala RN)2100 (Due) nicotine (NICODERM CQ) 21 mg/24HR patch 21 mg, Transdermal, DAILY, First dose on Sat02/20/24 at 1600, Until Discontinued, Post-op 0835 (Patch Removal - Provider: Arabella Abad RN)0840 (Patch Applied - Provider: Arabella Abad RN) 0958 (Patch Removal - Provider: Arabella Abad RN)1000 (Patch Applied - Provider: Arabella Abad RN) 1034 (Patch Removal - Provider: Janet Ayala RN)1036 (Patch Applied - Provider: Janet Ayala RN) urea (URE-NA) 15 g oral packet 30 g, Oral, DAILY, 10 doses, First dose on Sat02/20/24 at 1600, Last dose on 02/29/24 at 0900, Post-op 0836 (Given - Provider: Arabella Abad, RN) 0958 (Given - Provider: Arabella Abad, RN) 1037 (Given - Provider: Janet Ayala, TANYA) PRN Medication Order 02/24/2024 02/25/2024 02/26/2024 bisacodyl (DULCOLAX) 10 MG suppository 10 mg, Rectal, DAILY PRN, Starting on Karime 02/20/24 at 1526, Until Discontinued, Constipation, if NPO or no BM from Milk of Magnesia within 6 hours, Post-op dextrose (GLUTOSE) 40 % oral gel(Linked Group 1) 15 g of glucose, Buccal, PRN, Starting on Karime 02/20/24 at 1526, Until Discontinued, blood glucose between 50 - 69 mg/dL, and with no IV access, alert and able to swallow., Post-op dextrose (GLUTOSE) 40 % oral gel(Linked Group 1) 30 g of glucose, Buccal, PRN, Starting on Karime 02/20/24 at 1526, Until Discontinued, blood glucose of 49mg/dL or less, and with no IV access, alert and able to swallow., Post-op dextrose 10 % iv infusion(Linked Group 1) 125 mL, Intravenous, at 999 mL/hr, PRN, Starting on Karime 02/20/24 at 1526, Until Discontinued, For blood glucose less than 70 mg/dL, with IV access and with loss of consciousness or unable to swallow or NPO, Post-op diphenhydrAMINE (BENADRYL) capsule 25 mg, Oral, EVERY 8 HOURS PRN, Starting on Karime 02/20/24 at 1526, Until Discontinued, Itching, Sleep, Post-op glucagon (GLUCAGEN) 1 MG injection(Linked Group 1) 1 mg, Subcutaneous, PRN, Starting on Karime 24 at 1526, Until Discontinued, For blood glucose less than 70 mg/dL and with no IV access with loss of consciousness or alert and unable to swallow., Post-op magnesium hydroxide (MILK OF MAGNESIA) 400 MG/5ML oral suspension 30 mL, Oral, EVERY 8 HOURS PRN, Starting on Karime 02/20/24 at 1526, Until Discontinued, Constipation, Post-op naloxone (NARCAN) 0.4 MG/ML injection 0.4 mg, Intravenous Push, PRN, Starting on Karime 24 at 1526, Until Discontinued, Respiratory Rate Less Than 8 for adults and less than 12 for Peds or for suspected overdose, as needed for opiate overdose, Post-op ondansetron (ZOFRAN) 4 MG/2ML injection 4 mg, Intravenous Push, EVERY 6 HOURS PRN, Starting on Karime 24 at 1526, Until Discontinued, Nausea, Vomiting, if nausea/vomiting not controlled by Scopalamine Patch, Post-op oxyCODONE immediate release tablet 5 mg, Oral, EVERY 6 HOURS PRN, Starting on Karime 1224 at 1526, Until Discontinued, Moderate Pain (pain score 4,5,6), Post-op oxyCODONE immediate release tablet 10 mg, Oral, EVERY 4 HOURS PRN, Starting on Karime 1224 at 1526, Until Discontinued, Severe Pain (pain score 7,8,9,10), Post-op 1418 (Given - Provider: Arabella Abad RN) 1930 (Given - Provider: Janet Ayala, TANYA) 0600 (Given - Provider: Ellie Rodriguez RN) scopolamine (TRANSDERM-SCOP) 1 MG/3DAYS patch 1.5 mg, Transdermal, EVERY 72 HOURS PRN, Starting on Karime 24 at 1526, Until Discontinued, nausea/vomiting, Post-op traMADol (ULTRAM) tablet 50 mg, Oral, EVERY 4 HOURS PRN, Starting on Karime 24 at 1526, Until Discontinued, Mild Pain (pain score 1,2,3), Post-op 1609 (Given - Provider: Janet Ayala, TANYA) Linked Groups Order Group 1: dextrose 10 % iv infusionJump to med 125 mL, Intravenous, at 999 mL/hr, PRN, Starting on Karime 24 at 1526, Until Discontinued, For blood glucose less than 70 mg/dL, with IV access and with loss of consciousness or unable to swallow or NPO, Post-op Or glucagon (GLUCAGEN) 1 MG injectionJump to med 1 mg, Subcutaneous, PRN, Starting on Karime 24 at 1526, Until Discontinued, For blood glucose less than 70 mg/dL and with no IV access with loss of consciousness or alert and unable to swallow., Post-op Or dextrose (GLUTOSE) 40 % oral gelJump to med 15 g of glucose, Buccal, PRN, Starting on Karime 02/20/24 at 1526, Until Discontinued, blood glucose between 50 - 69 mg/dL, and with no IV access, alert and able to swallow., Post-op Or dextrose (GLUTOSE) 40 % oral gelJump to med 30 g of glucose, Buccal, PRN, Starting on Karime 02/20/24 at 1526, Until Discontinued, blood glucose of 49mg/dL or less, and with no IV access, alert and able to swallow., Post-op PRN Medication Order 2024 05/04/2024 05/05/2024 albuterol (PROVENTIL) (2.5 MG/3ML) 0.083% nebulizer solution 2.5 mg, Nebulization, PACU ONCE PRN, Starting on Sat05/05/24 at 1109, Until Sat05/05/24 at 1404, Wheezing, PACU Now amisulpride (BARHEMSYS) injection 10 mg 10 mg, Intravenous Push, PACU ONCE PRN, Starting on Sat05/05/24 at 1109, Until Sat05/05/24 at 1404, post operative nausea or vomiting, PACU Now HYDROmorphone (DILAUDID) 0.2 MG/ML injection 0.2 mg 0.2 mg, Intravenous Push, PACU EVERY 15 MIN PRN X 4 DOSES, 4 doses, Starting on Sat05/05/24 at 1109, Until Sat05/05/24 at 1404, Moderate Pain (pain score 4,5,6), PACU Now HYDROmorphone (DILAUDID) 1 mg/mL injection 0.5 mg, Intravenous Push, PACU EVERY 15 MIN PRN X 4 DOSES, 4 doses, Starting on Sat05/05/24 at 1109, Until Sat05/05/24 at 1404, Severe Pain (pain score 7,8,9,10), PACU Now naloxone (NARCAN) 0.4 MG/ML injection 0.4 mg, Intravenous Push, PRN, Starting on Sat05/05/24 at 1109, Until Sat05/05/24 at 1404, Respiratory Rate Less Than 8 for adults and less than 12 for Peds or for suspected overdose, PACU Now oxyCODONE-acetaminophen (PERCOCET) 5-325 mg per tablet 2 Tablet, Oral, PRN, 1 dose, Starting on Sat05/05/24 at 1109, Until Sat05/05/24 at 1404, Moderate Pain (pain score 4,5,6), PACU Now oxyCODONE-acetaminophen (PERCOCET) 5-325 mg per tablet 1 Tablet, Oral, PACU ONCE PRN, Starting on Sat05/05/24 at 1109, Until Sat05/05/24 at 1404, Mild Pain (pain score 1,2,3), PACU Now sodium chloride 0.9 % injection 3 mL, Intravenous Push, PRN, Starting on Sat05/05/24 at 1109, Until Sat05/05/24 at 1404, For medication administration and blood draw, PACU Now Source Comments (unrecognize d section and content) In the event this informatio n is protected by the Federal Confidentiality of Alcohol and Drug Abuse Patient Records regulations: The Federal rules restrict any use of the information to criminally investigate or prosecute any alcohol or drug abuse patient.[facility] CampusIn the event this information is protected by the Federal Confidentiality of Alcohol and Drug Abuse Patient Records regulations: The Federal rules restrict any use of the information to criminally investigate or prosecute any alcohol or drug abuse patient.[facility]In the event this information is protected by the Federal Confidentiality of Alcohol and Drug Abuse Patient Records regulations: The Federal rules restrict any use of the information to criminally investigate or prosecute any alcohol or drug abuse patient.[facility]In the event this information is protected by the Federal Confidentiality of Alcohol and Drug Abuse Patient Records regulations: The Federal rules restrict any use of the information to criminally investigate or prosecute any alcohol or drug abuse patient.[facility] CampusIn the event this information is protected by the Federal Confidentiality of Alcohol and Drug Abuse Patient Records regulations: The Federal rules restrict any use of the information to criminally investigate or prosecute any alcohol or drug abuse patient.[facility] FOR RECORDS PERTAINING TO PATIENTS WHO ARE OR HAVE BEEN ENROLLED IN A CHEMICAL DEPENDENCY/SUBSTANCEABUSE PROGRAM, SOME INFORMATION MAY BE OMITTED. This clinical summary was aggregated from multiple sources. Caution should be exercised in using it in the provision of clinical care. This summary normalizes information from multiple sources, and as a consequence, information in this document may materially change the coding, format and clinical context of patient data. In addition, data may be omitted in some cases. CLINICAL DECISIONS SHOULD BE BASED ON THE PRIMARY CLINICAL RECORDS. [facility]. provides no warranty or guarantee of the accuracy or completeness of information in this document.
== END 2024-12-01 11:23 | disposition home or self-care (01) ==
PROVIDERS: PCP Family Medicine; Visit Provider Family Medicine
DX: M54.12 Radiculopathy, cervical region (principal)
CPT/HCPCS: 72040